=== PATIENT | male | born 1945 | race Caucasian/White ===

== ENCOUNTER 2021-01-29 00:10 | Emergency (ER) | payer OTHER, SELFPAY ==
--- NOTE | ~2021-01-29 | CT_ITS ---
EXAMINATION: CT brain wo con DATE: 01/29/2021 01:07 INDICATION: Headache. TECHNIQUE: Computed tomography (CT) of the head was performed without intravenous contrast. The mA wa s adjusted according to patient size. Iterative reconstruction technique was employed. The dose-lengt h product was 315.48 mGy-cm. COMPARISON: Head CT 11/19/2017 FINDINGS: There is a large area of chronic encephalomalacia involving the left temporal, frontal, and parietal lobes. There is no intracranial hemorrhage, acute infarction, or abnormal intracranial mass lesion. There is ex vacuo dilatation of temporal horn of left lateral ventricle. The paranasal sinus es are clear. The orbits are normal. The mastoid air cells are normal. There are changes of left-side d craniotomy. IMPRESSION: 1. Chronic encephalomalacia involving the left temporal, frontal, and parietal lobes. Reviewed, dictated and finalized at location A. 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
[2021-01-29 00:13] VITALS: BP 158/104; PULSE 87; RESP 18; TEMP 36.3; O2SAT 100
--- NOTE | 2021-01-29 00:39 | ED.HA ---
HPI - Headache General Chief Complaint: Headache Stated Complaint: Headache Time Seen by Provider: 01/29/21 00:20 Source: RN notes reviewed History of Present Illness HPI Narrative: Patient presents to emergency department from home for headache. Patient states headache is been going off and on for the past 10 days. The pain is located over the left frontal scalp and is in the region where the patient had 2 previous brain tumors removed back in the early 90s.. Patient's states she did give him 1 Aleve this evening. Patient has any fevers or chills vision changes numbness or tingling in extremities nausea vomiting or any other symptoms Related Data Home Medications Medication Instructions Recorded Confirmed alendronate 70 mg tablet 70 mg PO WEEKLY 11/03/19 12/29/20 alprazolam 0.25 mg tablet 0.25 mg PO TID PRN 11/03/19 12/29/20 escitalopram oxalate 5 mg tablet 5 mg PO DAILY 11/03/19 12/29/20 Allergies Allergy/AdvReac Type Severity Reaction Status Date / Time No Known Drug Allergies Allergy Unknown Unknown Verified 06/29/20 12:38 Review of Systems Review of Systems: Narrative: Gen.: Denies fevers or chills Eyes: Denies eye pain or visual change ENT: Denies congestion Respiratory: Denies shortness of breath or cough CV: Denies chest pain GI: Denies abdominal pain nausea, emesis or diarrhea Musculoskeletal: Denies back pain or muscle pain Neuro: See HPI Skin: Denies rash Except as documented, all other systems reviewed and negative PMFSH Past Medical History Medical History Controlled diabetes mellitus type II without complication Surgical History Surgical History (Updated 12/29/20 @ 13:29 by Kelly Hamilton CMA) H/O heart artery stent Family History Family History Mother Patient's mother is in good health Sibling Patient's sister is in good health Patient's brother is in good health Other Family history of arthritis Family history of malignant neoplasm of brain Family history of pancreatic cancer Malignant neoplasm of prostate Social History Social History Smoking status: Never smoker Alcohol intake: never Exam Narrative: Exam Narrative: APPEARANCE: No acute distress, nontoxic, resting in bed EYES: EOMI, PERRL HEENT: Normocephalic, atraumatic, OMM Neck: Supple, with range of motion no pain, no managements RESPIRATORY: No respiratory distress Clear to auscultation bilaterally with no rhonchi wheezing or rales. CARDIOVASCULAR: Regular rate and rhythm without murmurs rubs or gallops. ABDOMINAL: Soft, nontender, nondistended, no rebound or guarding MUSCULOSKELETAl: Moves all extremities. No clubbing, cyanosis or edema. NEURO: Awake and alertx 3. Following commands, speech normal, no focal deficits SKIN:: Warm, dry. No rashes lesions or abrasions PSYCHIATRIC: Normal affect/mood, Course Course Emergency Course: Otherwise the patient's been at his baseline mentally Patient's states headache is resolved at this time Discussed with patient results of workup and diagnosis. Discussed need for follow-up with primary care, proper use of medication, and reasons to return to the emergency department. Patient understands and agrees to current treatment plan Vital Signs Vital signs: Vital Signs Temperature 97.3 F L 01/29/21 00:13 Pulse Rate 87 01/29/21 00:13 Respiratory Rate 18 01/29/21 00:13 Blood Pressure 158/104 H 01/29/21 00:13 Pulse Oximetry 100 01/29/21 00:13 Temperature 97.3 F L 01/29/21 00:13 Pulse Rate 87 01/29/21 00:13 Respiratory Rate 18 01/29/21 00:13 Blood Pressure 158/104 H 01/29/21 00:13 Pulse Oximetry 100 01/29/21 00:13 MDM - Headache MDM Narrative Medical decision making narrative: Patient's headache was not sudden or maximal in onset. There are no focal deficits on exam
[2021-01-29] MEDS: SODIUM CHLORIDE 0.9% IV 1,000 ML 999 ML IV CONT (01:17)
[2021-01-29 03:57] VITALS: BP 198/75; PULSE 79; RESP 16; O2SAT 100
== END 2021-01-29 03:59 | disposition home or self-care (01) ==
PROVIDERS: Emergency Provider Emergency Medicine; PCP Internal Medicine
DX: R51.9 Headache, unspecified (principal); E11.9 Type 2 diabetes mellitus without complications; Z95.5 Presence of coronary angioplasty implant and graft
CPT/HCPCS: 70450; 96365; 96366; 99284; J0131; J7030

== ENCOUNTER 2021-02-12 15:18 | Outpatient (CLI) | payer OTHER, MEDICARE, SELFPAY | END 2021-02-12 15:19 | disposition home or self-care (01) | LOC: ANHCOVIDVC 15:18 | PROVIDERS: PCP Internal Medicine | DX: Z23 Encounter for immunization (principal) | CPT/HCPCS: 0001A; 91300 ==

== ENCOUNTER 2021-02-23 00:26 | Emergency (ER) | payer OTHER, SELFPAY ==
--- NOTE | ~2021-02-23 | XR_ITS ---
XR chest 2V DATE: 02/23/2021 01:38 INDICATION: Fall. TECHNIQUE: AP and lateral views COMPARISON: 11/27/2017 portable AP chest FINDINGS: Cardiomegaly. No hilar or mediastinal enlargement. No pulmonary infiltrate or consolidation, pleural effusion, pulmonary vascular congestion or pneumoth orax is evident. Diffuse osteopenia. IMPRESSION: Cardiomegaly No active pulmonary disease Reviewed, dictated and finalized at location A.
--- NOTE | ~2021-02-23 | CT_ITS ---
EXAMINATION: CT brain wo con DATE: 02/23/2021 01:22 INDICATION: Fall. TECHNIQUE: Computed tomography (CT) of the head was performed without intravenous contrast. The mA wa s adjusted according to patient size. Iterative reconstruction technique was employed. Exam dose: 68 1.00 mGy-cm total exam DLP. COMPARISON: 01/29/2021 CT brain FINDINGS: Chronic encephalomalacia of the left temporal, frontal and parietal lobes in the left middl e cerebral artery territory consistent with old infarct. There is central and cortical cerebral and cerebellar atrophy. No intracranial mass lesion or hemorrhage or recent cerebrovascular accident. No midline shift or mas s effect effect. No subdural or epidural hematoma. Status post left craniotomy with bone flap secured by plates and screws . No skull fracture is evident. The mastoid air cells and included paranasal sinuses are normally dev eloped and aerated. IMPRESSION: No acute intracranial finding, skull fracture or other significant change since 01/29/2021 Reviewed, dictated and finalized at Location A. Reviewed, dictated and finalized at location A.
--- NOTE | ~2021-02-23 | XR_ITS ---
XR foot RT min 3V DATE: 02/23/2021 01:38 INDICATION: Fall. Medial and heel pain. TECHNIQUE: 4 views COMPARISON: 04/24/2018 right foot FINDINGS: There is very prominent diffuse osteopenia. There is evidence of a fracture at the neck of the fifth metatarsal bone since 04/24/2018, apparently acute. No other recent fracture or any dislocation is evident. Probable old cortical avulsion fracture of th e anterior process of the talus. Minimal plantar calcaneal enthesopathy. IMPRESSION: Fifth metatarsal neck fracture Very prominent diffuse osteopenia Reviewed, dictated and finalized at location A.
[2021-02-23 00:27] VITALS: BP 150/59; PULSE 88; RESP 18; TEMP 36.5; O2SAT 98
--- NOTE | 2021-02-23 00:51 | ECG_ITS ---
Measurements Intervals [place] Rate: 83 P: 58 ID: [id number] QRS: -14 QRSD: 145 T: 102 QT: 379 QTc: 446 Interpretive Statements SINUS RHYTHM LEFT BUNDLE BRANCH BLOCK BASELINE ARTIFACT- I, II, AVR, AVL, AVF, V1 ABNORMAL ECG Electronically Signed On 02-23-2021 6:40:31 CDT by Jl Dillon D.O.
--- NOTE | 2021-02-23 00:53 | ED.GENADULT ---
HPI - General Adult General Chief complaint: Extremity Injury, Lower <Castro Rangel DO - Last Filed: 02/23/21 01:18> Stated complaint: r foot pain <Castro Rangel DO - Last Filed: 02/23/21 01:18> Time Seen by Provider: 02/23/21 00:38 <Castro Rangel DO - Last Filed: 02/23/21 01:18> Source: patient, RN notes reviewed and old records reviewed <Castro Rangel DO - Last Filed: 02/23/21 01:18> History of Present Illness HPI narrative: 75-year-old male presents to emergency department via EMS for a fall and right foot pain. Patient is a poor historian, A+O x2. Patient reports right foot pain after a fall he had at home in the bathroom this morning. Patient states he had no symptoms prior to falling. Patient states he uses a walker at home. No chest pain or shortness of breath at this time. No abdominal pain. No nausea or vomiting. <Castro Rangel DO - Last Filed: 02/23/21 01:18> Related Data Home medications: Home Medications Medication Instructions Recorded Confirmed aspirin 81 mg tablet,delayed 81 mg PO DAILY 02/07/21 release cholecalciferol (vitamin D3) 50 50 mcg PO DAILY 02/07/21 mcg (2,000 unit) capsule wheat dextrin 5 gram/7.4 gram oral See Rx Instructions PO DAILY g 02/07/21 powder <Castro Rangel DO - Last Filed: 02/23/21 01:18> Allergies/adverse reactions: Allergies Allergy/AdvReac Type Severity Reaction Status Date / Time No Known Drug Allergies Allergy Unknown Unknown Verified 02/23/21 00:34 <Castro Rangel DO - Last Filed: 02/23/21 01:18> Review of Systems Review of Systems: Narrative: CONSTITUTIONAL: Denies fever, chills, or sweats. Fall EYES: Denies visual changes, redness, or discharge. ENT: Denies rhinorrhea, congestion, sore throat, or otalgia. CARDIOVASCULAR: Denies chest pain, palpitations, or edema. RESPIRATORY: Denies cough or dyspnea. GASTROINTESTINAL: Denies abdominal pain, nausea, vomiting, or diarrhea. GENITOURINARY: Denies dysuria or hematuria. SKIN: Denies rash or itching. MUSCULOSKELETAL: Right foot pain NEUROLOGIC: Denies headache, numbness, dizziness, or weakness. PSYCHIATRIC: Denies anxiety or depression. <Castro Rangel DO - Last Filed: 02/23/21 01:18> All systems reviewed & are unremarkable except as noted in HPI and below (ROS) <Castro Rangel DO - Last Filed: 02/23/21 01:18> PMFSH Past Medical History Medical History: Medical History Anemia of chronic disease Anxiety Ataxia, post-stroke Controlled diabetes mellitus type II without complication Coronary artery disease involving [place] coronary artery of [place] heart Diabetic polyneuropathy associated with type 2 diabetes mellitus History of prostate cancer History of stroke Hx of brain cancer Mixed hyperlipidemia Oropharyngeal dysphagia PAD (peripheral artery disease) Right hemiparesis Seizure disorder Vitamin D deficiency <Castro Rangel DO - Last Filed: 02/23/21 01:18> Surgical History Surgical History: Surgical History H/O heart artery stent <Castro Rangel DO - Last Filed: 02/23/21 01:18> Family History Family History: Family History Mother Patient's mother is in good health Sibling Patient's sister is in good health Patient's brother is in good health Other Family history of arthritis Family history of malignant neoplasm of brain Family history of pancreatic cancer Malignant neoplasm of prostate <Castro Rangel DO - Last Filed: 02/23/21 01:18> Social History Social History: Social History Smoking status: Never smoker Alcohol intake: never <Castro Rangel DO - Last Filed: 02/23/21 01:18> Exam Narrative: Exam Narrative: GENERAL: Well-appearing, well-nourishe
[2021-02-23 01:22] LABS: Basophils Percent Auto 0.2 % (0.2-1.2); Eosinophils Percent Auto 0.1 % (0-4.4); Hematocrit 41.2 % (42.0-52.0); Immature Granulocyte Absolute 0.04 K/mm3 (0.00-0.031); Immature Granulocyte Percent A 0.3 % (0-0.5); Lymphocytes Absolute Auto 1.64 K/mm3 (0.9-3.2); Lymphocytes Percent Auto 14.1 % (18.3-44.2); Mean Corpuscular HGB Conc 31.6 g/dl (32-36); Mean Corpuscular Hemoglobin 31.3 pg (26-34); Mean Corpuscular Volume 99.3 fl (80-100); Mean Platelet Volume 9.6 fl (7.4-10.4); Monocytes Absolute Auto 0.8 K/mm3 (0.1-0.6); Monocytes Percent Auto 6.7 % (2.6-8.5); Neutrophils Absolute Auto 9.1 K/mm3 (1.3-6.7); Neutrophils Percent Auto 78.6 % (45.5-73.1); Platelet Count Result 319 k/mm3 (150-375); Red Blood Count 4.15 M/mm3 (4.6-6.20); Red Cell Distribution Width 13.3 % (11.5-14.5); White Blood Count 11.6 K/mm3 (4.5-10.0)
[2021-02-23 01:34] LABS: Acetaminophen < 10 ug/mL (10-30); Alanine Aminotransferase 27 U/L (4-50); Alkaline Phosphatase 162 U/L (38-126); Anion Gap 4 mmol/L (8-16); Aspartate Amino Transferase 32 U/L (17-59); Bilirubin,Total 0.4 mg/dL (0.2-1.3); Blood Urea Nitrogen 27 mg/dL (9-20); Calcium 8.8 mg/dL (8.4-10.2); Carbon Dioxide 37 mmol/L (22-30); Chloride 97 mmol/L (98-107); Estimated CRCL calculation 39 ml/min; Estimated Glomerular Filt Rate 45; Glucose 140 mg/dL (75-110); Magnesium 1.8 mg/dL (1.6-2.3); Potassium 4.4 mmol/L (3.4-5.0); Salicylate < 1.0 mg/dL (2-20); Sodium 138 mmol/L (137-145)
[2021-02-23 01:45] LABS: NT Pro B Type Natriuretic Pept 143 PG/ML (5-100); Troponin I < 0.012 ng/mL (0.000-0.034)
[2021-02-23 01:56] LABS: Add Urine Microscopic? YES; Appearance Urine Cloudy (Clear); Bacteria Urine Trace /hpf; Bilirubin Urine Negative (Negative); Blood Urine Negative (Negative); Color Urine Yellow (Yellow); Glucose Urine UA Negative (Negative); Ketones Urine Negative (Negative); Leukocyte Esterase Ur 2+ LEU/UL (Negative); Mucus Urine Rare /lpf; Nitrate Urine Negative (Negative); Protein Urine Negative (Negative); RBC Urine 0-2 /hpf (0-2); Specific Grav Ur 1.012 (1.001-1.035); Urobilinogen Urine Negative mg/dL (<2.0); WBC Urine 31-50 /hpf
[2021-02-23 02:25] VITALS: BP 158/61; PULSE 82; RESP 18; O2SAT 96
== END 2021-02-23 02:25 | disposition home or self-care (01) ==
PROVIDERS: Emergency Provider Emergency Medicine; PCP Internal Medicine
DX: S93.601A Unspecified sprain of right foot, initial encounter (principal); D63.8 Anemia in other chronic diseases classified elsewhere; I25.10 Atherosclerotic heart disease of native coronary artery without angina pectoris; E11.42 Type 2 diabetes mellitus with diabetic polyneuropathy; E78.2 Mixed hyperlipidemia; E11.51 Type 2 diabetes mellitus with diabetic peripheral angiopathy without gangrene; G40.909 Epilepsy, unspecified, not intractable, without status epilepticus; Z85.841 Personal history of malignant neoplasm of brain; Z86.73 Personal history of transient ischemic attack (TIA), and cerebral infarction without residual deficits; Z85.46 Personal history of malignant neoplasm of prostate; E55.9 Vitamin D deficiency, unspecified; Z95.5 Presence of coronary angioplasty implant and graft; R82.90 Unspecified abnormal findings in urine; Z79.82 Long term (current) use of aspirin; Z79.84 Long term (current) use of oral hypoglycemic drugs; W19.XXXA Unspecified fall, initial encounter
CPT/HCPCS: 36415; 70450; 71046; 73630; 80053; 80307; 81001; 83735; 83880; 84443; 84484; 85025; 87077; 87086; 87088; 87186; 93005; 99284

== ENCOUNTER 2021-03-02 04:20 | Emergency (ER) | payer OTHER, SELFPAY ==
--- NOTE | ~2021-03-02 | CT_ITS ---
EXAMINATION: CT brain wo con DATE: 03/02/2021 04:47 INDICATION: Syncope TECHNIQUE: Computed tomography (CT) of the head was performed without intravenous contrast. The dose- length product was 756.67 mGy-cm. Automated exposure control and iterative reconstruction technique w ere employed. COMPARISON: CT dated 03/02/2021 FINDINGS: No acute intracranial hemorrhage, infarction, mass or mass effect. Large chronic left MCA d istribution infarction with encephalomalacia. There is intracranial atherosclerosis. There is a left parietal craniotomy defect. No ventriculomegaly or midline shift. Paranasal sinuses and mastoids are unremarkable. IMPRESSION: 1. No acute intracranial abnormality. 2: Chronic left MCA distribution infarction with encephalomalacia. Reviewed, dictated and finalized at location B.
--- NOTE | 2021-03-02 04:23 | PC.NURSE ---
EDMD present at bedside. Pt presents to ED with syncopal episode that onset at approx 0400 while using restroom. Pt states he is unsure if he was straining at at time of onset. Pt denies hitting head, falling, all pain and discomfort, nvd, fever and chills. Vitals are stable and pt denies use of home O2. O2 100% on room air. Pt alert and oriented x3.
[2021-03-02 04:26] VITALS: BP 137/61; PULSE 71; RESP 20; TEMP 36.6; O2SAT 98
--- NOTE | 2021-03-02 04:27 | ECG_ITS ---
Measurements Intervals [place] Rate: 75 P: 65 [place]: 175 QRS: 72 QRSD: 106 T: 32 QT: 365 QTc: 408 Interpretive Statements SINUS RHYTHM INCOMPLETE LEFT BUNDLE BRANCH BLOCK BORDERLINE ST-T WAVE ABNORMALITY- INF/LAT LEADS BASELINE ARTIFACT- I, II, III, AVR, AVL, AVF, V5-V6 ABNORMAL ECG Electronically Signed On 03-02-2021 7:12:19 CDT by Jl Dillon D.O.
--- NOTE | 2021-03-02 04:27 | ED.SYNCOPE ---
HPI - Syncope General Chief Complaint: Syncope <Leroy Wynne MD - Last Filed: 03/08/21 13:20> Stated Complaint: syncopal with bm <Leroy Wynne MD - Last Filed: 03/08/21 13:20> History of Present Illness HPI narrative: Syncopal episode while on the toilet tonight. He denies any prodrome. He was still on the toilet semi-conscious when EMS arrived. He quickly became lucid once they moved him. On chart review it appears that he had a UTI when he was seen here 6 days ago that has been confirmed by culture and does not seem to have been treated. <Leroy Wynne MD - Last Filed: 03/08/21 13:20> Related Data Home Medications: Home Medications Medication Instructions Recorded Confirmed aspirin 81 mg tablet,delayed 81 mg PO DAILY 02/07/21 release cholecalciferol (vitamin D3) 50 50 mcg PO DAILY 02/07/21 mcg (2,000 unit) capsule wheat dextrin 5 gram/7.4 gram oral See Rx Instructions PO DAILY g 02/07/21 powder <Leroy Wynne MD - Last Filed: 03/08/21 13:20> Allergies/Adverse Reactions: Allergies Allergy/AdvReac Type Severity Reaction Status Date / Time No Known Drug Allergies Allergy Unknown Unknown Verified 02/23/21 00:34 <Leroy Wynne MD - Last Filed: 03/08/21 13:20> Review of Systems Review of Systems: All systems reviewed & are unremarkable except as noted in HPI and below <Leroy Wynne MD - Last Filed: 03/08/21 13:20> Constitutional: Constitutional: Denies chills and Denies fever(s) <Leroy Wynne MD - Last Filed: 03/08/21 13:20> ENT: Reports system reviewed and no additional complaints, except as documented <Leroy Wynne MD - Last Filed: 03/08/21 13:20> Cardiovascular: Cardiovascular: Denies chest pain <Leroy Wynne MD - Last Filed: 03/08/21 13:20> Respiratory: Respiratory: Denies dyspnea <Leroy Wynne MD - Last Filed: 03/08/21 13:20> Gastrointestinal: Gastrointestinal: Denies diarrhea, Denies nausea and Denies vomiting <Leroy Wynne MD - Last Filed: 03/08/21 13:20> Genitourinary: Genitourinary: Reports urinary frequency <Leroy Wynne MD - Last Filed: 03/08/21 13:20> Neurologic: Denies confusion and Reports syncope <Leroy Wynne MD - Last Filed: 03/08/21 13:20> [facility] Past Medical History Medical History: Medical History Anemia of chronic disease Anxiety Ataxia, post-stroke Controlled diabetes mellitus type II without complication Coronary artery disease involving [place] coronary artery of [place] heart Diabetic polyneuropathy associated with type 2 diabetes mellitus History of prostate cancer History of stroke Hx of brain cancer Mixed hyperlipidemia Oropharyngeal dysphagia PAD (peripheral artery disease) Right hemiparesis Seizure disorder Vitamin D deficiency <eLroy Wynne MD - Last Filed: 03/08/21 13:20> Surgical History Surgical History: Surgical History H/O heart artery stent <Leroy Wynne MD - Last Filed: 03/08/21 13:20> Family History Family History: Family History Mother Patient's mother is in good health Sibling Patient's sister is in good health Patient's brother is in good health Other Family history of arthritis Family history of malignant neoplasm of brain Family history of pancreatic cancer Malignant neoplasm of prostate <Leroy Wynne MD - Last Filed: 03/08/21 13:20> Social History Social History: Social History Smoking status: Never smoker Alcohol intake: never <Leroy Wynne MD - Last Filed: 03/08/21 13:20> Exam Const: General: no acute distress, alert and ill appearing chronically <Leroy Wynne MD - Last Filed: 03/08/21 13:20> Orientation/con
--- NOTE | 2021-03-02 04:29 | PC.NURSE ---
Pt denies lightheadedness and dizziness but complains of a headache. Headache pain rated 6/10 at this time.
[2021-03-02] MEDS: SODIUM CHLORIDE 0.9% IV 1,000 ML 999 ML IV CONT (04:35)
--- NOTE | 2021-03-02 04:37 | PC.NURSE ---
Pt to CT via cart.
--- NOTE | 2021-03-02 04:47 | PC.NURSE ---
Pt returned from CT. Now back in room resting on cart in its lowest position with call button and personal items within reach. Advised to press call button for assistance.
[2021-03-02 05:29] LABS: Basophils Percent Auto 0.3 % (0.2-1.2); Eosinophils Absolute Auto 0.1 K/mm3 (0-0.3); Eosinophils Percent Auto 0.5 % (0-4.4); Hemoglobin 12.6 g/dL (14.0-18.0); Immature Granulocyte Absolute 0.02 K/mm3 (0.00-0.031); Immature Granulocyte Percent A 0.2 % (0-0.5); Lymphocytes Absolute Auto 2.18 K/mm3 (0.9-3.2); Lymphocytes Percent Auto 22.9 % (18.3-44.2); Mean Corpuscular HGB Conc 31.5 g/dl (32-36); Mean Corpuscular Hemoglobin 31.4 pg (26-34); Mean Corpuscular Volume 99.8 fl (80-100); Mean Platelet Volume 9.8 fl (7.4-10.4); Monocytes Absolute Auto 0.9 K/mm3 (0.1-0.6); Monocytes Percent Auto 9.2 % (2.6-8.5); Neutrophils Absolute Auto 6.4 K/mm3 (1.3-6.7); Neutrophils Percent Auto 66.9 % (45.5-73.1); Platelet Count Result 335 k/mm3 (150-375); Red Blood Count 4.01 M/mm3 (4.6-6.20); Red Cell Distribution Width 13.1 % (11.5-14.5); White Blood Count 9.5 K/mm3 (4.5-10.0)
[2021-03-02 05:40] LABS: Prothrombin Time 13.9 Seconds (11.1-14.7)
[2021-03-02 05:41] LABS: Partial Thromboplastin Time 25.3 SECONDS (22.3-36.8)
[2021-03-02 05:43] LABS: Add Urine Microscopic? YES; Appearance Urine Cloudy (Clear); Bacteria Urine 1+ /hpf; Bilirubin Urine Negative (Negative); Blood Urine Negative (Negative); Color Urine Yellow (Yellow); Glucose Urine UA 1+ mg/dL (Negative); Ketones Urine Negative (Negative); Leukocyte Esterase Ur 2+ LEU/UL (Negative); Mucus Urine Rare /lpf; Nitrate Urine Negative (Negative); Protein Urine 1+ mg/dL (Negative); Specific Grav Ur 1.016 (1.001-1.035); Squamous Epithelial Cell Urine Rare /hpf (Few); Urobilinogen Urine Negative mg/dL (<2.0); WBC Clumps Urine Present /HPF; WBC Urine 31-50 /hpf
[2021-03-02 05:49] LABS: Alanine Aminotransferase 27 U/L (4-50); Albumin Level 4.3 g/dL (3.5-5.1); Alkaline Phosphatase 137 U/L (38-126); Anion Gap 6 mmol/L (8-16); Aspartate Amino Transferase 29 U/L (17-59); Bilirubin,Total 0.2 mg/dL (0.2-1.3); Blood Urea Nitrogen 26 mg/dL (9-20); Carbon Dioxide 36 mmol/L (22-30); Chloride 98 mmol/L (98-107); Estimated Glomerular Filt Rate 54; Glucose 207 mg/dL (75-110); Potassium 4.2 mmol/L (3.4-5.0); Sodium 140 mmol/L (137-145)
[2021-03-02 05:56] VITALS: BP 166/54; PULSE 83; RESP 18; O2SAT 100
--- NOTE | 2021-03-02 05:56 | PC.NURSE ---
presented to ED and confirms narrative provided by EMS. Pt remains alert and oriented to baseline. Vitals are stable and pt in no obvious distress.
--- NOTE | 2021-03-02 05:58 | PC.NURSE ---
adds that pt has been complaining of lower abdominal pain for the past couple of weeks . States pt is normally able to urinate on his own. Also confirms that pt does not use home O2.
--- NOTE | 2021-03-02 06:15 | PC.NURSE ---
Pt requests to speak with EDMD. EDMD notified and presented to bedside. All questions and concerns addressed. and pt advised to press call button for assistance.
--- NOTE | 2021-03-02 06:28 | PC.NURSE ---
Pt states that he feels better but he feels weak. Pt remains alert and oriented to baseline. Call button and personal items within reach. Pt and aware of the need to press call button for assistance.
--- NOTE | 2021-03-02 06:52 | PC.NURSE ---
Pt ambulated in room to determine his ability to manipulate environment and light headedness. Pt did fair and denies lightheadedness and dizziness; states he feels weak. present at bedside. Vitals remain stable.
[2021-03-02 06:58] VITALS: PULSE 83; RESP 18; TEMP 36.7; O2SAT 100
--- NOTE | 2021-03-02 07:03 | PC.NURSE ---
Pt complaining of being hungry and states pt becomes weak when he is hungry. EDMD states to feed pt and then reassess weakness afterwards.
--- NOTE | 2021-03-02 07:05 | PC.NURSE ---
Pt endorsed to oncoming nurse, who states she will order pt a breakfast tray. Pt and aware.
[2021-03-02 08:15] VITALS: BP 167/60; PULSE 86; RESP 22; O2SAT 99
--- NOTE | 2021-03-02 09:11 | PC.NURSE ---
Per Dr. Linda get pt up to walk. Pt used walker and was able to walk to end of bed. Pt states it is harder because he uses a walker with wheels. Pt was able to get back in bed with little assistance. Informed Dr. Linda of this.
== END 2021-03-02 09:20 | disposition home or self-care (01) ==
PROVIDERS: Emergency Provider Emergency Medicine; PCP Internal Medicine
DX: N39.0 Urinary tract infection, site not specified (principal); I69.393 Ataxia following cerebral infarction; I25.10 Atherosclerotic heart disease of native coronary artery without angina pectoris; Z85.46 Personal history of malignant neoplasm of prostate; Z85.841 Personal history of malignant neoplasm of brain; E78.2 Mixed hyperlipidemia; E11.51 Type 2 diabetes mellitus with diabetic peripheral angiopathy without gangrene; E55.9 Vitamin D deficiency, unspecified; Z95.5 Presence of coronary angioplasty implant and graft; G40.909 Epilepsy, unspecified, not intractable, without status epilepticus; Z79.82 Long term (current) use of aspirin; Z79.84 Long term (current) use of oral hypoglycemic drugs; I44.7 Left bundle-branch block, unspecified; R94.31 Abnormal electrocardiogram [ECG] [EKG]
CPT/HCPCS: 36415; 70450; 80053; 81001; 85025; 85610; 85730; 87077; 87086; 87088; 87186; 93005; 96361; 96365; 99284; J0696; J7030

== ENCOUNTER 2021-03-05 15:21 | Outpatient (CLI) | payer OTHER, MEDICARE, SELFPAY | END 2021-03-05 15:22 | disposition home or self-care (01) | LOC: ANHCOVIDVC 15:21 | PROVIDERS: PCP Internal Medicine | DX: Z23 Encounter for immunization (principal) | CPT/HCPCS: 0002A; 91300 ==

== ENCOUNTER 2021-09-11 22:46 | Inpatient (IN) | payer OTHER, SELFPAY ==
--- NOTE | ~2021-09-11 | US_ITS ---
US venous doppler UE DATE: 09/13/2021 11:45 INDICATION: Deep venous thrombosis TECHNIQUE: Real-time and color flow imaging and Doppler analysis COMPARISON: None FINDINGS: The internal jugular, subclavian, axillary, brachial, basilic, cephalic, radial and ulnar v eins are patent bilaterally. There is no evidence of intraluminal thrombus or occlusion. IMPRESSION: No evidence of deep venous thrombosis of the upper extremities Reviewed, dictated and finalized at Location A. Reviewed, dictated and finalized at location B.
--- NOTE | ~2021-09-11 | US_ITS ---
US venous doppler [facility] DATE: 09/13/2021 11:44 INDICATION: Deep venous thrombosis TECHNIQUE: Real-time and color flow imaging and Doppler analysis of the veins of the lower extremitie s COMPARISON: None FINDINGS: There is spontaneous and phasic flow and normal augmentation and color flow signal and norm al compression of the deep veins of both lower extremities. The greater saphenous veins are patent. IMPRESSION: No evidence of deep venous thrombosis of the lower extremities Reviewed, dictated and finalized at Location A. Reviewed, dictated and finalized at location B.
--- NOTE | ~2021-09-11 | CT_ITS ---
EXAMINATION: CT brain wo con EXAM DATE: 09/12/2021 01:08 INDICATION: Right-sided weakness. Brain, prostate cancer. TECHNIQUE: Spiral CT of the head was performed without contrast. Axial, coronal and sagittal images were reviewed. The dose-length product (DLP) for this examination was 529.67 mGy-cm. The exposure w as tailored according to patient size, and iterative reconstruction (ASIR) was used as additional dos e reduction technique. Comparison is made to prior examination from 03/02/2021. FINDINGS: There is no acute intraparenchymal hemorrhage. No evidence of intraparenchymal brain mass lesion. No evidence of acute infarction. Please note that initial head CT has limited sensitivity f or small or acute infarctions. There is large old left middle cerebral artery distribution region of encephalomalacia. There is overlying craniotomy, correlate with prior history. There is mild to mod erate periventricular and subcortical hypodensity, nonspecific but probably related to small vessel i schemic disease. There is moderate to severe prominence of the sulci and ventricles related to cere bral atrophy. There is intracranial carotid arteriosclerosis. There are no extra-axial collections . There is no mass effect or midline shift. The orbits are unremarkable. Soft tissue is unremarkab le. The visualized sinuses and mastoid air cells are well aerated. IMPRESSION: 1. No acute intracranial findings. 2. Chronic age related findings. 3. Old left MCA distribution infarction. Reviewed, dictated and finalized at location A.
--- NOTE | ~2021-09-11 | XR_ITS ---
XR chest 1V portable 09/15/2021 05:44 Indication: CHF. Dyspnea. Procedure: AP portable chest Comparison: Comparison to multiple prior studies sequentially, with oldest reviewed study dated 10/31. Findings: Cardiomegaly. There is mild interstitial edema. No significant effusion or pneumothorax. No acute osseous abnormality. Impression: 1: Cardiomegaly with mild interstitial edema. Reviewed, dictated and finalized at location A. Impression: 1: Cardiomegaly with mild interstitial edema.
--- NOTE | ~2021-09-11 | NM_ITS ---
EXAMINATION: NM pulmonary perfusion EXAM DATE: 09/13/2021 11:40 INDICATION: Cough. TECHNIQUE: A perfusion lung scan was performed. The patient was injected with 5 mCi technetium 99m M AA and imaged. Modified PIOPED 2 criteria used for interpretation of perfusion without ventilation st udy (recent chest x-ray instead for comparison). Correlation is made to chest x-ray from yesterday. FINDINGS: Mildly heterogeneous perfusion without segmental defect. There are scattered vague lung opa cities on the chest x-ray, probably acute edema or pneumonia. No segmental mismatch. Low probability pulmonary embolism. IMPRESSION: Low probability pulmonary embolism. Reviewed, dictated and finalized at location A.
--- NOTE | ~2021-09-11 | XR_ITS ---
EXAMINATION: XR chest 1V EXAM DATE: 09/12/2021 01:11 INDICATION: cough, HX OF HTN, HX OF Diabetes, Poor Historian. TECHNIQUE: Portable AP frontal chest x-ray was obtained. Comparison is made to prior examination from 02/23/2021. FINDINGS: There is cardiomegaly and pulmonary vascular congestion. Diffuse indistinct reticulation mo st consistent with pulmonary edema. Please clinically correlate for possible CHF exacerbation. Pneumo jesica not excludable. There is bilateral hilar prominence probably dilated pulmonary arteries, pulmonary arterial hypertens ion. No pneumothorax or sizable pleural effusion. Patient has diffuse idiopathic skeletal hyperostosi s (DISH). IMPRESSION: 1. Findings consistent with CHF exacerbation. 2. Pneumonia not excludable. Reviewed, dictated and finalized at location A.
[2021-09-11 22:46] VITALS: BP 123/64; PULSE 92; RESP 13; TEMP 37; O2SAT 98
--- NOTE | 2021-09-11 23:20 | ECG_ITS ---
Measurements Intervals [place] Rate: 91 P: 73 AR: 178 QRS: -20 QRSD: 154 T: 89 QT: 367 QTc: 452 Interpretive Statements SINUS RHYTHM LEFT BUNDLE BRANCH BLOCK BASELINE ARTIFACT- I, II, III, AVR, AVL, AVF, V3-V6 ABNORMAL ECG Electronically Signed On 09-12-2021 7:07:36 CDT by Jl Dillon D.O.
[2021-09-11 23:40] LABS: Basophils Percent Auto 0.2 % (0.2-1.2); Eosinophils Percent Auto 0.4 % (0-4.4); Hematocrit 40.6 % (42.0-52.0); Hemoglobin 12.7 g/dL (14.0-18.0); Immature Granulocyte Absolute 0.02 K/mm3 (0.00-0.031); Immature Granulocyte Percent A 0.2 % (0-0.5); Lymphocytes Absolute Auto 1.76 K/mm3 (0.9-3.2); Lymphocytes Percent Auto 17.8 % (18.3-44.2); Mean Corpuscular HGB Conc 31.3 g/dl (32-36); Mean Corpuscular Volume 105.5 fl (80-100); Mean Platelet Volume 10.3 fl (7.4-10.4); Monocytes Absolute Auto 0.7 K/mm3 (0.1-0.6); Monocytes Percent Auto 7.3 % (2.6-8.5); Neutrophils Absolute Auto 7.3 K/mm3 (1.3-6.7); Neutrophils Percent Auto 74.1 % (45.5-73.1); Platelet Count Result 322 k/mm3 (150-375); Red Blood Count 3.85 M/mm3 (4.6-6.20); Red Cell Distribution Width 14.6 % (11.5-14.5); White Blood Count 9.9 K/mm3 (4.5-10.0)
[2021-09-11 23:47] LABS: Alanine Aminotransferase 29 U/L (4-50); Albumin Level 4.3 g/dL (3.5-5.1); Alkaline Phosphatase 155 U/L (38-126); Aspartate Amino Transferase 35 U/L (17-59); Bilirubin,Total 0.4 mg/dL (0.2-1.3); Blood Urea Nitrogen 47 mg/dL (9-20); Carbon Dioxide > 40 mmol/L (22-30); Chloride 98 mmol/L (98-107); Estimated CRCL calculation 31 ml/min; Estimated Glomerular Filt Rate 37; Glucose 122 mg/dL (65-110); Potassium 5.1 mmol/L (3.4-5.0); Sodium 144 mmol/L (137-145)
[2021-09-12] VITALS (14 sets, daily range): BP systolic 97–170; BP diastolic 54–73; PULSE 68–88; RESP 18–26; TEMP 36.3–37; O2SAT 95–100
--- NOTE | 2021-09-12 | ECHO_ITS ---
Patient Info Name: Angelo Bartholomew Age: 76 years : 1945 Gender: Male Ht: 69 in Wt: 187 lbs BSA: 2.05 m2 HR: 89 bpm BP: 134 / 72 mmHg Heart Rhythm: Sinus Rhythm Exam Date: 09/12/2021 8:06 AM Exam Location: [facility] Patient Status: Outpatient Admit Date: 09/12/2021 Staff Ordering Physician: Deepti Brown MD [employer] Technician: Kar Valdivia RDCS, RT Attending Provider: Mindi Holland PA-C Referring Physician: Kevin ESTRADA; Exam Type: CA echo doppler color flow Study Info Indications I50.9 - Heart failure, unspecified Complete two-dimensional, color flow and Doppler transthoracic echocardiogram is performed. Summary 1. Complete two-dimensional, color flow and Doppler transthoracic echocardiogram is performed. 2. Technically difficult study with limited views. Regional wall motion assessment limited due to poor endomyocardial border definition in several views. 3. Left ventricular systolic function is normal, estimated at 60-65%. 4. There is mild to moderately increased left ventricular wall thickness. 5. The left ventricular diastolic function is grade I diastolic dysfunction. 6. There is mild to moderate tricuspid valve regurgitation. 7. Severe pulmonary hypertension, estimated pulmonary arterial systolic pressure is 86 mmHg. 8. Dilated inferior vena cava with no collapse upon inspiration consistent with significantly elevated right atrial pressure, 15 mmHg. Left Ventricle Left ventricular chamber dimension is normal. Left ventricular systolic function is normal, estimated at 60-65%. There is mild to moderately increased left ventricular wall thickness. Left ventricular septal wall motion is abnormal with septal motion related to bundle branch block. The left ventricular diastolic function is grade I diastolic dysfunction. Technically difficult study with limited views. Regional wall motion assessment limited due to poor endomyocardial border definition in several views. Right Ventricle Right ventricular chamber dimension is normal. Right ventricular systolic function is normal. Left Atria Left atrial chamber dimension is mildly enlarged. Right Atria Right atrial chamber dimension is mildly enlarged. Aortic Valve The aortic valve is trileaflet. There is mild aortic valve sclerosis. There is no aortic valve stenosis. There is no aortic valve regurgitation. Pulmonic Valve The pulmonic valve is not well visualized. There is trace pulmonic regurgitation. Mitral Valve The mitral valve has normal leaflets. There is trace mitral valve regurgitation. The mitral valve annulus is mildly calcified. Tricuspid Valve The tricuspid valve leaflets are normal. There is mild to moderate tricuspid valve regurgitation. Severe pulmonary hypertension, estimated pulmonary arterial systolic pressure is 86 mmHg. Pericardium/Pleural The pericardium appears normal. There is small pericardial effusion. Inferior Vena Cava Dilated inferior vena cava with no collapse upon inspiration consistent with significantly elevated right atrial pressure, 15 mmHg. Aorta The aortic root size at the sinus of Valsalva is normal. Left Ventricular Outflow Tract Name Value Normal LVOT 2D LVOT Diameter
[2021-09-12 02:02] LABS: Add Urine Microscopic? YES; Appearance Urine Clear (Clear); Bacteria Urine Trace /hpf; Bilirubin Urine Negative (Negative); Blood Urine 1+ (Negative); Color Urine Yellow (Yellow); Glucose Urine UA Negative (Negative); Ketones Urine Negative (Negative); Leukocyte Esterase Ur Negative LEU/UL (Negative); Mucus Urine Rare /lpf; Nitrate Urine Negative (Negative); Protein Urine Negative (Negative); Specific Grav Ur 1.017 (1.001-1.035); Urobilinogen Urine Negative mg/dL (<2.0); WBC Urine 0-3 /hpf
[2021-09-12 02:13] LABS: NT Pro B Type Natriuretic Pept 3350 pg/mL (5-100); Troponin I 0.036 ng/mL (0.000-0.034)
--- NOTE | 2021-09-12 02:15 | PC.NURSE ---
Per EDP took pt off of O2 to see how he does. pt dropped to 85%. placed pt back on 3L of oxygen and pt back up to 97%.
[2021-09-12 02:18] LABS: Troponin I 0.029 ng/mL (0.000-0.034)
--- NOTE | 2021-09-12 02:42 | ED.GENADULT ---
HPI - General Adult General Chief complaint: Weakness Stated complaint: RT SIDE WEAKNESS - FAST 0 Time Seen by Provider: 09/12/21 00:25 History of Present Illness HPI narrative: Patient 76-year-old gentleman who presents the emergency department with chief complaint of right-sided weakness and hypoxia. Per the patient's family patient's been a bit weaker over the last couple of days but noticed at around 11:00 today when they reevaluated him that he was weaker on the right side the patient has history of stroke with prior weakness on the right side with a stick it is worse than normal when EMS was called they found the patient to be hypoxic with a room air saturation in the 80s patient is not normally on home oxygen. The patient currently has no complaints but is not able to provide much history at this time. Related Data Home Medications Medication Instructions Recorded Confirmed aspirin 81 mg tablet,delayed 81 mg PO DAILY 02/07/21 07/13/21 release cholecalciferol (vitamin D3) 50 50 mcg PO DAILY 02/07/21 07/13/21 mcg (2,000 unit) capsule wheat dextrin 5 gram/7.4 gram oral See Rx Instructions PO DAILY g 02/07/21 powder Allergies Allergy/AdvReac Type Severity Reaction Status Date / Time No Known Drug Allergies Allergy Unknown Unknown Verified 09/11/21 23:01 Review of Systems Review of Systems: A 10 system review of systems was completed on the patient and is negative except for what is stated in the HPI. Nursing and ancillary documentation was reviewed. FORMERLY [facility] Past Medical History Medical History Anemia of chronic disease Anxiety Ataxia, post-stroke Controlled diabetes mellitus type II without complication Coronary artery disease involving [place] coronary artery of [place] heart Diabetic polyneuropathy associated with type 2 diabetes mellitus History of prostate cancer History of stroke Hx of brain cancer Mixed hyperlipidemia Oropharyngeal dysphagia PAD (peripheral artery disease) Right hemiparesis Seizure disorder Vitamin D deficiency Surgical History Surgical History H/O heart artery stent Family History Family History Mother Patient's mother is in good health Sibling Patient's sister is in good health Patient's brother is in good health Other Family history of arthritis Family history of malignant neoplasm of brain Family history of pancreatic cancer Malignant neoplasm of prostate Social History Social History Second hand tobacco smoke exposure: No Alcohol intake: never Exam Narrative: GENERAL: Well-appearing, well-nourished, and in no acute distress. HEAD: Normocephalic, atraumatic. EYES: PERRLA and EOMI. ENT: Nares clear, no rhinorrhea or epistaxis. Mucous membranes moist. NECK: Supple. CHEST: Clear to auscultation. No respiratory distress. HEART: Regular rate and rhythm. No murmur heard. Normal peripheral pulses. ABDOMEN: Soft, nontender, nondistended, normal active bowel sounds. EXTREMITIES: Normal range of motion. No edema. SKIN: Warm, dry, no rash. NEURO: Right-sided facial droop and right upper extremity and right lower extremity weakness. Alert and oriented x3. PSYCH: Normal mood and affect. Course Vital Signs Vital signs: Vital Signs Temperature 37.0 C 09/11/21 22:46 Pulse Rate 92 09/11/21 22:46 Respiratory Rate 13 09/11/21 22:46 Blood Pressure 123/64 09/11/21 22:46 Pulse Oximetry 98 09/11/21 22:46 Temperature 37.0 C 09/11/21 22:46 Pulse Rate 87 09/12/21 01:19 Respiratory Rate 26 H 09/12/21 01:19 Blood Pressure 144/73 H 09/12/21 01:19 Pulse Oximetry 98 09/12/21 01:19 Medical Decision Making Vital Signs Vital Signs: Vital Signs Temperature 37.0 C 09/11/21 22:46 P
[2021-09-12] MEDS: ASPIRIN 81 MG CHEWABLE TABLET 324 MG PO (02:50)
[2021-09-12] MEDS: FUROSEMIDE INJ 40 MG/4 ML VIAL IV PUSH ×3 (02:50→20:40)
--- NOTE | 2021-09-12 03:10 | ECG_ITS ---
Measurements Intervals [place] Rate: 83 P: 72 TN: 180 QRS: -22 QRSD: 162 T: 129 QT: 396 QTc: 467 Interpretive Statements SINUS RHYTHM LEFT BUNDLE BRANCH BLOCK BASELINE ARTIFACT- I, II, III, AVR, AVF, V2-V6 ABNORMAL ECG Electronically Signed On 09-13-2021 13:43:07 CDT by Jl Dillon D.O.
--- NOTE | 2021-09-12 03:21 | PM.IMHP ---
H&P: HPI History of Present Illness Date/Time: 09/12/21 03:21 Chief Complaint: WEAKNESS Narrative: This is a 76-year-old male with past medical history significant for brain cancer status post resection with craniectomy, right-sided weakness, type 2 diabetes mellitus, seizure disorder, dyslipidemia, benign prostatic hyperplasia, anemia of chronic disease, diabetic polyneuropathy, coronary artery disease. Patient was brought to the emergency room after his have noted is the patient being more sleepy than usual and weak also notice that his right upper extremity is weaker than usual did not notice any cough ,shortness of breath ,fever, chills or rigors or nausea or vomiting ,has had decreased appetite as he has has been sleeping most of the day for the last day or so most of the history has been obtained from who is at bedside in the emergency room patient is obtunded. Preliminary workup was significant for elevated brain natriuretic peptide, elevated type 1 troponin, creatinine of 1.8 BUN of 47. Review of Systems Review of Systems: ROS unobtainable: Yes unobtainable due to mental status PMFSH Past Medical History Medical History (Updated 09/12/21 @ 04:02 by Deepti Brown MD) Anemia of chronic disease Anxiety Ataxia, post-stroke Controlled diabetes mellitus type II without complication Coronary artery disease involving [place] coronary artery of [place] heart Diabetic polyneuropathy associated with type 2 diabetes mellitus History of prostate cancer History of stroke Hx of brain cancer Mixed hyperlipidemia Oropharyngeal dysphagia PAD (peripheral artery disease) Right hemiparesis Seizure disorder Vitamin D deficiency Surgical History Surgical History H/O heart artery stent Family History Family History Mother Patient's mother is in good health Sibling Patient's sister is in good health Patient's brother is in good health Other Family history of arthritis Family history of malignant neoplasm of brain Family history of pancreatic cancer Malignant neoplasm of prostate Social History Social History Second hand tobacco smoke exposure: No Alcohol intake: never Meds Home Medications and Allergies Home Medications Medication Instructions Recorded Confirmed Type aspirin 81 mg tablet,delayed 81 mg PO DAILY 02/07/21 07/13/21 History release cholecalciferol (vitamin D3) 50 50 mcg PO DAILY 02/07/21 07/13/21 History mcg (2,000 unit) capsule wheat dextrin 5 gram/7.4 gram oral See Rx Instructions PO DAILY g 02/07/21 History powder furosemide 20 mg tablet See Rx Instructions .ROUTE 04/26/21 07/13/21 Rx .COMPLEX #90 tablet pantoprazole 40 mg tablet,delayed 40 mg PO QAM #90 tablet 05/04/21 07/13/21 Rx release atorvastatin 10 mg tablet See Rx Instructions .ROUTE 05/21/21 07/13/21 Rx .COMPLEX #90 tablet tamsulosin 0.4 mg capsule See Rx Instructions .ROUTE 07/02/21 Rx .COMPLEX #90 cap lisinopril 20 mg tablet See Rx Instructions .ROUTE 07/13/21 07/13/21 Rx .COMPLEX #90 tablet metformin 500 mg tablet See Rx Instructions .ROUTE 07/13/21 07/13/21 Rx .COMPLEX #90 tablet carbamazepine 200 mg tablet See Rx Instructions .ROUTE 08/07/21 Rx .COMPLEX #150 tablet Allergies Allergy/AdvReac Type Severity Reaction Status Date / Time No Known Drug Allergies Allergy Unknown Unknown Verified 09/11/21 23:01 Vital Signs Vital Signs - 24 hr 09/11/21 22:46 09/12/21 01:19 Temperature 98.6 F Pulse Rate 92 87 Respiratory Rate 13 26 H Blood Pressure 123/64 144/73 H Pulse Oximetry 98 98 Exam Narrative: Laying in dwain Const: General: comfortable, no acute distress, well developed, ill appearing chronically and patient obtunded Nutritional Appearance: average body habitus Orientatio
--- NOTE | 2021-09-12 06:41 | PC.NURSE ---
This patient, Angelo Bartholomew, was admitted to 3 Medical Room 349-01. Patient/family oriented to hospital policies and general routines including ID bracelet, bed and alarms, visiting hours, pain management, procedures, bathroom and other care routines, personal items, smoking policy, room service/diet, and visiting hours. Information on how to activate the Rapid Response Team has been discussed. Patient/Family are encouraged to report perceived risks to care and to ask questions if they do not understand what they are told or what they should do. MRI screening completed. Pt had emesis and Dr. Brown called and Zofran orders received.
[2021-09-12 09:19] LABS: Alveolar/Arterial O2 Gradient 45.3 mmHg; Base Excess ABG 10.7 mEq/l (+/-2.0); Carboxyhemoglobin 0.4 % THb (0-2.0); Fractional Inspired Oxygen 32 %; Methemoglobin ABG 0.3 %THb (0-1.5); Oxygen Content ABG 17.2 %vol (16.0-22.0); Oxygen Saturation ABG 93.2 % (95.0-100.0); Oxyhemoglobin 92.9 % THb (90.0-100.0); PO2 ABG 78.4 mmHg (80.0-100.0); PO2 FiO2 Ratio Arterial Blood 2.45 %; Reduced Hemoglobin 6.4 %THb (0-5.0); Total Hemoglobin 13.1 g/dL (12.0-18.0)
[2021-09-12 09:21] LABS: Device NASAL CANNULA; Modified Allen's Test Pass; PCO2 ABG 89.3 mmHg (35.0-45.0); Site Drawn LEFT RADIAL
[2021-09-12 09:55] LABS: Basophils Percent Auto 0.2 % (0.2-1.2); Eosinophils Percent Auto 0.2 % (0-4.4); Hemoglobin 13.3 g/dL (14.0-18.0); Immature Granulocyte Absolute 0.06 K/mm3 (0.00-0.031); Immature Granulocyte Percent A 0.6 % (0-0.5); Lymphocytes Absolute Auto 1.31 K/mm3 (0.9-3.2); Lymphocytes Percent Auto 12.7 % (18.3-44.2); Mean Corpuscular HGB Conc 31.7 g/dl (32-36); Mean Corpuscular Hemoglobin 33.7 pg (26-34); Mean Corpuscular Volume 106.3 fl (80-100); Mean Platelet Volume 10.4 fl (7.4-10.4); Monocytes Absolute Auto 0.5 K/mm3 (0.1-0.6); Monocytes Percent Auto 5.2 % (2.6-8.5); Neutrophils Absolute Auto 8.3 K/mm3 (1.3-6.7); Neutrophils Percent Auto 81.1 % (45.5-73.1); Platelet Count Result 289 k/mm3 (150-375); Red Blood Count 3.95 M/mm3 (4.6-6.20); Red Cell Distribution Width 14.3 % (11.5-14.5); White Blood Count 10.3 K/mm3 (4.5-10.0)
--- NOTE | 2021-09-12 10:28 | PM.IMPN ---
Progress Note: A&P Assessment and Plan (1) Acute respiratory failure with hypercapnia: Code(s): J96.02 - Acute respiratory failure with hypercapnia Status: Acute Assessment and Plan: Due to his lethargy a ABG was performed which shows an elevated CO2 and a low pH consistent with respiratory acidosis that is partially compensated but not fully. -Will initiate BiPAP and recheck ABG in 1 hour -etiology unclear at this time-could be due to CHF, pneumonia, PE, over-sedation, stroke. Patient's family has not noticed any coughing or sputum production. He has not been febrile and white blood cell count was normal on admission. No antibiotics at this time -will check Tegretol level, obtain lactic acid, BMP, brain MRI, echo, and CT of the chest (with contrast if creatinine allows) -respiratory on board, supervising physician notified. Move to IMU (2) Respiratory acidosis: Code(s): E87.2 - Acidosis Status: Acute Assessment and Plan: As above -continue BiPAP (3) Altered mental status: Code(s): R41.82 - Altered mental status, unspecified Status: Acute Assessment and Plan: As above -obtain MRI in the morning -CT of the head with no acute findings -right-sided weakness and garbled speech chronic according to family but he may be a little worse today (4) Acute congestive heart failure: Code(s): I50.9 - Heart failure, unspecified Status: Acute Assessment and Plan: BNP elevated which is new for him -check echo -continue IV diuresis -troponins negative x2. Will redraw -has a history of stent placement 2010 according to PCP notes -continue telemetry (5) Coronary artery disease involving [place] coronary artery of [place] heart: Code(s): I25.10 - Atherosclerotic heart disease of [place] coronary artery without angina pectoris Status: Acute Assessment and Plan: No chest pain -Left bundle branch block on EKG (appears chronic) -has a history of stent placement 2010 according to PCP notes -continue aspirin (6) TILA (acute kidney injury): Code(s): N17.9 - Acute kidney failure, unspecified Status: Acute Assessment and Plan: Slightly elevated yesterday -awaiting today's redraw -hold lisinopril and metformin (7) PAD (peripheral artery disease): Code(s): I73.9 - Peripheral vascular disease, unspecified Status: Acute Assessment and Plan: Continue aspirin (8) Seizure disorder: Code(s): G40.909 - Epilepsy, unspecified, not intractable, without status epilepticus Status: Acute Assessment and Plan: Continue carbamazepine and check levels (9) Oropharyngeal dysphagia: Code(s): R13.12 - Dysphagia, oropharyngeal phase Status: Acute Assessment and Plan: Reported history (10) Ataxia, post-stroke: Code(s): I69.393 - Ataxia following cerebral infarction Status: Acute Assessment and Plan: Reported history, likely due to brain cancer (11) Reflux esophagitis: Code(s): K21.0 - Gastro-esophageal reflux disease with esophagitis Status: Acute Assessment and Plan: Continue Protonix (12) Anemia of chronic disease: Code(s): D63.8 - Anemia in other chronic diseases classified elsewhere Status: Acute Assessment and Plan: Mild and stable -monitor (13) Controlled diabetes mellitus type II without complication: Qualifiers: Diabetes mellitus exterminator helper insulin use: without custodial use Qualified Code(s): E11.9 - Type 2 diabetes mellitus without complications Code(s): E11.9 - Type 2 diabetes mellitus without complications Status: Acute Assessment and Plan: Last glucose 122 -A1c 6.4 07/25/21 -hold metformin for now Time Spent With Patient Time with patient: 25 - 35 minutes Subjective Date/time seen: 09/12/21 10:28 Inter
[2021-09-12 11:11] LABS: Alanine Aminotransferase 26 U/L (4-50); Albumin Level 4.1 g/dL (3.5-5.1); Alkaline Phosphatase 142 U/L (38-126); Anion Gap 10 mmol/L (8-16); Aspartate Amino Transferase 29 U/L (17-59); Bilirubin,Total 0.4 mg/dL (0.2-1.3); Blood Urea Nitrogen 46 mg/dL (9-20); CRP 4.8 mg/dL (<1.0); Calcium 8.8 mg/dL (8.4-10.2); Carbon Dioxide 36 mmol/L (22-30); Chloride 99 mmol/L (98-107); Estimated CRCL calculation 34 ml/min; Estimated Glomerular Filt Rate 42; Glucose 139 mg/dL (65-110); Potassium 5.4 mmol/L (3.4-5.0); Sodium 145 mmol/L (137-145)
[2021-09-12 11:23] LABS: Troponin I 0.024 ng/mL (0.000-0.034)
--- NOTE | 2021-09-12 11:26 | PC.NURSE ---
This patient, Angelo Bartholomew, was transferred to [IMU 200 ] on 09/12/21 at 1127. Personal belongings sent with patient. Report given to [SARINA ]. Appropriate documentation sent with patient.
--- NOTE | 2021-09-12 11:26 | PC.NURSE ---
This patient, Angelo Bartholomew, was received from [facility] on 09/12/21 at 1120. Report received from Ramya BRO. Patient/family oriented to unit policies and routines
[2021-09-12 11:49] LABS: Folic Acid > 20.0 ng/mL (2.76->20)
[2021-09-12 13:08] LABS: Alveolar/Arterial O2 Gradient 137.3 mmHg; Base Excess ABG 10.3 mEq/l (+/-2.0); Carboxyhemoglobin 0.3 % THb (0-2.0); Fractional Inspired Oxygen 50 %; HCO3 ABG 40.2 mEq/l (22.0-26.0); Methemoglobin ABG 0.3 %THb (0-1.5); Oxygen Content ABG 18.4 %vol (16.0-22.0); Oxygen Saturation ABG 97.9 % (95.0-100.0); Oxyhemoglobin 97.2 % THb (90.0-100.0); PO2 ABG 124.7 mmHg (80.0-100.0); PO2 FiO2 Ratio Arterial Blood 2.49 %; Reduced Hemoglobin 2.2 %THb (0-5.0); Total Hemoglobin 13.3 g/dL (12.0-18.0)
[2021-09-12 13:14] LABS: pH ABG 7.298 (7.350-7.450)
[2021-09-12 13:15] LABS: Device NON-INVASIVE VENT; Modified Allen's Test Pass; Site Drawn RIGHT RADIAL
[2021-09-12 13:16] LABS: Non-Invasive Expiratory Pressure 8 CMH2O; Non-Invasive Inspiratory Pressure 16 CMH2O; Non-Invasive Vent Rate 18 /MIN
[2021-09-12] MEDS: LIDOCAINE HCL 1% LOCAL INJ 2 ML AMPUL 5 ML INFILTRATE (14:30)
[2021-09-12 15:03] LABS: Potassium 4.8 mmol/L (3.4-5.0)
[2021-09-12 15:06] LABS: Lactic Acid Reflex 0.8 mmol/L (0.7-2.1)
[2021-09-12 16:29] LABS: Procalcitonin 0.1 ng/mL
[2021-09-12 17:11] LABS: Alveolar/Arterial O2 Gradient 72.8 mmHg; Fractional Inspired Oxygen 35 %; HCO3 ABG 40.3 mEq/l (22.0-26.0); Methemoglobin ABG 0.3 %THb (0-1.5); Oxygen Content ABG 18.2 %vol (16.0-22.0); Oxygen Saturation ABG 96.7 % (95.0-100.0); Oxyhemoglobin 96.2 % THb (90.0-100.0); PO2 ABG 94.2 mmHg (80.0-100.0); PO2 FiO2 Ratio Arterial Blood 2.69 %; Reduced Hemoglobin 3.5 %THb (0-5.0); Total Hemoglobin 13.4 g/dL (12.0-18.0); pH ABG 7.372 (7.350-7.450)
[2021-09-12 17:15] LABS: Site Drawn RIGHT RADIAL
[2021-09-12 17:16] LABS: Device BIPAP
[2021-09-12 17:17] LABS: Expiratory Pressure 8 cmH2O; Inspiratory Pressure 20 cmH2O
[2021-09-12 19:23] LABS: SARS-CoV-2 RNA PCR Negative
[2021-09-12] MEDS: SALINE LOCK FLUSH 10 ML IV PUSH (21:51)
[2021-09-12] MEDS: HEPARIN SODIUM 5,000 UNITS/ML VIAL 5000 UNITS SUB-Q (21:51)
[2021-09-13] VITALS (16 sets, daily range): BP systolic 115–146; BP diastolic 54–69; PULSE 67–81; RESP 18–24; TEMP 36.1–36.9; O2SAT 97–100
[2021-09-13 04:51] LABS: Basophils Percent Auto 0.4 % (0.2-1.2); Eosinophils Absolute Auto 0.1 K/mm3 (0-0.3); Eosinophils Percent Auto 0.8 % (0-4.4); Hematocrit 37.7 % (42.0-52.0); Hemoglobin 11.4 g/dL (14.0-18.0); Immature Granulocyte Absolute 0.04 K/mm3 (0.00-0.031); Immature Granulocyte Percent A 0.4 % (0-0.5); Lymphocytes Absolute Auto 2.37 K/mm3 (0.9-3.2); Lymphocytes Percent Auto 23.4 % (18.3-44.2); Mean Corpuscular HGB Conc 30.2 g/dl (32-36); Mean Corpuscular Hemoglobin 32.1 pg (26-34); Mean Corpuscular Volume 106.2 fl (80-100); Mean Platelet Volume 10.3 fl (7.4-10.4); Monocytes Absolute Auto 0.9 K/mm3 (0.1-0.6); Monocytes Percent Auto 8.7 % (2.6-8.5); Neutrophils Absolute Auto 6.7 K/mm3 (1.3-6.7); Neutrophils Percent Auto 66.3 % (45.5-73.1); Platelet Count Result 301 k/mm3 (150-375); Red Blood Count 3.55 M/mm3 (4.6-6.20); Red Cell Distribution Width 14.1 % (11.5-14.5); White Blood Count 10.1 K/mm3 (4.5-10.0)
[2021-09-13 05:08] LABS: Anion Gap 6 mmol/L (8-16); Blood Urea Nitrogen 51 mg/dL (9-20); Calcium 8.4 mg/dL (8.4-10.2); Carbon Dioxide 37 mmol/L (22-30); Chloride 101 mmol/L (98-107); Estimated CRCL calculation 37 ml/min; Estimated Glomerular Filt Rate 45; Glucose 80 mg/dL (65-110); Potassium 4.3 mmol/L (3.4-5.0); Sodium 144 mmol/L (137-145)
[2021-09-13] MEDS: HEPARIN SODIUM 5,000 UNITS/ML VIAL 5000 UNITS SUB-Q ×3 (05:49→21:08)
[2021-09-13] MEDS: SALINE LOCK FLUSH 10 ML IV PUSH ×3 (05:49→21:08)
--- NOTE | 2021-09-13 10:08 | PM.CNPUL ---
Assessment and Plan Assessment and plan (1) Respiratory failure with hypoxia and hypercapnia: Code(s): J96.91 - Respiratory failure, unspecified with hypoxia; J96.92 - Respiratory failure, unspecified with hypercapnia Status: Acute Assessment and Plan: Patient with acute on chronic respiratory failure with initial blood gas of 7./ on 3 L nasal cannula. Patient has prior serum bicarbonates dating back to 12/27/2020 of 33 or greater. Currently his bicarb on presentation was greater than 40. Patient is a never smoker not exposed to any secondhand smoking had a CT scan of the chest on 11/28/2017 with no evidence of bullous emphysematous changes. I have no PFTs. Patient does have severe pulmonary hypertension noted on his echocardiogram from 09/12/2021 when he was acutely ill with respiratory failure and fluid overload. He has normal RV size and function and a mildly enlarged right atrium. He does present with fluid overload and has grade 1 diastolic dysfunction with an LVEF of 60-65% with no aortic stenosis or regurgitation and trace mitral valve regurgitation. He had 1 troponin that was mildly elevated at 0.036. Patient should be aggressively diuresed and eventually have a repeat echocardiogram when he is clinically stable to reassess his pulmonary pressures. Etiology of his acute on chronic respiratory failure includes fluid overload and possible hypercarbic chronic hypercarbic respiratory failure from obesity hypoventilation syndrome, restrictive lung disease from his severe kyphosis and or sleep apnea (obstructive from his obesity or central apnea from his previous neurologic injuries). I will also rule out PE and I have ordered a D-dimer and lower extremity Dopplers. His creatinine is improved but still elevated at 1.5. Acute or chronic pulmonary embolism is low and I will wait for the above testing and hold off on systemic anticoagulation for now. He will ultimately need outpatient PFTs to assess for restrictive lung disease secondary to severe kyphosis and an in-lab polysomnogram to assess for obstructive or central sleep apnea. 09/13: patient is improved today and he is currently off his BiPAP after diuresis so I suspect fluid overload is a major component of his respiratory failure. He is a never smoker and there is no wheezing and no evidence of COPD or reactive airways disease so I do not feel the need for bronchodilators, steroids and there is no evidence of a pneumonia and I do not think he needs antibiotics at this time. At this time I will continue BiPAP at night and p.r.n. during the day for now. Discussed with Dr. Pierre. Will follow with you. History of Present Illness History of Present Illness Consult date: 09/13/21 Requesting physician: Mindi Holland PA-C Reason for consult: hypoxemia Chief complaint: CHF Exacerbation, Hypoxia, R Sided Weakness Narrative: 09/13/2021: This is a new Pulmonary consult for acute respiratory failure with hypoxemia and hypercarbia. 76-year-old man with a history of brain cancer, stroke with right-sided weakness, ataxia, dysphagia and seizures, prostate cancer, coronary artery disease who presented on 09/11 with weakness. Patient was found to be fluid overloaded with a BNP of 3350, a chest x-ray that showed congestion, troponins mildly elevated. patient had a white blood cell count of 9.9 and a procalcitonin level of 0.1. Patient found to have a blood gas of 7.28/89/78 on 3 L nasal cannula and was placed on BiPAP with a rate of 22, pressure is 20/8 and 35%. His blood gas 7.37/71/94. Patient was diuresed with IV Lasix and had an echocardiogram that showed a left ventricular ejection fraction of 60-65%, grade 1 diastolic dysfunction, [id number] tricuspid regurgitation with severe pulmonary hypertension at 86, normal right ventricular size and function, right atrium was mildly enlarged. 09/13 Today when I enter the room the patient was but wearing Bi
[2021-09-13] MEDS: FUROSEMIDE INJ 40 MG/4 ML VIAL IV PUSH ×2 (13:48→21:08)
[2021-09-13] MEDS: carBAMazepine 200 MG TABLET PO ×3 (13:49→21:08)
--- NOTE | 2021-09-13 14:21 | PM.IMPN ---
Progress Note: A&P Assessment and Plan (1) Acute respiratory failure with hypercapnia: Code(s): J96.02 - Acute respiratory failure with hypercapnia Status: Acute Assessment and Plan: Due to his lethargy a ABG was performed which showed an elevated CO2 and a low pH consistent with respiratory acidosis. He was started on BiPAP and moved to the IMU. His ABG improved to 7.37/71/94. He wore the BiPAP overnight and able to come off of it this morning. He was able to be weaned down on the O2. Etiology unclear but consider CHF, pneumonia, PE, over-sedation, DAVID. CT brain showing no acute process. Echo showing severe pulmonary HTN with EF 60% and Grade I diastolic dysfunction. Pulmonary perfusion was low probability. Procalcitonin normal but CRP 4.8. BNP was 3300 and CXR was consistent with CHF so CHF is the most likely etiology. Consider also central apnea. Continue BiPAP at night and with naps and as needed. (2) Respiratory acidosis: Code(s): E87.2 - Acidosis Status: Acute Assessment and Plan: As above (3) Altered mental status: Code(s): R41.82 - Altered mental status, unspecified Status: Acute Assessment and Plan: As above. Related to the respiratory failure. CT of the head with no acute findings. Right-sided weakness and garbled speech is chronic according to family. Better overall. PT/OT/ST to evaluate and treat (4) Acute congestive heart failure: Code(s): I50.9 - Heart failure, unspecified Status: Acute Assessment and Plan: BNP elevated to 3300. Echo showing severe pulmonary HTN and Grade I diastolic dysfunction with normal EF. CXR showing pulmonary edema. Continue IV diuresis. Troponin elevated to 0.036 but not felt to be clinically significant. Renal function better and toelrating the IV Lasix. Follow closely. (5) Coronary artery disease involving [place] coronary artery of [place] heart: Code(s): I25.10 - Atherosclerotic heart disease of [place] coronary artery without angina pectoris Status: Acute Assessment and Plan: Patient has a hx of CAD and has a history of stent placement 2010 according to PCP notes. EKG showing Left bundle branch block which appears to be chronic. No CP. Troponins essentially negative. Continue aspirin (6) TILA (acute kidney injury): Code(s): N17.9 - Acute kidney failure, unspecified Status: Acute Assessment and Plan: Kristinan has underlying CKD with baseline Cr 1.2-1.5 normally. Cr 1.8 on admisison but has improved to 1.5 with diuresis. Continue to hold lisinopril and metformin. Follow closely. (7) PAD (peripheral artery disease): Code(s): I73.9 - Peripheral vascular disease, unspecified Status: Acute Assessment and Plan: Stable. Continue aspirin. PT/OT (8) Seizure disorder: Code(s): G40.909 - Epilepsy, unspecified, not intractable, without status epilepticus Status: Acute Assessment and Plan: Stable. Carbamazepine level pending. Continue carbamazepine (9) Oropharyngeal dysphagia: Code(s): R13.12 - Dysphagia, oropharyngeal phase Status: Acute Assessment and Plan: Reported history of dysphagia. Will have ST evaluate but no overt signs/symptoms of dysphagia. (10) Ataxia, post-stroke: Code(s): I69.393 - Ataxia following cerebral infarction Status: Acute Assessment and Plan: Patient with history of right sided weakness likely due to brain cancer. Mention of CVA in the notes as well. Will continue with ASA. PT/OT (11) Controlled diabetes mellitus type II without complication: Qualifiers: Diabetes mellitus detention insulin use: without detention use Qualified Code(s): E11.9 - Type 2 diabetes mellitus without complications Code(s): E11.9 - Type 2 diabetes mellitus without complications Status: Acute Assessment and Plan: A1c 6.4 07/25/21. The patient
[2021-09-14] VITALS (9 sets, daily range): BP systolic 109–152; BP diastolic 58–85; PULSE 66–97; RESP 16–22; TEMP 35.8–37.2; O2SAT 96–99
[2021-09-14] MEDS: HEPARIN SODIUM 5,000 UNITS/ML VIAL 5000 UNITS SUB-Q ×3 (05:31→20:38)
[2021-09-14] MEDS: SALINE LOCK FLUSH 10 ML IV PUSH ×3 (05:31→20:38)
[2021-09-14 06:42] LABS: Basophils Percent Auto 0.4 % (0.2-1.2); Eosinophils Absolute Auto 0.1 K/mm3 (0-0.3); Eosinophils Percent Auto 0.7 % (0-4.4); Hematocrit 41.9 % (42.0-52.0); Hemoglobin 13.1 g/dL (14.0-18.0); Immature Granulocyte Absolute 0.03 K/mm3 (0.00-0.031); Immature Granulocyte Percent A 0.3 % (0-0.5); Lymphocytes Absolute Auto 2.34 K/mm3 (0.9-3.2); Lymphocytes Percent Auto 25.1 % (18.3-44.2); Mean Corpuscular HGB Conc 31.3 g/dl (32-36); Mean Corpuscular Hemoglobin 32.1 pg (26-34); Mean Corpuscular Volume 102.7 fl (80-100); Mean Platelet Volume 10.5 fl (7.4-10.4); Monocytes Absolute Auto 0.9 K/mm3 (0.1-0.6); Monocytes Percent Auto 9.4 % (2.6-8.5); Neutrophils Percent Auto 64.1 % (45.5-73.1); Platelet Count Result 341 k/mm3 (150-375); Red Blood Count 4.08 M/mm3 (4.6-6.20); White Blood Count 9.3 K/mm3 (4.5-10.0)
[2021-09-14 06:48] LABS: Alanine Aminotransferase 38 U/L (4-50); Albumin Level 3.9 g/dL (3.5-5.1); Alkaline Phosphatase 152 U/L (38-126); Aspartate Amino Transferase 42 U/L (17-59); Bilirubin,Total 0.5 mg/dL (0.2-1.3); Blood Urea Nitrogen 48 mg/dL (9-20); CRP 6.5 mg/dL (<1.0); Calcium 9.1 mg/dL (8.4-10.2); Carbon Dioxide > 40 mmol/L (22-30); Chloride 96 mmol/L (98-107); Estimated CRCL calculation 39 ml/min; Estimated Glomerular Filt Rate 49; Glucose 96 mg/dL (65-110); Magnesium 2.2 mg/dL (1.6-2.3); Phosphorus 4.2 mg/dL (2.5-4.5); Potassium 4.1 mmol/L (3.4-5.0); Sodium 144 mmol/L (137-145)
[2021-09-14] MEDS: PANTOPRAZOLE 40 MG TABLET PO (07:57)
[2021-09-14] MEDS: ASPIRIN 81 MG ENTERIC TABLET PO (07:57)
[2021-09-14] MEDS: carBAMazepine 200 MG TABLET 400 MG PO (07:57)
[2021-09-14] MEDS: TAMSULOSIN HCL 0.4 MG CAPSULE PO (07:57)
[2021-09-14] MEDS: FUROSEMIDE INJ 40 MG/4 ML VIAL IV PUSH (07:57)
--- NOTE | 2021-09-14 08:21 | PM.PNPUL ---
Progress Note: A&P Assessment and Plan (1) Respiratory failure with hypoxia and hypercapnia: Code(s): J96.91 - Respiratory failure, unspecified with hypoxia; J96.92 - Respiratory failure, unspecified with hypercapnia Status: Acute Assessment and Plan: Patient with acute on chronic respiratory failure with initial blood gas of 7./ on 3 L nasal cannula. Patient has prior serum bicarbonates dating back to 12/27/2020 of 33 or greater. Currently his bicarb on presentation was greater than 40. Patient is a never smoker not exposed to any secondhand smoking had a CT scan of the chest on 11/28/2017 with no evidence of bullous emphysematous changes. I have no PFTs. Patient does have severe pulmonary hypertension noted on his echocardiogram from 09/12/2021 when he was acutely ill with respiratory failure and fluid overload. He has normal RV size and function and a mildly enlarged right atrium. He does present with fluid overload and has grade 1 diastolic dysfunction with an LVEF of 60-65% with no aortic stenosis or regurgitation and trace mitral valve regurgitation. He had 1 troponin that was mildly elevated at 0.036. Patient should be aggressively diuresed and eventually have a repeat echocardiogram when he is clinically stable to reassess his pulmonary pressures. Etiology of his acute on chronic respiratory failure includes fluid overload and possible hypercarbic chronic hypercarbic respiratory failure from obesity hypoventilation syndrome, restrictive lung disease from his severe kyphosis and or sleep apnea (obstructive from his obesity or central apnea from his previous neurologic injuries). I will also rule out PE and I have ordered a D-dimer and lower extremity Dopplers. His creatinine is improved but still elevated at 1.5. Acute or chronic pulmonary embolism is low and I will wait for the above testing and hold off on systemic anticoagulation for now. He will ultimately need outpatient PFTs to assess for restrictive lung disease secondary to severe kyphosis and an in-lab polysomnogram to assess for obstructive or central sleep apnea. 09/13: patient is improved today and he is currently off his BiPAP after diuresis so I suspect fluid overload is a major component of his respiratory failure. He is a never smoker and there is no wheezing and no evidence of COPD or reactive airways disease so I do not feel the need for bronchodilators, steroids and there is no evidence of a pneumonia and I do not think he needs antibiotics at this time. At this time I will continue BiPAP at night and p.r.n. during the day for now. Perfusion scan low probability and negative upper and lower extremity dopplers making PE unlikely. 09/14 patient states that overall he is improved. He is approaching his baseline. He tells me again that at home he has no breathing related issues and no dyspnea on exertion. He did wear the hospital BiPAP last night but had to take it off at 4:00 a.m. because he could not sleep and it was painful for him. I attempted to apply the fullface mask and make multiple adjustments but he said that he just could not tolerate the mask and would not be able to sleep with the mask on at night. He said he would not be able to wear the mask at home. Currently his saturations are 97% on 2 L and I decreased him to 1 L NC. Although patient has chronic hypercarbic respiratory failure he will not be able to tolerate BiPAP and I will discontinue at this time. this issue can be readdressed as an outpatient as there are more mask options. I will check an ABG tomorrow now that he is clinically improved and will be off BiPAP for 24 hours. Wean oxygen as tolerated, I will perform overnight oximetry on room air tonight to determine if he qualifies for oxygen at night. Repeat CXR and BNP on 09/15, aggressive PT for mobilization and ambulation, diuresis as tolerated per hospitalist team, creatinine is 1.40
--- NOTE | 2021-09-14 10:47 | PM.IMPN ---
Progress Note: A&P Assessment and Plan (1) Acute respiratory failure with hypercapnia: Code(s): J96.02 - Acute respiratory failure with hypercapnia Status: Acute Assessment and Plan: Due to his lethargy, an ABG was performed which showed 7.28/89/78 on 3L consistent with respiratory acidosis. He was started on BiPAP and moved to the IMU. His ABG improved to 7.37/71/94. He wore the BiPAP overnight and able to come off of it yesterday morning. Etiology unclear but consider CHF, pneumonia, PE, over-sedation, DAVID (either central, obstructive or both). CT brain showing no acute process. Echo showing severe pulmonary HTN with EF 60% and Grade I diastolic dysfunction. Pulmonary perfusion was low probability. Procalcitonin normal but CRP 4.8. BNP was 3300 and CXR was consistent with CHF so CHF is the most likely etiology +/- DAVID(either central, obstructive or both). He has been weaned to using the BiPAP at night and with naps but now not wanting to wear the BiPAP because it does not fit. Will assess needs with overnight apnea link now since his condition is better and CHF resolving. Appreciate pulmonary input. Okay to move to medcial floor (2) Respiratory acidosis: Code(s): E87.2 - Acidosis Status: Acute Assessment and Plan: As above (3) Altered mental status: Code(s): R41.82 - Altered mental status, unspecified Status: Acute Assessment and Plan: As above. Related to the respiratory failure. CT of the head with no acute findings. Right-sided weakness and garbled speech is chronic according to family. Mental status much better overall. PT/OT/ST ordered. (4) Acute congestive heart failure: Code(s): I50.9 - Heart failure, unspecified Status: Acute Assessment and Plan: BNP elevated to 3300. Echo showing severe pulmonary HTN and Grade I diastolic dysfunction with normal EF. CXR showing pulmonary edema. Troponin elevated to 0.036 but not felt to be clinically significant. Started on Lasix IV. Renal function better and toelrating the IV Lasix. I/Os are inaccurate. Will check daily weights. Clinically however, he appears to be at dry weight so will change to oral Lasix. Follow closely. CHF teaching. (5) Coronary artery disease involving [place] coronary artery of [place] heart: Code(s): I25.10 - Atherosclerotic heart disease of [place] coronary artery without angina pectoris Status: Acute Assessment and Plan: Patient has a hx of CAD and has a history of stent placement 2010 according to PCP notes. EKG showing left bundle branch block which is chronic. No CP. Troponins essentially negative. Continue aspirin and resume statin therapy. . (6) Acute on chronic renal failure: Code(s): N17.9 - Acute kidney failure, unspecified; N18.9 - Chronic kidney disease, unspecified Status: Acute Assessment and Plan: Patient has underlying CKD with baseline Cr 1.2-1.5 normally. Cr 1.8 on admission but has improved to 1.4 with diuresis. Continue to hold metformin. Lisinopril remains on hold but BP higher now. Will resume lower dose Lisinopril. Follow closely. (7) PAD (peripheral artery disease): Code(s): I73.9 - Peripheral vascular disease, unspecified Status: Acute Assessment and Plan: Stable. Continue aspirin and resume Lipitor. Continue PT/OT. (8) Seizure disorder: Code(s): G40.909 - Epilepsy, unspecified, not intractable, without status epilepticus Status: Acute Assessment and Plan: Stable. Carbamazepine level pending. Continue carbamazepine (9) Oropharyngeal dysphagia: Code(s): R13.12 - Dysphagia, oropharyngeal phase Status: Acute Assessment and Plan: Reported history of dysphagia. No overt signs/symptoms of dysphagia. ST evaluation ordered. 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
[2021-09-14] MEDS: ATORVASTATIN 10 MG TABLET PO (11:46)
[2021-09-14] MEDS: lisinopriL 10 MG TABLET PO (11:46)
[2021-09-14] MEDS: carBAMazepine 200 MG TABLET PO ×3 (11:46→20:38)
[2021-09-15] VITALS (7 sets, daily range): BP systolic 107–144; BP diastolic 53–73; PULSE 68–76; RESP 16–22; TEMP 36.2–36.6; O2SAT 94–99
[2021-09-15 04:50] LABS: Carbamazepine Tegretol 3.3 mcg/mL (4.0-12.0)
[2021-09-15] MEDS: HEPARIN SODIUM 5,000 UNITS/ML VIAL 5000 UNITS SUB-Q ×3 (05:51→20:21)
[2021-09-15] MEDS: SALINE LOCK FLUSH 10 ML IV PUSH ×3 (05:52→20:21)
[2021-09-15 06:39] LABS: NT Pro B Type Natriuretic Pept 166 pg/mL (5-100)
[2021-09-15 06:47] LABS: Albumin Level 3.9 g/dL (3.5-5.1); Blood Urea Nitrogen 44 mg/dL (9-20); Calcium 8.9 mg/dL (8.4-10.2); Carbon Dioxide > 40 mmol/L (22-30); Chloride 94 mmol/L (98-107); Estimated CRCL calculation 39 ml/min; Estimated Glomerular Filt Rate 49; Glucose 100 mg/dL (65-110); Potassium 4.1 mmol/L (3.4-5.0); Sodium 142 mmol/L (137-145)
[2021-09-15] MEDS: carBAMazepine 200 MG TABLET 400 MG PO (09:23)
[2021-09-15] MEDS: FUROSEMIDE 40 MG TABLET PO (09:23)
[2021-09-15] MEDS: PANTOPRAZOLE 40 MG TABLET PO (09:23)
[2021-09-15] MEDS: lisinopriL 10 MG TABLET PO (09:23)
[2021-09-15] MEDS: ATORVASTATIN 10 MG TABLET PO (09:23)
[2021-09-15] MEDS: TAMSULOSIN HCL 0.4 MG CAPSULE PO (09:23)
[2021-09-15] MEDS: ASPIRIN 81 MG ENTERIC TABLET PO (09:23)
--- NOTE | 2021-09-15 09:53 | P.PNPL_ITS ---
Progress Note: A&P Assessment and Plan (1) Respiratory failure with hypoxia and hypercapnia: Code(s): J96.91 - Respiratory failure, unspecified with hypoxia; J96.92 - Respiratory failure, unspecified with hypercapnia Status: Acute Assessment and Plan: Patient with acute on chronic respiratory failure with initial blood gas of 7.//78 on 3 L nasal cannula. Patient has prior serum bicarbonates dating ba ck to 12/27/2020 of 33 or greater. Currently his bicarb on presentation was greater than 40. Patient is a never smoker not exposed to any secondhand smoking had a CT scan of the chest on 11/28/2017 with no evidence of bullous emphysematous changes. I have no PFTs. Patient does have severe pulmonary hypertension noted on his echocardiogram from 09/12/2021 when he was acutely ill with respiratory failure and fluid overload. He has normal RV size and function and a mildly enlarged right atrium. He does present with fluid overload and has grade 1 diastolic dysfunction with an LVEF of 60-65% with no aortic stenosis or regurgitation and trace mitral valve regurgitation. He had 1 troponin that was mildly elevated at 0.036. Patient should be aggressively diuresed and eventually have a repeat echocardiogram when he is clinically stable to reassess his pulmonary pressures. Etiology of his acute on chronic respiratory failure includes fluid overload and possible hypercarbic chronic hypercarbic respiratory failure from obesity hypoventilation syndrome, restrictive lung disease from his severe kyphosis and or sleep apnea (obstructive from his obesity or central apnea from his previous neurologic injuries). I will also rule out PE and I have ordered a D-dimer and lower extremity Dopplers. His creatinine is improved but still elevated at 1.5. Acute or chronic pulmonary embolism is low and I will wait for the above testing and hold off on systemic anticoagulation for now. He will ultimately need outpatient PFTs to assess for restrictive lung disease secondary to severe kyphosis and an in-lab polysomnogram to assess for obstructive or central sleep apnea. 09/13: patient is improved today and he is currently off his BiPAP after diuresis so I suspect fluid overload is a major component of his respiratory failure. He is a never smoker and there is no wheezing and no evidence of COPD or reactive airways disease so I do not feel the need for bronchodilators, s teroids and there is no evidence of a pneumonia and I do not think he needs antibiotics at this time. At this time I will continue BiPAP at night and p.r.n. during the day for now. Perfusion scan low probability and negative upper and lower extremity dopplers making PE unlikely. 09/14 patient states that overall he is improved. He is approaching his baseline. He tells me again that at home he has no breathing related issues and no dyspnea on exertion. He did wear the hospital BiPAP last night but had to take it off at 4:00 a.m. because he could not sleep and it was painful for him. I attempted to apply the fullface mask and make multiple adjustments but he said that he just could not tolerate the mask and would not be able to sleep with the mask on at night. He said he would not be able to wear the mask at home. Currently his saturations are 97% on 2 L and I decreased him to 1 L NC. Although patient has chronic hypercarbic respiratory failure he will not be able to tolerate BiPAP and I will discontinue at this time. this issue can be readdressed as an outpatient as there are more mask options. I will check an ABG tomorrow now that he is clinically improved and will be off BiPAP for 24 hours. Wean oxygen as tolerated, I will perform overnight oximetry on
[2021-09-15 10:20] LABS: Alveolar/Arterial O2 Gradient 24.4 mmHg; Base Excess ABG 11.8 mEq/l (+/-2.0); Fractional Inspired Oxygen 24 %; HCO3 ABG 38.7 mEq/l (22.0-26.0); Oxygen Content ABG 17.1 %vol (16.0-22.0); Oxygen Saturation ABG 94.8 % (95.0-100.0); Oxyhemoglobin 93.1 % THb (90.0-100.0); PO2 ABG 74.3 mmHg (80.0-100.0); pH ABG 7.421 (7.350-7.450)
[2021-09-15 10:21] LABS: Device NASAL CANNULA; Modified Allen's Test Pass; PCO2 ABG 60.9 mmHg (35.0-45.0); Site Drawn RIGHT BRACHIAL
[2021-09-15] MEDS: carBAMazepine 200 MG TABLET PO ×3 (13:03→20:21)
--- NOTE | 2021-09-15 16:52 | PM.IMPN ---
Progress Note: A&P Assessment and Plan (1) Acute respiratory failure with hypercapnia: Code(s): J96.02 - Acute respiratory failure with hypercapnia Status: Acute Assessment and Plan: Due to his lethargy, an ABG was performed which showed 7.28/89/78 on 3L consistent with respiratory acidosis. He was started on BiPAP and moved to the IMU. His ABG improved to 7.37/71/94. He wore the BiPAP overnight and able to come off of it yesterday morning. Etiology unclear but consider CHF, pneumonia, PE, over-sedation, DAVID (either central, obstructive or both). CT brain showing no acute process. Echo showing severe pulmonary HTN with EF 60% and Grade I diastolic dysfunction. Pulmonary perfusion was low probability. Procalcitonin normal but CRP 4.8. BNP was 3300 and CXR was consistent with CHF so CHF is the most likely etiology +/- DAVID(either central, obstructive or both). He has been weaned to using the BiPAP at night and with naps but now not wanting to wear the BiPAP because it does not fit. Will assess needs with overnight apnea link now since his condition is better and CHF resolving. Appreciate pulmonary input. Okay to move to medcial floor Discussed with Pulmonary planning to not order BiPAP due to lack of tolerance in spite of hypercarbia noted which is well compensated at this point Need oxygen and nighttime 1 L Home oxygen evaluation with rest and activity needs to be ordered at the time of discharge (2) Respiratory acidosis: Code(s): E87.2 - Acidosis Status: Acute Assessment and Plan: As above (3) Altered mental status: Code(s): R41.82 - Altered mental status, unspecified Status: Acute Assessment and Plan: As above. Related to the respiratory failure. CT of the head with no acute findings. Right-sided weakness and garbled speech is chronic according to family. Mental status much better overall. PT/OT/ST ordered. (4) Acute congestive heart failure: Code(s): I50.9 - Heart failure, unspecified Status: Acute Assessment and Plan: BNP elevated to 3300. Echo showing severe pulmonary HTN and Grade I diastolic dysfunction with normal EF. CXR showing pulmonary edema. Troponin elevated to 0.036 but not felt to be clinically significant. Started on Lasix IV. Renal function better and toelrating the IV Lasix. I/Os are inaccurate. Will check daily weights. Clinically however, he appears to be at dry weight so will change to oral Lasix. Follow closely. CHF teaching. (5) Coronary artery disease involving [place] coronary artery of [place] heart: Code(s): I25.10 - Atherosclerotic heart disease of [place] coronary artery without angina pectoris Status: Acute Assessment and Plan: Patient has a hx of CAD and has a history of stent placement 2010 according to PCP notes. EKG showing left bundle branch block which is chronic. No CP. Troponins essentially negative. Continue aspirin and resume statin therapy. . (6) Acute on chronic renal failure: Code(s): N17.9 - Acute kidney failure, unspecified; N18.9 - Chronic kidney disease, unspecified Status: Acute Assessment and Plan: Patient has underlying CKD with baseline Cr 1.2-1.5 normally. Cr 1.8 on admission but has improved to 1.4 with diuresis. Continue to hold metformin. Lisinopril remains on hold but BP higher now. Will resume lower dose Lisinopril. Follow closely. (7) PAD (peripheral artery disease): Code(s): I73.9 - Peripheral vascular disease, unspecified Status: Acute Assessment and Plan: Stable. Continue aspirin and resume Lipitor. Continue PT/OT. (8) Seizure disorder: Code(s): G40.909 - Epilepsy, unspecified, not intractable, without status epilepticus Status: Acute Assessment and Plan: Stable. Carbamazepine level pending. Continue carbamazepine (9) Oropharyngeal dysphagia: Code(s): R13.12 - Dysphagia, oropharyngeal phase St
[2021-09-16] VITALS (7 sets, daily range): BP systolic 114–147; BP diastolic 43–76; PULSE 73–78; RESP 12–20; TEMP 35.8–36.4; O2SAT 96–99
[2021-09-16] MEDS: HEPARIN SODIUM 5,000 UNITS/ML VIAL 5000 UNITS SUB-Q ×3 (06:07→21:22)
[2021-09-16] MEDS: SALINE LOCK FLUSH 10 ML IV PUSH ×3 (06:09→21:22)
[2021-09-16 06:24] LABS: Basophils Percent Auto 0.3 % (0.2-1.2); Eosinophils Absolute Auto 0.2 K/mm3 (0-0.3); Eosinophils Percent Auto 3.1 % (0-4.4); Hematocrit 39.8 % (42.0-52.0); Hemoglobin 12.5 g/dL (14.0-18.0); Immature Granulocyte Absolute 0.03 K/mm3 (0.00-0.031); Immature Granulocyte Percent A 0.4 % (0-0.5); Lymphocytes Absolute Auto 2.03 K/mm3 (0.9-3.2); Lymphocytes Percent Auto 30.2 % (18.3-44.2); Mean Corpuscular HGB Conc 31.4 g/dl (32-36); Mean Corpuscular Hemoglobin 32.2 pg (26-34); Mean Corpuscular Volume 102.6 fl (80-100); Mean Platelet Volume 10.5 fl (7.4-10.4); Monocytes Absolute Auto 0.7 K/mm3 (0.1-0.6); Monocytes Percent Auto 9.7 % (2.6-8.5); Neutrophils Absolute Auto 3.8 K/mm3 (1.3-6.7); Neutrophils Percent Auto 56.3 % (45.5-73.1); Platelet Count Result 261 k/mm3 (150-375); Red Blood Count 3.88 M/mm3 (4.6-6.20); Red Cell Distribution Width 13.6 % (11.5-14.5); White Blood Count 6.7 K/mm3 (4.5-10.0)
[2021-09-16 07:27] LABS: Blood Urea Nitrogen 36 mg/dL (9-20); Calcium 9.2 mg/dL (8.4-10.2); Carbon Dioxide > 40 mmol/L (22-30); Chloride 94 mmol/L (98-107); Estimated CRCL calculation 45 ml/min; Estimated Glomerular Filt Rate 59; Glucose 104 mg/dL (65-110); Potassium 4.1 mmol/L (3.4-5.0); Sodium 140 mmol/L (137-145)
--- NOTE | 2021-09-16 08:42 | PCSTNOTE ---
Repeat bedside swallow evaluation completed. Please see ST Inpatient Evaluation for details and recommendations.
[2021-09-16] MEDS: ASPIRIN 81 MG ENTERIC TABLET PO (08:43)
[2021-09-16] MEDS: TAMSULOSIN HCL 0.4 MG CAPSULE PO (08:43)
[2021-09-16] MEDS: lisinopriL 10 MG TABLET PO (08:43)
[2021-09-16] MEDS: ATORVASTATIN 10 MG TABLET PO (08:43)
[2021-09-16] MEDS: carBAMazepine 200 MG TABLET 400 MG PO (08:43)
[2021-09-16] MEDS: FUROSEMIDE 40 MG TABLET PO (08:43)
[2021-09-16] MEDS: PANTOPRAZOLE 40 MG TABLET PO (08:44)
--- NOTE | 2021-09-16 10:01 | PM.IMPN ---
Progress Note: A&P Assessment and Plan (1) Acute respiratory failure with hypercapnia: Code(s): J96.02 - Acute respiratory failure with hypercapnia Status: Acute Assessment and Plan: Due to his lethargy, an ABG was performed which showed 7.28/89/78 on 3L consistent with respiratory acidosis. He was started on BiPAP and moved to the IMU. His ABG improved to 7.37/71/94. He wore the BiPAP overnight and able to come off of it yesterday morning. Etiology unclear but consider CHF, pneumonia, PE, over-sedation, DAVID (either central, obstructive or both). CT brain showing no acute process. Echo showing severe pulmonary HTN with EF 60% and Grade I diastolic dysfunction. Pulmonary perfusion was low probability. Procalcitonin normal but CRP 4.8. BNP was 3300 and CXR was consistent with CHF so CHF is the most likely etiology +/- DAVID(either central, obstructive or both). He has been weaned to using the BiPAP at night and with naps but now not wanting to wear the BiPAP because it does not fit. Will assess needs with overnight apnea link now since his condition is better and CHF resolving. Appreciate pulmonary input. Okay to move to medcial floor Discussed with Pulmonary planning to not order BiPAP due to lack of tolerance in spite of hypercarbia noted which is well compensated at this point Need oxygen and nighttime 1 L Home oxygen evaluation with rest and activity needs to be ordered at the time of discharge. Will need to discuss with case management for his safe discharge plan (2) Respiratory acidosis: Code(s): E87.2 - Acidosis Status: Acute Assessment and Plan: As above (3) Altered mental status: Code(s): R41.82 - Altered mental status, unspecified Status: Acute Assessment and Plan: As above. Related to the respiratory failure. CT of the head with no acute findings. Right-sided weakness and garbled speech is chronic according to family. Mental status much better overall. PT/OT/ST ordered. (4) Acute congestive heart failure: Code(s): I50.9 - Heart failure, unspecified Status: Acute Assessment and Plan: BNP elevated to 3300. Echo showing severe pulmonary HTN and Grade I diastolic dysfunction with normal EF. CXR showing pulmonary edema. Troponin elevated to 0.036 but not felt to be clinically significant. Started on Lasix IV. Renal function better and toelrating the IV Lasix. I/Os are inaccurate. Will check daily weights. Clinically however, he appears to be at dry weight so will change to oral Lasix. Follow closely. CHF teaching. (5) Coronary artery disease involving [place] coronary artery of [place] heart: Code(s): I25.10 - Atherosclerotic heart disease of [place] coronary artery without angina pectoris Status: Acute Assessment and Plan: Patient has a hx of CAD and has a history of stent placement 2010 according to PCP notes. EKG showing left bundle branch block which is chronic. No CP. Troponins essentially negative. Continue aspirin and resume statin therapy. . (6) Acute on chronic renal failure: Code(s): N17.9 - Acute kidney failure, unspecified; N18.9 - Chronic kidney disease, unspecified Status: Acute Assessment and Plan: Patient has underlying CKD with baseline Cr 1.2-1.5 normally. Cr 1.8 on admission but has improved to 1.4 with diuresis. Continue to hold metformin. Lisinopril remains on hold but BP higher now. Will resume lower dose Lisinopril. Follow closely. (7) PAD (peripheral artery disease): Code(s): I73.9 - Peripheral vascular disease, unspecified Status: Acute Assessment and Plan: Stable. Continue aspirin and resume Lipitor. Continue PT/OT. (8) Seizure disorder: Code(s): G40.909 - Epilepsy, unspecified, not intractable, without status epilepticus Status: Acute Assessment and Plan: Stable. Carbamazepine level pending. Continue carbamazepine (9) Oropharyngeal dysphag
[2021-09-16] MEDS: carBAMazepine 200 MG TABLET PO ×3 (13:23→21:23)
[2021-09-17] VITALS (7 sets, daily range): BP systolic 126–128; BP diastolic 49–71; PULSE 71–75; RESP 12–20; TEMP 36.7–37.4; O2SAT 87–98
[2021-09-17] MEDS: SALINE LOCK FLUSH 10 ML IV PUSH ×2 (06:08→14:58)
[2021-09-17] MEDS: HEPARIN SODIUM 5,000 UNITS/ML VIAL 5000 UNITS SUB-Q ×2 (06:09→14:57)
[2021-09-17 08:05] LABS: Basophils Percent Auto 0.3 % (0.2-1.2); Eosinophils Absolute Auto 0.1 K/mm3 (0-0.3); Eosinophils Percent Auto 2.4 % (0-4.4); Hematocrit 38.1 % (42.0-52.0); Hemoglobin 12.1 g/dL (14.0-18.0); Immature Granulocyte Absolute 0.02 K/mm3 (0.00-0.031); Immature Granulocyte Percent A 0.3 % (0-0.5); Lymphocytes Absolute Auto 1.52 K/mm3 (0.9-3.2); Lymphocytes Percent Auto 25.6 % (18.3-44.2); Mean Corpuscular HGB Conc 31.8 g/dl (32-36); Mean Corpuscular Volume 103.8 fl (80-100); Mean Platelet Volume 10.1 fl (7.4-10.4); Monocytes Absolute Auto 0.6 K/mm3 (0.1-0.6); Monocytes Percent Auto 10.5 % (2.6-8.5); Neutrophils Absolute Auto 3.6 K/mm3 (1.3-6.7); Neutrophils Percent Auto 60.9 % (45.5-73.1); Platelet Count Result 265 k/mm3 (150-375); Red Blood Count 3.67 M/mm3 (4.6-6.20); Red Cell Distribution Width 13.4 % (11.5-14.5); White Blood Count 5.9 K/mm3 (4.5-10.0)
[2021-09-17 08:19] LABS: Alanine Aminotransferase 24 U/L (4-50); Albumin Level 3.6 g/dL (3.5-5.1); Alkaline Phosphatase 125 U/L (38-126); Aspartate Amino Transferase 28 U/L (17-59); Bilirubin,Total 0.4 mg/dL (0.2-1.3); Blood Urea Nitrogen 28 mg/dL (9-20); Calcium 8.9 mg/dL (8.4-10.2); Carbon Dioxide > 40 mmol/L (22-30); Chloride 97 mmol/L (98-107); Estimated CRCL calculation 49 ml/min; Estimated Glomerular Filt Rate > 60; Glucose 101 mg/dL (65-110); Potassium 4.1 mmol/L (3.4-5.0); Sodium 140 mmol/L (137-145)
[2021-09-17] MEDS: lisinopriL 10 MG TABLET PO (08:50)
[2021-09-17] MEDS: FUROSEMIDE 40 MG TABLET PO (08:50)
[2021-09-17] MEDS: TAMSULOSIN HCL 0.4 MG CAPSULE PO (08:50)
[2021-09-17] MEDS: PANTOPRAZOLE 40 MG TABLET PO (08:50)
[2021-09-17] MEDS: ASPIRIN 81 MG ENTERIC TABLET PO (08:50)
[2021-09-17] MEDS: ATORVASTATIN 10 MG TABLET PO (08:50)
[2021-09-17] MEDS: carBAMazepine 200 MG TABLET 400 MG PO (08:51)
--- NOTE | 2021-09-17 09:37 | HOMEO2EVAL ---
Evaluation was performed at [facility] Home Oxygen Evaluation RC: Home Oxygen (O2) Evaluation Start: 09/16/21 12:01 Freq: ONCE Status: Active Protocol: RPE Activity Type Activity Date Activity User E-Sign Co-Sign Detail Recorded Client Recorded Date Recorded By Document 09/17/21 09:25 KRM [email or web address] 09/17/21 09:36 KRM Document 09/17/21 09:26 KRM [email or web address] 09/17/21 09:36 KRM Document 09/17/21 09:30 KRM [email or web address] 09/17/21 09:36 KRM 09/17/21 09/17/21 09/17/21 09:25 09:26 09:30 Home O2 Evaluation Test Phase Resting Resting Exercise Oxygen Delivery Room Air Nasal Cannula Nasal Cannula Oxygen Flow Rate (L/min) 1 1 Pulse Oximetry (90-100 %) 87 L 93 92 Pulse Rate (60-100 beats/min) 74 71 75 Activity Tolerance Poor Home Oxygen Evaluation Comments Tried getting pt. out of bed for ambulation and pt. was unable to. Simulated some activity in bed and pt. Spo2 was 92% on 1lpm . Treatment Charges O2 Evaluation - Inpatient
--- NOTE | 2021-09-17 09:57 | PCRCNOTE ---
PT. REQUIRES 1LPM OXYGEN AT REST AND WITH ACTIVITY. PT. HAS [employer]. FAXED INFO TO [employer] [phone]. POSSIBLE D/C TODAY.
--- NOTE | 2021-09-17 11:33 | PM.DS ---
DS: Admitting Diagnosis Discharge Date 09/17/21 Admitting Diagnosis Right-sided weakness and hypoxia DS: Discharge Diagnosis Discharge Diagnosis (1) Acute respiratory failure with hypercapnia: Code(s): J96.02 - Acute respiratory failure with hypercapnia Status: Acute Assessment and Plan: Due to his lethargy, an ABG was performed which showed 7.28/89/78 on 3L consistent with respiratory acidosis. He was started on BiPAP and moved to the IMU. His ABG improved to 7.37/71/94. He wore the BiPAP overnight and able to come off of the next morning. CT brain showing no acute process. Echo showing severe pulmonary HTN with EF 60% and Grade I diastolic dysfunction. Pulmonary perfusion scan was low probability for PE. Procalcitonin normal but CRP 4.8. BNP was 3300 and CXR was consistent with CHF so CHF is the most likely etiology +/- DAVID(either central, obstructive or both). He was weaned to using the BiPAP at sleep but then became noncompliant witht he BiPAP. Overnight apnea link was normal on 1L. Pulmonary consulted and appreciate their input. (2) Respiratory acidosis: Code(s): E87.2 - Acidosis Status: Acute Assessment and Plan: As above (3) Pulmonary hypertension: Code(s): I27.20 - Pulmonary hypertension, unspecified Status: Acute Assessment and Plan: Echo showing severe pulmonary HTN. As above. Chronic VTE ruled out (4) Altered mental status: Code(s): R41.82 - Altered mental status, unspecified Status: Acute Assessment and Plan: As above. Related to the respiratory failure. CT of the head with no acute findings. Right-sided weakness and garbled speech is chronic according to family. Mental status changes related to respiratory failure and patient has returned to baseline. Resolved (5) Acute congestive heart failure: Code(s): I50.9 - Heart failure, unspecified Status: Acute Assessment and Plan: BNP elevated to 3300. Echo showing severe pulmonary HTN and Grade I diastolic dysfunction with normal EF. CXR showing pulmonary edema. Troponin elevated to 0.036 but not felt to be clinically significant. Started on Lasix IV. Clinically, he was at his dry weight so he was changed to oral Lasix and dose increased from home dose. (6) Coronary artery disease involving [place] coronary artery of [place] heart: Code(s): I25.10 - Atherosclerotic heart disease of [place] coronary artery without angina pectoris Status: Acute Assessment and Plan: Patient has a hx of CAD and has a history of stent placement 2010 according to PCP notes. EKG showing left bundle branch block which is chronic. No CP. Troponins essentially negative. We continued aspirin and statin therapy. (7) Acute on chronic renal failure: Code(s): N17.9 - Acute kidney failure, unspecified; N18.9 - Chronic kidney disease, unspecified Status: Acute Assessment and Plan: Patient has underlying CKD with baseline Cr 1.2-1.5 normally. Cr 1.8 on admission but has improved to 1.1 with diuresis. We resumed lower dose Lisinopril which he tolerated well (8) PAD (peripheral artery disease): Code(s): I73.9 - Peripheral vascular disease, unspecified Status: Acute Assessment and Plan: Stable. We continued aspirin and Lipitor. (9) Seizure disorder: Code(s): G40.909 - Epilepsy, unspecified, not intractable, without status epilepticus Status: Acute Assessment and Plan: Stable. Carbamazepine level 3.3. We continued carbamazepine (10) Oropharyngeal dysphagia: Code(s): R13.12 - Dysphagia, oropharyngeal phase Status: Acute Assessment and Plan: Reported history of dysphagia. No overt signs/symptoms of dysphagia. 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
[2021-09-17] MEDS: carBAMazepine 200 MG TABLET PO ×2 (13:00→18:58)
== END 2021-09-17 21:15 | disposition home health service (06) | DRG 291 ==
LOC: ANHED 09-12 00:25 → ANH3MED 09-12 04:05 → ANHIMU 09-12 11:25 → ANH3MED 09-16 21:41 → ANHIMU 09-19 14:54
PROVIDERS: Internal Medicine; Internal Medicine Pulmonary Disease; Physician Assistant; Admitting Provider Internal Medicine; Emergency Provider Emergency Medicine; PCP Internal Medicine; Visit Provider Internal Medicine
DX: I50.31 Acute diastolic (congestive) heart failure (principal); J96.01 Acute respiratory failure with hypoxia; J96.02 Acute respiratory failure with hypercapnia; E87.2 Acidosis; N17.9 Acute kidney failure, unspecified; I69.351 Hemiplegia and hemiparesis following cerebral infarction affecting right dominant side; Z20.822 Contact with and (suspected) exposure to COVID-19; E11.22 Type 2 diabetes mellitus with diabetic chronic kidney disease; N18.9 Chronic kidney disease, unspecified; I73.9 Peripheral vascular disease, unspecified; I27.20 Pulmonary hypertension, unspecified; I25.10 Atherosclerotic heart disease of native coronary artery without angina pectoris; G40.909 Epilepsy, unspecified, not intractable, without status epilepticus; R13.12 Dysphagia, oropharyngeal phase; E11.42 Type 2 diabetes mellitus with diabetic polyneuropathy; N40.0 Benign prostatic hyperplasia without lower urinary tract symptoms; D63.8 Anemia in other chronic diseases classified elsewhere; F41.9 Anxiety disorder, unspecified; E55.9 Vitamin D deficiency, unspecified; K21.00 Gastro-esophageal reflux disease with esophagitis, without bleeding; G47.33 Obstructive sleep apnea (adult) (pediatric); I69.320 Aphasia following cerebral infarction; I69.393 Ataxia following cerebral infarction; Z95.5 Presence of coronary angioplasty implant and graft; Z85.841 Personal history of malignant neoplasm of brain; Z85.46 Personal history of malignant neoplasm of prostate; Z79.82 Long term (current) use of aspirin
CPT/HCPCS: 36415; 36569; 36600; 70450; 71045; 78580; 80048; 80053; 80069; 80156; 81001; 82375; 82607; 82746; 82805; 83050; 83605; 83735; 83880; 84100; 84132; 84145; 84484; 85025; 86140; 92610; 93005; 93306; 93970; 94003; 94618; 94660; 94762; 96374; 96376; 97110; 97116; 97162; 97166; 97530; 97535; 99285; A9270; A9540; C1751; C9803; G0378; J1644; J1940; U0003; U0005

== ENCOUNTER 2021-09-20 06:35 | Emergency (ER) | payer OTHER, SELFPAY ==
[2021-09-20] VITALS (39 sets, daily range): BP systolic 132–168; BP diastolic 56–86; PULSE 72–162; RESP 0–28; TEMP 36.6; O2SAT 88–100
--- NOTE | ~2021-09-20 | CT_ITS ---
EXAMINATION: CT cervical spine wo con DATE: 09/20/2021 07:49 INDICATION: Neck injury. TECHNIQUE: Computed tomography (CT) of the cervical spine was performed without intravenous contrast. Automated exposure control and iterative reconstruction technique were employed. The dose-length pro duct was 371.57 mGy-cm. COMPARISON: CT cervical spine 08/10/2013 FINDINGS: There is mild scarring at the lung apices. There is mild kyphosis of cervical spine. There is mild chronic height loss of C7 vertebral body. There is mildly decreased disc height at C4-C5 and C5-C6. The following disc levels are specifically discussed: C2-C3: There is mild bilateral uncovertebral joint osteoarthritis. There is severe bilateral facet paul int osteoarthritis. There is mild bilateral neural foraminal stenosis. There is no central canal sten osis. C3-C4: There is mild bilateral uncovertebral joint osteoarthritis. There is severe right and mild lef t facet joint osteoarthritis. There is moderate right and mild left neural foraminal stenosis. There is no central canal stenosis. C4-C5: There is no uncovertebral joint osteoarthritis. There is severe bilateral facet joint osteoart hritis. There is mild left neural foraminal stenosis. There is no central canal stenosis. C5-C6: There is no uncovertebral joint osteoarthritis. There is mild bilateral facet joint osteoarthr itis. There is no neural foraminal stenosis. There is no central canal stenosis. C6-C7: There is no uncovertebral joint osteoarthritis. There is moderate right and severe left facet joint osteoarthritis. There is mild left neural foraminal stenosis. There is no central canal stenosi s. C7-T1: There is no uncovertebral joint osteoarthritis. There is mild right and moderate left facet paul int osteoarthritis. There is no neural foraminal stenosis. There is mild central canal stenosis. IMPRESSION: 1. No fracture. 2. Moderate cervical spondylosis. Reviewed, dictated and finalized at location A.
--- NOTE | ~2021-09-20 | CT_ITS ---
EXAMINATION: CT brain wo con DATE: 09/20/2021 07:49 INDICATION: Head injury. TECHNIQUE: Computed tomography (CT) of the head was performed without intravenous contrast. The mA wa s adjusted according to patient size. Iterative reconstruction technique was employed. The dose-lengt h product was 529.67 mGy-cm. COMPARISON: Head CT 09/12/2021 FINDINGS: Motion artifact is noted. There is chronic encephalomalacia in the left frontal, temporal, and parietal lobes and left insula in the expected distribution of left middle cerebral artery. There is no intracranial hemorrhage, acute infarction, or abnormal intracranial mass lesion. The ventricle s are normal in size. The paranasal sinuses are clear. The orbits are normal. The mastoid air cells a re normal. There are changes of left-sided craniotomy. IMPRESSION: 1. Chronic encephalomalacia in the expected distribution of left middle cerebral artery. Reviewed, dictated and finalized at location A. IMPRESSION: 1. Chronic encephalomalacia in the expected distribution of left middle cerebra l artery.
--- NOTE | ~2021-09-20 | XR_ITS ---
EXAMINATION: XR chest 2V DATE: 09/20/2021 07:56 INDICATION: Shortness of breath. Fall. TECHNIQUE: Frontal and lateral views of the chest were obtained. COMPARISON: Chest single view 09/15/2021, chest CT 11/28/2017 FINDINGS: There are small pleural effusions. There are airspace opacities in right lower lung zone an d left mid and lower lung zones. No pneumothorax. Cardiomegaly is noted. There is a prominent left pa racardial fat pad. IMPRESSION: 1. Small pleural effusions. 2. Airspace opacities in right lower lung zone and left mid and lower lung zones, consistent with ate lectasis versus pneumonia. 3. Cardiomegaly. Reviewed, dictated and finalized at location A. IMPRESSION: 1. Small pleural effusions. 2. Airspace opacities in right lower lung zone and left mid and lower lung zone s, consistent with atelectasis versus pneumonia. 3. Cardiomegaly.
--- NOTE | 2021-09-20 06:59 | ECG_ITS ---
Measurements Intervals [place] Rate: 73 P: 68 NE: 160 QRS: -17 QRSD: 150 T: 56 QT: 388 QTc: 430 Interpretive Statements SINUS RHYTHM LEFT BUNDLE BRANCH BLOCK BASELINE ARTIFACT- I, II, III, AVR, AVL, AVF, V1-V6 ABNORMAL ECG Electronically Signed On 09-20-2021 8:56:32 CDT by Jl Dillon D.O.
--- NOTE | 2021-09-20 07:19 | PC.NURSE ---
Pt is awake and alert, pt is oriented to person and place. Pt fell on his back and experiencing back pain, no acute distress at this time
--- NOTE | 2021-09-20 07:30 | PC.NURSE ---
doctor at bedside
[2021-09-20 08:12] LABS: Basophils Absolute Auto 0.1 K/mm3 (0.0-0.1); Basophils Percent Auto 0.6 % (0.2-1.2); Eosinophils Absolute Auto 0.1 K/mm3 (0-0.3); Eosinophils Percent Auto 1.7 % (0-4.4); Hematocrit 37.2 % (42.0-52.0); Hemoglobin 11.6 g/dL (14.0-18.0); Immature Granulocyte Absolute 0.02 K/mm3 (0.00-0.031); Immature Granulocyte Percent A 0.2 % (0-0.5); Lymphocytes Absolute Auto 2.36 K/mm3 (0.9-3.2); Lymphocytes Percent Auto 28.3 % (18.3-44.2); Mean Corpuscular HGB Conc 31.2 g/dl (32-36); Mean Corpuscular Hemoglobin 32.1 pg (26-34); Neutrophils Absolute Auto 4.8 K/mm3 (1.3-6.7); Neutrophils Percent Auto 57.2 % (45.5-73.1); Platelet Count Result 286 k/mm3 (150-375); Red Blood Count 3.61 M/mm3 (4.6-6.20); Red Cell Distribution Width 13.5 % (11.5-14.5); White Blood Count 8.3 K/mm3 (4.5-10.0)
[2021-09-20 08:21] LABS: Glucose Point of Care 84 mg/dl (65-105)
--- NOTE | 2021-09-20 08:21 | PC.NURSE ---
Spoke with , she states that patient was going to the restroom with her assistance but he loss balance and fell hard on the toilet, states that he did not hit the floor nor hit his head and that this happens often at home, informed we will keep her updated
[2021-09-20 08:25] LABS: Alanine Aminotransferase 28 U/L (4-50); Albumin Level 4.1 g/dL (3.5-5.1); Alkaline Phosphatase 125 U/L (38-126); Anion Gap 5 mmol/L (8-16); Aspartate Amino Transferase 38 U/L (17-59); Bilirubin,Total 0.6 mg/dL (0.2-1.3); Blood Urea Nitrogen 31 mg/dL (9-20); Calcium 9.1 mg/dL (8.4-10.2); Carbon Dioxide 39 mmol/L (22-30); Chloride 97 mmol/L (98-107); Estimated Glomerular Filt Rate 53; Glucose 97 mg/dL (65-110); Potassium 4.7 mmol/L (3.4-5.0); Sodium 141 mmol/L (137-145)
--- NOTE | 2021-09-20 08:25 | PC.NURSE ---
Bedside glucose 84
[2021-09-20 08:33] LABS: NT Pro B Type Natriuretic Pept 181 pg/mL (5-100); Troponin I < 0.012 ng/mL (0.000-0.034)
[2021-09-20 08:35] LABS: Alveolar/Arterial O2 Gradient 52.2 mmHg; Base Excess ABG 12.6 mEq/l (+/-2.0); Fractional Inspired Oxygen 24 %; HCO3 ABG 41.1 mEq/l (22.0-26.0); Oxygen Content ABG 8.8 %vol (16.0-22.0); Oxyhemoglobin 51.7 % THb (90.0-100.0); PO2 FiO2 Ratio Arterial Blood 1.23 %; Total Hemoglobin 12.1 g/dL (12.0-18.0); pH ABG 7.355 (7.350-7.450)
[2021-09-20 08:38] LABS: PCO2 ABG 75.2 mmHg (35.0-45.0)
[2021-09-20 08:39] LABS: Device NASAL CANNULA; Modified Allen's Test Pass; Oxygen Saturation ABG 50.1 % (95.0-100.0); PO2 ABG 29.4 mmHg (80.0-100.0); Site Drawn LEFT RADIAL
--- NOTE | 2021-09-20 08:54 | ED.FALL ---
HPI - Fall General Chief Complaint: Fall Stated Complaint: flank pain Time Seen by Provider: 09/20/21 07:16 Source: patient, family, RN notes reviewed and old records reviewed History of Present Illness HPI Narrative: Patient has history of expressive aphasia from prior CVA and is difficult time articulating his concerns. History and by multiple sources. reports patient had a fall. He was using the restroom slipped on the tile and sat down on the toilet. said he fell hard on the toilet and wanted to come to the ER for evaluation. EMS reported patient described right flank pain. At the time of my evaluation patient denied any pain. did not note any loss of consciousness or striking his head, has not noted any change in his baseline mental status. Patient was recently admitted and since discharge has been doing well he has follow-up appointment scheduled with primary care and pulmonary. Related Data Home Medications Medication Instructions Recorded Confirmed aspirin 81 mg tablet,delayed 81 mg PO DAILY 02/07/21 09/12/21 release cholecalciferol (vitamin D3) 50 50 mcg PO DAILY 02/07/21 09/12/21 mcg (2,000 unit) capsule wheat dextrin 5 gram/7.4 gram oral See Rx Instructions PO DAILY g 02/07/21 09/12/21 powder atorvastatin 10 mg PO DAILY 09/12/21 09/12/21 carbamazepine 200 mg PO QID 09/12/21 09/12/21 metformin 500 mg PO DAILY 09/12/21 09/12/21 tamsulosin 0.4 mg PO DAILY 09/12/21 09/12/21 acetaminophen 500 mg oral powder 500 mg PO Q4H PRN 09/18/21 packet Allergies Allergy/AdvReac Type Severity Reaction Status Date / Time No Known Drug Allergies Allergy Unknown Unknown Verified 09/20/21 06:57 Review of Systems Review of Systems: CONSTITUTIONAL: Denies fever, chills, or sweats. EYES: Denies visual changes, redness, or discharge. ENT: Denies rhinorrhea, congestion, sore throat, or otalgia. CARDIOVASCULAR: Denies chest pain, palpitations, or edema. RESPIRATORY: Denies cough or dyspnea. GASTROINTESTINAL: Denies abdominal pain, nausea, vomiting, or diarrhea. GENITOURINARY: Denies dysuria or hematuria. SKIN: Denies rash or itching. MUSCULOSKELETAL: Denies back pain, joint pain, or myalgia. NEUROLOGIC: Denies headache, numbness, dizziness, or weakness. PSYCHIATRIC: Denies anxiety or depression. All systems reviewed & are unremarkable except as noted in HPI and below PMFSH Past Medical History Medical History Anemia of chronic disease Anxiety Ataxia, post-stroke Controlled diabetes mellitus type II without complication Coronary artery disease involving [place] coronary artery of [place] heart History of prostate cancer History of stroke Hx of brain cancer Mixed hyperlipidemia Oropharyngeal dysphagia PAD (peripheral artery disease) Right hemiparesis Seizure disorder Vitamin D deficiency Surgical History Surgical History H/O heart artery stent Family History Family History Mother Patient's mother is in good health Sibling Patient's sister is in good health Patient's brother is in good health Other Family history of arthritis Family history of malignant neoplasm of brain Family history of pancreatic cancer Malignant neoplasm of prostate Social History Social History Smoking status: Never smoker Second hand tobacco smoke exposure: No Alcohol intake: never Substance use: never Spiritual care concerns: No Exam Narrative: GENERAL: Well-appearing, well-nourished, and in no acute distress. HEAD: Normocephalic, atraumatic. EYES: PERRLA and EOMI. ENT: Nares clear, no rhinorrhea or epistaxis. Mucous membranes moist. NECK: Supple. No masses. No JVD CHEST: Clear to auscultation. No respiratory distress. No wheezes rales or rhonchi HEART: Regular rate and
--- NOTE | 2021-09-20 09:53 | PC.NURSE ---
doctor spoke with patient updated that we are waiting for urine results, if urine is normal he can be discharged, this nurse spoke with and updated her ass well on plans for discharge if test come back normal.Urine sent to lab
[2021-09-20 10:03] LABS: Add Urine Microscopic? YES; Appearance Urine Clear (Clear); Bilirubin Urine Negative (Negative); Blood Urine 1+ (Negative); Color Urine Yellow (Yellow); Glucose Urine UA Negative (Negative); Ketones Urine Negative (Negative); Leukocyte Esterase Ur Negative LEU/UL (Negative); Mucus Urine Rare /lpf; Nitrate Urine Negative (Negative); Protein Urine Negative (Negative); Specific Grav Ur 1.018 (1.001-1.035); Squamous Epithelial Cell Urine Rare /hpf (Few); Urobilinogen Urine Negative mg/dL (<2.0); WBC Urine 0-3 /hpf
--- NOTE | 2021-09-20 11:08 | PC.NURSE ---
While attempting to get repeat trop, doctor stating to not draw it is not needed because first test was negative, doctor is attempting to see if patient feels comfortable with being discharged at this time
--- NOTE | 2021-09-20 12:09 | PC.NURSE ---
Pt used urinal x 2 output 200ml
--- NOTE | 2021-09-20 12:30 | PC.NURSE ---
and daughter has arrived to pickling grader pt
== END 2021-09-20 12:33 | disposition home or self-care (01) ==
PROVIDERS: Emergency Provider Emergency Medicine; PCP Internal Medicine
DX: R10.9 Unspecified abdominal pain (principal); D64.9 Anemia, unspecified; I69.993 Ataxia following unspecified cerebrovascular disease; I69.920 Aphasia following unspecified cerebrovascular disease; I25.10 Atherosclerotic heart disease of native coronary artery without angina pectoris; E78.2 Mixed hyperlipidemia; E11.51 Type 2 diabetes mellitus with diabetic peripheral angiopathy without gangrene; G40.909 Epilepsy, unspecified, not intractable, without status epilepticus; E55.9 Vitamin D deficiency, unspecified; Z85.841 Personal history of malignant neoplasm of brain; Z85.46 Personal history of malignant neoplasm of prostate; Z79.84 Long term (current) use of oral hypoglycemic drugs; Z79.82 Long term (current) use of aspirin; Z95.5 Presence of coronary angioplasty implant and graft; M47.812 Spondylosis without myelopathy or radiculopathy, cervical region; R91.8 Other nonspecific abnormal finding of lung field; I51.7 Cardiomegaly; W01.198A Fall on same level from slipping, tripping and stumbling with subsequent striking against other object, initial encounter; I44.7 Left bundle-branch block, unspecified
CPT/HCPCS: 36415; 36600; 70450; 71046; 72125; 80053; 81001; 82805; 82948; 83880; 84484; 85025; 93005; 99284

== ENCOUNTER 2021-10-22 11:51 | Inpatient (IN) | payer OTHER, SELFPAY ==
[2021-10-22] VITALS (19 sets, daily range): BP systolic 107–155; BP diastolic 56–74; PULSE 78–94; RESP 18–48; TEMP 36.2–36.9; O2SAT 97–100; BMI 26.1
--- NOTE | ~2021-10-22 | XR_ITS ---
EXAMINATION: XR chest 1V portable INDICATION: COVID 19 pneumonia TECHNIQUE: Portable AP chest at 0956 hours COMPARISON: 10/22/2021 FINDINGS: There are small pleural effusions with increase on the right. Cardiomegaly is noted. There are airspace opacities of the mid and lower lung zones with slight increase on the right. No pneumoth orax is identified. IMPRESSION: 1. Airspace opacities of the mid and lower lung zones with decrease on the right, consistent with ate lectasis versus pneumonia. 2. Small pleural effusions with increase on the right. 3. Cardiomegaly. Reviewed, dictated and finalized at location A. GER SOCIAL IMPRESSION: 1. Airspace opacities of the mid and lower lung zones with decrease on the righ t, consistent with atelectasis versus pneumonia. 2. Small pleural effusions with increase on the right. 3. Cardiomegaly.
--- NOTE | ~2021-10-22 | XR_ITS ---
EXAMINATION: XR chest 2V DATE: 10/22/2021 12:20 INDICATION: Shortness of breath. TECHNIQUE: Frontal and lateral views of the chest were obtained. COMPARISON: Chest 2 views 09/20/2021, chest CT 11/28/2017 FINDINGS: There are airspace opacities in the mid and lower lung zones with a basilar predominance. N o pneumothorax. There are small pleural effusions. Cardiomegaly is noted. IMPRESSION: 1. Small pleural effusions with interval worsening on the right. 2. Airspace opacities in the mid and lower lung zones with mild worsening on the right, consistent wi th atelectasis versus pneumonia. 3. Cardiomegaly. Reviewed, dictated and finalized at location B. D CARE DEVELOPMENT SPECIALIST IMPRESSION: 1. Small pleural effusions with interval worsening on the right. 2. Airspace opacities in the mid and lower lung zones with mild worsening on th e right, consistent with atelectasis versus pneumonia. 3. Cardiomegaly.
--- NOTE | 2021-10-22 11:58 | ECG_ITS ---
Measurements Intervals [place] Rate: 91 P: 59 [place]: 153 QRS: 7 QRSD: 140 T: 54 QT: 347 QTc: 428 Interpretive Statements SINUS RHYTHM LEFT BUNDLE BRANCH BLOCK ABNORMAL ECG Electronically Signed On 10-22-2021 12:45:33 [employer] by Jl Dillon D.O.
--- NOTE | 2021-10-22 12:07 | ED.SOB ---
HPI - SOB/Dyspnea General Chief Complaint: Shortness of Breath/Dyspnea Stated Complaint: sob, Time Seen by Provider: 10/22/21 11:57 Source: patient and EMS Mode of arrival: EMS Limitations: clinical condition History of Present Illness HPI Narrative: Patient is a 76-year-old male brought in by EMS after his home health nurse called due to oxygen saturation in the 80s. Patient has a history of pulmonary hypertension, respiratory acidosis and congestive heart failure. Patient according to EMS is on 1 L of O2 at home, was placed on 3 L, upon arrival to the emergency room oxygen saturation up to 99 to 100%. Patient is a very poor historian. Patient denies any chest pain, abdominal pain, nausea, vomiting, diaphoresis, fever or chills. Related Data Home Medications Medication Instructions Recorded Confirmed aspirin 81 mg tablet,delayed 81 mg PO DAILY 02/07/21 10/10/21 release cholecalciferol (vitamin D3) 50 50 mcg PO DAILY 02/07/21 10/10/21 mcg (2,000 unit) capsule wheat dextrin 5 gram/7.4 gram oral See Rx Instructions PO DAILY g 02/07/21 10/10/21 powder atorvastatin 10 mg PO DAILY 09/12/21 10/10/21 metformin 500 mg PO DAILY 09/12/21 10/10/21 tamsulosin 0.4 mg PO DAILY 09/12/21 10/10/21 acetaminophen 500 mg oral powder 500 mg PO Q4H PRN 09/18/21 10/10/21 packet Allergies Allergy/AdvReac Type Severity Reaction Status Date / Time No Known Drug Allergies Allergy Unknown Unknown Verified 10/22/21 12:55 Review of Systems Review of Systems: All systems reviewed & are unremarkable except as noted in HPI and below Constitutional: Constitutional: Denies body ache(s), Denies chills, Denies excessive sweating, Denies fatigue, Denies fever(s), Denies headache(s), Denies lethargy, Denies malaise, Denies weakness and Denies weight loss Eyes: Eyes: Denies blurry vision, Denies change in vision and Denies loss of vision ENT: Denies dizziness, Denies ear discharge, Denies headache(s), Denies lip swelling, Denies epistaxis, Denies nasal congestion, Denies neck pain, Denies throat swelling and Denies tongue swelling Cardiovascular: Cardiovascular: Denies chest pain, Denies chest pain at rest, Denies chest pain with activity, Denies diaphoresis, Denies rapid heart rate, Denies edema, Denies irregular heart rhythm, Denies lightheadedness and Denies palpitations Respiratory: Respiratory: Denies chest congestion, Denies cough and Denies hemoptysis Gastrointestinal: Gastrointestinal: Denies abdominal pain, Denies melena, Denies hematochezia, Denies diarrhea, Denies nausea, Denies vomiting and Denies hematemesis Musculoskeletal: Musculoskeletal: Denies abnormal gait, Denies deformity, Denies joint swelling, Denies limited range of motion, Denies neck pain and Denies numbness Neurologic: Denies Abnormal speech present, Denies confusion, Denies dizziness, Denies headache(s), Denies focal weakness, Denies loss of vision, Denies numbness, Denies Other visual disturbances, Denies Sensory deficit (Neuro) and Denies weakness Psychiatric: Psychiatric: Denies confusion, Denies depression, Denies auditory hallucinations, Denies homicidal ideation and Denies suicidal ideation Endocrine: Endocrine: Denies cold intolerance, Denies excessive sweating, Denies fatigue, Denies heat intolerance and Denies palpitations Hematologic/Lymphatic: Hematologic/Lymphatic: Denies easy bleeding and Denies easy bruising Allergic/Immunologic: Allergic/Immunologic: Denies lip swelling, Denies throat swelling and Denies tongue swelling PMFSH Past Medical History Medical History Anemia of chronic disease Anxiety Ataxia, post-stroke Controlled diabetes mellitus type II without complication Coronary artery disease involving [place] coronary artery of [place] heart History of prostate cancer History of stroke Hx of brain cancer Mixed hyperlipidemia Oropharyngeal dysphagia PAD (peripheral artery disease) Right hemiparesis
[2021-10-22] MEDS: ALBUTEROL SULFATE NEB 2.5 MG/0.5 ML INH 5 MG INHALATION (12:24)
[2021-10-22] MEDS: IPRATROPIUM BR 0.02% INH SOLN 0.5 MG/2.5 ML VIAL INHALATION ×2 (12:25→21:12)
[2021-10-22 12:31] LABS: Base Excess ABG 15.8 mEq/l (+/-2.0); Carboxyhemoglobin 0.7 % THb (0-2.0); Fractional Inspired Oxygen 32 %; HCO3 ABG 44.8 mEq/l (22.0-26.0); Methemoglobin ABG 0.2 %THb (0-1.5); Oxygen Content ABG 16.5 %vol (16.0-22.0); Oxygen Saturation ABG 98.5 % (95.0-100.0); Oxyhemoglobin 97.4 % THb (90.0-100.0); PO2 ABG 139.2 mmHg (80.0-100.0); PO2 FiO2 Ratio Arterial Blood 4.35 %; Reduced Hemoglobin 1.7 %THb (0-5.0); Total Hemoglobin 11.9 g/dL (12.0-18.0); pH ABG 7.355 (7.350-7.450)
[2021-10-22 12:35] LABS: Device NASAL CANNULA; Modified Allen's Test Pass; PCO2 ABG 82.1 mmHg (35.0-45.0); Site Drawn LEFT RADIAL
[2021-10-22 12:51] LABS: Basophils Percent Auto 0.5 % (0.2-1.2); Eosinophils Absolute Auto 0.1 K/mm3 (0-0.3); Eosinophils Percent Auto 0.9 % (0-4.4); Hematocrit 37.6 % (42.0-52.0); Hemoglobin 11.5 g/dL (14.0-18.0); Immature Granulocyte Absolute 0.05 K/mm3 (0.00-0.031); Immature Granulocyte Percent A 0.6 % (0-0.5); Lymphocytes Absolute Auto 1.13 K/mm3 (0.9-3.2); Lymphocytes Percent Auto 14.5 % (18.3-44.2); Mean Corpuscular HGB Conc 30.6 g/dl (32-36); Mean Corpuscular Hemoglobin 32.2 pg (26-34); Mean Corpuscular Volume 105.3 fl (80-100); Mean Platelet Volume 9.7 fl (7.4-10.4); Monocytes Absolute Auto 0.9 K/mm3 (0.1-0.6); Monocytes Percent Auto 10.9 % (2.6-8.5); Neutrophils Absolute Auto 5.7 K/mm3 (1.3-6.7); Neutrophils Percent Auto 72.6 % (45.5-73.1); Platelet Count Result 280 k/mm3 (150-375); Red Blood Count 3.57 M/mm3 (4.6-6.20); Red Cell Distribution Width 13.3 % (11.5-14.5); White Blood Count 7.8 K/mm3 (4.5-10.0)
[2021-10-22] MEDS: FUROSEMIDE INJ 40 MG/4 ML VIAL IV PUSH (12:54)
[2021-10-22 13:06] LABS: Alanine Aminotransferase 44 U/L (4-50); Albumin Level 3.9 g/dL (3.5-5.1); Alkaline Phosphatase 170 U/L (38-126); Aspartate Amino Transferase 50 U/L (17-59); Bilirubin,Total 0.4 mg/dL (0.2-1.3); Blood Urea Nitrogen 23 mg/dL (9-20); Calcium 9.1 mg/dL (8.4-10.2); Carbon Dioxide > 40 mmol/L (22-30); Chloride 90 mmol/L (98-107); Estimated CRCL calculation 56 ml/min; Estimated Glomerular Filt Rate > 60; Glucose 128 mg/dL (65-110); Potassium 4.5 mmol/L (3.4-5.0); Sodium 140 mmol/L (137-145)
[2021-10-22 13:17] LABS: NT Pro B Type Natriuretic Pept 229 pg/mL (5-100); Troponin I 0.012 ng/mL (0.000-0.034)
[2021-10-22 13:27] LABS: INR 1.1; Partial Thromboplastin Time 25.8 SECONDS (22.3-36.8); Prothrombin Time 13.8 Seconds (11.1-14.7)
--- NOTE | 2021-10-22 17:33 | PM.IMHP ---
H&P: HPI History of Present Illness Date/Time: 10/22/21 17:33 this is a 76-year-old male patient who has a past medical history of having brain surgery due to a brain tumor. The patient resides at home and has home health come to him. He resides with his . He typically wears oxygen at 2 L per nasal cannula. The patient was brought in via EMS from his house. The home health nurse call due to oxygen saturations being in the 80s. The patient is a very poor historian. He does have a history of having congestive heart failure. The patient's O2 saturation bumped up to 90-100% with 3 L today. Is a very poor historian. His H&H is stable 11.5 and 37.6. MCV of 105.3 this is his baseline. On his 1st set of ABGs pH normal at 7.355 CO2 82.1. PO2 139.2. Glucose 128. Chest x-ray read as small pleural effusions with interval worsening on the right. Airspace opacities in the mid and lower lung zones with mild worsening on the right consistent with atelectasis versus pneumonia. Cardiomegaly. The patient was placed on a BiPAP machine 11/05 with a rate of 5. The patient was given nebulizer treatments IV Lasix, azithromycin Rocephin. The patient is awake. However he has a very poor historian. The patient is being admitted to inpatient status on the date of service of 10/22/2021. Chief Complaint: sob Review of Systems Review of Systems: All systems reviewed & are unremarkable except as noted in HPI and below ROS unobtainable: Yes unobtainable due to mental status Constitutional: Constitutional: Reports as per HPI and Reports no additional constitutional complaints Eyes: Eyes: Reports as per HPI and Reports no additional eye complaints ENT: Reports system reviewed and no additional complaints, except as documented and Reports Normal hearing present Cardiovascular: Cardiovascular: Reports no additional cardiovascular complaints Respiratory: Respiratory: Reports no additional respiratory complaints and Reports no additional respiratory complaints Gastrointestinal: Gastrointestinal: Reports as per HPI and Reports no additional gastrointestinal complaints Musculoskeletal: Musculoskeletal: Reports no additional musculoskeletal complaints Integumentary/Breasts: Skin/Breast: Reports system reviewed and no additional complaints, except as docu and Reports as per HPI Neurologic: Reports system reviewed and no additional complaints, except as documented, Reports as per HPI and Reports Normal hearing present Psychiatric: Psychiatric: Reports no additional psychiatric complaints and Reports as per HPI Endocrine: Endocrine: Reports no additional endocrine complaints Hematologic/Lymphatic: Hematologic/Lymphatic: Reports no additional hematologic/lymphatic complaints Allergic/Immunologic: Allergic/Immunologic: Reports no additional allergic/immunologic complaints [facility] Past Medical History Medical History (Updated 10/22/21 @ 17:45 by Ele Wolf NP) TILA (acute kidney injury) Anemia of chronic disease Anxiety At high risk for injury related to fall Ataxia, post-stroke Controlled diabetes mellitus type II without complication Coronary artery disease involving [place] coronary artery of [place] heart Diabetes mellitus History of prostate cancer History of stroke Hospital discharge follow-up HTN, goal below 130/80 Hx of brain cancer Hyperlipidemia Mixed hyperlipidemia Oropharyngeal dysphagia PAD (peripheral artery disease) Right hemiparesis Seizure disorder Vitamin D deficiency Surgical History Surgical History (Updated 10/22/21 @ 17:46 by Ele Wolf NP) H/O brain surgery H/O heart artery stent Family History Family History Mother Patient's mother is in good health Sibling Patient's sister is in good health Patient's brother is in good health Other Family history of arthritis Family history of malignant neoplasm of brain Family history of pancreatic cancer Viviane
--- NOTE | 2021-10-22 17:57 | ADMGEN ---
This patient, Angelo Bartholomew, was admitted to IMU Room 207-01 at 1857 on 10/22/2021. Report received from Danna BRO. Patient/family oriented to hospital policies and general routines including ID bracelet, bed and alarms, visiting hours, pain management, procedures, bathroom and other care routines, personal items, smoking policy, room service/diet, and visiting hours. Information on how to activate the Rapid Response Team has been discussed. Patient/Family are encouraged to report perceived risks to care and to ask questions if they do not understand what they are told or what they should do.
[2021-10-22 20:29] LABS: Glucose Point of Care 75 mg/dl (65-105)
[2021-10-22] MEDS: ALBUTEROL SULFATE NEB 2.5 MG/0.5 ML INH INHALATION (21:12)
[2021-10-22 23:11] LABS: Glucose Point of Care 99 mg/dl (65-105)
[2021-10-22 23:35] LABS: Alveolar/Arterial O2 Gradient 51.2 mmHg; Base Excess ABG 16.6 mEq/l (+/-2.0); Fractional Inspired Oxygen 30 %; HCO3 ABG 43.6 mEq/l (22.0-26.0); Oxygen Saturation ABG 96.5 % (95.0-100.0); Oxyhemoglobin 95.9 % THb (90.0-100.0); PO2 ABG 85.9 mmHg (80.0-100.0); PO2 FiO2 Ratio Arterial Blood 2.86 %; Total Hemoglobin 11.8 g/dL (12.0-18.0); pH ABG 7.442 (7.350-7.450)
[2021-10-22] MEDS: FUROSEMIDE INJ 40 MG/4 ML VIAL 20 MG IV PUSH (23:35)
[2021-10-22] MEDS: methylPREDNISolone SOD SUCC 125 MG VIAL IV PUSH (23:35)
[2021-10-22 23:37] LABS: PCO2 ABG 65.4 mmHg (35.0-45.0)
[2021-10-22 23:38] LABS: Device NON-INVASIVE VENT; Modified Allen's Test Pass; Site Drawn LEFT RADIAL
[2021-10-22 23:39] LABS: Non-Invasive Expiratory Pressure 7 CMH2O; Non-Invasive Inspiratory Pressure 14 CMH2O; Non-Invasive Vent Rate 20 /MIN
[2021-10-23] VITALS (29 sets, daily range): BP systolic 122–136; BP diastolic 52–57; PULSE 72–89; RESP 18–50; TEMP 36.3–36.6; O2SAT 92–100
--- NOTE | 2021-10-23 | ECHO_ITS ---
Patient Info Name: Angelo Bartholomew Age: 76 years : 1945 Gender: Male Ht: 67 in Wt: 189 lbs BSA: 2.04 m2 HR: 80 bpm BP: 122 / 53 mmHg Heart Rhythm: Sinus Rhythm Technical Quality: Fair Exam Date: 10/23/2021 9:00 AM Exam Location: [facility] Pul[facility] Patient Status: Inpatient Admit Date: 10/22/2021 Staff Ordering Physician: Ele Wolf NP Canned Food Reconditioning Inspector: Ariane Garcia RDCS Attending Provider: Deepti Brown MD Referring Physician: Maryann DOWNEY; Exam Type: CA echo doppler color flow Study Info Indications - CHF Complete two-dimensional, color flow and Doppler transthoracic echocardiogram is performed. Summary 1. Complete two-dimensional, color flow and Doppler transthoracic echocardiogram is performed. 2. Technically difficult study with limited views. 3. Left ventricular chamber dimension is normal. 4. Left ventricular systolic function is normal, estimated at 65-70%. 5. There is mildly increased left ventricular wall thickness. 6. Left ventricular septal wall motion is abnormal with septal motion related to bundle branch block. 7. The left ventricular diastolic function is grade I diastolic dysfunction. 8. There is trace tricuspid valve regurgitation. 9. No pulmonary hypertension, estimated pulmonary arterial systolic pressure is 18 mmHg. Left Ventricle Left ventricular chamber dimension is normal. Left ventricular systolic function is normal, estimated at 65-70%. There is mildly increased left ventricular wall thickness. Left ventricular septal wall motion is abnormal with septal motion related to bundle branch block. The left ventricular diastolic function is grade I diastolic dysfunction. Technically difficult study with limited views. Right Ventricle Right ventricular chamber dimension is normal. Right ventricular systolic function is normal. Left Atria Left atrial chamber dimension is not well visualized. Right Atria Right atrial chamber dimension is not well visualized. Aortic Valve The aortic valve is not well visualized. There is no aortic valve stenosis. There is no aortic valve regurgitation. Pulmonic Valve The pulmonic valve is not well visualized. Mitral Valve The mitral valve has normal leaflets. There is trace mitral valve regurgitation. The mitral valve annulus is mildly calcified. Tricuspid Valve The tricuspid valve leaflets are not well visualized. There is trace tricuspid valve regurgitation. No pulmonary hypertension, estimated pulmonary arterial systolic pressure is 18 mmHg. Pericardium/Pleural The pericardium appears thickened pericardium. There is small pericardial effusion. Small amount of ascites noted. Inferior Vena Cava Normal inferior vena cava with >50% collapse upon inspiration consistent with normal right atrial pressure, 5 mmHg. Aorta The aortic root size at the sinus of Valsalva is normal. There is mild aortic atherosclerosis. Left Ventricular Outflow Tract Name Value Normal LVOT 2D LVOT Diameter 2.0 cm LVOT Doppler LVOT Peak Gradient 7 mmHg LVOT Mean Gradient 4
[2021-10-23] MEDS: IPRATROPIUM BR 0.02% INH SOLN 0.5 MG/2.5 ML VIAL INHALATION ×4 (02:50→21:00)
[2021-10-23] MEDS: ALBUTEROL SULFATE NEB 2.5 MG/0.5 ML INH INHALATION ×4 (02:50→21:00)
[2021-10-23 03:42] LABS: Glucose Point of Care 121 mg/dl (65-105)
[2021-10-23] MEDS: methylPREDNISolone SOD SUCC 125 MG VIAL 60 MG IV PUSH ×4 (05:13→23:58)
[2021-10-23 05:19] LABS: Basophils Percent Auto 0.3 % (0.2-1.2); Hematocrit 36.4 % (42.0-52.0); Hemoglobin 11.4 g/dL (14.0-18.0); Immature Granulocyte Absolute 0.03 K/mm3 (0.00-0.031); Immature Granulocyte Percent A 0.5 % (0-0.5); Lymphocytes Percent Auto 11.3 % (18.3-44.2); Mean Corpuscular HGB Conc 31.3 g/dl (32-36); Mean Corpuscular Hemoglobin 32.2 pg (26-34); Mean Corpuscular Volume 102.8 fl (80-100); Monocytes Absolute Auto 0.2 K/mm3 (0.1-0.6); Monocytes Percent Auto 3.9 % (2.6-8.5); Neutrophils Absolute Auto 5.2 K/mm3 (1.3-6.7); Platelet Count Result 274 k/mm3 (150-375); Red Blood Count 3.54 M/mm3 (4.6-6.20); Red Cell Distribution Width 13.2 % (11.5-14.5); White Blood Count 6.2 K/mm3 (4.5-10.0)
[2021-10-23 05:23] LABS: Alanine Aminotransferase 40 U/L (4-50); Albumin Level 3.8 g/dL (3.5-5.1); Alkaline Phosphatase 165 U/L (38-126); Aspartate Amino Transferase 41 U/L (17-59); Bilirubin,Total 0.4 mg/dL (0.2-1.3); Blood Urea Nitrogen 28 mg/dL (9-20); Calcium 9.1 mg/dL (8.4-10.2); Carbon Dioxide > 40 mmol/L (22-30); Chloride 88 mmol/L (98-107); Estimated CRCL calculation 42 ml/min; Estimated Glomerular Filt Rate 59; Glucose 144 mg/dL (65-110); Lactate Dehydrogenase 297 U/L (313-618); Potassium 4.5 mmol/L (3.4-5.0); Sodium 136 mmol/L (137-145)
[2021-10-23 05:24] LABS: Lactic Acid Reflex 1.1 mmol/L (0.7-2.1)
[2021-10-23 08:31] LABS: Glucose Point of Care 130 mg/dl (65-105)
--- NOTE | 2021-10-23 09:00 | PCSTNOTE ---
Bedside swallow evaluation attempted but pt on Bi-pap so unable to complete. Nsg indicated he is not likely to be off Bi-pap soon.
[2021-10-23] MEDS: FUROSEMIDE INJ 40 MG/4 ML VIAL 20 MG IV PUSH ×2 (09:21→17:46)
--- NOTE | 2021-10-23 11:51 | PCSTNOTE ---
Please refer to the Bedside Swallow Evaluation in the EMR. Please note, silent aspiration cannot be ruled out at bedside.
[2021-10-23 12:30] LABS: Glucose Point of Care 138 mg/dl (65-105)
[2021-10-23] MEDS: carBAMazepine 200 MG TABLET PO ×3 (12:52→21:07)
--- NOTE | 2021-10-23 14:31 | PM.IMPN ---
Progress Note: A&P Assessment and Plan (1) Acute respiratory failure with hypercapnia: Code(s): J96.02 - Acute respiratory failure with hypercapnia Status: Acute Assessment and Plan: Chronic oxygen requirement of 1L at home. CXR w/ right pneumonia and interval worsening of a small right pleural effusion. BNP midly elevated. Patient improved overnight down to 2L NC. Blood cultures pending. Continue oxygen as needed and treat pneumonia. -Continue ceftriaxone and azythromycin IV -Oxygen as needed (2) Congestive heart failure: Code(s): I50.9 - Heart failure, unspecified Status: Acute Assessment and Plan: Patient given furosemide with some improvement. BNP 229 mildly elevated. EF 65-70% HFpEF appears medically optomaized at this time with the hypercarbic hypoxemic respiratory failure likely due to the pneumonia. (3) Hyperlipidemia: Qualifiers: Hyperlipidemia type: unspecified Qualified Code(s): E78.5 - Hyperlipidemia, unspecified Code(s): E78.5 - Hyperlipidemia, unspecified Status: Chronic Assessment and Plan: On atorvastatin 10 mg po daily at home. Continue home medication. (4) Controlled diabetes mellitus type II without complication: Qualifiers: Diabetes mellitus miniature model maker insulin use: without miniature model maker use Qualified Code(s): E11.9 - Type 2 diabetes mellitus without complications Code(s): E11.9 - Type 2 diabetes mellitus without complications Status: Acute Assessment and Plan: Last hemoglobin a1c 5.8. Diet controlled. -Check blood glucose AC (5) HTN, goal below 130/80: Code(s): I10 - Essential (primary) hypertension Status: Chronic Assessment and Plan: On lisinopril at home. -continue lisinopril 10 mg po daily (6) CKD stage G3b/A1, GFR 30-44 and albumin creatinine ratio <30 mg/g: Code(s): N18.32 - Chronic kidney disease, stage 3b Status: Acute Additional Plan CKD stage III with baseline creatinine ~1.20. -Avoid nephrotoxic agents -Renally dose medications Subjective Date/time seen: Date of service 10/23/21 14:31 Patient says he is really unsure of how he feels. He is off bipap and on 2L NC. Patient denies any pain, fevers, chills. Spoke with patient's who says patient wears 1L NC at home continuous and will increase it to 2L when exercising. Review of Systems Respiratory: Respiratory: Reports cough and Reports dyspnea on exertion Exam Narrative: GENERAL: NAD, cooperative HEENT: Normocephalic, atraumatic, anicteric, nares clear, oropharynx moist and clear, poor dentition NECK: Supple CV: Normal S1, S2, RRR, No MRG RESP: Coarse breath sounds - tachypneic on 2L NC Abdomen: Soft, non-tender, non-distended, +BS EXTREMITIES: Warm and well perfused, no clubbing, cyanosis, or edema. SKIN: warm, dry and intact. NEURO:No new deficits - chronic ataxia Objective Data Vital Signs Vital Signs: Vital Signs - 24 hr 10/22/21 15:28 10/22/21 16:00 10/22/21 17:10 Temperature 98.4 F Pulse Rate 87 82 85 Respiratory Rate 34 H 24 H 38 H Blood Pressure 130/57 L 131/70 Pulse Oximetry 100 99 98 10/22/21 17:16 10/22/21 18:00 10/22/21 18:11 Temperature Pulse Rate 78 87 Respiratory Rate 20 33 H Blood Pressure 134/68 Pulse Oximetry 99 100 100 10/22/21 18:32 10/22/21 20:00 10/22/21 21:13 Temperature 97.4 F L 97.2 F L Pulse Rate 88 85 91 Respiratory Rate 40 H 34 H 48 H Blood Pressure 134/56 L 107/74 Pulse Oximetry 100 97 99 10/22/21 21:20 10/22/21 21:21 10/22/21 22:00 Temperature Pulse Rate 94 90 84 Respiratory Rate 47 H 37 H Blood Pressure Pulse Oximetry 98 10/22/21 22:48 10/22/21 23:49 10/23/21 00:00 Temperature 97.6 F Pulse Rate 86 84 89 Respiratory Rate 37 H 39 H Blood Pressure 118/66 Pulse Oximetry 97 97 97 10/23/21 02:00 10/23/21 02:50 10/23/21 02:57 Temperature Pulse Rate 80 78 80 Respiratory R
[2021-10-23 17:22] LABS: Glucose Point of Care 127 mg/dl (65-105)
[2021-10-23 20:07] LABS: Glucose Point of Care 173 mg/dl (65-105)
[2021-10-24] VITALS (22 sets, daily range): BP systolic 127–150; BP diastolic 50–61; PULSE 70–100; RESP 12–38; TEMP 36.6–36.8; O2SAT 91–97
[2021-10-24] MEDS: ALBUTEROL SULFATE NEB 2.5 MG/0.5 ML INH INHALATION ×4 (02:19→20:48)
[2021-10-24] MEDS: IPRATROPIUM BR 0.02% INH SOLN 0.5 MG/2.5 ML VIAL INHALATION ×4 (02:19→20:48)
[2021-10-24] MEDS: methylPREDNISolone SOD SUCC 125 MG VIAL 60 MG IV PUSH (06:37)
[2021-10-24 08:09] LABS: Glucose Point of Care 131 mg/dl (65-105)
--- NOTE | 2021-10-24 08:24 | PM.IMPN ---
Progress Note: A&P Assessment and Plan (1) COVID-19: Code(s): U07.1 - COVID-19 Status: Acute Assessment and Plan: Patient is currently being treated for pneumonia and was planned to be discharged to SNF when required rapid COVID 19 test became positive. Patient has lost bed at facility and must stay hospitalized in isolation at this time. We are repeating the COVID 19 rapid and ordering a COVID 19 PCR, so the patient will remain hospitalized for at least an additional 48 hours. If the tests are positive given the patient being high risk, will give treatment with remdesivir. -Repeat rapid COVID 19 -COVID 19 PCR -CRP, CK, LDH,CBC with diff for AM labs (2) Acute respiratory failure with hypercapnia: Code(s): J96.02 - Acute respiratory failure with hypercapnia Status: Acute Assessment and Plan: On presentation patient was as high as 4L NC prior to coming to the ED and on BIPAP. CXR with R. pneumonia. Azithromycin & ceftriaxone s/p 1 dose. BCX w/ no growth. Patient improved breathing now down to 1LNC. Started augmentin and azithromycin this morning. Will continue for a total of 5 days of treatment. Discontinued methylprednisolone. -Prednisone 40 mg po daily x 1/5 days -Augmentin 875 mg po BID 2/5 -Azithromycin 500 mg po daily day 2/3 (3) Acute exacerbation of CHF (congestive heart failure): Qualifiers: Heart failure type: diastolic Qualified Code(s): I50.33 - Acute on chronic diastolic (congestive) heart failure Code(s): I50.9 - Heart failure, unspecified Status: Acute Assessment and Plan: Increased oxygen requirement in ED with new diagnosis of pneumonia and mildly elevated BNP to 229. Some improvement of breathing with IV furosemide given in ED. Continued during admission with improvement of breathing during treatment. -Discontinue furosemide IV -Restart home dose of furosemide 20 mg po daily (4) CKD stage G3b/A1, GFR 30-44 and albumin creatinine ratio <30 mg/g: Code(s): N18.32 - Chronic kidney disease, stage 3b Status: Acute Assessment and Plan: Has been stable during this admission and is currently at baseline function. (5) Diabetes mellitus: Qualifiers: Diabetes mellitus type: type 2 Diabetes mellitus assisted insulin use: without assisted use Diabetes mellitus complication status: with neurologic complications Diabetes mellitus complication detail: with polyneuropathy Qualified Code(s): E11.42 - Type 2 diabetes mellitus with diabetic polyneuropathy Code(s): E11.9 - Type 2 diabetes mellitus without complications Status: Chronic Assessment and Plan: Last a1c was 5.8 and at home is diet controlled. Glucose elevated due to steroid use. (6) Hyperlipidemia: Qualifiers: Hyperlipidemia type: unspecified Qualified Code(s): E78.5 - Hyperlipidemia, unspecified Code(s): E78.5 - Hyperlipidemia, unspecified Status: Chronic Assessment and Plan: Continue home atorvastatin. (7) Seizure disorder: Code(s): G40.909 - Epilepsy, unspecified, not intractable, without status epilepticus Status: Acute Assessment and Plan: Continue home seizure medication. 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 (9) HTN, goal below 130/80: Code(s): I10 - Essential (primary) hypertension Status: Chronic Assessment and Plan: Takes lisinopril. Continue home lisinopril. Time Spent With Patient Time: I have spent over 35 minutes evaluating and coordinating care for this patient today. Time with patient: Greater than 35 minutes Subjective Date/time seen: Date of service 10/24/21 08:24 Patient reports productive cough and says his breathing is ok. Denies having any pain. Review of Systems Respirator
[2021-10-24 08:30] LABS: Hematocrit 32.5 % (42.0-52.0); Hemoglobin 10.6 g/dL (14.0-18.0); Immature Granulocyte Absolute 0.02 K/mm3 (0.00-0.031); Immature Granulocyte Percent A 0.2 % (0-0.5); Lymphocytes Absolute Auto 0.94 K/mm3 (0.9-3.2); Lymphocytes Percent Auto 11.6 % (18.3-44.2); Mean Corpuscular HGB Conc 32.6 g/dl (32-36); Mean Corpuscular Hemoglobin 31.7 pg (26-34); Mean Corpuscular Volume 97.3 fl (80-100); Mean Platelet Volume 9.7 fl (7.4-10.4); Monocytes Absolute Auto 0.5 K/mm3 (0.1-0.6); Monocytes Percent Auto 5.8 % (2.6-8.5); Neutrophils Absolute Auto 6.7 K/mm3 (1.3-6.7); Neutrophils Percent Auto 82.4 % (45.5-73.1); Platelet Count Result 278 k/mm3 (150-375); Red Blood Count 3.34 M/mm3 (4.6-6.20); White Blood Count 8.1 K/mm3 (4.5-10.0)
[2021-10-24 08:48] LABS: Blood Urea Nitrogen 39 mg/dL (9-20); Calcium 8.7 mg/dL (8.4-10.2); Carbon Dioxide > 40 mmol/L (22-30); Chloride 89 mmol/L (98-107); Estimated CRCL calculation 46 ml/min; Estimated Glomerular Filt Rate > 60; Glucose 149 mg/dL (65-110); Potassium 4.1 mmol/L (3.4-5.0); Sodium 138 mmol/L (137-145)
[2021-10-24] MEDS: AMOXICILLIN/CLAVULANATE K 875-125 MG TAB 1 TABLET PO ×2 (09:36→21:40)
[2021-10-24] MEDS: CHOLECALCIFEROL 1,000 UNITS TABLET 2000 UNITS PO (09:36)
[2021-10-24] MEDS: AZITHROMYCIN 250 MG TABLET 500 MG PO (09:36)
[2021-10-24] MEDS: carBAMazepine 200 MG TABLET 400 MG PO (09:37)
[2021-10-24] MEDS: lisinopriL 10 MG TABLET PO (09:37)
[2021-10-24] MEDS: PANTOPRAZOLE 40 MG TABLET PO (09:37)
[2021-10-24] MEDS: TAMSULOSIN HCL 0.4 MG CAPSULE PO (09:37)
[2021-10-24] MEDS: ASPIRIN 81 MG ENTERIC TABLET PO (09:37)
[2021-10-24] MEDS: ATORVASTATIN 10 MG TABLET PO (09:37)
[2021-10-24] MEDS: FUROSEMIDE INJ 40 MG/4 ML VIAL 20 MG IV PUSH (09:48)
[2021-10-24] MEDS: carBAMazepine 200 MG TABLET PO ×3 (12:56→21:41)
[2021-10-24 13:04] LABS: Glucose Point of Care 120 mg/dl (65-105)
--- NOTE | 2021-10-24 14:59 | PM.DS ---
DS: Admitting Diagnosis Discharge Date 10/24/2021 Admitting Diagnosis Acute on chronic respiratory failure DS: Discharge Diagnosis Discharge Diagnosis (1) Acute respiratory failure with hypercapnia: Code(s): J96.02 - Acute respiratory failure with hypercapnia Status: Acute Assessment and Plan: On presentation patient was as high as 4L NC prior to coming to the ED and on BIPAP. CXR with R. pneumonia. Azithromycin & ceftriaxone s/p 1 dose. BCX w/ no growth. Patient improved breathing now down to 1LNC. Started augmentin and azithromycin this morning. Will continue for a total of 5 days of treatment. Discontinued methylprednisolone. -Prednisone 40 mg po daily x 1/5 days -Augmentin 875 mg po BID 01/05 -Azithromycin 500 mg po daily day / (2) Acute exacerbation of CHF (congestive heart failure): Qualifiers: Heart failure type: diastolic Qualified Code(s): I50.33 - Acute on chronic diastolic (congestive) heart failure Code(s): I50.9 - Heart failure, unspecified Status: Acute Assessment and Plan: Increased oxygen requirement in ED with new diagnosis of pneumonia and mildly elevated BNP to 229. Some improvement of breathing with IV furosemide given in ED. Continued during admission with improvement of breathing during treatment. -Discontinue furosemide IV -Restart home dose of furosemide 20 mg po daily (3) CKD stage G3b/A1, GFR 30-44 and albumin creatinine ratio <30 mg/g: Code(s): N18.32 - Chronic kidney disease, stage 3b Status: Acute Assessment and Plan: Has been stable during this admission and is currently at baseline function. (4) Diabetes mellitus: Qualifiers: Diabetes mellitus complication detail: with polyneuropathy Diabetes mellitus complication status: with neurologic complications Diabetes mellitus residential insulin use: without residential use Diabetes mellitus type: type 2 Qualified Code(s): E11.42 - Type 2 diabetes mellitus with diabetic polyneuropathy Code(s): E11.9 - Type 2 diabetes mellitus without complications Status: Chronic Assessment and Plan: Last a1c was 5.8 and at home is diet controlled. Glucose elevated due to steroid use. Patient will need to follow up with PCP after discharge. (5) Hyperlipidemia: Qualifiers: Hyperlipidemia type: unspecified Qualified Code(s): E78.5 - Hyperlipidemia, unspecified Code(s): E78.5 - Hyperlipidemia, unspecified Status: Chronic Assessment and Plan: Continue home atorvastatin. (6) Seizure disorder: Code(s): G40.909 - Epilepsy, unspecified, not intractable, without status epilepticus Status: Acute Assessment and Plan: Continue home seizure medication. 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 (8) HTN, goal below 130/80: Code(s): I10 - Essential (primary) hypertension Status: Chronic Assessment and Plan: Takes lisinopril. Continue home lisinopril. DS: Summary Time Spent with Patient Time attestation: Total time spent providing and/or coordinating discharge services: 30 Exam Narrative: GENERAL: NAD, cooperative HEENT: Normocephalic, atraumatic, anicteric, nares clear, oropharynx moist and clear, poor dentition NECK: Supple CV: Normal S1, S2, RRR, No MRG RESP: CTAB Abdomen: Soft, non-tender, non-distended, +BS EXTREMITIES: Warm and well perfused, no clubbing, cyanosis, or edema. SKIN: warm, dry and intact. NEURO:No new deficits - chronic ataxia DS: Data Data Completed and Pending Labs on day of discharge: Labs from last 24 hours 10/24/21 10/24/21 10/24/21 13:01 08:18 08:18 WBC 8.1 RBC 3.34 L Hgb 10.6 L Hct 32.5 L MCV 97.3 D MCH 31.7 MCHC 32.6 RDW 13.0 Plt Count 278 MPV 9.7 Immature Gran
[2021-10-24 16:14] LABS: EDCOVIDSCREEN Positive (Negative)
[2021-10-24 17:48] LABS: EDCOVIDSCREEN Positive (Negative)
[2021-10-24] MEDS: FUROSEMIDE 40 MG TABLET PO (17:58)
[2021-10-24 18:06] LABS: Glucose Point of Care 53 mg/dl (65-105)
[2021-10-24 18:41] LABS: Glucose Point of Care 152 mg/dl (65-105)
[2021-10-24 20:18] LABS: Glucose Point of Care 157 mg/dl (65-105)
[2021-10-25] VITALS (15 sets, daily range): BP systolic 125–141; BP diastolic 53–67; PULSE 83–91; RESP 18–24; TEMP 36.3–36.6; O2SAT 91–95
[2021-10-25] MEDS: ALBUTEROL SULFATE NEB 2.5 MG/0.5 ML INH INHALATION ×4 (02:36→21:25)
[2021-10-25] MEDS: IPRATROPIUM BR 0.02% INH SOLN 0.5 MG/2.5 ML VIAL INHALATION ×4 (02:37→21:25)
--- NOTE | 2021-10-25 04:11 | ADMGEN ---
This patient, Angelo Bartholomew, was admitted to 3 [facility] Surg Room 316-01. Patient/family oriented to hospital policies and general routines including ID bracelet, bed and alarms, visiting hours, pain management, procedures, bathroom and other care routines, personal items, smoking policy, room service/diet, and visiting hours. Information on how to activate the Rapid Response Team has been discussed. Patient/Family are encouraged to report perceived risks to care and to ask questions if they do not understand what they are told or what they should do.
[2021-10-25 07:08] LABS: Basophils Percent Auto 0.1 % (0.2-1.2); Eosinophils Percent Auto 0.4 % (0-4.4); Hematocrit 33.5 % (42.0-52.0); Hemoglobin 10.8 g/dL (14.0-18.0); Immature Granulocyte Absolute 0.03 K/mm3 (0.00-0.031); Immature Granulocyte Percent A 0.4 % (0-0.5); Lymphocytes Absolute Auto 1.41 K/mm3 (0.9-3.2); Lymphocytes Percent Auto 19.4 % (18.3-44.2); Mean Corpuscular HGB Conc 32.2 g/dl (32-36); Mean Corpuscular Hemoglobin 31.8 pg (26-34); Mean Corpuscular Volume 98.5 fl (80-100); Mean Platelet Volume 9.9 fl (7.4-10.4); Monocytes Absolute Auto 0.7 K/mm3 (0.1-0.6); Monocytes Percent Auto 9.3 % (2.6-8.5); Neutrophils Absolute Auto 5.1 K/mm3 (1.3-6.7); Neutrophils Percent Auto 70.4 % (45.5-73.1); Platelet Count Result 311 k/mm3 (150-375); Red Cell Distribution Width 13.3 % (11.5-14.5); White Blood Count 7.3 K/mm3 (4.5-10.0)
[2021-10-25 07:44] LABS: Blood Urea Nitrogen 36 mg/dL (9-20); CRP 4.5 mg/dL (<1.0); Calcium 8.8 mg/dL (8.4-10.2); Carbon Dioxide > 40 mmol/L (22-30); Chloride 92 mmol/L (98-107); Creatine Kinase 35 U/L (55-170); Estimated CRCL calculation 42 ml/min; Estimated Glomerular Filt Rate 59; Glucose 133 mg/dL (65-110); Potassium 3.7 mmol/L (3.4-5.0); Sodium 140 mmol/L (137-145)
[2021-10-25 08:03] LABS: Glucose Point of Care 110 mg/dl (65-105)
[2021-10-25 08:09] LABS: Lactate Dehydrogenase 359 U/L (313-618)
[2021-10-25 08:18] LABS: Erythrocyte Sedimentation Rate 89 mm/hr (0-20)
[2021-10-25] MEDS: carBAMazepine 200 MG TABLET 400 MG PO (08:23)
[2021-10-25] MEDS: AZITHROMYCIN 250 MG TABLET 500 MG PO (08:23)
[2021-10-25] MEDS: AMOXICILLIN/CLAVULANATE K 875-125 MG TAB 1 TABLET PO ×2 (08:23→21:02)
[2021-10-25] MEDS: ATORVASTATIN 10 MG TABLET PO (08:24)
[2021-10-25] MEDS: TAMSULOSIN HCL 0.4 MG CAPSULE PO (08:24)
[2021-10-25] MEDS: PANTOPRAZOLE 40 MG TABLET PO (08:24)
[2021-10-25] MEDS: ASPIRIN 81 MG ENTERIC TABLET PO (08:24)
[2021-10-25] MEDS: CHOLECALCIFEROL 1,000 UNITS TABLET 2000 UNITS PO (08:24)
[2021-10-25] MEDS: lisinopriL 10 MG TABLET PO (08:24)
--- NOTE | 2021-10-25 11:17 | PM.IMPN ---
Progress Note: A&P Assessment and Plan (1) COVID-19: Code(s): U07.1 - COVID-19 Status: Acute Assessment and Plan: Patient is currently being treated for pneumonia and was planned to be discharged to SNF when required rapid COVID 19 test became positive. Patient has lost bed at facility and must stay hospitalized in isolation at this time. We are repeating the COVID 19 rapid and ordering a COVID 19 PCR, so the patient will remain hospitalized for at least an additional 48 hours. Given patient appears stable w/o increasing oxygen requirement, inflammatory markers are improved compared a month ago and positive COVID 19 test was incidental, will defer remdesivir for now. -COVID 19 PCR pending (2) Acute respiratory failure with hypercapnia: Code(s): J96.02 - Acute respiratory failure with hypercapnia Status: Acute Assessment and Plan: On presentation patient was as high as 4L NC prior to coming to the ED and on BIPAP. CXR with R. pneumonia. Azithromycin & ceftriaxone s/p 1 dose. BCX w/ no growth. Patient improved breathing at baseline oxygen requirement. -Prednisone 40 mg po daily x 2/5 days -Augmentin 875 mg po BID 02/02 -Azithromycin 500 mg po daily day 01/31 (3) Acute exacerbation of CHF (congestive heart failure): Qualifiers: Heart failure type: diastolic Qualified Code(s): I50.33 - Acute on chronic diastolic (congestive) heart failure Code(s): I50.9 - Heart failure, unspecified Status: Acute Assessment and Plan: Increased oxygen requirement in ED with new diagnosis of pneumonia and mildly elevated BNP to 229. Some improvement of breathing with IV furosemide given in ED. Continued during admission with improvement of breathing during treatment. -Continue furosemide 20 mg po daily (4) CKD stage G3b/A1, GFR 30-44 and albumin creatinine ratio <30 mg/g: Code(s): N18.32 - Chronic kidney disease, stage 3b Status: Acute Assessment and Plan: Has been stable during this admission and is currently at baseline function. (5) Diabetes mellitus: Qualifiers: Diabetes mellitus type: type 2 Diabetes mellitus director long term care insulin use: without director long term care use Diabetes mellitus complication status: with neurologic complications Diabetes mellitus complication detail: with polyneuropathy Qualified Code(s): E11.42 - Type 2 diabetes mellitus with diabetic polyneuropathy Code(s): E11.9 - Type 2 diabetes mellitus without complications Status: Chronic Assessment and Plan: Last a1c was 5.8 and at home is diet controlled. Glucose elevated due to steroid use. (6) Hyperlipidemia: Qualifiers: Hyperlipidemia type: unspecified Qualified Code(s): E78.5 - Hyperlipidemia, unspecified Code(s): E78.5 - Hyperlipidemia, unspecified Status: Chronic Assessment and Plan: Continue home atorvastatin. (7) Seizure disorder: Code(s): G40.909 - Epilepsy, unspecified, not intractable, without status epilepticus Status: Acute Assessment and Plan: Continue home seizure medication. 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 (9) HTN, goal below 130/80: Code(s): I10 - Essential (primary) hypertension Status: Chronic Assessment and Plan: Takes lisinopril. Continue home lisinopril. Additional Plan Transfer to SNF pending negative COVID 19 PCR. Subjective Date/time seen: Date of Service 10/25/21 11:17 Patient says he wants food. Patient denies having any pain or difficulty breathing. Review of Systems Constitutional: Constitutional: Denies fever(s), Denies malaise and Denies poor appetite Respiratory: Respiratory: Reports dyspnea Exam Narrative: GENERAL: NAD, cooperative HEENT: Normocephalic, atraumatic, anicteric, n
[2021-10-25 11:56] LABS: Glucose Point of Care 124 mg/dl (65-105)
[2021-10-25] MEDS: predniSONE 20 MG TABLET 40 MG PO (12:40)
[2021-10-25] MEDS: carBAMazepine 200 MG TABLET PO ×3 (12:40→21:02)
[2021-10-25 15:23] LABS: SARS-CoV-2 RNA PCR Positive
[2021-10-25 16:21] LABS: Glucose Point of Care 153 mg/dl (65-105)
[2021-10-25 21:26] LABS: Glucose Point of Care 114 mg/dl (65-105)
[2021-10-26] VITALS (11 sets, daily range): BP systolic 120–148; BP diastolic 58–80; PULSE 78–87; RESP 18–21; TEMP 36.1–36.8; O2SAT 91–97
[2021-10-26] MEDS: IPRATROPIUM BR 0.02% INH SOLN 0.5 MG/2.5 ML VIAL INHALATION (02:15)
[2021-10-26] MEDS: ALBUTEROL SULFATE NEB 2.5 MG/0.5 ML INH INHALATION (02:15)
[2021-10-26 08:03] LABS: Glucose Point of Care 93 mg/dl (65-105)
--- NOTE | 2021-10-26 08:17 | PM.IMPN ---
Progress Note: A&P Assessment and Plan (1) COVID-19: Code(s): U07.1 - COVID-19 Status: Acute Assessment and Plan: Patient is currenty being treated for pneumonia and was planned to be discharged to SNF when required rapid COVID 19 test became positive. Patient has lost bed at facility and must stay hospitalized in isolation at this time. We are repeating the COVID 19 rapid and ordering a COVID 19 PCR, so the patient will remain hospitalized for at least an additional 48 hours. COVID 19 positive. -Remdesivir & baricitinib #1 -Prednisone day / (2) Acute respiratory failure with hypercapnia: Code(s): J96.02 - Acute respiratory failure with hypercapnia Status: Acute Assessment and Plan: On presentation patient was as high as 4L NC prior to coming to the ED and on BIPAP. CXR with R. pneumonia. Azithromycin & ceftriaxone s/p 1 dose. BCX w/ no growth. Patient improved breathing at baseline oxygen requirement. -Prednisone 40 mg po daily x 2/5 days -Augmentin 875 mg po BID 02/02 -Azithromycin 500 mg po daily day 01/31 (3) Acute exacerbation of CHF (congestive heart failure): Qualifiers: Heart failure type: diastolic Qualified Code(s): I50.33 - Acute on chronic diastolic (congestive) heart failure Code(s): I50.9 - Heart failure, unspecified Status: Acute Assessment and Plan: Increased oxygen requirement in ED with new diagnosis of pneumonia and mildly elevated BNP to 229. Some improvement of breathing with IV furosemide given in ED. Continued during admission with improvement of breathing during treatment. -Continue furosemide 20 mg po daily (4) CKD stage G3b/A1, GFR 30-44 and albumin creatinine ratio <30 mg/g: Code(s): N18.32 - Chronic kidney disease, stage 3b Status: Acute Assessment and Plan: Has been stable during this admission and is currently at baseline function. (5) Diabetes mellitus: Qualifiers: Diabetes mellitus type: type 2 Diabetes mellitus termite renewal inspector insulin use: without usp use Diabetes mellitus complication status: with neurologic complications Diabetes mellitus complication detail: with polyneuropathy Qualified Code(s): E11.42 - Type 2 diabetes mellitus with diabetic polyneuropathy Code(s): E11.9 - Type 2 diabetes mellitus without complications Status: Chronic Assessment and Plan: Last a1c was 5.8 and at home is diet controlled. Glucose elevated due to steroid use. (6) Hyperlipidemia: Qualifiers: Hyperlipidemia type: unspecified Qualified Code(s): E78.5 - Hyperlipidemia, unspecified Code(s): E78.5 - Hyperlipidemia, unspecified Status: Chronic Assessment and Plan: Continue home atorvastatin. (7) Seizure disorder: Code(s): G40.909 - Epilepsy, unspecified, not intractable, without status epilepticus Status: Acute Assessment and Plan: Continue home seizure medication. 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 (9) HTN, goal below 130/80: Code(s): I10 - Essential (primary) hypertension Status: Chronic Assessment and Plan: Takes lisinopril. Continue home lisinopril. Subjective Date/time seen: Date of service 10/26/21 08:17 Pateint denies any pain. Review of Systems Musculoskeletal: Musculoskeletal: Reports myalgias Exam Narrative: GENERAL: NAD, cooperative HEENT: Normocephalic, atraumatic, anicteric, nares clear, oropharynx moist and clear, poor dentition NECK: Supple CV: Normal S1, S2, RRR, No MRG RESP: CTAB Abdomen: Soft, non-tender, non-distended, +BS EXTREMITIES: Warm and well perfused, no clubbing, cyanosis, or edema. SKIN: warm, dry and intact. NEURO:No new deficits - chronic ataxia Objective Data Vital Signs Vital Signs: Vital Signs -
[2021-10-26 08:35] LABS: Basophils Percent Auto 0.3 % (0.2-1.2); Eosinophils Percent Auto 0.4 % (0-4.4); Hematocrit 35.2 % (42.0-52.0); Immature Granulocyte Absolute 0.02 K/mm3 (0.00-0.031); Immature Granulocyte Percent A 0.3 % (0-0.5); Lymphocytes Absolute Auto 1.76 K/mm3 (0.9-3.2); Lymphocytes Percent Auto 25.8 % (18.3-44.2); Mean Corpuscular HGB Conc 31.3 g/dl (32-36); Mean Corpuscular Hemoglobin 32.1 pg (26-34); Mean Corpuscular Volume 102.6 fl (80-100); Mean Platelet Volume 9.6 fl (7.4-10.4); Monocytes Absolute Auto 0.7 K/mm3 (0.1-0.6); Monocytes Percent Auto 10.7 % (2.6-8.5); Neutrophils Absolute Auto 4.3 K/mm3 (1.3-6.7); Neutrophils Percent Auto 62.5 % (45.5-73.1); Platelet Count Result 274 k/mm3 (150-375); Red Blood Count 3.43 M/mm3 (4.6-6.20); Red Cell Distribution Width 13.5 % (11.5-14.5); White Blood Count 6.8 K/mm3 (4.5-10.0)
[2021-10-26 08:44] LABS: Alanine Aminotransferase 46 U/L (4-50); Estimated CRCL calculation 46 ml/min; Estimated Glomerular Filt Rate > 60; INR 1.1; Prothrombin Time 13.8 Seconds (11.1-14.7)
[2021-10-26 08:51] LABS: Aspartate Amino Transferase 46 U/L (17-59)
[2021-10-26] MEDS: ALBUTEROL SULFATE (*SP) INHALER 1 PUFF (08:57)
[2021-10-26] MEDS: REMDESIVIR 200 MG/NS 250 ML 200 MG/250 ML BAG 250 MG IVPB (10:41)
[2021-10-26] MEDS: carBAMazepine 200 MG TABLET 400 MG PO (10:47)
[2021-10-26] MEDS: TAMSULOSIN HCL 0.4 MG CAPSULE PO (10:47)
[2021-10-26] MEDS: CHOLECALCIFEROL 1,000 UNITS TABLET 2000 UNITS PO (10:47)
[2021-10-26] MEDS: AMOXICILLIN/CLAVULANATE K 875-125 MG TAB 1 TABLET PO ×2 (10:47→22:02)
[2021-10-26] MEDS: predniSONE 20 MG TABLET 40 MG PO (10:47)
[2021-10-26] MEDS: lisinopriL 10 MG TABLET PO (10:48)
[2021-10-26] MEDS: ATORVASTATIN 10 MG TABLET PO (10:48)
[2021-10-26] MEDS: FUROSEMIDE 40 MG TABLET PO (10:48)
[2021-10-26 11:50] LABS: Glucose Point of Care 121 mg/dl (65-105)
[2021-10-26] MEDS: BARICITINIB 2 MG TABLET 4 MG PO (13:37)
[2021-10-26] MEDS: carBAMazepine 200 MG TABLET PO ×3 (13:38→22:01)
[2021-10-26] MEDS: ALBUTEROL SULFATE (*SP) AEROSOL 1 PUFF 2 PUFF INHALATION ×2 (14:07→20:59)
[2021-10-26 16:27] LABS: Glucose Point of Care 143 mg/dl (65-105)
[2021-10-26] MEDS: PANTOPRAZOLE SODIUM IV 40 MG VIAL IV PUSH (18:21)
[2021-10-26] MEDS: ASPIRIN 81 MG CHEWABLE TABLET PO (18:21)
[2021-10-27] VITALS (9 sets, daily range): BP systolic 125–137; BP diastolic 60–76; PULSE 75–80; RESP 12–20; TEMP 36.5–36.9; O2SAT 91–99
[2021-10-27 01:05] LABS: Glucose Point of Care 73 mg/dl (65-105)
[2021-10-27] MEDS: ALBUTEROL SULFATE (*SP) AEROSOL 1 PUFF 2 PUFF INHALATION ×4 (03:11→20:40)
--- NOTE | 2021-10-27 07:31 | PM.IMPN ---
Progress Note: A&P Assessment and Plan (1) COVID-19: Code(s): U07.1 - COVID-19 Status: Acute Assessment and Plan: Patient is currenty being treated for pneumonia and was planned to be discharged to SNF when required rapid COVID 19 test became positive. Patient has lost bed at facility and must stay hospitalized in isolation at this time. We are repeating the COVID 19 rapid and ordering a COVID 19 PCR, so the patient will remain hospitalized for at least an additional 48 hours. COVID 19 positive. -Remdesivir & baricitinib #1 -Prednisone day 3/5 -Care coordination (2) Acute respiratory failure with hypercapnia: Code(s): J96.02 - Acute respiratory failure with hypercapnia Status: Acute Assessment and Plan: On presentation patient was as high as 4L NC prior to coming to the ED and on BIPAP. CXR with R. pneumonia. Azithromycin & ceftriaxone s/p 1 dose. BCX w/ no growth. Patient improved breathing now down to 1LNC. Started augmentin and azithromycin this morning. Will continue for a total of 5 days of treatment. Discontinued methylprednisolone. -Prednisone 40 mg po daily x 3/5 days -Augmentin 875 mg po BID 3/5 (3) Acute exacerbation of CHF (congestive heart failure): Qualifiers: Heart failure type: diastolic Qualified Code(s): I50.33 - Acute on chronic diastolic (congestive) heart failure Code(s): I50.9 - Heart failure, unspecified Status: Acute Assessment and Plan: Increased oxygen requirement in ED with new diagnosis of pneumonia and mildly elevated BNP to 229. Some improvement of breathing with IV furosemide given in ED. Continued during admission with improvement of breathing during treatment. -Discontinue furosemide IV -Restart home dose of furosemide 40 mg MWF (4) CKD stage G3b/A1, GFR 30-44 and albumin creatinine ratio <30 mg/g: Code(s): N18.32 - Chronic kidney disease, stage 3b Status: Acute Assessment and Plan: Has been stable during this admission and is currently at baseline function. (5) Diabetes mellitus: Qualifiers: Diabetes mellitus type: type 2 Diabetes mellitus meterman insulin use: without meterman use Diabetes mellitus complication status: with neurologic complications Diabetes mellitus complication detail: with polyneuropathy Qualified Code(s): E11.42 - Type 2 diabetes mellitus with diabetic polyneuropathy Code(s): E11.9 - Type 2 diabetes mellitus without complications Status: Chronic Assessment and Plan: Last a1c was 5.8 and at home is diet controlled. Improved. Patient will need to follow up with PCP after discharge. (6) Hyperlipidemia: Qualifiers: Hyperlipidemia type: unspecified Qualified Code(s): E78.5 - Hyperlipidemia, unspecified Code(s): E78.5 - Hyperlipidemia, unspecified Status: Chronic Assessment and Plan: Continue home atorvastatin. (7) Seizure disorder: Code(s): G40.909 - Epilepsy, unspecified, not intractable, without status epilepticus Status: Acute Assessment and Plan: Continue home seizure medication. 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 (9) HTN, goal below 130/80: Code(s): I10 - Essential (primary) hypertension Status: Chronic Assessment and Plan: Takes lisinopril. Continue home lisinopril. Additional Plan Transfer to SNF pending negative COVID 19 PCR. Subjective Date/time seen: Date of Service 10/27/21 07:31 Patient says his oatmeal is alright. Asks about the yogurt on his table. Says his breathing feels ok. Review of Systems Respiratory: Respiratory: Reports dyspnea and Reports dyspnea on exertion Exam Narrative: GENERAL: NAD, cooperative HEENT: Normocephalic, atraumatic, anicteric, nares clear, oropharynx mois
[2021-10-27 07:54] LABS: Alanine Aminotransferase 46 U/L (4-50); Aspartate Amino Transferase 47 U/L (17-59); Blood Urea Nitrogen 25 mg/dL (9-20); Calcium 8.8 mg/dL (8.4-10.2); Carbon Dioxide > 40 mmol/L (22-30); Chloride 92 mmol/L (98-107); Estimated CRCL calculation 46 ml/min; Estimated Glomerular Filt Rate > 60; Glucose 95 mg/dL (65-110); Potassium 4.6 mmol/L (3.4-5.0); Sodium 135 mmol/L (137-145)
[2021-10-27 08:02] LABS: Basophils Percent Auto 0.3 % (0.2-1.2); Eosinophils Absolute Auto 0.1 K/mm3 (0-0.3); Eosinophils Percent Auto 0.8 % (0-4.4); Hematocrit 35.6 % (42.0-52.0); Hemoglobin 11.2 g/dL (14.0-18.0); Immature Granulocyte Absolute 0.02 K/mm3 (0.00-0.031); Immature Granulocyte Percent A 0.3 % (0-0.5); Lymphocytes Absolute Auto 2.55 K/mm3 (0.9-3.2); Lymphocytes Percent Auto 38.9 % (18.3-44.2); Mean Corpuscular HGB Conc 31.5 g/dl (32-36); Mean Corpuscular Hemoglobin 31.4 pg (26-34); Mean Corpuscular Volume 99.7 fl (80-100); Monocytes Absolute Auto 0.6 K/mm3 (0.1-0.6); Monocytes Percent Auto 8.4 % (2.6-8.5); Neutrophils Absolute Auto 3.4 K/mm3 (1.3-6.7); Neutrophils Percent Auto 51.3 % (45.5-73.1); Platelet Count Result 320 k/mm3 (150-375); Red Blood Count 3.57 M/mm3 (4.6-6.20); Red Cell Distribution Width 13.1 % (11.5-14.5); White Blood Count 6.6 K/mm3 (4.5-10.0)
[2021-10-27 08:25] LABS: Glucose Point of Care 88 mg/dl (65-105)
[2021-10-27 08:44] LABS: INR 1.1; Prothrombin Time 14.4 Seconds (11.1-14.7)
[2021-10-27] MEDS: AMOXICILLIN/CLAVULANATE K 875-125 MG TAB 1 TABLET PO ×2 (09:35→22:01)
[2021-10-27] MEDS: CHOLECALCIFEROL 1,000 UNITS TABLET 2000 UNITS PO (09:35)
[2021-10-27] MEDS: lisinopriL 10 MG TABLET PO (09:36)
[2021-10-27] MEDS: BARICITINIB 2 MG TABLET 4 MG PO (09:36)
[2021-10-27] MEDS: TAMSULOSIN HCL 0.4 MG CAPSULE PO (09:36)
[2021-10-27] MEDS: ASPIRIN 81 MG CHEWABLE TABLET PO (09:36)
[2021-10-27] MEDS: ATORVASTATIN 10 MG TABLET PO (09:37)
[2021-10-27] MEDS: carBAMazepine 200 MG TABLET 400 MG PO (09:37)
[2021-10-27] MEDS: PANTOPRAZOLE SODIUM IV 40 MG VIAL IV PUSH (09:37)
[2021-10-27] MEDS: predniSONE 20 MG TABLET 40 MG PO (09:37)
[2021-10-27] MEDS: REMDESIVIR 100 MG/NS 250 ML 100 MG/250 ML BAG 250 MG IVPB (10:28)
[2021-10-27 11:47] LABS: Glucose Point of Care 149 mg/dl (65-105)
[2021-10-27] MEDS: carBAMazepine 200 MG TABLET PO ×3 (12:39→22:01)
[2021-10-27 16:59] LABS: Glucose Point of Care 197 mg/dl (65-105)
[2021-10-28] VITALS (7 sets, daily range): BP systolic 110–136; BP diastolic 52–70; PULSE 74–84; RESP 18–20; TEMP 36.2–38.1; O2SAT 91–98
--- NOTE | 2021-10-28 02:13 | PCRCNOTE ---
pt too tired to take MDI and refused
[2021-10-28 06:45] LABS: Basophils Percent Auto 0.1 % (0.2-1.2); Eosinophils Absolute Auto 0.1 K/mm3 (0-0.3); Eosinophils Percent Auto 0.7 % (0-4.4); Hemoglobin 11.3 g/dL (14.0-18.0); Immature Granulocyte Absolute 0.04 K/mm3 (0.00-0.031); Immature Granulocyte Percent A 0.6 % (0-0.5); Lymphocytes Percent Auto 36.2 % (18.3-44.2); Mean Corpuscular HGB Conc 31.4 g/dl (32-36); Mean Corpuscular Hemoglobin 32.2 pg (26-34); Mean Corpuscular Volume 102.6 fl (80-100); Mean Platelet Volume 9.9 fl (7.4-10.4); Monocytes Absolute Auto 0.6 K/mm3 (0.1-0.6); Monocytes Percent Auto 9.1 % (2.6-8.5); Neutrophils Absolute Auto 3.7 K/mm3 (1.3-6.7); Neutrophils Percent Auto 53.3 % (45.5-73.1); Platelet Count Result 323 k/mm3 (150-375); Red Blood Count 3.51 M/mm3 (4.6-6.20); Red Cell Distribution Width 13.2 % (11.5-14.5); White Blood Count 6.9 K/mm3 (4.5-10.0)
[2021-10-28 06:54] LABS: INR 1.2; Prothrombin Time 14.7 Seconds (11.1-14.7)
[2021-10-28 07:05] LABS: Alanine Aminotransferase 45 U/L (4-50); Aspartate Amino Transferase 52 U/L (17-59); Blood Urea Nitrogen 25 mg/dL (9-20); Carbon Dioxide > 40 mmol/L (22-30); Chloride 95 mmol/L (98-107); Estimated CRCL calculation 46 ml/min; Estimated Glomerular Filt Rate > 60; Glucose 101 mg/dL (65-110); Potassium 4.2 mmol/L (3.4-5.0); Sodium 139 mmol/L (137-145)
--- NOTE | 2021-10-28 07:17 | PM.IMPN ---
Progress Note: A&P Assessment and Plan (1) COVID-19: Code(s): U07.1 - COVID-19 Status: Acute Assessment and Plan: Patient is currenty being treated for pneumonia and was planned to be discharged to SNF when required rapid COVID 19 test became positive. Patient has lost bed at facility and must stay hospitalized in isolation at this time. We are repeating the COVID 19 rapid and ordering a COVID 19 PCR, so the patient will remain hospitalized for at least an additional 48 hours. COVID 19 positive. Patient appears to be back at his baseline. Due to the recent COVID 19 positive test will plan to give five days of remdesivir and baricitinb with the possibility of discharging to complete 14 day course of baricitinib if pharmacy can prescribe the medication. Will plan for discharge to facility after completion of five days of remdesivir. -Remdesivir & baricitinib #3/5 -Prednisone day 4/5 (2) Acute respiratory failure with hypercapnia: Code(s): J96.02 - Acute respiratory failure with hypercapnia Status: Acute Assessment and Plan: On presentation patient was as high as 4L NC prior to coming to the ED and on BIPAP. CXR with R. pneumonia. Azithromycin & ceftriaxone s/p 1 dose. BCX w/ no growth. Patient improved breathing now down to 1LNC. Started augmentin and azithromycin this morning. Will continue for a total of 5 days of treatment. Discontinued methylprednisolone. -Prednisone 40 mg po daily x 4/5 days -Augmentin 875 mg po BID 4/5 (3) Acute exacerbation of CHF (congestive heart failure): Qualifiers: Heart failure type: diastolic Qualified Code(s): I50.33 - Acute on chronic diastolic (congestive) heart failure Code(s): I50.9 - Heart failure, unspecified Status: Acute Assessment and Plan: Increased oxygen requirement in ED with new diagnosis of pneumonia and mildly elevated BNP to 229. Some improvement of breathing with IV furosemide given in ED. Continued during admission with improvement of breathing during treatment. -Discontinue furosemide IV -Restart home dose of furosemide 40 mg MWF (4) CKD stage G3b/A1, GFR 30-44 and albumin creatinine ratio <30 mg/g: Code(s): N18.32 - Chronic kidney disease, stage 3b Status: Acute Assessment and Plan: Has been stable during this admission and is currently at baseline function. (5) Diabetes mellitus: Qualifiers: Diabetes mellitus type: type 2 Diabetes mellitus long term care administrator insulin use: without alf use Diabetes mellitus complication status: with neurologic complications Diabetes mellitus complication detail: with polyneuropathy Qualified Code(s): E11.42 - Type 2 diabetes mellitus with diabetic polyneuropathy Code(s): E11.9 - Type 2 diabetes mellitus without complications Status: Chronic Assessment and Plan: Last a1c was 5.8 and at home is diet controlled. Improved. Patient will need to follow up with PCP after discharge. (6) Hyperlipidemia: Qualifiers: Hyperlipidemia type: unspecified Qualified Code(s): E78.5 - Hyperlipidemia, unspecified Code(s): E78.5 - Hyperlipidemia, unspecified Status: Chronic Assessment and Plan: Continue home atorvastatin. (7) Seizure disorder: Code(s): G40.909 - Epilepsy, unspecified, not intractable, without status epilepticus Status: Acute Assessment and Plan: Continue home seizure medication. 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 (9) HTN, goal below 130/80: Code(s): I10 - Essential (primary) hypertension Status: Chronic Assessment and Plan: Takes lisinopril. Continue home lisinopril. Subjective Date/time seen: Date of service 10/28/21 07:17 Patient says he feels ok. Patient is requesting I put milk
[2021-10-28] MEDS: ALBUTEROL SULFATE (*SP) AEROSOL 1 PUFF 2 PUFF INHALATION ×3 (08:42→20:40)
[2021-10-28 09:01] LABS: Glucose Point of Care 81 mg/dl (65-105)
[2021-10-28] MEDS: REMDESIVIR 100 MG/NS 250 ML 100 MG/250 ML BAG 250 MG IVPB (10:08)
[2021-10-28] MEDS: ACETAMINOPHEN 500 MG TABLET PO (10:08)
[2021-10-28] MEDS: BARICITINIB 2 MG TABLET 4 MG PO (10:09)
[2021-10-28] MEDS: carBAMazepine 200 MG TABLET 400 MG PO (10:09)
[2021-10-28] MEDS: predniSONE 20 MG TABLET 40 MG PO (10:10)
[2021-10-28] MEDS: AMOXICILLIN/CLAVULANATE K 875-125 MG TAB 1 TABLET PO ×2 (10:10→21:22)
[2021-10-28] MEDS: lisinopriL 10 MG TABLET PO (10:10)
[2021-10-28] MEDS: ASPIRIN 81 MG CHEWABLE TABLET PO (10:10)
[2021-10-28] MEDS: ATORVASTATIN 10 MG TABLET PO (10:10)
[2021-10-28] MEDS: CHOLECALCIFEROL 1,000 UNITS TABLET 2000 UNITS PO (10:10)
[2021-10-28] MEDS: TAMSULOSIN HCL 0.4 MG CAPSULE PO (10:10)
[2021-10-28] MEDS: PANTOPRAZOLE SODIUM IV 40 MG VIAL IV PUSH (10:12)
[2021-10-28 12:43] LABS: Glucose Point of Care 200 mg/dl (65-105)
[2021-10-28] MEDS: carBAMazepine 200 MG TABLET PO ×3 (13:15→21:22)
[2021-10-28 17:35] LABS: Glucose Point of Care 107 mg/dl (65-105)
[2021-10-28 22:18] LABS: Glucose Point of Care 136 mg/dl (65-105)
[2021-10-29] VITALS (9 sets, daily range): BP systolic 126–133; BP diastolic 58–71; PULSE 69–76; RESP 14–18; TEMP 35.9–37.2; O2SAT 93–99
[2021-10-29] MEDS: ALBUTEROL SULFATE (*SP) AEROSOL 1 PUFF 2 PUFF INHALATION ×4 (02:29→20:26)
[2021-10-29 08:04] LABS: Basophils Percent Auto 0.1 % (0.2-1.2); Eosinophils Percent Auto 0.5 % (0-4.4); Hematocrit 35.9 % (42.0-52.0); Hemoglobin 11.2 g/dL (14.0-18.0); Immature Granulocyte Absolute 0.02 K/mm3 (0.00-0.031); Immature Granulocyte Percent A 0.3 % (0-0.5); Lymphocytes Absolute Auto 2.74 K/mm3 (0.9-3.2); Lymphocytes Percent Auto 35.3 % (18.3-44.2); Mean Corpuscular HGB Conc 31.2 g/dl (32-36); Mean Corpuscular Hemoglobin 31.9 pg (26-34); Mean Corpuscular Volume 102.3 fl (80-100); Mean Platelet Volume 9.7 fl (7.4-10.4); Monocytes Absolute Auto 0.6 K/mm3 (0.1-0.6); Monocytes Percent Auto 7.6 % (2.6-8.5); Neutrophils Absolute Auto 4.4 K/mm3 (1.3-6.7); Neutrophils Percent Auto 56.2 % (45.5-73.1); Platelet Count Result 338 k/mm3 (150-375); Red Blood Count 3.51 M/mm3 (4.6-6.20); White Blood Count 7.8 K/mm3 (4.5-10.0)
[2021-10-29 08:16] LABS: Alanine Aminotransferase 53 U/L (4-50); Aspartate Amino Transferase 45 U/L (17-59); Estimated CRCL calculation 50 ml/min; Estimated Glomerular Filt Rate > 60
[2021-10-29 08:16] LABS: Glucose Point of Care 82 mg/dl (65-105)
[2021-10-29] MEDS: BARICITINIB 2 MG TABLET 4 MG PO (09:31)
[2021-10-29] MEDS: carBAMazepine 200 MG TABLET 400 MG PO (09:31)
[2021-10-29] MEDS: CHOLECALCIFEROL 1,000 UNITS TABLET 2000 UNITS PO (09:31)
[2021-10-29] MEDS: predniSONE 20 MG TABLET 40 MG PO (09:32)
[2021-10-29] MEDS: lisinopriL 10 MG TABLET PO (09:32)
[2021-10-29] MEDS: TAMSULOSIN HCL 0.4 MG CAPSULE PO (09:32)
[2021-10-29] MEDS: ATORVASTATIN 10 MG TABLET PO (09:32)
[2021-10-29] MEDS: AMOXICILLIN/CLAVULANATE K 875-125 MG TAB 1 TABLET PO ×2 (09:32→20:32)
[2021-10-29] MEDS: ASPIRIN 81 MG CHEWABLE TABLET PO (09:32)
[2021-10-29] MEDS: PANTOPRAZOLE SODIUM IV 40 MG VIAL IV PUSH (09:32)
[2021-10-29] MEDS: FUROSEMIDE 40 MG TABLET PO (09:32)
[2021-10-29] MEDS: ENOXAPARIN 40 MG/0.4 ML SYRINGE SUB-Q (09:34)
--- NOTE | 2021-10-29 09:46 | PCNWS ---
Weekly nutritional screen. Patient is tolerating current diet with adequate intake of 50-75% of all meals. No weight loss reported. BMI of 26.7. No nutritional needs at this time.
[2021-10-29 10:23] LABS: INR 1.3; Prothrombin Time 15.6 Seconds (11.1-14.7)
[2021-10-29 10:36] LABS: Blood Urea Nitrogen 22 mg/dL (9-20); Carbon Dioxide > 40 mmol/L (22-30); Chloride 96 mmol/L (98-107); Estimated CRCL calculation 46 ml/min; Estimated Glomerular Filt Rate > 60; Glucose 148 mg/dL (65-110); Potassium 4.1 mmol/L (3.4-5.0); Sodium 140 mmol/L (137-145)
[2021-10-29] MEDS: REMDESIVIR 100 MG/NS 250 ML 100 MG/250 ML BAG 250 MG IVPB (10:43)
[2021-10-29 12:34] LABS: Glucose Point of Care 113 mg/dl (65-105)
[2021-10-29] MEDS: carBAMazepine 200 MG TABLET PO ×3 (12:50→20:32)
--- NOTE | 2021-10-29 14:10 | PCNSR ---
On 10/29/21, the student, Maria Esther Araiza, provided care and completed [facility] documentation on this patient. I have reviewed the student's documentation and agree with the findings.
--- NOTE | 2021-10-29 15:06 | PM.IMPN ---
Progress Note: A&P Assessment and Plan (1) COVID-19: Code(s): U07.1 - COVID-19 Status: Acute Assessment and Plan: Patient is currenty being treated for pneumonia and was planned to be discharged to SNF when required rapid COVID 19 test became positive. Patient has lost bed at facility and must stay hospitalized in isolation at this time. We are repeating the COVID 19 rapid and ordering a COVID 19 PCR, so the patient will remain hospitalized for at least an additional 48 hours. COVID 19 positive. Patient appears to be back at his baseline. Due to the recent COVID 19 positive test will plan to give five days of remdesivir and baricitinb with the possibility of discharging to complete 14 day course of baricitinib if pharmacy can prescribe the medication. Will plan for discharge to facility after completion of five days of remdesivir. Consistent improvement now able to have time off oxygen. -Remdesivir & baricitinib #4/5 -Prednisone day 5/5 -Awaiting acceptance and insurance authorization to discharge to a facility that will accept COVID 19 positive patients (2) Acute respiratory failure with hypercapnia: Code(s): J96.02 - Acute respiratory failure with hypercapnia Status: Acute Assessment and Plan: On presentation patient was as high as 4L NC prior to coming to the ED and on BIPAP. CXR with R. pneumonia. Azithromycin & ceftriaxone s/p 1 dose. BCX w/ no growth. Patient improved breathing now down to 1LNC. Started augmentin and azithromycin this morning. Will continue for a total of 5 days of treatment. Discontinued methylprednisolone. -Prednisone 40 mg po daily x 5/5 days -Augmentin 875 mg po BID 5/ (3) Acute exacerbation of CHF (congestive heart failure): Qualifiers: Heart failure type: diastolic Qualified Code(s): I50.33 - Acute on chronic diastolic (congestive) heart failure Code(s): I50.9 - Heart failure, unspecified Status: Acute Assessment and Plan: Increased oxygen requirement in ED with new diagnosis of pneumonia and mildly elevated BNP to 229. Some improvement of breathing with IV furosemide given in ED. Continued during admission with improvement of breathing during treatment. -Discontinue furosemide IV -Restart home dose of furosemide 40 mg MWF (4) CKD stage G3b/A1, GFR 30-44 and albumin creatinine ratio <30 mg/g: Code(s): N18.32 - Chronic kidney disease, stage 3b Status: Acute Assessment and Plan: Has been stable during this admission and is currently at baseline function. (5) Diabetes mellitus: Qualifiers: Diabetes mellitus type: type 2 Diabetes mellitus intermodal customer service insulin use: without intermodal customer service use Diabetes mellitus complication status: with neurologic complications Diabetes mellitus complication detail: with polyneuropathy Qualified Code(s): E11.42 - Type 2 diabetes mellitus with diabetic polyneuropathy Code(s): E11.9 - Type 2 diabetes mellitus without complications Status: Chronic Assessment and Plan: Last a1c was 5.8 and at home is diet controlled. Improved. Patient will need to follow up with PCP after discharge. (6) Hyperlipidemia: Qualifiers: Hyperlipidemia type: unspecified Qualified Code(s): E78.5 - Hyperlipidemia, unspecified Code(s): E78.5 - Hyperlipidemia, unspecified Status: Chronic Assessment and Plan: Continue home atorvastatin. (7) Seizure disorder: Code(s): G40.909 - Epilepsy, unspecified, not intractable, without status epilepticus Status: Acute Assessment and Plan: Continue home seizure medication. 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 (9) HTN, goal below 130/80: Code(s): I10 - Essential (primary) hypertension Status: Chronic Assessment and P
[2021-10-29 17:16] LABS: Glucose Point of Care 39 mg/dl (65-105)
[2021-10-29 17:50] LABS: Glucose Point of Care 122 mg/dl (65-105)
[2021-10-30] VITALS (11 sets, daily range): BP systolic 81–134; BP diastolic 50–69; PULSE 64–76; RESP 18–22; TEMP 35.8–38.1; O2SAT 94–100
[2021-10-30] MEDS: ALBUTEROL SULFATE (*SP) AEROSOL 1 PUFF 2 PUFF INHALATION ×4 (01:46→20:05)
[2021-10-30 06:45] LABS: Glucose Point of Care 86 mg/dl (65-105)
[2021-10-30 07:22] LABS: Basophils Percent Auto 0.3 % (0.2-1.2); Eosinophils Percent Auto 0.3 % (0-4.4); Hematocrit 35.5 % (42.0-52.0); Hemoglobin 11.3 g/dL (14.0-18.0); Immature Granulocyte Absolute 0.04 K/mm3 (0.00-0.031); Immature Granulocyte Percent A 0.5 % (0-0.5); Lymphocytes Absolute Auto 2.82 K/mm3 (0.9-3.2); Lymphocytes Percent Auto 38.5 % (18.3-44.2); Mean Corpuscular HGB Conc 31.8 g/dl (32-36); Mean Corpuscular Hemoglobin 31.6 pg (26-34); Mean Corpuscular Volume 99.2 fl (80-100); Mean Platelet Volume 9.7 fl (7.4-10.4); Monocytes Absolute Auto 0.7 K/mm3 (0.1-0.6); Monocytes Percent Auto 8.9 % (2.6-8.5); Neutrophils Absolute Auto 3.8 K/mm3 (1.3-6.7); Neutrophils Percent Auto 51.5 % (45.5-73.1); Platelet Count Result 342 k/mm3 (150-375); Red Blood Count 3.58 M/mm3 (4.6-6.20); Red Cell Distribution Width 12.5 % (11.5-14.5); White Blood Count 7.3 K/mm3 (4.5-10.0)
[2021-10-30 07:26] LABS: Alanine Aminotransferase 42 U/L (4-50); Anion Gap 4 mmol/L (8-16); Aspartate Amino Transferase 38 U/L (17-59); Blood Urea Nitrogen 23 mg/dL (9-20); Calcium 8.6 mg/dL (8.4-10.2); Carbon Dioxide 36 mmol/L (22-30); Chloride 93 mmol/L (98-107); Estimated CRCL calculation 50 ml/min; Estimated Glomerular Filt Rate > 60; Glucose 94 mg/dL (65-110); Potassium 4.1 mmol/L (3.4-5.0); Sodium 133 mmol/L (137-145)
[2021-10-30 08:00] LABS: INR 1.2; Prothrombin Time 15.4 Seconds (11.1-14.7)
[2021-10-30] MEDS: BARICITINIB 2 MG TABLET 4 MG PO (08:48)
[2021-10-30] MEDS: ENOXAPARIN 40 MG/0.4 ML SYRINGE SUB-Q (08:48)
[2021-10-30] MEDS: carBAMazepine 200 MG TABLET 400 MG PO (08:48)
[2021-10-30] MEDS: CHOLECALCIFEROL 1,000 UNITS TABLET 2000 UNITS PO (08:49)
[2021-10-30] MEDS: PANTOPRAZOLE SODIUM IV 40 MG VIAL IV PUSH (08:49)
[2021-10-30] MEDS: ASPIRIN 81 MG CHEWABLE TABLET PO (08:49)
[2021-10-30] MEDS: AMOXICILLIN/CLAVULANATE K 875-125 MG TAB 1 TABLET PO ×2 (08:49→21:53)
[2021-10-30] MEDS: ATORVASTATIN 10 MG TABLET PO (08:49)
[2021-10-30] MEDS: lisinopriL 10 MG TABLET PO (08:49)
[2021-10-30] MEDS: TAMSULOSIN HCL 0.4 MG CAPSULE PO (08:49)
--- NOTE | 2021-10-30 10:16 | PM.IMPN ---
Progress Note: A&P Assessment and Plan (1) COVID-19: Code(s): U07.1 - COVID-19 Status: Acute Assessment and Plan: Patient is currenty being treated for pneumonia and was planned to be discharged to SNF when required rapid COVID 19 test became positive. Due to the recent COVID 19 positive test will plan to give five days of remdesivir and baricitinb with the possibility of discharging to complete 14 day course of baricitinib if pharmacy can prescribe the medication. Will pl Consistent improvement now able to have time off oxygen. -Remdesivir & baricitinib #5/5 -Prednisone day 04/04 -patient is still short of breath continue to monitor overnight -re-evaluate for discharge in the next 24-48 hours (2) Acute respiratory failure with hypercapnia: Code(s): J96.02 - Acute respiratory failure with hypercapnia Status: Acute Assessment and Plan: On presentation patient was as high as 4L NC prior to coming to the ED and on BIPAP. CXR with R. pneumonia. Azithromycin & ceftriaxone s/p 1 dose. BCX w/ no growth. Patient improved breathing now down to 1LNC. Discontinued methylprednisolone. -Prednisone 40 mg po daily x 5/5 days -Augmentin 875 mg po BID 04/04 (3) Acute exacerbation of CHF (congestive heart failure): Qualifiers: Heart failure type: diastolic Qualified Code(s): I50.33 - Acute on chronic diastolic (congestive) heart failure Code(s): I50.9 - Heart failure, unspecified Status: Acute Assessment and Plan: Increased oxygen requirement in ED with new diagnosis of pneumonia and mildly elevated BNP to 229. Some improvement of breathing with IV furosemide given in ED. Continued during admission with improvement of breathing during treatment. -Discontinue furosemide IV -continue home dose of furosemide 40 mg MWF (4) CKD stage G3b/A1, GFR 30-44 and albumin creatinine ratio <30 mg/g: Code(s): N18.32 - Chronic kidney disease, stage 3b Status: Acute Assessment and Plan: Has been stable during this admission and is currently at baseline function. (5) Diabetes mellitus: Qualifiers: Diabetes mellitus type: type 2 Diabetes mellitus retirement insulin use: without retirement use Diabetes mellitus complication status: with neurologic complications Diabetes mellitus complication detail: with polyneuropathy Qualified Code(s): E11.42 - Type 2 diabetes mellitus with diabetic polyneuropathy Code(s): E11.9 - Type 2 diabetes mellitus without complications Status: Chronic Assessment and Plan: Last a1c was 5.8 and at home is diet controlled. Improved. Patient will need to follow up with PCP after discharge. (6) Hyperlipidemia: Qualifiers: Hyperlipidemia type: unspecified Qualified Code(s): E78.5 - Hyperlipidemia, unspecified Code(s): E78.5 - Hyperlipidemia, unspecified Status: Chronic Assessment and Plan: Continue home atorvastatin. (7) Seizure disorder: Code(s): G40.909 - Epilepsy, unspecified, not intractable, without status epilepticus Status: Acute Assessment and Plan: Continue home seizure medication. 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 (9) HTN, goal below 130/80: Code(s): I10 - Essential (primary) hypertension Status: Chronic Assessment and Plan: Takes lisinopril. Continue home lisinopril. Subjective Date/time seen: 10/30/21 10:16 Interval history: Patient seen and examined Patient feels weak he still short of breath on oxygen Patient denies fever headache chest pain I am seeing the patient for COVID-19 pneumonia Exam Narrative: Alert Chest bilateral crackles Abdomen nontender nondistended CVS S1 + S2 Lower extremity edema Objective Data Vital Signs Vital Signs: Vital Signs
[2021-10-30 11:51] LABS: Glucose Point of Care 124 mg/dl (65-105)
[2021-10-30] MEDS: REMDESIVIR 100 MG/NS 250 ML 100 MG/250 ML BAG 250 MG IVPB (12:08)
[2021-10-30] MEDS: carBAMazepine 200 MG TABLET PO ×3 (12:09→21:53)
[2021-10-30] MEDS: ACETAMINOPHEN 500 MG TABLET PO (12:19)
[2021-10-30 16:47] LABS: Glucose Point of Care 61 mg/dl (65-105)
[2021-10-30 17:45] LABS: Glucose Point of Care 82 mg/dl (65-105)
[2021-10-31] VITALS: BP 127/59; PULSE 71; RESP 18; TEMP 36.3; O2SAT 100
[2021-10-31] MEDS: ALBUTEROL SULFATE (*SP) AEROSOL 1 PUFF 2 PUFF INHALATION ×2 (02:06→08:53)
[2021-10-31 04:00] VITALS: BP 114/52; PULSE 68; RESP 18; TEMP 36.1; O2SAT 99
[2021-10-31 05:00] LABS: Glucose Point of Care 73 mg/dl (65-105)
[2021-10-31 06:34] LABS: Basophils Percent Auto 0.3 % (0.2-1.2); Eosinophils Absolute Auto 0.1 K/mm3 (0-0.3); Eosinophils Percent Auto 0.8 % (0-4.4); Hematocrit 34.3 % (42.0-52.0); Hemoglobin 11.1 g/dL (14.0-18.0); Immature Granulocyte Absolute 0.03 K/mm3 (0.00-0.031); Immature Granulocyte Percent A 0.4 % (0-0.5); Lymphocytes Absolute Auto 2.46 K/mm3 (0.9-3.2); Lymphocytes Percent Auto 31.4 % (18.3-44.2); Mean Corpuscular HGB Conc 32.4 g/dl (32-36); Mean Corpuscular Hemoglobin 31.5 pg (26-34); Mean Corpuscular Volume 97.4 fl (80-100); Mean Platelet Volume 9.8 fl (7.4-10.4); Monocytes Absolute Auto 0.7 K/mm3 (0.1-0.6); Monocytes Percent Auto 9.3 % (2.6-8.5); Neutrophils Absolute Auto 4.5 K/mm3 (1.3-6.7); Neutrophils Percent Auto 57.8 % (45.5-73.1); Platelet Count Result 389 k/mm3 (150-375); Red Blood Count 3.52 M/mm3 (4.6-6.20); Red Cell Distribution Width 12.6 % (11.5-14.5); White Blood Count 7.8 K/mm3 (4.5-10.0)
[2021-10-31 06:40] LABS: Glucose Point of Care 91 mg/dl (65-105)
[2021-10-31 06:46] LABS: Aspartate Amino Transferase 43 U/L (17-59)
[2021-10-31 08:00] VITALS: BP 122/62; PULSE 64; RESP 16; TEMP 36.1; O2SAT 97; O2SAT 99
[2021-10-31 08:17] LABS: Glucose Point of Care 91 mg/dl (65-105)
[2021-10-31] MEDS: AMOXICILLIN/CLAVULANATE K 875-125 MG TAB 1 TABLET PO (08:23)
[2021-10-31] MEDS: carBAMazepine 200 MG TABLET 400 MG PO (08:23)
[2021-10-31] MEDS: ASPIRIN 81 MG CHEWABLE TABLET PO (08:23)
[2021-10-31] MEDS: ENOXAPARIN 40 MG/0.4 ML SYRINGE SUB-Q (08:24)
[2021-10-31] MEDS: FUROSEMIDE 40 MG TABLET PO (08:24)
[2021-10-31] MEDS: ATORVASTATIN 10 MG TABLET PO (08:24)
[2021-10-31] MEDS: CHOLECALCIFEROL 1,000 UNITS TABLET 2000 UNITS PO (08:24)
[2021-10-31] MEDS: lisinopriL 10 MG TABLET PO (08:24)
[2021-10-31] MEDS: TAMSULOSIN HCL 0.4 MG CAPSULE PO (08:24)
[2021-10-31] MEDS: BARICITINIB 2 MG TABLET 4 MG PO (08:24)
[2021-10-31] MEDS: PANTOPRAZOLE SODIUM IV 40 MG VIAL IV PUSH (08:24)
[2021-10-31 08:53] VITALS: O2SAT 94
[2021-10-31 09:06] LABS: Alanine Aminotransferase 38 U/L (4-50); Estimated CRCL calculation 56 ml/min; Estimated Glomerular Filt Rate > 60
--- NOTE | 2021-10-31 09:35 | PM.IMPN ---
Progress Note: A&P Assessment and Plan (1) COVID-19: Code(s): U07.1 - COVID-19 Status: Acute Assessment and Plan: Patient is currenty being treated for pneumonia and was planned to be discharged to SNF when required rapid COVID 19 test became positive. Due to the recent COVID 19 positive test will plan to give five days of remdesivir and baricitinb with the possibility of discharging to complete 14 day course of baricitinib if pharmacy can prescribe the medication. Will pl Consistent improvement now able to have time off oxygen. -Remdesivir & baricitinib #5/5 baricitinib #6/ -Prednisone day 5/5 - shortness of breath has improved - anticipate discharge in a.m. (2) Acute respiratory failure with hypercapnia: Code(s): J96.02 - Acute respiratory failure with hypercapnia Status: Acute Assessment and Plan: On presentation patient was as high as 4L NC prior to coming to the ED and on BIPAP. CXR with R. pneumonia. Azithromycin & ceftriaxone s/p 1 dose. BCX w/ no growth. Patient improved breathing now down to 1LNC. Discontinued methylprednisolone. -Prednisone 40 mg po daily x 5/5 days -Augmentin 875 mg po BID 5/ (3) Acute exacerbation of CHF (congestive heart failure): Qualifiers: Heart failure type: diastolic Qualified Code(s): I50.33 - Acute on chronic diastolic (congestive) heart failure Code(s): I50.9 - Heart failure, unspecified Status: Acute Assessment and Plan: Increased oxygen requirement in ED with new diagnosis of pneumonia and mildly elevated BNP to 229. Some improvement of breathing with IV furosemide given in ED. Continued during admission with improvement of breathing during treatment. -Discontinue furosemide IV -continue home dose of furosemide 40 mg MWF (4) CKD stage G3b/A1, GFR 30-44 and albumin creatinine ratio <30 mg/g: Code(s): N18.32 - Chronic kidney disease, stage 3b Status: Acute Assessment and Plan: Has been stable during this admission and is currently at baseline function. (5) Diabetes mellitus: Qualifiers: Diabetes mellitus type: type 2 Diabetes mellitus long term acute care registered nurse insulin use: without shelter use Diabetes mellitus complication status: with neurologic complications Diabetes mellitus complication detail: with polyneuropathy Qualified Code(s): E11.42 - Type 2 diabetes mellitus with diabetic polyneuropathy Code(s): E11.9 - Type 2 diabetes mellitus without complications Status: Chronic Assessment and Plan: Last a1c was 5.8 and at home is diet controlled. Improved. Patient will need to follow up with PCP after discharge. (6) Hyperlipidemia: Qualifiers: Hyperlipidemia type: unspecified Qualified Code(s): E78.5 - Hyperlipidemia, unspecified Code(s): E78.5 - Hyperlipidemia, unspecified Status: Chronic Assessment and Plan: Continue home atorvastatin. (7) Seizure disorder: Code(s): G40.909 - Epilepsy, unspecified, not intractable, without status epilepticus Status: Acute Assessment and Plan: Continue home seizure medication. 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 (9) HTN, goal below 130/80: Code(s): I10 - Essential (primary) hypertension Status: Chronic Assessment and Plan: Takes lisinopril. Continue home lisinopril. Subjective Date/time seen: 10/31/21 09:35 Interval history: Patient seen and examined Patient feels weak he still short of breath on oxygen but better than yesterday pending rehab anticipate discharge in the morning Patient denies fever headache chest pain I am seeing the patient for COVID-19 pneumonia Exam Narrative: Alert Chest bilateral crackles Abdomen nontender nondistended CVS S1 + S2 Lower extremity edema Obje
--- NOTE | 2021-10-31 11:26 | PM.DS ---
DS: Admitting Diagnosis Discharge Date 10/22/2021 Admitting Diagnosis shortness of breath DS: Discharge Diagnosis Discharge Diagnosis (1) COVID-19: Code(s): U07.1 - COVID-19 Status: Acute Assessment and Plan: Patient is currenty being treated for pneumonia and was planned to be discharged to SNF when required rapid COVID 19 test became positive. Due to the recent COVID 19 positive test -Remdesivir #5/5 baricitinib -Prednisone day 5/5 - shortness of breath has improved (2) Acute respiratory failure with hypercapnia: Code(s): J96.02 - Acute respiratory failure with hypercapnia Status: Acute Assessment and Plan: On presentation patient was as high as 4L NC prior to coming to the ED and on BIPAP. CXR with R. pneumonia. Azithromycin & ceftriaxone s/p 1 dose. BCX w/ no growth. Patient improved breathing Discontinued methylprednisolone. -Prednisone 40 mg po daily x 5/5 days -Augmentin 875 mg po BID (3) Acute exacerbation of CHF (congestive heart failure): Qualifiers: Heart failure type: diastolic Qualified Code(s): I50.33 - Acute on chronic diastolic (congestive) heart failure Code(s): I50.9 - Heart failure, unspecified Status: Acute Assessment and Plan: Increased oxygen requirement in ED with new diagnosis of pneumonia and mildly elevated BNP to 229. Some improvement of breathing with IV furosemide given in ED. Continued during admission with improvement of breathing during treatment. -Discontinue furosemide IV -continue home dose of furosemide (4) CKD stage G3b/A1, GFR 30-44 and albumin creatinine ratio <30 mg/g: Code(s): N18.32 - Chronic kidney disease, stage 3b Status: Acute Assessment and Plan: Has been stable during this admission and is currently at baseline function. monitor result pain (5) Diabetes mellitus: Qualifiers: Diabetes mellitus type: type 2 Diabetes mellitus inspector precision assembly insulin use: without residential use Diabetes mellitus complication status: with neurologic complications Diabetes mellitus complication detail: with polyneuropathy Qualified Code(s): E11.42 - Type 2 diabetes mellitus with diabetic polyneuropathy Code(s): E11.9 - Type 2 diabetes mellitus without complications Status: Chronic Assessment and Plan: Last a1c was 5.8 and at home is diet controlled. Improved. Patient will need to follow up with PCP after discharge monitor as outpatient. (6) Hyperlipidemia: Qualifiers: Hyperlipidemia type: unspecified Qualified Code(s): E78.5 - Hyperlipidemia, unspecified Code(s): E78.5 - Hyperlipidemia, unspecified Status: Chronic Assessment and Plan: Continue home atorvastatin. (7) Seizure disorder: Code(s): G40.909 - Epilepsy, unspecified, not intractable, without status epilepticus Status: Acute Assessment and Plan: Continue home seizure medication. 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 (9) HTN, goal below 130/80: Code(s): I10 - Essential (primary) hypertension Status: Chronic Assessment and Plan: Takes lisinopril. Continue home lisinopril. DS: Summary Hospital Course Hospital Course: patient presented to the hospital with shortness of breath was found to have pneumonia CHF exacerbation treated with IV antibiotics treated with oxygen and no blood or treatment also patient was found to have hypercapnic respiratory failure patient condition improved during hospitalization COVID-19 was tested for placement came back positive patient was treated with remdesivir and steroid his condition improved patient will be discharged on oxygen follow-up with PCP as outpatient follow-up CBC CMP in 1 week follow-up chest x-ray in 2 weeks continue shima
[2021-10-31 12:47] LABS: Glucose Point of Care 113 mg/dl (65-105)
[2021-10-31] MEDS: carBAMazepine 200 MG TABLET PO (12:59)
== END 2021-10-31 13:15 | DRG 177 ==
LOC: ANHED 13:54 → ANHIMU 10-23 09:06 → ANH3MEDSUR 10-25 18:41 → ANHIMU 11-01 11:56
PROVIDERS: Family Medicine; Nurse Practitioner; Admitting Provider Internal Medicine; Emergency Provider Emergency Medicine; PCP Internal Medicine; Visit Provider Internal Medicine
DX: U07.1 COVID-19 (principal); J12.82 Pneumonia due to coronavirus disease 2019; J96.01 Acute respiratory failure with hypoxia; J96.02 Acute respiratory failure with hypercapnia; I50.33 Acute on chronic diastolic (congestive) heart failure; I13.0 Hypertensive heart and chronic kidney disease with heart failure and stage 1 through stage 4 chronic kidney disease, or unspecified chronic kidney disease; E11.22 Type 2 diabetes mellitus with diabetic chronic kidney disease; N18.32 Chronic kidney disease, stage 3b; D63.8 Anemia in other chronic diseases classified elsewhere; G40.909 Epilepsy, unspecified, not intractable, without status epilepticus; E11.42 Type 2 diabetes mellitus with diabetic polyneuropathy; E55.9 Vitamin D deficiency, unspecified; F41.9 Anxiety disorder, unspecified; I69.393 Ataxia following cerebral infarction; Z85.841 Personal history of malignant neoplasm of brain; Z85.46 Personal history of malignant neoplasm of prostate; Z99.81 Dependence on supplemental oxygen; Z79.82 Long term (current) use of aspirin; Z95.5 Presence of coronary angioplasty implant and graft
CPT/HCPCS: 36415; 36600; 71045; 71046; 80048; 80053; 82375; 82550; 82565; 82805; 82948; 83050; 83605; 83615; 83735; 83880; 84443; 84450; 84460; 84484; 85025; 85610; 85652; 85730; 86140; 87040; 87426; 92610; 93005; 93306; 94002; 94003; 94640; 96365; 96375; 97110; 97162; 97167; 97530; 97535; 99291; A9270; C9113; C9803; J0456; J0696; J1650; J1940; J2930; J7512; U0003; U0005

== ENCOUNTER 2021-11-13 12:57 | Inpatient (IN) | payer OTHER, SELFPAY ==
[2021-11-13] VITALS (23 sets, daily range): BP systolic 101–143; BP diastolic 46–73; PULSE 63–79; RESP 14–28; TEMP 36.1–36.8; O2SAT 95–100
--- NOTE | ~2021-11-13 | CT_ITS ---
EXAMINATION: CTA chest PE protocol DATE: 11/14/2021 14:27 INDICATION: Abnormal chest radiograph. Altered mental status. TECHNIQUE: Computed tomography angiography (CTA) of the chest was performed with 100 mL Omnipaque-350 intravenous contrast timed to evaluate the pulmonary arteries. Coronal maximum intensity projection 3D-reconstructions were created by the technologist. Automated exposure control and iterative reconst ruction technique were employed. The dose-length product was 633.98 mGy-cm. COMPARISON: Chest single view 11/13/2021, chest CT 11/28/2017 FINDINGS: There is stable mild scarring in the upper lobes. There is a moderate-sized right pleural e ffusion. There is dependent passive atelectasis on the right. There is mild atelectasis in left lung. There is an embolus in anterobasal segment right lower lobe. The heart size is normal. No pericardia l effusion. There are changes of cholecystectomy. There are bridging endplate osteophytes at multiple levels in the spine, consistent with diffuse idiopathic skeletal hyperostosis (DISH). IMPRESSION: 1. Pulmonary embolus in anterobasal segment right lower lobe. 2. Moderate-sized right pleural effusion. Reviewed, dictated and finalized at location A. D SYSTEM OPERATOR
--- NOTE | ~2021-11-13 | US_ITS ---
EXAMINATION: US venous doppler UE DATE: 11/18/2021 15:41 INDICATION: Left upper extremity pain TECHNIQUE: Hopson scale images with and without compression and Doppler images of the left upper extrem ity veins were obtained. COMPARISON: None. FINDINGS: The left internal jugular vein, subclavian vein, axillary vein, brachial veins, basilic vein, cephali c vein, radial vein, and ulnar vein are patent. IMPRESSION: 1. Patent left upper extremity veins. No evidence of deep venous thrombosis. Reviewed, dictated and finalized at location A. HANDLER
--- NOTE | ~2021-11-13 | XR_ITS ---
EXAMINATION: XR wrist LT 2V DATE: 11/18/2021 11:01 INDICATION: Left wrist pain. TECHNIQUE: 2 views of left wrist were obtained. COMPARISON: None. FINDINGS: Bone alignment is normal. No fracture. There is diffuse osteopenia. Joint spaces are normal . IMPRESSION: 1. No fracture. Reviewed, dictated and finalized at location A. SUPPORT TECHNICIAN IMPRESSION: 1. No fracture.
--- NOTE | ~2021-11-13 | XR_ITS ---
EXAMINATION: XR chest 1V EXAM DATE: 11/13/2021 14:56 INDICATION: Transient alteration of awareness. TECHNIQUE: Portable AP frontal chest x-ray was obtained. Comparison is made to prior examination from 10/26/2021. FINDINGS: Cardiomegaly and hyperinflation. Small right pleural effusion with improvement in both pleu ral effusions compared to prior study and in the adjacent atelectasis. No focal airspace disease or p neumothorax. IMPRESSION: Cardiomegaly, hyperinflation, small right effusion. Reviewed, dictated and finalized at location B. UCT PLANNER
--- NOTE | ~2021-11-13 | CT_ITS ---
EXAMINATION: CT brain wo con DATE: 11/13/2021 14:53 INDICATION: Unresponsive. Altered mental status. TECHNIQUE: Computed tomography (CT) of the head was performed without intravenous contrast. The mA wa s adjusted according to patient size. Iterative reconstruction technique was employed. The dose-lengt h product was 354.92 mGy-cm. COMPARISON: Head CT 09/20/2021 FINDINGS: There is chronic encephalomalacia involving the left frontal, temporal, and parietal lobes, left insula, and left basal ganglia in the expected distribution of left middle cerebral artery. The re is no intracranial hemorrhage, acute infarction, or abnormal intracranial mass lesion. There is mi ld ex vacuo dilatation of left lateral ventricle. There are changes of left-sided craniotomy. The par anasal sinuses are clear. The mastoid air cells are normal. The orbits are normal. IMPRESSION: 1. Chronic encephalomalacia in the expected distribution of left middle cerebral artery. Reviewed, dictated and finalized at location A. ENT APPOINTMENT COORDINATOR IMPRESSION: 1. Chronic encephalomalacia in the expected distribution of left middle cerebra l artery.
--- NOTE | 2021-11-13 13:22 | ECG_ITS ---
Measurements Intervals [place] Rate: 73 P: 75 WY: 164 QRS: -12 QRSD: 158 T: 60 QT: 409 QTc: 454 Interpretive Statements SINUS RHYTHM LEFT BUNDLE BRANCH BLOCK BASELINE ARTIFACT- I, II, III, AVR, AVL, AVF, V2-V6 ABNORMAL ECG Electronically Signed On 11-13-2021 13:36:34 RESPIRATORY THERAPIST ASSISTANT by Jl Dillon D.O.
--- NOTE | 2021-11-13 13:38 | PC.NURSE ---
Patient had catheter in place prior to arrival to ED. Unknown start date.
--- NOTE | 2021-11-13 14:41 | PC.NURSE ---
Patient to radiology.
--- NOTE | 2021-11-13 15:12 | ED.GENADULT ---
HPI - General Adult General Chief complaint: Altered Mental Status Stated complaint: confused Time Seen by Provider: 11/13/21 14:24 Source: patient, family and RN notes reviewed History of Present Illness HPI narrative: Patient is 76 y/o male brought in by EMS for altered mental status. states that she was sitting there with him at his facility today. When staff asked him if he wanted a lemonade, he did not answer. He appeared slumped over, but did not fall out of his chair. Staff at the facility thought he did not have a pulse and lower him to the floor. He then vomited and woke up. He was unresponsive for several minutes. He has no recollection of what happened. Related Data Home Medications Medication Instructions Recorded Confirmed acetaminophen 500 mg PO Q4-5H PRN 11/13/21 11/13/21 albuterol sulfate 2 puff INHALATION Q6-8H 11/13/21 11/13/21 aspirin [Adult Aspirin] 81 mg PO DAILY 11/13/21 11/13/21 atorvastatin 10 mg PO DAILY 11/13/21 11/13/21 carbamazepine 200 mg PO TID 11/13/21 11/13/21 cholecalciferol (vitamin D3) 500 mcg PO DAILY 11/13/21 11/14/21 furosemide 20 mg PO QID 11/13/21 11/14/21 lisinopril 10 mg PO DAILY 11/13/21 11/14/21 nystatin [Nyamyc] 100,000 unit TOPICAL TID 11/13/21 11/14/21 pantoprazole 40 mg PO DAILY 11/13/21 11/14/21 tamsulosin 0.4 mg PO DAILY 11/13/21 11/14/21 wheat dextrin [Benefiber Healthy 5 g PO DAILY 11/13/21 11/14/21 Shape] Allergies Allergy/AdvReac Type Severity Reaction Status Date / Time No Known Drug Allergies Allergy Unknown Unknown Verified 10/22/21 12:55 Review of Systems Review of Systems: All systems reviewed & are unremarkable except as noted in HPI and below ROS unobtainable: Yes unobtainable due to mental status PMFSH Past Medical History Medical History Anemia of chronic disease Anxiety Ataxia, post-stroke Benign prostatic hyperplasia Brain cancer Status post tumor resection and chemoradiation. Cerebrovascular accident Chronic respiratory failure Patient was to be using a BiPAP at nighttime however he states the mask does not fit well. Congestive heart failure Coronary artery disease involving cahto coronary artery of cahto heart Deep venous thrombosis Diabetes mellitus Hyperlipidemia Hypertension Mixed hyperlipidemia Oropharyngeal dysphagia Peripheral arterial disease Prostate cancer Right hemiparesis Seizure disorder Vitamin D deficiency Surgical History Surgical History History of cholecystectomy History of craniotomy With resection of brain tumor. History of heart artery stent Family History Family History Mother Patient's mother is in good health Sibling Patient's sister is in good health Patient's brother is in good health Other Family history of arthritis Family history of malignant neoplasm of brain Family history of pancreatic cancer Malignant neoplasm of prostate Social History Social History Social History: The patient lives with his in [place] but is currently undergoing rehab at [place]. He is on disability. Lifelong nonsmoker. No alcohol or illicit substance use. His Elke Bartholomew is his surrogate decision maker. Code status: Full code. Smoking status: Never smoker Alcohol intake: never Substance use: never Spiritual care concerns: No Exam Const: General: no acute distress and well developed Orientation/consciousness: oriented to person, oriented to place and confusion HENMT: Head: normocephalic Ears: external ears normal General nose exam: Normal external nose present Eyes: General: appearance normal, both eyes and all related structures Conjunctivae: conjunctivae normal Neck: Neck: normal visual inspection and full ROM Chest: Chest palpation & inspection: normal inspection of t
--- NOTE | 2021-11-13 15:18 | PC.NURSE ---
Blood drawn with ultrasound guidance.
[2021-11-13 15:22] LABS: Basophils Percent Auto 0.2 % (0.2-1.2); Eosinophils Percent Auto 0.1 % (0-4.4); Hematocrit 35.7 % (42.0-52.0); Hemoglobin 11.3 g/dL (14.0-18.0); Immature Granulocyte Absolute 0.06 K/mm3 (0.00-0.031); Immature Granulocyte Percent A 0.5 % (0-0.5); Lymphocytes Absolute Auto 0.91 K/mm3 (0.9-3.2); Lymphocytes Percent Auto 7.9 % (18.3-44.2); Mean Corpuscular HGB Conc 31.7 g/dl (32-36); Mean Corpuscular Hemoglobin 32.1 pg (26-34); Mean Corpuscular Volume 101.4 fl (80-100); Mean Platelet Volume 9.7 fl (7.4-10.4); Monocytes Absolute Auto 0.6 K/mm3 (0.1-0.6); Neutrophils Percent Auto 86.3 % (45.5-73.1); Platelet Count Result 238 k/mm3 (150-375); Red Blood Count 3.52 M/mm3 (4.6-6.20); Red Cell Distribution Width 12.2 % (11.5-14.5); White Blood Count 11.6 K/mm3 (4.5-10.0)
[2021-11-13 15:28] LABS: Add Urine Microscopic? YES; Appearance Urine Clear (Clear); Bilirubin Urine Negative (Negative); Blood Urine Negative (Negative); Color Urine Yellow (Yellow); Glucose Urine UA Negative (Negative); Ketones Urine Negative (Negative); Leukocyte Esterase Ur Negative LEU/UL (Negative); Mucus Urine Rare /lpf; Nitrate Urine Negative (Negative); Protein Urine Negative (Negative); RBC Urine 0-2 /hpf (0-2); Specific Grav Ur 1.014 (1.001-1.035)
[2021-11-13 15:33] LABS: INR 1.2; Partial Thromboplastin Time 24.5 SECONDS (22.3-36.8); Prothrombin Time 14.9 Seconds (11.1-14.7)
--- NOTE | 2021-11-13 16:24 | PC.NURSE ---
Lab called for repeat blood draw.
--- NOTE | 2021-11-13 17:37 | PC.NURSE ---
Repeat labs drawn with ultrasound guidance.
--- NOTE | 2021-11-13 17:45 | PM.IMHP ---
H&P: HPI History of Present Illness Date/Time: 11/13/21 17:45 Chief Complaint: Unresponsive episode. Narrative: This is a 76-year-old male with multiple medical problems including history of coronary artery disease, diabetes, chronic kidney disease, hypertension, hyperlipidemia, peripheral vascular disease, brain cancer, seizure, and several other comorbidities who presented to the emergency department earlier today via EMS from [facility] where he is doing rehab for evaluation after an unresponsive episode. He is not the greatest historian and as such some of the following is obtained via a review of his electronic medical records as well as discussions with his , with the patient's permission. He is known to the hospitalist from an admission in which he was treated for acute respiratory failure and COVID-19. He was discharged to [facility] for rehab where he reportedly has been participating in therapy. This morning his came to visit and noted that he was asleep when she came in but when she tried to wake him up sometime thereafter he would not arouse and he seemed to slump forward in his chair. Staff lowered him to the floor as they did not feel a strong pulse and thought they were going to have to start CPR however he open his eyes at that time and seem to come to. At the time my evaluation he tells me he just does not feel well however he cannot give me any specific details. His thought process seem slow and it takes him quite a while to answer, and tells me this is unusual for him. On EMS arrival his glucose was around 150 and his blood pressure was in the 120s. Brain CT showed no acute finding and aside from a mild elevation in his white blood cell count and potassium, his labs are really unremarkable. There was no mention of seizure activity. He has chronic right-sided weakness which is unchanged. He denies fever, chills, and sweats. He also denies cold and flu symptoms though has occasional rhinorrhea. He denies chest pain, pleuritic pain, palpitations, orthopnea, PND, and lower extremity edema. No nausea, vomiting, diarrhea, or dysuria. No vertigo, auditory, or visual changes. Review of Systems Review of Systems: Twelve systems were reviewed and are negative except for as per HPI. [facility] Past Medical History Medical History (Updated 11/13/21 @ 22:47 by Aundrea G. Gerling, PA-C) Anemia of chronic disease Anxiety Ataxia, post-stroke Benign prostatic hyperplasia Brain cancer Status post tumor resection and chemoradiation. Cerebrovascular accident Chronic respiratory failure Patient was to be using a BiPAP at nighttime however he states the mask does not fit well. Congestive heart failure Coronary artery disease involving [place] coronary artery of [place] heart Deep venous thrombosis Diabetes mellitus Hyperlipidemia Hypertension Mixed hyperlipidemia Oropharyngeal dysphagia Peripheral arterial disease Prostate cancer Right hemiparesis Seizure disorder Vitamin D deficiency Surgical History Surgical History (Updated 11/13/21 @ 22:40 by Aundrea Cormier PA-C) History of cholecystectomy History of craniotomy With resection of brain tumor. History of heart artery stent Family History Family History Mother Patient's mother is in good health Sibling Patient's sister is in good health Patient's brother is in good health Other Family history of arthritis Family history of malignant neoplasm of brain Family history of pancreatic cancer Malignant neoplasm of prostate Social History Social History Social History: The patient lives with his in [place] but is currently undergoing rehab at [facility]. He is on disability. Lifelong nonsmoker. No alcohol or illicit substance use. His Elke Bartholomew is his surrogate decision maker. Code status: Full code. Meds Home
--- NOTE | 2021-11-13 21:03 | PC.NURSE ---
Updated [place] via phone.
[2021-11-13 21:18] LABS: Alanine Aminotransferase 19 U/L (4-50); Albumin Level 3.1 g/dL (3.5-5.1); Alkaline Phosphatase 139 U/L (38-126); Anion Gap 6 mmol/L (8-16); Aspartate Amino Transferase 25 U/L (17-59); Bilirubin,Total 0.4 mg/dL (0.2-1.3); Blood Urea Nitrogen 15 mg/dL (9-20); Calcium 8.6 mg/dL (8.4-10.2); Carbon Dioxide 39 mmol/L (22-30); Chloride 91 mmol/L (98-107); Estimated Glomerular Filt Rate > 60; Glucose 119 mg/dL (65-110); Potassium 5.1 mmol/L (3.4-5.0); Sodium 136 mmol/L (137-145)
--- NOTE | 2021-11-13 22:56 | ADMGEN ---
This patient, Angelo Bartholomew, was admitted to Medical Room 250-01. Patient/family oriented to hospital policies and general routines including ID bracelet, bed and alarms, visiting hours, pain management, procedures, bathroom and other care routines, personal items, smoking policy, room service/diet, and visiting hours. Information on how to activate the Rapid Response Team has been discussed. Patient/Family are encouraged to report perceived risks to care and to ask questions if they do not understand what they are told or what they should do.
[2021-11-13 23:55] LABS: Blood Urea Nitrogen 14 mg/dL (9-20); Calcium 8.8 mg/dL (8.4-10.2); Carbon Dioxide > 40 mmol/L (22-30); Chloride 89 mmol/L (98-107); Estimated Glomerular Filt Rate > 60; Glucose 96 mg/dL (65-110); Magnesium 2.1 mg/dL (1.6-2.3); Potassium 5.1 mmol/L (3.4-5.0); Sodium 131 mmol/L (137-145)
[2021-11-13 23:56] LABS: pH ABG 7.405 (7.350-7.450)
[2021-11-13 23:58] LABS: Base Excess ABG 12.7 mEq/l (+/-2.0); HCO3 ABG 39.8 mEq/l (22.0-26.0); Oxygen Saturation ABG 98.8 % (95.0-100.0); PO2 ABG 148.6 mmHg (80.0-100.0)
[2021-11-13 23:59] LABS: Carboxyhemoglobin 0.3 % THb (0-2.0); Device NASAL CANNULA; Fractional Inspired Oxygen 28 %; Methemoglobin ABG 0.3 %THb (0-1.5); Modified Allen's Test Pass; Oxyhemoglobin 97.7 % THb (90.0-100.0); PO2 FiO2 Ratio Arterial Blood 5.31 %; Reduced Hemoglobin 1.7 %THb (0-5.0); Site Drawn RIGHT RADIAL; Total Hemoglobin 11.5 g/dL (12.0-18.0)
[2021-11-14] VITALS (9 sets, daily range): BP systolic 122–147; BP diastolic 58–67; PULSE 67–80; RESP 17–32; TEMP 36–36.6; O2SAT 96–100
[2021-11-14] LABS: Oxygen Content ABG 16.1 %vol (16.0-22.0)
[2021-11-14] MEDS: SODIUM CHLORIDE 0.9% IV 1,000 ML 100 ML IV CONT (00:39)
--- NOTE | 2021-11-14 04:05 | PCRCNOTE ---
MDI unverified by pharmacist, unable to give at scheduled time
[2021-11-14 06:42] LABS: Glucose Point of Care 84 mg/dl (65-105)
[2021-11-14 06:48] LABS: Hematocrit 33.7 % (42.0-52.0); Hemoglobin 10.5 g/dL (14.0-18.0); Mean Corpuscular HGB Conc 31.2 g/dl (32-36); Mean Corpuscular Hemoglobin 31.2 pg (26-34); Mean Platelet Volume 10.3 fl (7.4-10.4); Platelet Count Result 227 k/mm3 (150-375); Red Blood Count 3.37 M/mm3 (4.6-6.20); Red Cell Distribution Width 11.9 % (11.5-14.5); White Blood Count 6.4 K/mm3 (4.5-10.0)
[2021-11-14 07:08] LABS: Alanine Aminotransferase 19 U/L (4-50); Albumin Level 3.4 g/dL (3.5-5.1); Alkaline Phosphatase 133 U/L (38-126); Aspartate Amino Transferase 28 U/L (17-59); Bilirubin,Total 0.4 mg/dL (0.2-1.3); Blood Urea Nitrogen 13 mg/dL (9-20); Calcium 8.6 mg/dL (8.4-10.2); Carbon Dioxide > 40 mmol/L (22-30); Chloride 91 mmol/L (98-107); Estimated Glomerular Filt Rate > 60; Glucose 89 mg/dL (65-110); Magnesium 2.1 mg/dL (1.6-2.3); Potassium 4.5 mmol/L (3.4-5.0); Sodium 132 mmol/L (137-145)
[2021-11-14 08:06] LABS: Glucose Point of Care 76 mg/dl (65-105)
[2021-11-14] MEDS: ASPIRIN 81 MG CHEWABLE TABLET PO (08:47)
[2021-11-14] MEDS: carBAMazepine 200 MG TABLET PO ×3 (08:47→23:45)
[2021-11-14] MEDS: ATORVASTATIN 10 MG TABLET PO (08:47)
[2021-11-14] MEDS: ACETAMINOPHEN 500 MG TABLET PO (09:23)
--- NOTE | 2021-11-14 09:51 | PM.IMPN ---
Progress Note: A&P Assessment and Plan (1) Unresponsive episode: Code(s): R41.89 - Other symptoms and signs involving cognitive functions and awareness Status: Acute Assessment and Plan: There was no mention of seizure-like activity ordered EEG and Neurology consult. He will be monitor on telemetry to rule out cardiac dysrhythmia. Reviewed ABG given history of chronic respiratory failure showed chronic CO2 retention. Neurologic checks have been ordered q.4 hours. Fall precaution seizure precaution (2) History of seizure: Code(s): Z87.898 - Personal history of other specified conditions Status: Acute Assessment and Plan: Continue carbamazepine EEG pending pending Neurology valve (3) Chronic respiratory failure: Code(s): J96.10 - Chronic respiratory failure, unspecified whether with hypoxia or hypercapnia Status: Acute Assessment and Plan: Currently 100% on room air. Repeats sleep study as out patient. (4) Hypertension: Code(s): I10 - Essential (primary) hypertension Status: Acute Assessment and Plan: Blood pressures were reviewed and they are stable. Continue antihypertensives and monitor daily. (5) Congestive heart failure: Code(s): I50.9 - Heart failure, unspecified Status: Acute Assessment and Plan: Most likely Diastolic congestive heart failure noted on recent echocardiogram. He appears clinically compensated. Avoid over-hydration. (6) Diabetes mellitus: Qualifiers: Diabetes mellitus type: type 2 Diabetes mellitus intermediate school teacher insulin use: without intermediate school teacher use Diabetes mellitus complication status: with neurologic complications Diabetes mellitus complication detail: with polyneuropathy Qualified Code(s): E11.42 - Type 2 diabetes mellitus with diabetic polyneuropathy Code(s): E11.9 - Type 2 diabetes mellitus without complications Status: Chronic Assessment and Plan: Recent hemoglobin A1c was 6.4%. Continue to monitor patient currently is not on insulin sliding scale his diabetes is managed by diet and exercise. (7) Anemia of chronic disease: Code(s): D63.8 - Anemia in other chronic diseases classified elsewhere Status: Acute Assessment and Plan: Hemoglobin and hematocrit are stable on review of previous labs. Subjective Date/time seen: 11/14/21 09:51 Interval history: Patient seen and examined Patient presented to the hospital with episode of confusion and decreased responsiveness patient has history of probable seizure neurology was consulted CT scan of the head is negative mental status has significantly improved Patient has sleep apnea ABG showed chronic CO2 retention pH is within normal limits Patient denies fever headache chest pain shortness of breath I am seeing the patient for altered mental status Exam Narrative: Alert Chest no wheeze crackles Abdomen nontender nondistended CVS S1 + S2 Neurology nonfocal Lower extremity negative edema Objective Data Vital Signs Vital Signs: Vital Signs - 24 hr 11/13/21 13:07 11/13/21 13:09 11/13/21 13:10 Temperature Pulse Rate 76 76 71 Respiratory Rate 21 H 21 H 24 H Blood Pressure 128/53 L 128/53 L Pulse Oximetry 100 100 100 11/13/21 13:15 11/13/21 13:16 11/13/21 13:17 Temperature 97.6 F Pulse Rate 76 76 Respiratory Rate 23 H 28 H Blood Pressure 119/46 L Pulse Oximetry 100 100 11/13/21 13:30 11/13/21 13:49 11/13/21 14:00 Temperature Pulse Rate 72 71 73 Respiratory Rate 14 15 16 Blood Pressure Pulse Oximetry 100 100 100 11/13/21 14:01 11/13/21 14:19 11/13/21 16:04 Temperature Pulse Rate 70 79 74 Respiratory Rate 15 24 H 16 Blood Pressure 110/52 L Pulse Oximetry 100 100 11/13/21 16:17 11/13/21 16:39 11/13/21 18:32 Temperature 98.3 F Pulse Rate 67 75 66 Respiratory Rate 15 18 23 H Blood Pressure 107/55 L 101/53 L Pulse Oximetry 100 99
[2021-11-14 10:43] LABS: D Dimer 0.68 ug/mL (<0.48)
[2021-11-14 11:42] LABS: Glucose Point of Care 97 mg/dl (65-105)
--- NOTE | 2021-11-14 12:31 | WPDNEURCNPN ---
Assessment and Plan Additional Plan 1. Status post craniotomy with chronic encephalomalacia in the distribution of left middle cerebral artery resulting in dysphasia 2. Focal seizure with secondary generalization patient is already on carbamazepine and has been followed in our office on a regular basis 3. Diabetes mellitus 4. Congestive heart failure 5. Anemia of chronic disease plan is to obtain the EEG carbamazepine level and further adjustment according Consult date: 11/14/21 HPI: Angelo Bartholomew is a 76 year old male admitted to the hospital for the complaints of unresponsive episode in addition to the ongoing history of multiple medical problems that is 1. Coronary artery disease 2. Diabetes mellitus 3. Chronic renal disease 4. Hypertension 5. Hyperlipidemia 6. Peripheral vascular disease 7. History of brain cancer 8. History of seizures patient brought to the emergency room via EMS from [facility] where he was involved in the rehab patient has been recently treated for acute respiratory failure and COVID-19 and was discharged to [facility] for rehab 5 came to the rehab to visit him he would not arouse and seemed to slump forward in his chair his staff managed to lower him to the floor as they did not feel strong pulse and were going to have to start a CPR however he opened his eyes and seems to come to he was not feeling well by the time he was evaluated by the hospitalist with slow hot thought process and slow in answering the questions initially was noted to have blood sugar of 150 and blood pressure [address] scan of the head was negative for the bleed he was noted to have mild leukocytosis and potassium up patient has chronic right-sided weakness was unchanged Review of Systems Review of Systems: All systems reviewed & are unremarkable except as noted in HPI and below PMFSH Past Medical History Medical History Anemia of chronic disease Anxiety Ataxia, post-stroke Benign prostatic hyperplasia Brain cancer Status post tumor resection and chemoradiation. Cerebrovascular accident Chronic respiratory failure Patient was to be using a BiPAP at nighttime however he states the mask does not fit well. Congestive heart failure Coronary artery disease involving [place] coronary artery of [place] heart Deep venous thrombosis Diabetes mellitus Hyperlipidemia Hypertension Mixed hyperlipidemia Oropharyngeal dysphagia Peripheral arterial disease Prostate cancer Right hemiparesis Seizure disorder Vitamin D deficiency Surgical History Surgical History History of cholecystectomy History of craniotomy With resection of brain tumor. History of heart artery stent Family History Family History Mother Patient's mother is in good health Sibling Patient's sister is in good health Patient's brother is in good health Other Family history of arthritis Family history of malignant neoplasm of brain Family history of pancreatic cancer Malignant neoplasm of prostate Social History Social History Social History: The patient lives with his in [place] but is currently undergoing rehab at [facility]. He is on disability. Lifelong nonsmoker. No alcohol or illicit substance use. His Elke Bartholomew is his surrogate decision maker. Code status: Full code. Smoking status: Never smoker Alcohol intake: never Substance use: never Spiritual care concerns: No Meds Home Medications and Allergies Home Medications Medication Instructions Recorded Confirmed Type acetaminophen 500 mg PO Q4-5H PRN 11/13/21 11/13/21 History albuterol sulfate 2 puff INHALATION Q6-8H 11/13/21 11/13/21 History aspirin [Adult Aspirin] 81 mg PO DAILY 11/13/21 11/13/21 History atorvastatin 10 mg PO DAILY 11/13/21 11/13/21 Histor
[2021-11-14] MEDS: ALBUTEROL SULFATE (*SP) AEROSOL 1 PUFF 2 PUFF INHALATION ×2 (15:20→21:42)
--- NOTE | 2021-11-14 15:21 | PHAR ---
CLARIFIED HEPARIN BOLUS WITH DR. SARGENT - HE WANTED THE 18 UNIT/KG/HR RATE AND 80 UNIT/KG BOLUS
[2021-11-14] MEDS: HEPARIN SODIUM 5,000 UNITS/ML VIAL 6000 UNITS IV PUSH (16:25)
[2021-11-14] MEDS: HEPARIN SOD/D5W 100 UNITS/ML 25,000 UNITS/250 ML BAG 14 UNITS IV CONT (16:25)
[2021-11-14 17:11] LABS: Glucose Point of Care 64 mg/dl (65-105)
[2021-11-14 17:11] LABS: Glucose Point of Care 75 mg/dl (65-105)
[2021-11-14 17:12] LABS: Basophils Percent Auto 0.4 % (0.2-1.2); Eosinophils Absolute Auto 0.1 K/mm3 (0-0.3); Eosinophils Percent Auto 0.9 % (0-4.4); Hemoglobin 10.5 g/dL (14.0-18.0); Immature Granulocyte Absolute 0.03 K/mm3 (0.00-0.031); Immature Granulocyte Percent A 0.4 % (0-0.5); Lymphocytes Absolute Auto 2.09 K/mm3 (0.9-3.2); Lymphocytes Percent Auto 30.9 % (18.3-44.2); Mean Corpuscular HGB Conc 31.8 g/dl (32-36); Mean Corpuscular Hemoglobin 31.9 pg (26-34); Mean Corpuscular Volume 100.3 fl (80-100); Mean Platelet Volume 10.2 fl (7.4-10.4); Monocytes Absolute Auto 0.6 K/mm3 (0.1-0.6); Monocytes Percent Auto 9.5 % (2.6-8.5); Neutrophils Absolute Auto 3.9 K/mm3 (1.3-6.7); Neutrophils Percent Auto 57.9 % (45.5-73.1); Platelet Count Result 248 k/mm3 (150-375); Red Blood Count 3.29 M/mm3 (4.6-6.20); Red Cell Distribution Width 12.1 % (11.5-14.5); White Blood Count 6.8 K/mm3 (4.5-10.0)
[2021-11-14 17:18] LABS: INR 1.2; Partial Thromboplastin Time 30.6 SECONDS (22.3-36.8); Prothrombin Time 15.2 Seconds (11.1-14.7)
[2021-11-14 21:55] LABS: Glucose Point of Care 77 mg/dl (65-105)
[2021-11-14 23:26] LABS: Partial Thromboplastin Time 185.4 SECONDS (22.3-36.8)
[2021-11-15] VITALS (10 sets, daily range): BP systolic 107–120; BP diastolic 48–85; PULSE 63–94; RESP 16–18; TEMP 36.6–36.7; O2SAT 98–100
[2021-11-15] MEDS: ALBUTEROL SULFATE (*SP) AEROSOL 1 PUFF 2 PUFF INHALATION ×3 (02:11→13:54)
[2021-11-15 05:59] LABS: Basophils Percent Auto 0.4 % (0.2-1.2); Eosinophils Absolute Auto 0.1 K/mm3 (0-0.3); Eosinophils Percent Auto 1.4 % (0-4.4); Hematocrit 32.2 % (42.0-52.0); Hemoglobin 10.3 g/dL (14.0-18.0); Immature Granulocyte Absolute 0.03 K/mm3 (0.00-0.031); Immature Granulocyte Percent A 0.4 % (0-0.5); Lymphocytes Absolute Auto 2.22 K/mm3 (0.9-3.2); Lymphocytes Percent Auto 31.3 % (18.3-44.2); Mean Corpuscular Hemoglobin 32.1 pg (26-34); Mean Corpuscular Volume 100.3 fl (80-100); Mean Platelet Volume 9.6 fl (7.4-10.4); Monocytes Absolute Auto 0.8 K/mm3 (0.1-0.6); Monocytes Percent Auto 11.6 % (2.6-8.5); Neutrophils Absolute Auto 3.9 K/mm3 (1.3-6.7); Neutrophils Percent Auto 54.9 % (45.5-73.1); Platelet Count Result 222 k/mm3 (150-375); Red Blood Count 3.21 M/mm3 (4.6-6.20); Red Cell Distribution Width 12.1 % (11.5-14.5); White Blood Count 7.1 K/mm3 (4.5-10.0)
[2021-11-15 06:11] LABS: Partial Thromboplastin Time 88.6 SECONDS (22.3-36.8)
[2021-11-15 06:13] LABS: Alanine Aminotransferase 20 U/L (4-50); Albumin Level 3.4 g/dL (3.5-5.1); Alkaline Phosphatase 132 U/L (38-126); Anion Gap -1 mmol/L (8-16); Aspartate Amino Transferase 28 U/L (17-59); Bilirubin,Total 0.3 mg/dL (0.2-1.3); Blood Urea Nitrogen 9 mg/dL (9-20); Calcium 8.5 mg/dL (8.4-10.2); Carbon Dioxide 38 mmol/L (22-30); Chloride 95 mmol/L (98-107); Estimated Glomerular Filt Rate > 60; Glucose 119 mg/dL (65-110); Potassium 4.1 mmol/L (3.4-5.0); Sodium 132 mmol/L (137-145)
[2021-11-15] MEDS: ASPIRIN 81 MG CHEWABLE TABLET PO (07:52)
[2021-11-15] MEDS: ATORVASTATIN 10 MG TABLET PO (07:52)
[2021-11-15] MEDS: carBAMazepine 200 MG TABLET PO ×3 (07:52→16:59)
--- NOTE | 2021-11-15 10:57 | PM.IMPN ---
Progress Note: A&P Assessment and Plan (1) Unresponsive episode: Code(s): R41.89 - Other symptoms and signs involving cognitive functions and awareness Status: Acute Assessment and Plan: Pt admitted- EEG and Neurology consult Neurologic checks Fall precaution Seizure precaution (2) History of seizure: Code(s): Z87.898 - Personal history of other specified conditions Status: Acute Assessment and Plan: Continue carbamazepine EEG pending (3) Chronic respiratory failure: Code(s): J96.10 - Chronic respiratory failure, unspecified whether with hypoxia or hypercapnia Status: Acute Assessment and Plan: Currently 100% on room air. Repeats sleep study as out patient. (4) Hypertension: Code(s): I10 - Essential (primary) hypertension Status: Acute Assessment and Plan: Blood pressures were reviewed and they are stable. Continue antihypertensives and monitor daily. (5) Congestive heart failure: Code(s): I50.9 - Heart failure, unspecified Status: Acute Assessment and Plan: Most likely Diastolic congestive heart failure noted on recent echocardiogram. He appears clinically compensated. Avoid over-hydration. (6) Diabetes mellitus: Qualifiers: Diabetes mellitus type: type 2 Diabetes mellitus detention insulin use: without manager intermediate use Diabetes mellitus complication status: with neurologic complications Diabetes mellitus complication detail: with polyneuropathy Qualified Code(s): E11.42 - Type 2 diabetes mellitus with diabetic polyneuropathy Code(s): E11.9 - Type 2 diabetes mellitus without complications Status: Chronic Assessment and Plan: Recent hemoglobin A1c was 6.4%. Continue to monitor patient currently is not on insulin sliding scale his diabetes is managed by diet and exercise. (7) Anemia of chronic disease: Code(s): D63.8 - Anemia in other chronic diseases classified elsewhere Status: Acute Assessment and Plan: Hemoglobin and hematocrit are stable on review of previous labs. Subjective Date/time seen: 11/15/21 10:57 Interval history: 76-year-old male with multiple medical problems including history of coronary artery disease, diabetes, chronic kidney disease, hypertension, hyperlipidemia, peripheral vascular disease, brain cancer, seizure, and several other comorbidities who presented to the emergency department earlier today via EMS from [place] where he is doing rehab for evaluation after an unresponsive episode. Patient presented to the hospital with episode of confusion and decreased responsiveness patient has history of probable seizure neurology was consulted CT scan of the head is negative mental status has significantly improved, neurology note reads Status post craniotomy with chronic encephalomalacia in the distribution of left middle cerebral artery resulting in dysphasia 2. Focal seizure with secondary generalization patient is already on carbamazepine. No specific complaints, continue to monitor patient. Review of Systems Review of Systems: All systems reviewed & are unremarkable except as noted in HPI and below Exam Narrative: Alert Chest clear lungs Abdomen nontender nondistended CVS S1 + S2 Neurology nonfocal Lower extremity negative edema Objective Data Vital Signs Vital Signs: Vital Signs - 24 hr 11/14/21 12:00 11/14/21 14:37 11/14/21 16:00 Temperature 36.2 C L Pulse Rate 69 80 70 Respiratory Rate 32 H Blood Pressure 138/58 L Pulse Oximetry 96 11/14/21 20:00 11/14/21 20:03 11/15/21 00:00 Temperature 36.6 C Pulse Rate 72 70 65 Respiratory Rate 18 Blood Pressure 147/63 H Pulse Oximetry 100 11/15/21 02:53 11/15/21 04:00 11/15/21 07:52 Temperature 36.6 C Pulse Rate 72 71 Respiratory Rate 17 Blood Pressure 110/85 Pulse Oximetry 100 98 11/15/21 08:00 Temperature Pul
--- NOTE | 2021-11-15 11:06 | WPDNEUROLOGY ---
Neurology EEG Report General Information Date of Study: 11/15/21 TEST eeg DIAGNOSIS Seizures CONDITION OF RECORDING drowsy and sleep EEG NUMBER [id number] CLINICAL HISTORY patient was unable to give any specific history but does have a history of craniotomy over the left side of his head EEG DESCRIPTION background rhythm consists of medium to high voltage 5 to 7 hertz per 2nd theta activity. Bilateral symmetrical sleep activity seen during sleep. Lower voltages seen on the left side is 1 to 2 hertz per 2nd delta activity admixed with bihemispheric 2 to 3 hertz per 2nd delta activity. Hyperventilation not done. Photic stimulation not done. Non paroxysmal. Focal. Lateralizing. IMPRESSION Abnormal record due to the presence of bihemispheric theta and delta activity with left hemispheric dominance but without evidence of any paroxysmal discharge at this particular time. Clinical correlation recommended there is no evidence of any seizure at this particular time
[2021-11-15 12:47] LABS: Partial Thromboplastin Time 91.7 SECONDS (22.3-36.8)
[2021-11-15] MEDS: HEPARIN SOD/D5W 100 UNITS/ML 25,000 UNITS/250 ML BAG 12 UNITS IV CONT (14:40)
--- NOTE | 2021-11-15 23:38 | PCRCNOTE ---
Window of time for administration has passed. See next scheduled administration.
[2021-11-16] VITALS (11 sets, daily range): BP systolic 108–135; BP diastolic 47–71; PULSE 63–81; RESP 16–20; TEMP 36.3–36.7; O2SAT 95–100
[2021-11-16] MEDS: ALBUTEROL SULFATE (*SP) AEROSOL 1 PUFF 2 PUFF INHALATION ×3 (03:11→19:36)
[2021-11-16 05:22] LABS: Basophils Percent Auto 0.6 % (0.2-1.2); Eosinophils Absolute Auto 0.1 K/mm3 (0-0.3); Eosinophils Percent Auto 1.9 % (0-4.4); Hematocrit 29.3 % (42.0-52.0); Hemoglobin 9.5 g/dL (14.0-18.0); Immature Granulocyte Absolute 0.02 K/mm3 (0.00-0.031); Immature Granulocyte Percent A 0.3 % (0-0.5); Lymphocytes Absolute Auto 2.49 K/mm3 (0.9-3.2); Lymphocytes Percent Auto 34.4 % (18.3-44.2); Mean Corpuscular HGB Conc 32.4 g/dl (32-36); Mean Corpuscular Hemoglobin 32.1 pg (26-34); Mean Platelet Volume 9.8 fl (7.4-10.4); Monocytes Absolute Auto 0.8 K/mm3 (0.1-0.6); Monocytes Percent Auto 11.6 % (2.6-8.5); Neutrophils Absolute Auto 3.7 K/mm3 (1.3-6.7); Neutrophils Percent Auto 51.2 % (45.5-73.1); Platelet Count Result 234 k/mm3 (150-375); Red Blood Count 2.96 M/mm3 (4.6-6.20); Red Cell Distribution Width 12.2 % (11.5-14.5); White Blood Count 7.2 K/mm3 (4.5-10.0)
[2021-11-16 05:37] LABS: Partial Thromboplastin Time 102.1 SECONDS (22.3-36.8)
[2021-11-16 05:39] LABS: Alanine Aminotransferase 17 U/L (4-50); Albumin Level 3.1 g/dL (3.5-5.1); Alkaline Phosphatase 133 U/L (38-126); Anion Gap 3 mmol/L (8-16); Aspartate Amino Transferase 25 U/L (17-59); Bilirubin,Total 0.3 mg/dL (0.2-1.3); Blood Urea Nitrogen 9 mg/dL (9-20); Calcium 8.2 mg/dL (8.4-10.2); Carbon Dioxide 37 mmol/L (22-30); Chloride 91 mmol/L (98-107); Estimated Glomerular Filt Rate > 60; Glucose 110 mg/dL (65-110); Potassium 4.1 mmol/L (3.4-5.0); Sodium 131 mmol/L (137-145)
[2021-11-16] MEDS: carBAMazepine 200 MG TABLET PO ×3 (08:31→16:53)
[2021-11-16] MEDS: ATORVASTATIN 10 MG TABLET PO (08:31)
[2021-11-16] MEDS: ASPIRIN 81 MG CHEWABLE TABLET PO (08:31)
[2021-11-16] MEDS: HEPARIN SOD/D5W 100 UNITS/ML 25,000 UNITS/250 ML BAG 12 UNITS IV CONT (12:13)
--- NOTE | 2021-11-16 12:18 | PM.IMPN ---
Progress Note: A&P Assessment and Plan (1) Unresponsive episode: Code(s): R41.89 - Other symptoms and signs involving cognitive functions and awareness Status: Acute Assessment and Plan: Pt admitted- EEG and Neurology consult Neurologic checks Fall precaution Seizure precaution (2) History of seizure: Code(s): Z87.898 - Personal history of other specified conditions Status: Acute Assessment and Plan: Continue carbamazepine EEG reviwed (3) Chronic respiratory failure: Code(s): J96.10 - Chronic respiratory failure, unspecified whether with hypoxia or hypercapnia Status: Resolved Assessment and Plan: Secondary to DAVID leonardley not needing any oxygen presently. Repeats sleep study as out patient. (4) Hypertension: Code(s): I10 - Essential (primary) hypertension Status: Acute Assessment and Plan: Bp is 108/47, Continue antihypertensives and monitor daily. (5) Congestive heart failure: Code(s): I50.9 - Heart failure, unspecified Status: Chronic Assessment and Plan: Most likely Diastolic congestive heart failure noted on recent echocardiogram. Pt is euvolemic today. (6) Diabetes mellitus: Qualifiers: Diabetes mellitus type: type 2 Diabetes mellitus retirement insulin use: without retirement use Diabetes mellitus complication status: with neurologic complications Diabetes mellitus complication detail: with polyneuropathy Qualified Code(s): E11.42 - Type 2 diabetes mellitus with diabetic polyneuropathy Code(s): E11.9 - Type 2 diabetes mellitus without complications Status: Chronic Assessment and Plan: Recent hemoglobin A1c was 6.4%. Continue to monitor patient currently is not on insulin sliding scale his diabetes is managed by diet and exercise. (7) Anemia of chronic disease: Code(s): D63.8 - Anemia in other chronic diseases classified elsewhere Status: Acute Assessment and Plan: Hemoglobin and hematocrit are stable on review of previous labs. Subjective Date/time seen: 11/16/21 12:18 Interval history: 76-year-old male with multiple medical problems including history of coronary artery disease, diabetes, chronic kidney disease, hypertension, hyperlipidemia, peripheral vascular disease, brain cancer, seizure, and several other comorbidities who presented to the emergency department earlier today via EMS from [place] where he is doing rehab for evaluation after an unresponsive episode. Patient presented to the hospital with episode of confusion and decreased responsiveness probable had a seizure neurology was consulted CT scan of the head is negative. 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 No specific complaints, pt looks tired today, poor historian Review of Systems Review of Systems: All systems reviewed & are unremarkable except as noted in HPI and below Exam Narrative: Alert, talkative but tired appearing, chronically ill appearing Chest clear lungs Abdomen nontender nondistended CVS S1 + S2 Neurology nonfocal Lower extremity negative edema Objective Data Vital Signs Vital Signs: Vital Signs - 24 hr 11/15/21 15:05 11/15/21 16:00 11/15/21 20:00 Temperature 36.7 C Pulse Rate 74 64 65 Respiratory Rate 18 Blood Pressure 120/58 L Pulse Oximetry 100 100 11/15/21 22:00 11/16/21 00:00 11/16/21 04:00 Temperature 36.6 C Pulse Rate 63 63 64 Respiratory Rate 16 Blood Pressure 107/48 L Pulse Oximetry 100 11/16/21 05:21 11/16/21 08:30 Temperature 36.3 C L Pulse Rate 66 78 Respiratory Rate 16 Blood Pressure 108/47 L Pulse Oximetry 100 Intake/Output Intake/Output: Intake & Output 11/13/21 11/14/21 11/15/21
[2021-11-17] VITALS (14 sets, daily range): BP systolic 106–121; BP diastolic 47–53; PULSE 57–72; RESP 17–18; TEMP 36.3–37; O2SAT 95–100
[2021-11-17 05:40] LABS: Basophils Percent Auto 0.4 % (0.2-1.2); Eosinophils Absolute Auto 0.1 K/mm3 (0-0.3); Eosinophils Percent Auto 2.1 % (0-4.4); Hematocrit 29.1 % (42.0-52.0); Hemoglobin 9.2 g/dL (14.0-18.0); Immature Granulocyte Absolute 0.03 K/mm3 (0.00-0.031); Immature Granulocyte Percent A 0.4 % (0-0.5); Lymphocytes Absolute Auto 2.32 K/mm3 (0.9-3.2); Lymphocytes Percent Auto 34.5 % (18.3-44.2); Mean Corpuscular HGB Conc 31.6 g/dl (32-36); Mean Corpuscular Hemoglobin 31.8 pg (26-34); Mean Corpuscular Volume 100.7 fl (80-100); Mean Platelet Volume 9.7 fl (7.4-10.4); Monocytes Absolute Auto 0.8 K/mm3 (0.1-0.6); Monocytes Percent Auto 11.7 % (2.6-8.5); Neutrophils Absolute Auto 3.4 K/mm3 (1.3-6.7); Neutrophils Percent Auto 50.9 % (45.5-73.1); Platelet Count Result 232 k/mm3 (150-375); Red Blood Count 2.89 M/mm3 (4.6-6.20); Red Cell Distribution Width 12.1 % (11.5-14.5); White Blood Count 6.7 K/mm3 (4.5-10.0)
[2021-11-17 05:51] LABS: Alanine Aminotransferase 17 U/L (4-50); Alkaline Phosphatase 126 U/L (38-126); Anion Gap 4 mmol/L (8-16); Aspartate Amino Transferase 27 U/L (17-59); Bilirubin,Total 0.3 mg/dL (0.2-1.3); Blood Urea Nitrogen 8 mg/dL (9-20); Calcium 8.4 mg/dL (8.4-10.2); Carbon Dioxide 38 mmol/L (22-30); Chloride 94 mmol/L (98-107); Estimated Glomerular Filt Rate > 60; Glucose 100 mg/dL (65-110); Potassium 4.1 mmol/L (3.4-5.0); Sodium 136 mmol/L (137-145)
[2021-11-17 05:52] LABS: Partial Thromboplastin Time 110.3 SECONDS (22.3-36.8)
[2021-11-17] MEDS: ALBUTEROL SULFATE (*SP) AEROSOL 1 PUFF 2 PUFF INHALATION ×2 (08:39→20:31)
[2021-11-17] MEDS: ASPIRIN 81 MG CHEWABLE TABLET PO (09:47)
[2021-11-17] MEDS: carBAMazepine 200 MG TABLET PO ×3 (09:47→16:59)
[2021-11-17] MEDS: ATORVASTATIN 10 MG TABLET PO (09:47)
[2021-11-17] MEDS: HEPARIN SOD/D5W 100 UNITS/ML 25,000 UNITS/250 ML BAG 10 UNITS IV CONT (09:47)
[2021-11-17 12:22] LABS: Partial Thromboplastin Time 71.1 SECONDS (22.3-36.8)
--- NOTE | 2021-11-17 12:25 | PM.IMPN ---
Progress Note: A&P Assessment and Plan (1) Pulmonary embolism: Code(s): I26.99 - Other pulmonary embolism without acute cor pulmonale Status: Acute Assessment and Plan: -D dimer elevated -CTA w/ acute PE -pt started on heparin drip -will transition to oral anticoagulation soon (2) Unresponsive episode: Code(s): R41.89 - Other symptoms and signs involving cognitive functions and awareness Status: Acute Assessment and Plan: -Pt admitted- EEG and Neurology consult Neurologic checks -Fall precaution -Seizure precaution (3) History of seizure: Code(s): Z87.898 - Personal history of other specified conditions Status: Acute Assessment and Plan: -Continue carbamazepine -EEG reviewed -Carbamazepine level pending (4) Chronic respiratory failure: Code(s): J96.10 - Chronic respiratory failure, unspecified whether with hypoxia or hypercapnia Status: Resolved Assessment and Plan: -likely secondary to DAVID -not requirng oxygen presently. -Repeats sleep study as out patient. (5) Hypertension: Code(s): I10 - Essential (primary) hypertension Status: Acute Assessment and Plan: Bp is 106/53, Continue antihypertensives and monitor daily. (6) Congestive heart failure: Code(s): I50.9 - Heart failure, unspecified Status: Chronic Assessment and Plan: Most likely Diastolic congestive heart failure noted on recent echocardiogram. Pt is euvolemic today. (7) Diabetes mellitus: Qualifiers: Diabetes mellitus type: type 2 Diabetes mellitus continuous churn buttermaker insulin use: without continuous churn buttermaker use Diabetes mellitus complication status: with neurologic complications Diabetes mellitus complication detail: with polyneuropathy Qualified Code(s): E11.42 - Type 2 diabetes mellitus with diabetic polyneuropathy Code(s): E11.9 - Type 2 diabetes mellitus without complications Status: Chronic Assessment and Plan: -Recent hemoglobin A1c was 6.4%. -Continue to monitor patient currently is not on insulin sliding scale his diabetes is managed by diet and exercise. (8) Anemia of chronic disease: Code(s): D63.8 - Anemia in other chronic diseases classified elsewhere Status: Acute Assessment and Plan: Hemoglobin and hematocrit are stable on review of previous labs. Subjective Date/time seen: 11/17/21 12:25 Interval history: 76-year-old male with multiple medical problems including history of coronary artery disease, diabetes, chronic kidney disease, hypertension, hyperlipidemia, peripheral vascular disease, brain cancer, seizure, and several other comorbidities who presented to the emergency department earlier today via EMS from [place] where he is doing rehab for evaluation after an unresponsive episode. Patient presented to the hospital with episode of confusion and decreased responsiveness probable had a seizure neurology was consulted CT scan of the head is negative. 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 No specific complaints, pt looks tired today, A/Ox3 but poor historian Exam Narrative: Alert, talkative but tired appearing, chronically ill appearing Chest clear lungs Abdomen nontender nondistended CVS S1 + S2 Neurology nonfocal Lower extremity negative edema Objective Data Vital Signs Vital Signs: Vital Signs - 24 hr 11/16/21 14:13 11/16/21 14:57 11/16/21 16:00 Temperature 97.7 F Pulse Rate 70 70 66 Respiratory Rate 20 Blood Pressure 135/71 Pulse Oximetry 95 100 11/16/21 20:00 11/16/21 21:05 11/16/21 22:00 Temperature 98.1 F Pulse Rate 68 66 Respiratory Rate 16 Blood Pressure 125/53 L Pulse Oximetry 1
[2021-11-17 20:08] LABS: Partial Thromboplastin Time 29.6 SECONDS (22.3-36.8)
[2021-11-17] MEDS: HEPARIN SODIUM 5,000 UNITS/ML VIAL 6000 UNITS IV PUSH (20:50)
[2021-11-18] VITALS (12 sets, daily range): BP systolic 100–120; BP diastolic 45–56; PULSE 58–116; RESP 16–18; TEMP 36.4–36.6; O2SAT 95–100
[2021-11-18] MEDS: ALBUTEROL SULFATE (*SP) AEROSOL 1 PUFF 2 PUFF INHALATION ×2 (02:39→20:46)
[2021-11-18 03:45] LABS: Alanine Aminotransferase 18 U/L (4-50); Albumin Level 3.3 g/dL (3.5-5.1); Alkaline Phosphatase 125 U/L (38-126); Anion Gap 4 mmol/L (8-16); Aspartate Amino Transferase 28 U/L (17-59); Bilirubin,Total 0.5 mg/dL (0.2-1.3); Blood Urea Nitrogen 8 mg/dL (9-20); Calcium 8.5 mg/dL (8.4-10.2); Carbon Dioxide 32 mmol/L (22-30); Chloride 94 mmol/L (98-107); Estimated Glomerular Filt Rate > 60; Glucose 84 mg/dL (65-110); Potassium 4.2 mmol/L (3.4-5.0); Sodium 130 mmol/L (137-145)
[2021-11-18 04:02] LABS: INR 1.1; Prothrombin Time 14.3 Seconds (11.1-14.7)
[2021-11-18 04:04] LABS: Partial Thromboplastin Time 74.4 SECONDS (22.3-36.8)
[2021-11-18 04:14] LABS: Basophils Percent Auto 0.3 % (0.2-1.2); Eosinophils Absolute Auto 0.2 K/mm3 (0-0.3); Eosinophils Percent Auto 1.7 % (0-4.4); Hematocrit 30.3 % (42.0-52.0); Hemoglobin 9.6 g/dL (14.0-18.0); Immature Granulocyte Absolute 0.06 K/mm3 (0.00-0.031); Immature Granulocyte Percent A 0.7 % (0-0.5); Immature Platelet Fraction Pct 11.2 % (0.9-11.2); Lymphocytes Absolute Auto 3.09 K/mm3 (0.9-3.2); Lymphocytes Percent Auto 35.8 % (18.3-44.2); Mean Corpuscular HGB Conc 31.7 g/dl (32-36); Mean Corpuscular Hemoglobin 32.1 pg (26-34); Mean Corpuscular Volume 101.3 fl (80-100); Mean Platelet Volume 12.1 fl (7.4-10.4); Monocytes Absolute Auto 0.7 K/mm3 (0.1-0.6); Monocytes Percent Auto 7.8 % (2.6-8.5); Neutrophils Absolute Auto 4.6 K/mm3 (1.3-6.7); Neutrophils Percent Auto 53.7 % (45.5-73.1); Nucleated Red Blood Cells Perc 0.2 % (0.0-0.2); Platelet Count Result 182 k/mm3 (150-375); Red Blood Count 2.99 M/mm3 (4.6-6.20); Red Cell Distribution Width 12.1 % (11.5-14.5); White Blood Count 8.6 K/mm3 (4.5-10.0)
[2021-11-18] MEDS: ATORVASTATIN 10 MG TABLET PO (08:13)
[2021-11-18] MEDS: ASPIRIN 81 MG CHEWABLE TABLET PO (08:13)
[2021-11-18] MEDS: carBAMazepine 200 MG TABLET PO ×3 (08:14→17:31)
[2021-11-18 09:37] LABS: Partial Thromboplastin Time 123.7 SECONDS (22.3-36.8)
[2021-11-18] MEDS: HEPARIN SOD/D5W 100 UNITS/ML 25,000 UNITS/250 ML BAG 11 UNITS IV CONT (10:21)
--- NOTE | 2021-11-18 10:24 | PM.IMPN ---
Progress Note: A&P Assessment and Plan (1) Pulmonary embolism: Code(s): I26.99 - Other pulmonary embolism without acute cor pulmonale Status: Acute Assessment and Plan: -D dimer elevated -CTA w/ acute PE -pt started on heparin drip -will transition to oral anticoagulation soon -unfortunately, patient is on carbamazepine for seizures which has a strong interaction with both eliquis and xaralto (their activity is inhibited by 40-50% by carbamazepine). This leaves us with Lovenox or Coumadin as extermination supervisor options. plan to discuss case with neurology to see if there is an alternative to carbamazepine. If not, will possible discuss with patient and patient's pcp what the best option is moving forward. (2) Unresponsive episode: Code(s): R41.89 - Other symptoms and signs involving cognitive functions and awareness Status: Acute Assessment and Plan: -Pt admitted -EEG and Neurology consult -Neurologic checks -Fall precaution -Seizure precaution (3) History of seizure: Code(s): Z87.898 - Personal history of other specified conditions Status: Acute Assessment and Plan: -Continue carbamazepine -EEG reviewed -Carbamazepine level pending (4) Chronic respiratory failure: Code(s): J96.10 - Chronic respiratory failure, unspecified whether with hypoxia or hypercapnia Status: Resolved Assessment and Plan: -likely secondary to DAVID -not requiring oxygen presently. -Repeat sleep study as out patient. (5) Hypertension: Code(s): I10 - Essential (primary) hypertension Status: Acute Assessment and Plan: Bp is 119/56, Continue antihypertensives and monitor daily. (6) Congestive heart failure: Code(s): I50.9 - Heart failure, unspecified Status: Chronic Assessment and Plan: Most likely Diastolic congestive heart failure noted on recent echocardiogram. Pt is euvolemic today. (7) Diabetes mellitus: Qualifiers: Diabetes mellitus type: type 2 Diabetes mellitus mcfp insulin use: without extermination supervisor use Diabetes mellitus complication status: with neurologic complications Diabetes mellitus complication detail: with polyneuropathy Qualified Code(s): E11.42 - Type 2 diabetes mellitus with diabetic polyneuropathy Code(s): E11.9 - Type 2 diabetes mellitus without complications Status: Chronic Assessment and Plan: -Recent hemoglobin A1c was 6.4%. -Continue to monitor patient currently is not on insulin sliding scale his diabetes is managed by diet. (8) Anemia of chronic disease: Code(s): D63.8 - Anemia in other chronic diseases classified elsewhere Status: Acute Assessment and Plan: Hemoglobin and hematocrit are stable on review of previous labs. (9) Hand pain, left: Code(s): M79.642 - Pain in left hand Status: Acute Assessment and Plan: -where new IV was placed, does not appear infiltrated -XR and venous doppler Subjective Date/time seen: 11/18/21 10:24 Interval history: 76-year-old male with multiple medical problems including history of coronary artery disease, diabetes, chronic kidney disease, hypertension, hyperlipidemia, peripheral vascular disease, brain cancer, seizure, and several other comorbidities who presented to the emergency department earlier today via EMS from [place] where he is doing rehab for evaluation after an unresponsive episode. Patient presented to the hospital with episode of confusion and decreased responsiveness probable had a seizure neurology was consulted CT scan of the head is negative. 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 A/Ox3 but poor historian. Complains of red
[2021-11-18 15:09] LABS: Partial Thromboplastin Time 98.9 SECONDS (22.3-36.8)
--- NOTE | 2021-11-18 17:01 | PC.NURSE ---
patient having increased tachycardia and new bigeminy. Pauline MCCARTY notified. Ordered to get an EKG and to consult cardiology
--- NOTE | 2021-11-18 17:06 | ECG_ITS ---
Measurements Intervals [place] Rate: 65 P: 74 MO: 164 QRS: 17 QRSD: 140 T: 33 QT: 383 QTc: 399 Interpretive Statements SINUS RHYTHM LEFT BUNDLE BRANCH BLOCK BASELINE WANDER- I, II, III ABNORMAL ECG Electronically Signed On 11-18-2021 20:13:36 SHUTTLE CAR OPERATOR by Jl Dillon D.O.
[2021-11-18 22:08] LABS: Partial Thromboplastin Time 44.8 SECONDS (22.3-36.8)
[2021-11-18] MEDS: HEPARIN SODIUM 5,000 UNITS/ML VIAL 6000 UNITS IV PUSH (22:36)
[2021-11-19] VITALS (12 sets, daily range): BP systolic 105–135; BP diastolic 44–60; PULSE 61–81; RESP 14–16; TEMP 36.4–37.1; O2SAT 97–100
[2021-11-19 05:16] LABS: Basophils Percent Auto 0.4 % (0.2-1.2); Eosinophils Absolute Auto 0.2 K/mm3 (0-0.3); Eosinophils Percent Auto 2.5 % (0-4.4); Hematocrit 31.1 % (42.0-52.0); Hemoglobin 9.8 g/dL (14.0-18.0); Immature Granulocyte Absolute 0.03 K/mm3 (0.00-0.031); Immature Granulocyte Percent A 0.3 % (0-0.5); Lymphocytes Absolute Auto 2.52 K/mm3 (0.9-3.2); Lymphocytes Percent Auto 27.7 % (18.3-44.2); Mean Corpuscular HGB Conc 31.5 g/dl (32-36); Mean Corpuscular Volume 101.6 fl (80-100); Mean Platelet Volume 9.9 fl (7.4-10.4); Monocytes Percent Auto 11.4 % (2.6-8.5); Neutrophils Absolute Auto 5.3 K/mm3 (1.3-6.7); Neutrophils Percent Auto 57.7 % (45.5-73.1); Platelet Count Result 303 k/mm3 (150-375); Red Blood Count 3.06 M/mm3 (4.6-6.20); Red Cell Distribution Width 12.2 % (11.5-14.5); White Blood Count 9.1 K/mm3 (4.5-10.0)
[2021-11-19 05:37] LABS: Alanine Aminotransferase 22 U/L (4-50); Albumin Level 3.4 g/dL (3.5-5.1); Alkaline Phosphatase 115 U/L (38-126); Anion Gap 4 mmol/L (8-16); Aspartate Amino Transferase 40 U/L (17-59); Bilirubin,Total 0.7 mg/dL (0.2-1.3); Blood Urea Nitrogen 6 mg/dL (9-20); Calcium 8.5 mg/dL (8.4-10.2); Carbon Dioxide 32 mmol/L (22-30); Chloride 96 mmol/L (98-107); Estimated Glomerular Filt Rate > 60; Glucose 94 mg/dL (65-110); Potassium 4.8 mmol/L (3.4-5.0); Sodium 132 mmol/L (137-145)
[2021-11-19 05:59] LABS: Partial Thromboplastin Time > 200.0 SECONDS (22.3-36.8)
--- NOTE | 2021-11-19 06:25 | PCRCNOTE ---
Window of time for administration has passed. See next scheduled administration.
[2021-11-19 07:35] LABS: Carbamazepine Tegretol 4.8 mcg/mL (4.0-12.0)
[2021-11-19 07:35] LABS: Carbamazepine Tegretol 3.4 mcg/mL (4.0-12.0)
[2021-11-19] MEDS: HEPARIN SOD/D5W 100 UNITS/ML 25,000 UNITS/250 ML BAG 12 UNITS IV CONT (09:00)
[2021-11-19] MEDS: ATORVASTATIN 10 MG TABLET PO (09:03)
[2021-11-19] MEDS: carBAMazepine 200 MG TABLET PO (09:03)
[2021-11-19] MEDS: ASPIRIN 81 MG CHEWABLE TABLET PO (09:03)
[2021-11-19] MEDS: ALBUTEROL SULFATE (*SP) AEROSOL 1 PUFF 2 PUFF INHALATION ×3 (09:23→19:32)
--- NOTE | 2021-11-19 12:36 | PM.CNCAR ---
Assessment and Plan Additional Plan 76-year-old man with a history of coronary artery disease with percutaneous revascularization about 9 years ago. He has not had any significant cardiac problems that I am aware of and interval period of time. He does appear to have a chronic left bundle branch block with sinus rhythm. Recent echocardiography has demonstrated very good left ventricular systolic function and no significant valvulopathy. 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 He also carries the diagnosis of a seizure disorder at that time and I am not sure if he has had any seizure activity following his operation. I am asked to see him today because of arrhythmias noted on telemetry. The only rhythm I see on telemetry is sinus with left bundle branch block without any concerning ectopic activity at this time. For now I would not recommend any treatment for his rhythm specifically. We will follow his telemetry with you while he is in the hospital. Given his otherwise poor condition there may or may not be a significant benefit from reestablishing for regular follow-up in our office regarding his room remote history of coronary stenting Alexis Aguillon MD [facility] History of Present Illness History of Present Illness Consult date/time: 11/19/21 12:36 Reason For Visit: Altered Mental Status Narrative: This is a 76-year-old man I was asked to see today at the request of the hospitalist. The stated reason for the consultation is tachycardia and bigeminy. Patient is unknown to me prior to this encounter he is a poor historian regarding the details of his medical history some of which is probably to do with history of brain surgery and seizures in the past as well. According to the record he is a gentleman that has a history of coronary artery disease was previously followed in our office by Dr. Vo but failed follow-up about 8 years ago. He has a history of coronary disease presenting with acute coronary syndrome back in October of 2012. He was brought to the cardiac flue dust laborer at that time and was treated with stenting of his right coronary artery which was successful after which he did quite well. He was seen in the office for a short time after that but then for whatever reason. Coming back for follow-up. He was admitted with a seizure episode back in 2011. According to the records at that time he was found to have a brain mass and was transferred somewhere for neuro surgery and surgical excision of this mass. I do not have any records that specify exactly the pathological diagnosis. Some of the notes in the chart refer to history of brain cancer but there is no specific data a in this hospital record that I can find. In any event he has not really had any significant cardiac problems from what I can see in the chart or from what he tells me. He had an episode where he was brought to the hospital because of being found unresponsive at place of residence. according to the records he was found to be unresponsive and some was about to start CPR at which time he regained consciousness and became responsive. He is brought to the hospital for further evaluation. Since he has put in the hospital his telemetry shows sinus rhythm with left bundle branch block. I do not see any concerning tachy or Roni arrhythmias nor do I see any evidence of any concerning ectopic activity recorded on the chart or from speaking to the nurse that is caring for him at this time. He has had some follow-up echo cardiograms in more recent years which appeared to show consistently vigorous, somewhat hyperdynamic appearing left ventricular function. There are old EKGs in this chart that go back to at least January of this year that show the left bundle branch block to be a chronic finding. Review of Systems Review of Systems: ROS unobtainable: Yes unobtainable due to mental status PMFSH Past Medical History Medical History (Reviewed 11/14/21 @ 12:34 by Liliana
--- NOTE | 2021-11-19 13:47 | PM.IMPN ---
Progress Note: A&P Assessment and Plan (1) Pulmonary embolism: Code(s): I26.99 - Other pulmonary embolism without acute cor pulmonale Status: Acute Assessment and Plan: -D dimer elevated -CTA w/ acute PE -pt started on heparin drip -will transition to oral anticoagulation soon -unfortunately, patient is on carbamazepine for seizures which has a strong interaction with both eliquis and xaralto (their activity is inhibited by 40-50% by carbamazepine). This leaves us with Lovenox or Coumadin as rodent exterminator options if he continues to take the carbamazepine -Called patient's neurologist Dr. Cotton who states to switch him from Carbamazepine to Keppra 1000 BID. This was done today. Should be able to start Eliquis or Xaralto tomorrow. (2) Unresponsive episode: Code(s): R41.89 - Other symptoms and signs involving cognitive functions and awareness Status: Acute Assessment and Plan: -Pt admitted -EEG and Neurology consult -Neurologic checks -Fall precaution -Seizure precaution -likely related to seizure activity (3) History of seizure: Code(s): Z87.898 - Personal history of other specified conditions Status: Acute Assessment and Plan: -EEG reviewed -Carbamazepine level pending -switched carbamazepine to Keppra today (4) Chronic respiratory failure: Code(s): J96.10 - Chronic respiratory failure, unspecified whether with hypoxia or hypercapnia Status: Resolved Assessment and Plan: -likely secondary to DAVID -not requiring oxygen presently. -Repeat sleep study as out patient. (5) Hypertension: Code(s): I10 - Essential (primary) hypertension Status: Acute Assessment and Plan: Bp is 135/60, Continue antihypertensives and monitor daily. (6) Diabetes mellitus: Qualifiers: Diabetes mellitus complication detail: with polyneuropathy Diabetes mellitus complication status: with neurologic complications Diabetes mellitus assisted insulin use: without rodent exterminator use Diabetes mellitus type: type 2 Qualified Code(s): E11.42 - Type 2 diabetes mellitus with diabetic polyneuropathy Code(s): E11.9 - Type 2 diabetes mellitus without complications Status: Chronic Assessment and Plan: -Recent hemoglobin A1c was 6.4%. Pt is diet controlled. -blood sugar has been well controlled here, have not needed to initiate sliding scale -Continue to monitor (7) Anemia of chronic disease: Code(s): D63.8 - Anemia in other chronic diseases classified elsewhere Status: Acute Assessment and Plan: Hemoglobin and hematocrit are stable on review of previous labs. (8) Hand pain, left: Code(s): M79.642 - Pain in left hand Status: Acute Assessment and Plan: -where new IV was placed, does not appear infiltrated -XR and venous doppler both negative -resolved Subjective Date/time seen: 11/19/21 13:47 Interval history: 76-year-old male with multiple medical problems including history of coronary artery disease, diabetes, chronic kidney disease, hypertension, hyperlipidemia, peripheral vascular disease, brain cancer, seizure, and several other comorbidities who presented to the emergency department earlier today via EMS from [place] where he is doing rehab for evaluation after an unresponsive episode. Patient presented to the hospital with episode of confusion and decreased responsiveness probable had a seizure neurology was consulted CT scan of the head is negative. 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 A/Ox3 but poor historian. Speech clear but slow and somewhat fractured. He has no specific complaints. Denies chest pain or sob. Review of Syste
[2021-11-19 16:22] LABS: Partial Thromboplastin Time 82.1 SECONDS (22.3-36.8)
[2021-11-19] MEDS: levETIRAcetam 500 MG TABLET 1000 MG PO (20:13)
[2021-11-19 20:32] LABS: Partial Thromboplastin Time 72.7 SECONDS (22.3-36.8)
[2021-11-20] VITALS (9 sets, daily range): BP systolic 99–128; BP diastolic 48–64; PULSE 59–71; RESP 16–18; TEMP 36.1–36.8; O2SAT 93–100
[2021-11-20] MEDS: ALBUTEROL SULFATE (*SP) AEROSOL 1 PUFF 2 PUFF INHALATION ×3 (03:28→10:45)
[2021-11-20 05:21] LABS: Basophils Percent Auto 0.4 % (0.2-1.2); Eosinophils Absolute Auto 0.2 K/mm3 (0-0.3); Eosinophils Percent Auto 2.5 % (0-4.4); Hematocrit 29.4 % (42.0-52.0); Hemoglobin 9.2 g/dL (14.0-18.0); Immature Granulocyte Absolute 0.04 K/mm3 (0.00-0.031); Immature Granulocyte Percent A 0.6 % (0-0.5); Lymphocytes Absolute Auto 2.58 K/mm3 (0.9-3.2); Lymphocytes Percent Auto 35.7 % (18.3-44.2); Mean Corpuscular HGB Conc 31.3 g/dl (32-36); Mean Corpuscular Hemoglobin 31.8 pg (26-34); Mean Corpuscular Volume 101.7 fl (80-100); Mean Platelet Volume 9.9 fl (7.4-10.4); Monocytes Absolute Auto 0.9 K/mm3 (0.1-0.6); Monocytes Percent Auto 12.3 % (2.6-8.5); Neutrophils Absolute Auto 3.5 K/mm3 (1.3-6.7); Neutrophils Percent Auto 48.5 % (45.5-73.1); Platelet Count Result 283 k/mm3 (150-375); Red Blood Count 2.89 M/mm3 (4.6-6.20); Red Cell Distribution Width 12.3 % (11.5-14.5); White Blood Count 7.2 K/mm3 (4.5-10.0)
[2021-11-20 05:39] LABS: Anion Gap 3 mmol/L (8-16); Blood Urea Nitrogen 8 mg/dL (9-20); Calcium 8.2 mg/dL (8.4-10.2); Carbon Dioxide 35 mmol/L (22-30); Chloride 96 mmol/L (98-107); Estimated Glomerular Filt Rate > 60; Glucose 103 mg/dL (65-110); Sodium 134 mmol/L (137-145)
[2021-11-20] MEDS: HEPARIN SOD/D5W 100 UNITS/ML 25,000 UNITS/250 ML BAG 12 UNITS IV CONT (08:00)
[2021-11-20] MEDS: ATORVASTATIN 10 MG TABLET PO (08:07)
[2021-11-20] MEDS: levETIRAcetam 500 MG TABLET 1000 MG PO ×2 (08:07→20:33)
[2021-11-20] MEDS: ASPIRIN 81 MG CHEWABLE TABLET PO (08:08)
--- NOTE | 2021-11-20 09:53 | PM.IMPN ---
Progress Note: A&P Assessment and Plan (1) Pulmonary embolism: Code(s): I26.99 - Other pulmonary embolism without acute cor pulmonale Status: Acute Assessment and Plan: -D dimer elevated -CTA w/ acute PE -pt started on heparin drip. Will switch him to Eliquis blood thinner today since we have switched his seizure medication from carbamazepine to Keppra. - Continue monitoring overnight. We are resubmit being papers to have him return back to SNF facility. Could take 48 hours. (2) Unresponsive episode: Code(s): R41.89 - Other symptoms and signs involving cognitive functions and awareness Status: Acute Assessment and Plan: -Pt admitted -EEG Showed no acute seizure activity. -Neurology consult Who agreed with switching carbamazepine to Keppra. Will continue monitoring his mental status. -Neurologic checks -Fall precaution -Seizure precaution (3) History of seizure: Code(s): Z87.898 - Personal history of other specified conditions Status: Acute Assessment and Plan: -EEG reviewed And showed no acute seizure activity at that time -switched carbamazepine to Keppra 11/19/21 (4) Chronic respiratory failure: Code(s): J96.10 - Chronic respiratory failure, unspecified whether with hypoxia or hypercapnia Status: Resolved Assessment and Plan: -likely secondary to DAVID - currently on 2 L via nasal cannula 96%. Will wean as tolerated. -Repeat sleep study as out patient. (5) Hypertension: Code(s): I10 - Essential (primary) hypertension Status: Acute Assessment and Plan: Bp is 128/64, Continue antihypertensives and monitor daily. (6) Diabetes mellitus: Qualifiers: Diabetes mellitus complication detail: with polyneuropathy Diabetes mellitus complication status: with neurologic complications Diabetes mellitus longterm insulin use: without assistant terminal manager use Diabetes mellitus type: type 2 Qualified Code(s): E11.42 - Type 2 diabetes mellitus with diabetic polyneuropathy Code(s): E11.9 - Type 2 diabetes mellitus without complications Status: Chronic Assessment and Plan: -Recent hemoglobin A1c was 6.4%. Pt is diet controlled. -blood sugar has been well controlled here, have not needed to initiate sliding scale -Continue to monitor (7) Anemia of chronic disease: Code(s): D63.8 - Anemia in other chronic diseases classified elsewhere Status: Acute Assessment and Plan: Hemoglobin and hematocrit are stable on review of previous labs. (8) Hand pain, left: Code(s): M79.642 - Pain in left hand Status: Acute Assessment and Plan: -where new IV was placed, does not appear infiltrated -XR and venous doppler both negative -resolved Time Spent With Patient Time with patient: 25 - 35 minutes Subjective Date/time seen: 11/20/21 09:53 Interval history: 76-year-old male with multiple medical problems including history of coronary artery disease, diabetes, chronic kidney disease, hypertension, hyperlipidemia, peripheral vascular disease, brain cancer, seizure, and several other comorbidities who presented to the emergency department earlier today via EMS from [place] where he is doing rehab for evaluation after an unresponsive episode. Patient presented to the hospital with episode of confusion and decreased responsiveness probable had a seizure neurology was consulted CT scan of the head is negative. 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 Date of service 11/20/2021: patient reports some shortness of breath, but states he believes it is from his state patrol officer, leads and stickers at are weighing his chest down. Once I removed this from his ch
[2021-11-20] MEDS: APIXABAN 5 MG TABLET 10 MG PO ×2 (12:24→20:33)
--- NOTE | 2021-11-20 14:55 | PM.PNCARD ---
Progress Note: A&P Assessment and Plan (1) PVCs (premature ventricular contractions): Code(s): I49.3 - Ventricular premature depolarization Status: Acute Assessment and Plan: infrequent to rare PVCs, no ventricular tachycardia or tachycardia. No treatment needed. Okay for discharge (2) Pulmonary embolism: Code(s): I26.99 - Other pulmonary embolism without acute cor pulmonale Status: Acute Assessment and Plan: Acute Recurrent pulmonary embolus which may be the etiology of his episode of unresponsiveness. Weaned off oxygen. Now on Eliquis. History of remote DVT/ PE as well. (3) CAD (coronary artery disease): Code(s): I25.10 - Atherosclerotic heart disease of [place] coronary artery without angina pectoris Status: Acute Assessment and Plan: history of RCA stent in 2011. appears stable, no angina echo October 2021 showed EF 65-70% Continue aspirin, lisinopril and atorvastatin (4) LBBB (left bundle branch block): Code(s): I44.7 - Left bundle-branch block, unspecified Status: Acute Assessment and Plan: LBBB has been present for several months if not longer. Subjective Date/time seen: 11/20/21 14:55 Interval history: Follow-up for tachycardia, possible ventricular arrhythmias. Admitted with an episode of unresponsiveness. Remote CAD and RCA stent, 2011. Found to have acute pulmonary embolus this admission. History of brain malignancy and seizures. LIves at [facility]. Date of service 11/20/2021: OK. Denies SOB, CP. Patient being transitioned from heparin to Eliquis. Oxygen has been weaned off. Currently off telemetry but rhythm strips in the chart shows sinus rhythm with occasional APCs and infrequent /rare PVCs. Review of Systems Constitutional: Constitutional: Reports weakness Eyes: Eyes: Reports no additional eye complaints Cardiovascular: Cardiovascular: Denies chest pain and Denies leg edema Respiratory: Respiratory: Reports dyspnea Comments: Inconsistent answers to this; two no's and one yes. Gastrointestinal: Gastrointestinal: Denies abdominal pain Neurologic: Reports Abnormal speech present Comments: mental status changes presumably a result of brain tumor Psychiatric: Psychiatric: Reports behavioral changes Comments: as above Exam Const: General: comfortable Other: Mild tachypnea HENMT: General nose exam: no epistaxis Eyes: EOM: EOMs intact bilaterally Neck: Thyroid: thyroid normal Resp: Effort & Inspection: abnormal respiratory effort Auscultation: clear to auscultation bilaterally Other: Mild tachypnea Cardio: Rate: regular rate Rhythm: regular rhythm Heart sounds: no murmurs GI: Inspection: non-distended GI Palp: Yes Soft to palpation and No Tenderness to palpation present (GI) Skin: General skin exam: normal color Wounds: wounds noted Other: Areas of ecchymosis over arms Neuro: Cognition (Neuro): abnormal cognition Speech: No normal speech Other: Pt can only talk in up to 3 word sentences then seems to loose focus and trails off. Extrem: General: no edema and no pedal edema Psych: Mental Status: mental status grossly abnormal Affect: No normal affect Other: Cooperative and answers questions with one-word answers Objective Data Vital Signs Vital Signs: Vital Signs - 24 hr 11/19/21 16:19 11/19/21 19:32 11/19/21 20:00 Temperature Pulse Rate 65 61 Respiratory Rate 16 Blood Pressure Pulse Oximetry 98 100 11/19/21 22:00 11/20/21 00:00 11/20/21 04:00 Temperature 98.3 F Pulse Rate 64 59 L 62 Respiratory Rate 16 Blood Pressure 114/44 L Pulse Oximetry 100 11/20/21 04:48 11/20/21 06:00 11/20/21 08:00 Temperature 97.3 F L 97.4 F L Pulse Rate 64 65 71 Respiratory Rate 16 16 Blood Pressure 99/52 L 128/64 Pulse Oximetry 100 96
--- NOTE | 2021-11-21 00:13 | PCRCNOTE ---
20:00 inhaler not administered. RT not available during administration window.
[2021-11-21] MEDS: ALBUTEROL SULFATE (*SP) AEROSOL 1 PUFF 2 PUFF INHALATION ×3 (01:59→15:18)
[2021-11-21 02:01] VITALS: PULSE 67; O2SAT 91
[2021-11-21 03:20] VITALS: BP 118/48; PULSE 67; RESP 18; TEMP 36.5; O2SAT 96
[2021-11-21 05:44] LABS: Hemoglobin 9.3 g/dL (14.0-18.0); Mean Corpuscular HGB Conc 32.1 g/dl (32-36); Mean Corpuscular Hemoglobin 31.7 pg (26-34); Mean Platelet Volume 9.6 fl (7.4-10.4); Platelet Count Result 347 k/mm3 (150-375); Red Blood Count 2.93 M/mm3 (4.6-6.20); Red Cell Distribution Width 12.4 % (11.5-14.5); White Blood Count 7.7 K/mm3 (4.5-10.0)
[2021-11-21 05:47] LABS: Anion Gap 3 mmol/L (8-16); Blood Urea Nitrogen 11 mg/dL (9-20); Calcium 8.5 mg/dL (8.4-10.2); Carbon Dioxide 35 mmol/L (22-30); Chloride 98 mmol/L (98-107); Estimated Glomerular Filt Rate > 60; Glucose 94 mg/dL (65-110); Sodium 136 mmol/L (137-145)
[2021-11-21] MEDS: ASPIRIN 81 MG CHEWABLE TABLET PO (09:26)
[2021-11-21] MEDS: APIXABAN 5 MG TABLET 10 MG PO (09:26)
[2021-11-21] MEDS: ATORVASTATIN 10 MG TABLET PO (09:26)
[2021-11-21] MEDS: levETIRAcetam 500 MG TABLET 1000 MG PO (09:27)
--- NOTE | 2021-11-21 10:16 | PM.DS ---
DS: Admitting Diagnosis Discharge Date 11/21/21 Admitting Diagnosis Unresponsive episode DS: Discharge Diagnosis Discharge Diagnosis (1) Pulmonary embolism: Code(s): I26.99 - Other pulmonary embolism without acute cor pulmonale Status: Acute Assessment and Plan: This is a 76-year-old male with multiple medical problems including history of coronary artery disease, diabetes, chronic kidney disease, hypertension, hyperlipidemia, peripheral vascular disease, brain cancer, seizure, and several other comorbidities who presented to the emergency department via EMS from [place] where he is doing rehab for evaluation after an unresponsive episode. He was recently admitted and treated for COVID 19 and acute respiratory failure discharged 10/31/21. He had been participating in therapy and had an episode of unresponsiveness. On EMS arrival his glucose was around 150 and his blood pressure was in the 120s. Initial vitals to the ER showed blood pressure 128/53, heart rate 76 beats per minute, slight increased respiratory rate 21, afebrile, normal oxygenation on room air at 100%. Initial labs showed slight leukocytosis at 11,600, macrocytic anemia with a hemoglobin of 11, elevated neutrophils 86%. INR 1.2, PT 14.9, PTT 24.5. ABG showed normal pH 7.405, hypercapnia 65, pO2 148, HCO3 39.8 on 2L via NC. Slight hyper Lucrecia me of 5.1, creatinine 1.0, BUN 15. Urinalysis shows no signs of acute infection. CT head shows chronic encephalomalacia in the expected distribution of left middle cerebral artery. Chest x-ray showed cardiomegaly, hyperinflation, small right effusion. Patient was admitted to the hospital for his unresponsive episode and further workup and evaluation. CTA chest showed pulmonary embolus in the anterior basal segment of the right lower lobe. Moderate size pleural effusion. Venous Doppler showed no DVT. He was started on a heparin drip for his acute pulmonary embolism. Neurology evaluated the patient due to an unresponsive episode and ordered an EEG which showed abnormal record but no acute signs of seizure activity. The patient could not be started safely on Eliquis or Xarelto given interaction with his carbamazepine anti seizure medication. Patient was switched to Keppra 1000 mg q.[address] Cotton Neurology. 24 hours after switching medications he was discontinued on his heparin drip and started on Eliquis for the treatment of his pulmonary embolism. Otherwise the patient is feeling well at this time, stable oxygenation and labs are otherwise stable. He stable to be discharged back to the [facility] facility at this time. Return to ER warnings given. The patient understands and agrees the plan all questions answered. (2) Unresponsive episode: Code(s): R41.89 - Other symptoms and signs involving cognitive functions and awareness Status: Acute (3) History of seizure: Code(s): Z87.898 - Personal history of other specified conditions Status: Acute Assessment and Plan: -EEG reviewed And showed no acute seizure activity at that time -switched carbamazepine to Keppra 11/19/21 Follow-up with his neurologist after discharge (4) Chronic respiratory failure: Code(s): J96.10 - Chronic respiratory failure, unspecified whether with hypoxia or hypercapnia Status: Resolved Assessment and Plan: -likely secondary to DAVID and recent COVID illness - currently on 2 L via nasal cannula 96%. Will wean as tolerated. Follow-up PCP. 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
[2021-11-21 10:30] VITALS: O2SAT 97
[2021-11-21 10:46] LABS: EDCOVIDSCREEN Positive (Negative)
[2021-11-21 14:25] VITALS: BP 122/60; PULSE 85; RESP 20; TEMP 36.5; O2SAT 96
== END 2021-11-21 17:22 | DRG 884 ==
LOC: ANHED 14:24 → ANH3MEDSUR 19:47 → ANH2MED 21:42
PROVIDERS: Family Medicine; Internal Medicine; Physician Assistant; Admitting Provider Family Medicine; Emergency Provider Emergency Medicine; PCP Internal Medicine; Visit Provider Physician Assistant
DX: R41.89 Other symptoms and signs involving cognitive functions and awareness (principal); I26.99 Other pulmonary embolism without acute cor pulmonale; J96.10 Chronic respiratory failure, unspecified whether with hypoxia or hypercapnia; I13.0 Hypertensive heart and chronic kidney disease with heart failure and stage 1 through stage 4 chronic kidney disease, or unspecified chronic kidney disease; G40.209 Localization-related (focal) (partial) symptomatic epilepsy and epileptic syndromes with complex partial seizures, not intractable, without status epilepticus; Z20.822 Contact with and (suspected) exposure to COVID-19; Z79.82 Long term (current) use of aspirin; D63.8 Anemia in other chronic diseases classified elsewhere; F41.9 Anxiety disorder, unspecified; I69.393 Ataxia following cerebral infarction; I25.10 Atherosclerotic heart disease of native coronary artery without angina pectoris; N40.0 Benign prostatic hyperplasia without lower urinary tract symptoms; Z85.841 Personal history of malignant neoplasm of brain; Z92.21 Personal history of antineoplastic chemotherapy; Z92.3 Personal history of irradiation; Z86.718 Personal history of other venous thrombosis and embolism; I50.9 Heart failure, unspecified; E78.2 Mixed hyperlipidemia; R13.12 Dysphagia, oropharyngeal phase; E11.51 Type 2 diabetes mellitus with diabetic peripheral angiopathy without gangrene; Z85.46 Personal history of malignant neoplasm of prostate; E55.9 Vitamin D deficiency, unspecified; Z90.49 Acquired absence of other specified parts of digestive tract; E11.22 Type 2 diabetes mellitus with diabetic chronic kidney disease; N18.9 Chronic kidney disease, unspecified; E11.42 Type 2 diabetes mellitus with diabetic polyneuropathy; G47.33 Obstructive sleep apnea (adult) (pediatric); M79.642 Pain in left hand; G93.89 Other specified disorders of brain; I44.7 Left bundle-branch block, unspecified; Z95.5 Presence of coronary angioplasty implant and graft; I49.3 Ventricular premature depolarization
CPT/HCPCS: 36415; 36600; 70450; 71045; 71275; 73100; 80048; 80053; 80156; 81001; 82375; 82805; 82948; 83050; 83735; 84443; 85025; 85027; 85055; 85380; 85610; 85730; 87426; 93005; 93971; 94640; 95816; 96361; 96365; 96366; 97110; 97162; 97166; 97530; 97535; 99285; A9270; C9803; G0378; J1644; J7030; Q9967

== ENCOUNTER → 2021-12-22 00:14 | Outpatient (CLI) | payer OTHER, SELFPAY ==
[2021-12-22 20:23] LABS: SARS-CoV-2 RNA PCR Negative
[2021-12-23 23:27] LABS: Influenza A QL RT-PCR Negative (Negative); Influenza B QL RT-PCR Negative (Negative)
== END ==
PROVIDERS: PCP Internal Medicine; Visit Provider Internal Medicine
DX: R68.89 Other general symptoms and signs (principal); Z20.822 Contact with and (suspected) exposure to COVID-19
CPT/HCPCS: 87502; C9803; U0003; U0005

== ENCOUNTER 2022-01-11 09:36 | Outpatient (NON) | payer OTHER, SELFPAY ==
[2022-01-15 09:21] LABS: Levetiracetam Keppra 41.6 mcg/mL (12.0-46.0)
== END 2022-01-11 09:37 | disposition home or self-care (01) ==
PROVIDERS: PCP Internal Medicine; Visit Provider Internal Medicine
DX: J96.02 Acute respiratory failure with hypercapnia (principal); I26.99 Other pulmonary embolism without acute cor pulmonale; U07.1 COVID-19; J12.82 Pneumonia due to coronavirus disease 2019
CPT/HCPCS: 80177

== ENCOUNTER 2022-04-07 14:53 | Observation (INO) | payer OTHER, SELFPAY ==
[2022-04-07] VITALS (29 sets, daily range): BP systolic 113–154; BP diastolic 48–75; PULSE 65–110; RESP 16–44; TEMP 36.4–36.6; O2SAT 87–100; BMI 22.4
--- NOTE | ~2022-04-07 | US_ITS ---
EXAMINATION: US thoracentesis DATE: 04/08/2022 14:58 INDICATION: Right pleural effusion TECHNIQUE: The procedure and its risks and benefits were discussed with the patient. Potential risks discussed included bleeding, infection, and pneumothorax. The patient understood the risks and agreed to proceed. The skin was prepped and draped in sterile fashion. 1% lidocaine was used for local anes thesia. Under ultrasound guidance, a 5 Fr catheter with trochar was advanced into the right pleural e ffusion. Fluid was aspirated. The catheter was removed, and a dressing was applied. There were no imm ediate complications. FINDINGS: Ultrasound images demonstrate a moderate-sized right pleural effusion and the catheter within the flu id. IMPRESSION: 1. Successful ultrasound-guided thoracentesis yielding 900 mL of cloudy elana-colored fluid. Reviewed, dictated and finalized at location A. IMPRESSION: 1. Successful ultrasound-guided thoracentesis yielding 900 mL of cloudy elana- colored fluid.
--- NOTE | ~2022-04-07 | XR_ITS ---
EXAMINATION: XR chest 1V portable INDICATION: Pleural effusion, shortness of breath TECHNIQUE: Portable AP chest at 0528 hours COMPARISON: 04/09/2022 FINDINGS: There are small pleural effusions with interval improvement. Minimal bibasilar airspace opa cities are unchanged. There is no pneumothorax. The cardiomediastinal silhouette is stable. IMPRESSION: 1. Small pleural effusions with interval improvement. 2. Minimal bibasilar airspace opacities, consistent with atelectasis versus pneumonia. Reviewed, dictated and finalized at location A. IMPRESSION: 1. Small pleural effusions with interval improvement. 2. Minimal bibasilar airspace opacities, consistent with atelectasis versus pne umonia.
--- NOTE | ~2022-04-07 | US_ITS ---
US breast RT limited 04/08/2022 14:58 Indication: Possible right breast dermal lesion noted on recent CT examination. Procedure: High-resolution Limited ultrasound of the right breast in the upper outer quadrant Comparison: CT dated 04/07/2022 Findings: There is subcutaneous edema in the upper outer quadrant. No focal dermal lesions are identi fied. No discrete mass of the visualized aspects of the breast. Impression: 1: No evidence for discrete mass in the area of abnormality by CT examination. BI-RADS CATEGORY 2 - BENIGN FINDINGS Reviewed, dictated and finalized at location A. Impression: 1: No evidence for discrete mass in the area of abnormality by CT examination. BI-RADS CATEGORY 2 - BENIGN FINDINGS
--- NOTE | ~2022-04-07 | XR_ITS ---
EXAMINATION: XR chest 2V Exam Date/Time: 04/07/2022 15:37 CDT CLINICAL HISTORY: SOB Comparison: 11/13/21. RESULT: Lines, tubes, and devices: Cholecystectomy clips. Lungs and pleura: Minimal subsegmental bibasilar opacities greater on the right. Small right pleural effusion. Cardiomediastinal silhouette: Stable cardiomediastinal silhouette. Other: No acute osseous or upper abdominal finding. IMPRESSION: Small right pleural effusion. Bibasilar atelectasis. Reviewed, dictated and finalized at location K.
--- NOTE | ~2022-04-07 | XR_ITS ---
EXAMINATION: [id number] DATE: 04/08/2022 14:49 INDICATION: Right pleural effusion postthoracentesis TECHNIQUE: frontal view of the chest was obtained. COMPARISON: Chest radiograph head CT dated 04/07/[address] dated 11/14/2021 FINDINGS: Opacities at the bilateral lung bases consistent with very small bilateral pleural effusions and mild bibasilar atelectasis. There is diffuse increased lucency in the right hemithorax which may be relat ed to asymmetric atrophy of the right pectoralis musculature relative to the left as seen on prior CT . No pneumothorax. Cardiomediastinal silhouette is within normal limits for AP technique. IMPRESSION: 1. Very small bilateral pleural effusions with mild bibasilar atelectasis versus pneumonia. Reviewed, dictated and finalized at location A. IMPRESSION: 1. Very small bilateral pleural effusions with mild bibasilar atelectasis versu s pneumonia.
--- NOTE | ~2022-04-07 | CT_ITS ---
EXAMINATION: CT diagnostic chest wo con DATE: 04/07/2022 19:41 INDICATION: Shortness of breath. Right breast lump. History of CHF, brain and prostate cancer. TECHNIQUE: Computed tomography (CT) of the chest was performed without intravenous contrast. Automate d exposure control and iterative reconstruction technique were employed. The dose-length product was 494.29 mGy-cm. COMPARISON: 11/14/2021 FINDINGS: Thoracic aorta: Mild ectasia. Mild atherosclerotic calcification. Lung parenchyma and airways: Mild senescent change. Right basilar atelectasis. Thoracic inlet, axillae and chest wall: Thyroid mostly obscured by dental artifact. Normal lesion in the right upper outer quadrant of the right breast. Bilateral gynecomastia, greater on the right. Sub cutaneous fat heterogeneity in the right breast and upper lateral trunk. Mediastinum: Scattered subcentimeter lymph nodes. Heart and pericardium: No pericardial effusion. Mild cardiomegaly. Coronary artery calcifications: Moderate. Pleura: Trace left and moderate right pleural fluid collections. Upper abdomen: No significant finding. Bones: No acute osseous finding. IMPRESSION: Moderate right and trace left pleural effusions. Possible dermal lesion in the upper outer right cori st, correlate clinically. Asymmetric gynecomastia. Subcutaneous edema or inflammatory changes in the outer right breast and upper right trunk, correlate with signs of infection and consider referral for ultrasound/mammography as clinically indicated. Reviewed, dictated and finalized at location K. IMPRESSION: Moderate right and trace left pleural effusions. Possible dermal lesion in the upper outer right breast, correlate clinically. Asymmetric gynecomastia. Subcut aneous edema or inflammatory changes in the outer right breast and upper right trunk, correlate with signs of infection and consider referral for ultrasound/m ammography as clinically indicated.
--- NOTE | 2022-04-07 15:02 | ECG_ITS ---
Measurements Intervals [place] Rate: 88 P: 64 LA: 137 QRS: -17 QRSD: 138 T: 109 QT: 373 QTc: 451 Interpretive Statements SINUS RHYTHM ATRIAL PREMATURE COMPLEX LEFT BUNDLE BRANCH BLOCK ABNORMAL ECG Electronically Signed On 04-09-2022 9:48:49 CDT by Jl Dillon D.O.
[2022-04-07 15:35] LABS: Basophils Percent Auto 0.2 % (0.2-1.2); Eosinophils Absolute Auto 0.1 K/mm3 (0-0.3); Eosinophils Percent Auto 0.7 % (0-4.4); Hematocrit 38.9 % (42.0-52.0); Hemoglobin 11.7 g/dL (14.0-18.0); Immature Granulocyte Absolute 0.02 K/mm3 (0.00-0.031); Immature Granulocyte Percent A 0.2 % (0-0.5); Lymphocytes Absolute Auto 3.02 K/mm3 (0.9-3.2); Lymphocytes Percent Auto 35.5 % (18.3-44.2); Mean Corpuscular HGB Conc 30.1 g/dl (32-36); Mean Corpuscular Hemoglobin 30.7 pg (26-34); Mean Corpuscular Volume 102.1 fl (80-100); Mean Platelet Volume 10.1 fl (7.4-10.4); Monocytes Absolute Auto 0.7 K/mm3 (0.1-0.6); Neutrophils Absolute Auto 4.7 K/mm3 (1.3-6.7); Neutrophils Percent Auto 55.4 % (45.5-73.1); Platelet Count Result 247 k/mm3 (150-375); Red Blood Count 3.81 M/mm3 (4.6-6.20); White Blood Count 8.5 K/mm3 (4.5-10.0)
[2022-04-07 15:48] LABS: INR 1.5; Partial Thromboplastin Time 32.8 SECONDS (22.3-36.8); Prothrombin Time 17.1 Seconds (11.1-14.7)
[2022-04-07 15:52] LABS: Alanine Aminotransferase 20 U/L (6-50); Albumin Level 3.7 g/dL (3.5-5.1); Alkaline Phosphatase 129 U/L (38-126); Anion Gap 4 mmol/L (8-16); Aspartate Amino Transferase 29 U/L (17-59); Bilirubin,Total 0.6 mg/dL (0.2-1.3); Blood Urea Nitrogen 26 mg/dL (9-20); Calcium 8.7 mg/dL (8.4-10.2); Carbon Dioxide 38 mmol/L (22-30); Chloride 98 mmol/L (98-107); Estimated CRCL calculation 46 ml/min; Estimated Glomerular Filt Rate 59; Glucose 112 mg/dL (65-110); Potassium 3.9 mmol/L (3.4-5.0); Sodium 140 mmol/L (137-145)
--- NOTE | 2022-04-07 15:57 | ED.SOB ---
HPI - SOB/Dyspnea General Chief Complaint: Shortness of Breath/Dyspnea Stated Complaint: left breast lump Time Seen by Provider: 04/07/22 15:00 History of Present Illness HPI Narrative: Patient is a 76-year-old male who presents to the ER with reports of shortness of breath. Began today. Cannot describe aggravating or alleviating factors. reports she has had some cough and clears his throat. No fevers or chills or sweats. No lower extremity edema. No reports of orthopnea. Denies chest pain or chest pressure. He also noticed today that he has a lump/swelling of the lateral aspect of his right breast tissue. No discoloration or tenderness. Patient is on blood thinning medication due to history of pulmonary embolism. No missed doses. Related Data Home Medications Medication Instructions Recorded Confirmed Benefiber Healthy Shape 5 g PO DAILY 11/13/21 02/04/22 acetaminophen 500 mg PO Q4-5H PRN 11/13/21 02/04/22 albuterol sulfate 2 puff INHALATION Q6-8H 11/13/21 02/04/22 aspirin 81 mg PO DAILY 11/13/21 02/04/22 atorvastatin 10 mg PO DAILY 11/13/21 02/04/22 cholecalciferol (vitamin D3) 500 mcg PO DAILY 11/13/21 02/04/22 pantoprazole 40 mg PO DAILY 11/13/21 02/04/22 Allergies Allergy/AdvReac Type Severity Reaction Status Date / Time No Known Drug Allergies Allergy Unknown Unknown Verified 04/07/22 15:14 Review of Systems Review of Systems: All systems reviewed & are unremarkable except as noted in HPI and below Constitutional: Constitutional: Denies chills, Denies fever(s) and Denies weakness ENT: Denies nasal congestion and Denies sore throat Cardiovascular: Cardiovascular: Denies chest pain and Denies radiating jaw, neck or arm pain Respiratory: Respiratory: Reports cough, Reports dyspnea and Denies wheezing Gastrointestinal: Gastrointestinal: Denies nausea and Denies vomiting Integumentary/Breasts: Skin/Breast: Reports breast mass, Denies pruritus, Denies erythema and Denies rash PMFSH Past Medical History Medical History Anemia of chronic disease Anxiety Ataxia, post-stroke Benign prostatic hyperplasia Brain cancer Status post tumor resection and chemoradiation. Cerebrovascular accident Chronic respiratory failure Patient was to be using a BiPAP at nighttime however he states the mask does not fit well. Congestive heart failure Coronary artery disease involving jamul coronary artery of jamul heart Deep venous thrombosis Diabetes mellitus Hyperlipidemia Hypertension Mixed hyperlipidemia Oropharyngeal dysphagia Peripheral arterial disease Prostate cancer Right hemiparesis Seizure disorder Vitamin D deficiency Surgical History Surgical History History of cholecystectomy History of craniotomy With resection of brain tumor. History of heart artery stent Family History Family History Mother Patient's mother is in good health Sibling Patient's sister is in good health Patient's brother is in good health Other Family history of arthritis Family history of malignant neoplasm of brain Family history of pancreatic cancer Malignant neoplasm of prostate Social History Social History (Updated 02/04/22 @ 15:31 by Neha Torres MA) Social History: The patient lives with his in [place] but is currently undergoing rehab at [place]. He is on disability. Lifelong nonsmoker. No alcohol or illicit substance use. His Elke Bartholomew is his surrogate decision maker. Code status: Full code. Smoking status: Former smoker Alcohol intake: former Substance use: never Substance use type: does not use Spiritual care concerns: No Exam Narrative: GENERAL: Chronically ill-appearing, well-nourished, and in no acute distress. HEAD: Scar from previous brain surgery on the left, atraumatic. E
[2022-04-07 16:02] LABS: NT Pro B Type Natriuretic Pept 238 pg/mL (5-100); Troponin I < 0.012 ng/mL (0.000-0.034)
--- NOTE | 2022-04-07 17:31 | PC.NURSE ---
02 removed per erp.
--- NOTE | 2022-04-07 18:22 | PC.NURSE ---
Ambulated pt into hallway. SPO2 to 75% on room air with activity. Returned to bed and 02 applied at 4L NC.
[2022-04-07] MEDS: ALBUTEROL SULFATE NEB 2.5 MG/0.5 ML INH 5 MG INHALATION (18:29)
[2022-04-07] MEDS: IPRATROPIUM BR 0.02% INH SOLN 0.5 MG/2.5 ML VIAL INHALATION (18:30)
[2022-04-07 19:20] LABS: SARS-CoV-2 RNA PCR Negative
--- NOTE | 2022-04-07 19:26 | PC.NURSE ---
Assumed care of pt at this time. Pt alert and upright on stretcher per baseline. Pt and family at bedside, updated on POC.
--- NOTE | 2022-04-07 20:43 | PM.IMHP ---
H&P: HPI History of Present Illness Date/Time: Patient was placed observation status for expected length of stay less than 23 hours for management, will plan to re-evaluate tomorrow for improvement. 04/07/22 20:43 Chief Complaint: Shortness of breath Narrative: Mr. Bartholomew is a 68-year-old gentleman who presented to the emergency room accompanied by family with shortness of breath. Patient has a history of brain cancer and has had a portion of his brain removed and is unable to give any type of history. Per emergency room records patient's spouse stated that she noted the patient was short of breath today and he had had cough with clear sputum. Patient's spouse denied any fevers. Patient denied any chills. Patient denies any orthopnea or PND. Patient denies any chest discomfort. Upon evaluation in emergency room patient was noted to be hyper toxic room air with standing his saturations went down into the 70s. Patient underwent CT scan was noted to have a moderate right pleural effusion. Patient has a known history of pulmonary embolism, anemia of chronic disease, BPH, brain cancer status post tumor resection and chemo and radiation therapy, CVA, chronic kidney disease, coronary artery disease, diabetes mellitus, hypertension, and seizure disorder. Review of Systems Review of Systems: It is difficult to get a full review of systems from patient secondary to him being a poor historian and not being able to give full history. [facility] Past Medical History Medical History Anemia of chronic disease Anxiety Ataxia, post-stroke Benign prostatic hyperplasia Brain cancer Status post tumor resection and chemoradiation. Cerebrovascular accident Chronic respiratory failure Patient was to be using a BiPAP at nighttime however he states the mask does not fit well. Congestive heart failure Coronary artery disease involving pala coronary artery of pala heart Deep venous thrombosis Diabetes mellitus Hyperlipidemia Hypertension Mixed hyperlipidemia Oropharyngeal dysphagia Peripheral arterial disease Prostate cancer Right hemiparesis Seizure disorder Vitamin D deficiency Surgical History Surgical History History of cholecystectomy History of craniotomy With resection of brain tumor. History of heart artery stent Family History Family History Mother Patient's mother is in good health Sibling Patient's sister is in good health Patient's brother is in good health Other Family history of arthritis Family history of malignant neoplasm of brain Family history of pancreatic cancer Malignant neoplasm of prostate Social History Social History (Updated 02/04/22 @ 15:31 by Neha Torres MA) Social History: The patient lives with his in [place] but is currently undergoing rehab at [facility]. He is on disability. Lifelong nonsmoker. No alcohol or illicit substance use. His Elke Bartholomew is his surrogate decision maker. Code status: Full code. Smoking status: Former smoker Alcohol intake: former Substance use: never Substance use type: does not use Spiritual care concerns: No Meds Home Medications and Allergies Home Medications Medication Instructions Recorded Confirmed Type Benefiber Healthy Shape 5 g PO DAILY 11/13/21 02/04/22 History acetaminophen 500 mg PO Q4-5H PRN 11/13/21 02/04/22 History albuterol sulfate 2 puff INHALATION Q6-8H 11/13/21 02/04/22 History aspirin 81 mg PO DAILY 11/13/21 02/04/22 History atorvastatin 10 mg PO DAILY 11/13/21 02/04/22 History cholecalciferol (vitamin D3) 500 mcg PO DAILY 11/13/21 02/04/22 History pantoprazole 40 mg PO DAILY 11/13/21 02/04/22 History levetiracetam 500 mg tablet 1,000 mg PO DAILY 30 Days #180 12/27/21 02/04/22 Rx tablet furosemide 40 mg tablet 40 mg PO QAM #90
--- NOTE | 2022-04-07 22:17 | PCRCNOTE ---
20:00 nebulizer not administered - outside treatment window.
[2022-04-08] VITALS (14 sets, daily range): BP systolic 115–144; BP diastolic 59–64; PULSE 68–78; RESP 16–26; TEMP 36.7–37.5; O2SAT 94–99
[2022-04-08] MEDS: ALBUTEROL SULFATE NEB 2.5 MG/0.5 ML INH 5 MG INHALATION ×2 (01:34→19:58)
[2022-04-08] MEDS: IPRATROPIUM BR 0.02% INH SOLN 0.5 MG/2.5 ML VIAL INHALATION ×2 (01:34→19:59)
--- NOTE | 2022-04-08 03:53 | PCRCNOTE ---
Pt is apparently supposed to use a BiPAP at home but has not for an unknown period of time because it doesn't fit right. BiPAP has not been ordered for the patient here at this time.
[2022-04-08 07:17] LABS: Basophils Percent Auto 0.3 % (0.2-1.2); Eosinophils Absolute Auto 0.1 K/mm3 (0-0.3); Eosinophils Percent Auto 1.1 % (0-4.4); Hematocrit 33.1 % (42.0-52.0); Hemoglobin 10.5 g/dL (14.0-18.0); Immature Granulocyte Absolute 0.02 K/mm3 (0.00-0.031); Immature Granulocyte Percent A 0.3 % (0-0.5); Lymphocytes Absolute Auto 1.91 K/mm3 (0.9-3.2); Lymphocytes Percent Auto 29.4 % (18.3-44.2); Mean Corpuscular HGB Conc 31.7 g/dl (32-36); Mean Corpuscular Hemoglobin 31.9 pg (26-34); Mean Corpuscular Volume 100.6 fl (80-100); Monocytes Absolute Auto 0.7 K/mm3 (0.1-0.6); Monocytes Percent Auto 11.4 % (2.6-8.5); Neutrophils Absolute Auto 3.7 K/mm3 (1.3-6.7); Neutrophils Percent Auto 57.5 % (45.5-73.1); Platelet Count Result 218 k/mm3 (150-375); Red Blood Count 3.29 M/mm3 (4.6-6.20); Red Cell Distribution Width 14.8 % (11.5-14.5); White Blood Count 6.5 K/mm3 (4.5-10.0)
[2022-04-08 07:32] LABS: INR 1.4; Prothrombin Time 16.3 Seconds (11.1-14.7)
[2022-04-08 07:35] LABS: Blood Urea Nitrogen 19 mg/dL (9-20); Calcium 8.4 mg/dL (8.4-10.2); Carbon Dioxide > 40 mmol/L (22-30); Chloride 99 mmol/L (98-107); Estimated CRCL calculation 45 ml/min; Estimated Glomerular Filt Rate 59; Glucose 75 mg/dL (65-110); Magnesium 2.2 mg/dL (1.6-2.3); Potassium 3.9 mmol/L (3.4-5.0); Sodium 141 mmol/L (137-145)
[2022-04-08 09:29] LABS: Albumin Level 3.4 g/dL (3.5-5.1); Amylase 68 U/L (30-110); Bilirubin,Total 0.5 mg/dL (0.2-1.3); Cholesterol 88 mg/dL (0-200); Lactate Dehydrogenase 249 U/L (313-618); Triglycerides 36 mg/dL (<150)
[2022-04-08] MEDS: SODIUM CHLORIDE 0.9% IV 1,000 ML 125 ML IV CONT ×2 (09:46→18:39)
--- NOTE | 2022-04-08 12:00 | PM.IMPN ---
Progress Note: A&P Assessment and Plan (1) Hypoxia: Code(s): R09.02 - Hypoxemia Status: Acute Assessment and Plan: Currently on oxygen at 2L per nasal cannula Saturations reported to be 87 Moderate pleural effusion on CT scan. Thoracentesis ordered and currently pending No Pathology seems to have been collected Trend SPO2 Supplemental oxygen, titrate oxygen to maintain saturation >90% (2) Pleural effusion: Code(s): J90 - Pleural effusion, not elsewhere classified Status: Acute Assessment and Plan: Ct of the chest found Moderate right sided plural effusion Thoracentesis ordered Coags obtained Trend saturations (3) Pulmonary embolism: Qualifiers: Acute cor pulmonale presence: unspecified Chronicity: acute Pulmonary embolism type: unspecified Qualified Code(s): I26.99 - Other pulmonary embolism without acute cor pulmonale Code(s): I26.99 - Other pulmonary embolism without acute cor pulmonale Status: Acute Assessment and Plan: history of pulmonary embolism continue home apixaban Vital signs do not fully show signs of PE, HR 69, RR 24, no chest pain However looks to be hypoxic, probably related to pleural effusion (4) Hypertension: Qualifiers: Hypertension type: primary hypertension Qualified Code(s): I10 - Essential (primary) hypertension Code(s): I10 - Essential (primary) hypertension Status: Acute Assessment and Plan: Current BP is 115/60 No home anti-hypertensives Trend blood pressure Adjust therapy as indicated Time Spent With Patient Time with patient: Greater than 35 minutes Subjective Date/time seen: 04/08/22 1200 Interval history: 04/07/22 20:43 Chief Complaint: Shortness of breath Narrative: Mr. Bartholomew is a 68-year-old gentleman who presented to the emergency room accompanied by family with shortness of breath. Patient has a history of brain cancer and has had a portion of his brain removed and is unable to give any type of history. Per emergency room records patient's spouse stated that she noted the patient was short of breath today and he had had cough with clear sputum. Patient's spouse denied any fevers. Patient denied any chills. Patient denies any orthopnea or PND. Patient denies any chest discomfort. Upon evaluation in emergency room patient was noted to be hyper toxic room air with standing his saturations went down into the 70s. Patient underwent CT scan was noted to have a moderate right pleural effusion. Patient has a known history of pulmonary embolism, anemia of chronic disease, BPH, brain cancer status post tumor resection and chemo and radiation therapy, CVA, chronic kidney disease, coronary artery disease, diabetes mellitus, hypertension, and seizure disorder. 04/08/22 1200 Patient did have a whole lot to say today. Patient stated that he has just been very weak and tired. He does look very exhausted. He was able to tell me that is been a little short of breath lately. However he did deny chest pain and nausea vomiting. Patient was sent to into answering many questions so complete review of systems unable to be obtained however attempted. Review of Systems Review of Systems: All systems reviewed & are unremarkable except as noted in HPI and below ROS unobtainable: Yes unobtainable due to medical condition Exam Const: General: cooperative, no acute distress, well developed, alert, ill appearing and tired appearing Nutritional Appearance: well nourished Orientation/consciousness: oriented to person Limitations: altered mental status HENMT: Ears: hearing grossly normal bilaterally General nose exam: Normal external nose present Mouth: Yes Normal oral and palatal mucosa present, Yes lip normal and Yes tongue normal Teeth and gingiva: abnormal tooth and associated gingiva and poor dentition Eyes: General: appearance norm
[2022-04-08 15:06] LABS: pH Pleural Fluid 7.411 (7.210-7.500)
[2022-04-08 16:18] LABS: Appearance Pleural Fluid Hazy (Clear); Color Pleural Fluid Yellow (Colorless); Pleural fluid source Pleural fluid
[2022-04-08 16:19] LABS: Lymphocytes Pleural Fluid 92 %; Monocytes Pleural Fluid 3 %; Neutrophils Pleural Fluid 5 % (0-25)
--- NOTE | 2022-04-08 18:02 | PC.NURSE ---
Pt NPO and in US most of this shift. Does not know or have a list of home medications.
[2022-04-09] VITALS (13 sets, daily range): BP systolic 114–133; BP diastolic 42–79; PULSE 63–82; RESP 16–18; TEMP 37–37.3; O2SAT 92–99
[2022-04-09] MEDS: IPRATROPIUM BR 0.02% INH SOLN 0.5 MG/2.5 ML VIAL INHALATION ×4 (01:34→20:59)
[2022-04-09] MEDS: ALBUTEROL SULFATE NEB 2.5 MG/0.5 ML INH 5 MG INHALATION ×4 (01:34→20:58)
[2022-04-09] MEDS: SODIUM CHLORIDE 0.9% IV 1,000 ML 125 ML IV CONT (03:38)
[2022-04-09 06:31] LABS: Basophils Percent Auto 0.3 % (0.2-1.2); Eosinophils Absolute Auto 0.1 K/mm3 (0-0.3); Eosinophils Percent Auto 0.9 % (0-4.4); Hematocrit 34.6 % (42.0-52.0); Hemoglobin 10.5 g/dL (14.0-18.0); Immature Granulocyte Absolute 0.02 K/mm3 (0.00-0.031); Immature Granulocyte Percent A 0.3 % (0-0.5); Lymphocytes Percent Auto 29.6 % (18.3-44.2); Mean Corpuscular HGB Conc 30.3 g/dl (32-36); Mean Corpuscular Hemoglobin 31.2 pg (26-34); Mean Corpuscular Volume 102.7 fl (80-100); Mean Platelet Volume 10.2 fl (7.4-10.4); Monocytes Absolute Auto 0.7 K/mm3 (0.1-0.6); Monocytes Percent Auto 9.4 % (2.6-8.5); Neutrophils Absolute Auto 4.4 K/mm3 (1.3-6.7); Neutrophils Percent Auto 59.5 % (45.5-73.1); Platelet Count Result 216 k/mm3 (150-375); Red Blood Count 3.37 M/mm3 (4.6-6.20); Red Cell Distribution Width 14.6 % (11.5-14.5); White Blood Count 7.4 K/mm3 (4.5-10.0)
[2022-04-09 06:52] LABS: Alanine Aminotransferase 18 U/L (6-50); Albumin Level 3.2 g/dL (3.5-5.1); Alkaline Phosphatase 106 U/L (38-126); Anion Gap 3 mmol/L (8-16); Aspartate Amino Transferase 25 U/L (17-59); Bilirubin,Total 0.6 mg/dL (0.2-1.3); Blood Urea Nitrogen 18 mg/dL (9-20); Calcium 7.9 mg/dL (8.4-10.2); Carbon Dioxide 34 mmol/L (22-30); Chloride 105 mmol/L (98-107); Estimated CRCL calculation 49 ml/min; Estimated Glomerular Filt Rate > 60; Glucose 72 mg/dL (65-110); Magnesium 2.2 mg/dL (1.6-2.3); Sodium 142 mmol/L (137-145)
--- NOTE | 2022-04-09 10:30 | PM.IMPN ---
Progress Note: A&P Assessment and Plan (1) Hypoxia: Code(s): R09.02 - Hypoxemia Status: Acute Assessment and Plan: on room air Saturations reported to be 90-95 Moderate pleural effusion on CT scan. Thoracentesis pulled 900ml of hazy yellow fluid off Pathology pending Trend SPO2 (2) Pleural effusion: Code(s): J90 - Pleural effusion, not elsewhere classified Status: Acute Assessment and Plan: Ct of the chest found Moderate right sided plural effusion Thoracentesis 900ml off Coags obtained Trend saturations (3) Pulmonary embolism: Qualifiers: Pulmonary embolism type: unspecified Chronicity: acute Acute cor pulmonale presence: unspecified Qualified Code(s): I26.99 - Other pulmonary embolism without acute cor pulmonale Code(s): I26.99 - Other pulmonary embolism without acute cor pulmonale Status: Acute Assessment and Plan: history of pulmonary embolism continue home apixaban Vital signs do not fully show signs of PE, HR 69, RR 24, no chest pain However looks to be hypoxic, probably related to pleural effusion (4) Hypertension: Qualifiers: Hypertension type: primary hypertension Qualified Code(s): I10 - Essential (primary) hypertension Code(s): I10 - Essential (primary) hypertension Status: Acute Assessment and Plan: Current BP is 114/51 No home anti-hypertensives Trend blood pressure Adjust therapy as indicated (5) Seizure: Code(s): R56.9 - Unspecified convulsions Status: Acute Assessment and Plan: Continue home Keppra Seizure precautions Time Spent With Patient Time with patient: Greater than 35 minutes Subjective Date/time seen: 04/09/22 1030 Interval history: 04/07/22 20:43 Chief Complaint: Shortness of breath Narrative: Mr. Bartholomew is a 68-year-old gentleman who presented to the emergency room accompanied by family with shortness of breath. Patient has a history of brain cancer and has had a portion of his brain removed and is unable to give any type of history. Per emergency room records patient's spouse stated that she noted the patient was short of breath today and he had had cough with clear sputum. Patient's spouse denied any fevers. Patient denied any chills. Patient denies any orthopnea or PND. Patient denies any chest discomfort. Upon evaluation in emergency room patient was noted to be hyper toxic room air with standing his saturations went down into the 70s. Patient underwent CT scan was noted to have a moderate right pleural effusion. Patient has a known history of pulmonary embolism, anemia of chronic disease, BPH, brain cancer status post tumor resection and chemo and radiation therapy, CVA, chronic kidney disease, coronary artery disease, diabetes mellitus, hypertension, and seizure disorder. 04/08/22 1200 Patient did have a whole lot to say today. Patient stated that he has just been very weak and tired. He does look very exhausted. He was able to tell me that is been a little short of breath lately. However he did deny chest pain and nausea vomiting. Patient was sent to into answering many questions so complete review of systems unable to be obtained however attempted. 04/09/22 1030 Patient seems to be doing well. Patient is A&O x3. Was able to titrate the oxygen off patient was saturating at 93 94% patient has no complaints of chest pain, shortness of breath, nausea, vomiting, diarrhea, constipation, weakness or fatigue. Patient repeated that he would like to go home multiple times throughout my visit. Updated . All questions answered Review of Systems Review of Systems: All systems reviewed & are unremarkable except as noted in HPI and below Exam Const: General: cooperative, no acute distress, well developed, alert, ill appearing and tired appearing Nutritional Appearance: well nourished Or
[2022-04-09] MEDS: APIXABAN 5 MG TABLET PO ×2 (17:43→21:50)
[2022-04-09] MEDS: TAMSULOSIN HCL 0.4 MG CAPSULE PO (17:43)
[2022-04-09] MEDS: PANTOPRAZOLE 40 MG TABLET PO (17:44)
[2022-04-09] MEDS: ATORVASTATIN 10 MG TABLET PO (17:44)
[2022-04-09] MEDS: levETIRAcetam 500 MG TABLET 1000 MG PO (17:44)
[2022-04-09] MEDS: FUROSEMIDE 40 MG TABLET PO (17:44)
[2022-04-09] MEDS: ASPIRIN 81 MG ENTERIC TABLET PO (17:44)
[2022-04-09] MEDS: levETIRAcetam 500 MG TABLET PO (21:50)
[2022-04-10] MEDS: ALBUTEROL SULFATE NEB 2.5 MG/0.5 ML INH 5 MG INHALATION (03:10)
[2022-04-10 03:11] VITALS: PULSE 76; RESP 16
[2022-04-10] MEDS: IPRATROPIUM BR 0.02% INH SOLN 0.5 MG/2.5 ML VIAL INHALATION (03:11)
[2022-04-10 03:20] VITALS: PULSE 74; RESP 16
[2022-04-10 05:36] VITALS: BP 135/52; PULSE 77; RESP 18; TEMP 37.4; O2SAT 90
[2022-04-10 06:43] LABS: Basophils Percent Auto 0.4 % (0.2-1.2); Eosinophils Absolute Auto 0.1 K/mm3 (0-0.3); Eosinophils Percent Auto 1.2 % (0-4.4); Hematocrit 35.4 % (42.0-52.0); Immature Granulocyte Absolute 0.02 K/mm3 (0.00-0.031); Immature Granulocyte Percent A 0.3 % (0-0.5); Lymphocytes Absolute Auto 2.66 K/mm3 (0.9-3.2); Lymphocytes Percent Auto 34.6 % (18.3-44.2); Mean Corpuscular HGB Conc 31.1 g/dl (32-36); Mean Corpuscular Volume 102.9 fl (80-100); Mean Platelet Volume 10.1 fl (7.4-10.4); Monocytes Absolute Auto 0.7 K/mm3 (0.1-0.6); Monocytes Percent Auto 9.5 % (2.6-8.5); Neutrophils Absolute Auto 4.2 K/mm3 (1.3-6.7); Platelet Count Result 223 k/mm3 (150-375); Red Blood Count 3.44 M/mm3 (4.6-6.20); White Blood Count 7.7 K/mm3 (4.5-10.0)
[2022-04-10 06:48] LABS: Alanine Aminotransferase 18 U/L (6-50); Albumin Level 3.2 g/dL (3.5-5.1); Alkaline Phosphatase 107 U/L (38-126); Anion Gap 3 mmol/L (8-16); Aspartate Amino Transferase 26 U/L (17-59); Bilirubin,Total 0.9 mg/dL (0.2-1.3); Blood Urea Nitrogen 17 mg/dL (9-20); Calcium 8.2 mg/dL (8.4-10.2); Carbon Dioxide 37 mmol/L (22-30); Chloride 99 mmol/L (98-107); Estimated CRCL calculation 45 ml/min; Estimated Glomerular Filt Rate 59; Glucose 92 mg/dL (65-110); Potassium 3.7 mmol/L (3.4-5.0); Sodium 139 mmol/L (137-145)
[2022-04-10] MEDS: ASPIRIN 81 MG ENTERIC TABLET PO (09:46)
[2022-04-10] MEDS: TAMSULOSIN HCL 0.4 MG CAPSULE PO (09:46)
[2022-04-10] MEDS: ATORVASTATIN 10 MG TABLET PO (09:47)
[2022-04-10] MEDS: APIXABAN 5 MG TABLET PO ×2 (09:47→20:33)
[2022-04-10] MEDS: levETIRAcetam 500 MG TABLET 1000 MG PO (09:47)
[2022-04-10] MEDS: PANTOPRAZOLE 40 MG TABLET PO (09:47)
[2022-04-10] MEDS: FUROSEMIDE 40 MG TABLET PO (09:47)
--- NOTE | 2022-04-10 10:15 | PM.DS ---
DS: Admitting Diagnosis Discharge Date 04/10/22 1015 Admitting Diagnosis Pleural effusion, Hypoxia DS: Discharge Diagnosis Discharge Diagnosis (1) Hypoxia: Code(s): R09.02 - Hypoxemia Status: Acute Assessment and Plan: Seems to be resolved on room air Saturations reported to be 90-95 Moderate pleural effusion on CT scan. Thoracentesis pulled 900ml of hazy yellow fluid off Pathology appears to be chronic inflammation Trend SPO2 (2) Pleural effusion: Code(s): J90 - Pleural effusion, not elsewhere classified Status: Acute Assessment and Plan: Ct of the chest found Moderate right sided plural effusion Chest Xray Small pleural effusions with interval improvement. Minimal bibasilar airspace opacities, consistent with atelectasis versus pneumonia. Thoracentesis 900ml off Coags obtained Trend saturations pH normal, no indication of infection Micro does not show any infection Has had in the past Pathology reflects chronic inflammation (3) Pulmonary embolism: Qualifiers: Acute cor pulmonale presence: unspecified Chronicity: acute Pulmonary embolism type: unspecified Qualified Code(s): I26.99 - Other pulmonary embolism without acute cor pulmonale Code(s): I26.99 - Other pulmonary embolism without acute cor pulmonale Status: Acute Assessment and Plan: history of pulmonary embolism continue home apixaban Vital signs do not fully show signs of PE, HR 69, RR 24, no chest pain However looks to be hypoxic, probably related to pleural effusion (4) Hypertension: Qualifiers: Hypertension type: primary hypertension Qualified Code(s): I10 - Essential (primary) hypertension Code(s): I10 - Essential (primary) hypertension Status: Acute Assessment and Plan: Current BP is 135/52 No home anti-hypertensives Trend blood pressure Adjust therapy as indicated (5) Seizure: Code(s): R56.9 - Unspecified convulsions Status: Acute Assessment and Plan: Continue home Keppra Seizure precautions DS: Summary Hospital Course Hospital Course: Patient is 76-year-old male with a past medical history of anemia, brain cancer with previous craniotomy, seizures, DVT, PE, COVID-19 who presented to the ED with shortness of breath. Upon arrival patient was noted to be hypoxic and supplemental oxygen was placed. CT of the chest did not show PE however did show a moderate right-sided pleural effusion. Thoracentesis was ordered and performed and 900 mL of hazy fluid was removed. Pathology indicates more information that cancer or infection. Home medications have been performed. Patient has been weaned to room air. Patient denies any further complaints including chest pain, shortness of breath, nausea, vomiting, diarrhea, constipation, weakness or fatigue. Lab work and vital signs all indicates stable discharge. Patient will be discharged home. Status at Discharge Functional status at discharge: uses cane/walker Overall status at discharge: patient is progressing back to baseline Time Spent with Patient Time attestation: Total time spent providing and/or coordinating discharge services: 36 minutes Time spent: Greater than 30 minutes Specific discharge activities: Diagnostic testing, chart review, developing a treatment plan, education, care coordination documentation, physical exam, result review Exam Const: General: cooperative, no acute distress, well developed and alert Nutritional Appearance: well nourished Orientation/consciousness: oriented to person, oriented to place, oriented to time and patient oriented x3 Limitations: altered mental status HENMT: Head: normal to inspection Ears: hearing grossly normal bilaterally General nose exam: Normal external nose present Mouth: Yes Normal oral and palatal mucosa present, Yes lip normal and Yes tongue
--- NOTE | 2022-04-10 10:15 | P.DS_ITS ---
DS: Admitting Diagnosis Discharge Date 04/10/22 1015 Admitting Diagnosis Pleural effusion, Hypoxia DS: Discharge Diagnosis Discharge Diagnosis (1) Hypoxia: Code(s): R09.02 - Hypoxemia Status: Acute Assessment and Plan: * Seems to be resolved * on room air * Saturations reported to be 90-95 * Moderate pleural effusion on CT scan. * Thoracentesis pulled 900ml of hazy yellow fluid off * Pathology appears to be chronic inflammation * Trend SPO2 (2) Pleural effusion: Code(s): J90 - Pleural effusion, not elsewhere classified Status: Acute Assessment and Plan: * Ct of the chest found Moderate right sided plural effusion * Chest Xray Small pleural effusions with interval improvement. Minimal bibasilar airspace opacities, consistent with atelectasis versus pneumonia. * Thoracentesis 900ml off * Coags obtained * Trend saturations * pH normal, no indication of infection * Micro does not show any infection * Has had in the past * Pathology reflects chronic inflammation (3) Pulmonary embolism: Qualifiers: Acute cor pulmonale presence: unspecified Chronicity: acute Pulmonary embolism type: unspecified Qualified Code(s): I26.99 - Other pulmonary embolism without acute cor pulmonale Code(s): I26.99 - Other pulmonary embolism without acute cor pulmonale Status: Acute Assessment and Plan: * history of pulmonary embolism * continue home apixaban * Vital signs do not fully show signs of PE, HR 69, RR 24, no chest pain * However looks to be hypoxic, probably related to pleural effusion (4) Hypertension: Qualifiers: Hypertension type: primary hypertension Qualified Code(s): I10 - Essential (primary) hypertension Code(s): I10 - Essential (primary) hypertension Status: Acute Assessment and Plan: * Current BP is 135/52 * No home anti-hypertensives * Trend blood pressure * Adjust therapy as indicated (5) Seizure: Code(s): R56.9 - Unspecified convulsions Status: Acute Assessment and Plan: * Continue home Keppra * Seizure precautions DS: Summary Hospital Course Hospital Course: Patient is 76-year-old male with a past medical history of anemia, brain cancer with previous craniotomy, seizures, DVT, PE, COVID-19 who presented to the ED with shortness of breath. Upon arrival patient was noted to be hypoxic and supplemental oxygen was placed. CT of the chest did not show PE however did show a moderate right-sided pleural effusion. Thoracentesis was ordered and performed and 900 mL of hazy fluid was removed. Pathology indicates more information that cancer or infection. Home medications have been performed. Patient has been weaned to room air. Patient denies any further complaints including chest pain, shortness of breath, nausea, vomiting, diarrhea, constipation, weakness or fatigue. Lab work and vital signs all indicates stable discharge. Patient will be discharged home. Status at Discharge Functional status at discharge: uses cane/walker Overall status at discharge: patient is progressing back to baseline Time Spent with Patient Time attestation: Total time spent providing and/or coordinating discharge services: 36 minutes Time spent: Greater than 30 minutes Specific discharge activities: Diagnostic testing, chart review, developing a treatment plan, education, care coordination documentation, physical exam,
[2022-04-10 14:00] VITALS: BP 104/86; PULSE 100; RESP 20; TEMP 36.8; O2SAT 95
[2022-04-10] MEDS: levETIRAcetam 500 MG TABLET PO (20:33)
[2022-04-10 22:00] VITALS: BP 130/64; PULSE 67; RESP 16; TEMP 36.9; O2SAT 92
[2022-04-12 07:14] LABS: Glucose Pleural Fluid 103 mg/dL; LDH Pleural Fluid 187 U/L; Total Protein Pleural Fluid <3.0 g/dL
[2022-04-15 07:41] LABS: Albumin Pleural Fluid 1.1 g/dL; Amylase, Pleural Fluid 18 U/L
== END 2022-04-10 23:25 | disposition home health service (06) ==
LOC: ANHED 19:35 → ANH3MEDSUR 04-08 04:27
PROVIDERS: Nurse Practitioner Adult Health; Admitting Provider Hospitalist; Emergency Provider Emergency Medicine; PCP Internal Medicine; Visit Provider Nurse Practitioner
DX: J90 Pleural effusion, not elsewhere classified (principal); J96.11 Chronic respiratory failure with hypoxia; G40.909 Epilepsy, unspecified, not intractable, without status epilepticus; D63.8 Anemia in other chronic diseases classified elsewhere; I13.0 Hypertensive heart and chronic kidney disease with heart failure and stage 1 through stage 4 chronic kidney disease, or unspecified chronic kidney disease; N18.9 Chronic kidney disease, unspecified; I11.0 Hypertensive heart disease with heart failure; I50.9 Heart failure, unspecified; I69.393 Ataxia following cerebral infarction; I69.351 Hemiplegia and hemiparesis following cerebral infarction affecting right dominant side; I25.10 Atherosclerotic heart disease of native coronary artery without angina pectoris; E11.22 Type 2 diabetes mellitus with diabetic chronic kidney disease; E11.9 Type 2 diabetes mellitus without complications; E78.2 Mixed hyperlipidemia; E55.9 Vitamin D deficiency, unspecified; C61 Malignant neoplasm of prostate; R13.12 Dysphagia, oropharyngeal phase; N63.11 Unspecified lump in the right breast, upper outer quadrant; N40.0 Benign prostatic hyperplasia without lower urinary tract symptoms; F41.9 Anxiety disorder, unspecified; Z20.822 Contact with and (suspected) exposure to COVID-19; Z79.01 Long term (current) use of anticoagulants; Z86.711 Personal history of pulmonary embolism; Z85.841 Personal history of malignant neoplasm of brain; Z86.718 Personal history of other venous thrombosis and embolism; Z95.5 Presence of coronary angioplasty implant and graft
CPT/HCPCS: 32555; 36415; 71045; 71046; 71250; 76642; 80048; 80053; 82040; 82042; 82150; 82247; 82465; 82945; 83615; 83735; 83880; 83986; 84155; 84157; 84311; 84478; 84484; 85025; 85610; 85730; 87015; 87070; 87075; 87102; 87116; 87205; 87206; 88104; 88108; 88184; 88305; 89051; 93005; 94640; 96360; 96361; 97161; 97165; 97530; 99285; A9270; C9803; G0378; J7030; U0003; U0005

== ENCOUNTER 2022-04-21 11:44 | Outpatient (CLI) | payer OTHER, SELFPAY ==
--- NOTE | ~2022-04-21 | XR_ITS ---
EXAMINATION: XR chest 2V Exam Date/Time: 04/21/2022 12:03 CDT HISTORY: J90 - Pleural effusion, not elsewhere classified Comparison: Chest x-rays 04/10/2022 and 04/07/2022. RESULT: Lines, tubes, and devices: None. Lungs and pleura: Senescent changes. Small right pleural effusion. Cardiomediastinal silhouette: Stable cardiomediastinal silhouette. Other: No acute osseous or upper abdominal finding. IMPRESSION: Small right pleural effusion. Reviewed, dictated and finalized at location K.
== END 2022-04-21 11:45 | disposition home or self-care (01) ==
PROVIDERS: PCP Internal Medicine; Visit Provider Nurse Practitioner
DX: J90 Pleural effusion, not elsewhere classified (principal)
CPT/HCPCS: 71046

== ENCOUNTER 2022-04-30 11:25 | Outpatient (NON) | payer OTHER, SELFPAY ==
[2022-04-30 12:37] LABS: Vitamin D 25 Hydroxy 99.8 ng/mL
== END 2022-04-30 11:26 | disposition home or self-care (01) ==
LOC: HOME HLTH 11:30
PROVIDERS: PCP Internal Medicine; Visit Provider Internal Medicine
DX: E55.9 Vitamin D deficiency, unspecified (principal); J90 Pleural effusion, not elsewhere classified; I26.99 Other pulmonary embolism without acute cor pulmonale; I44.7 Left bundle-branch block, unspecified; I49.1 Atrial premature depolarization
CPT/HCPCS: 82306

== ENCOUNTER 2022-05-02 12:29 | Outpatient (CLI) | payer OTHER, SELFPAY ==
--- NOTE | ~2022-05-02 | US_ITS ---
US breast RT complete DATE: 05/02/2022 13:34 INDICATION: Right breast hypertrophy TECHNIQUE: Real-time imaging of the complete right breast COMPARISON: None FINDINGS: No suspicious mass or shadowing is detected. IMPRESSION: No significant abnormality of the right breast Reviewed, dictated and finalized at Location [facility]. Reviewed, dictated and finalized at location A.
== END 2022-05-02 12:30 | disposition home or self-care (01) ==
PROVIDERS: PCP Internal Medicine; Visit Provider Nurse Practitioner
DX: N62 Hypertrophy of breast (principal)
CPT/HCPCS: 76641

== ENCOUNTER 2022-05-02 14:02 | Outpatient (CLI) | payer OTHER, SELFPAY ==
--- NOTE | ~2022-05-02 | XR_ITS ---
XR chest 2V DATE: 05/02/2022 14:20 INDICATION: Increased shortness of breath TECHNIQUE: AP and lateral views COMPARISON: 04/21/2022 2 view chest FINDINGS: There is cardiomegaly. There is mild right pleural effusion and minimal infiltrate or atel ectasis at the right lung base. No hilar or mediastinal enlargement. Otherwise no pulmonary infiltrate or consolidation, pulmonary vascular congestion or pneumothorax. The chin obscures the lung apices. Diffuse osteopenia. Status post cholecystectomy. IMPRESSION: Minimal infiltrate or atelectasis at the right lung base and small right pleural effusion , stable since 04/21/2022 Reviewed, dictated and finalized at location A. IMPRESSION: Minimal infiltrate or atelectasis at the right lung base and small right pleural effusion, stable since 04/21/2022
== END 2022-05-02 14:03 | disposition home or self-care (01) ==
LOC: ANHIMG 14:06
PROVIDERS: PCP Internal Medicine; Visit Provider Internal Medicine
DX: R09.02 Hypoxemia (principal); J90 Pleural effusion, not elsewhere classified; Z90.49 Acquired absence of other specified parts of digestive tract
CPT/HCPCS: 71046; 76641

== ENCOUNTER 2022-05-23 09:14 | Outpatient (CLI) | payer OTHER, SELFPAY ==
--- NOTE | ~2022-05-23 | PE_ITS ---
EXAMINATION: PET skull to mid thigh DATE: 05/23/2022 11:15 INDICATION: Non-Hodgkin's lymphoma TECHNIQUE: Blood glucose level was 98 mg/dL. 9.987 mCi of 18-fluorodeoxyglucose (18-FDG) was administ ered i.v. Low dose computed tomography (CT) images were acquired from the base of the brain to the pr oximal thighs for attenuation correction and anatomic localization. Positron emission tomography (PET ) images were acquired in the same distribution beginning 76 minutes after injection. Images includin g fused PET/CT images were reconstructed in axial, coronal, and sagittal planes. Automated exposure c ontrol technique was employed. The dose-length product was 699.39mGy-cm. COMPARISON: CT abdomen and pelvis dated 10/31/2013 FINDINGS: Head/neck: There is symmetric increased activity in the oral cavity without CT correlate, likely physiologic. No pathologically enlarged cervical lymphadenopathy or suspicious foci of increased FDG uptake in the v isualized head or neck. Chest: Moderate posterior layering right pleural effusion with dependent compressive atelectasis in the righ t upper and lower lobes. No suspicious pulmonary nodules, pneumonia or left pleural effusion. Cardiom egaly. No pericardial effusion. Thoracic aorta is normal in caliber. No pathologically enlarged or FD G avid thoracic lymphadenopathy. Abdomen/pelvis/proximal thighs: Physiologic renal accumulation and excretion of FDG activity in the kidneys, bladder and along portio ns of ureters. Normal degree and heterogenous pattern of increased uptake throughout the liver withou t radiologic correlate or dominant FDG avid lesion. Cholecystectomy clips at the gallbladder fossa. T he pancreas, spleen and bilateral adrenal glands are normal. Mild to moderate uptake scattered throug hout the bowels without radiologic correlate, also likely physiologic. Infrarenal IVC filter. Mild pr ostatomegaly measuring 3.6 x 3.0 cm with moderately increased uptake with maximal SUV of 7.0. Symmetr ic moderate increased uptake at the testes without radiologic correlate which is likely physiologic. No other abnormal foci of increased FDG uptake or pathologically enlarged lymphadenopathy in the abdo men, pelvis or proximal thighs. Musculoskeletal: Mild synovial uptake about the bilateral glenohumeral joints as well as at the right sternoclavicular joint. No suspicious lytic, blastic or FDG avid bone lesions. There is asymmetric muscular atrophy o f the right shoulder girdle. IMPRESSION: 1. No evident pathologically enlarged or FDG avid lymphadenopathy. 2. Moderate-sized right pleural effusion with dependent compressive atelectasis in the right upper an d lower lobes. 3. Mild prostatomegaly with moderate diffuse uptake throughout the prostate which is nonspecific with differential including benign prostatic. The, prostatitis or prostate cancer normal. Consider correl ation with PSA level. Reviewed, dictated and finalized at location B. IMPRESSION: 1. No evident pathologically enlarged or FDG avid lymphadenopathy. 2. Moderate-sized right pleural effusion with dependent compressive atelectasis in the right upper and lower lobes. 3. Mild prostatomegaly with moderate diffuse uptake throughout the prostate whi ch is nonspecific with differential including benign prostatic. The, prostatiti s or prostate cancer normal. Consider correlation with PSA level.
[2022-05-23 12:28] LABS: Glucose Point of Care 98 mg/dl (65-105)
== END 2022-05-23 09:15 | disposition home or self-care (01) ==
PROVIDERS: PCP Internal Medicine; Visit Provider Internal Medicine Hematology & Oncology
DX: C61 Malignant neoplasm of prostate (principal); C85.90 Non-Hodgkin lymphoma, unspecified, unspecified site; J90 Pleural effusion, not elsewhere classified
CPT/HCPCS: 78815; A9552

== ENCOUNTER 2022-05-30 15:35 | Outpatient (CLI) | payer OTHER, SELFPAY ==
[2022-05-30 17:35] LABS: Prostate Specific Antigen 17.4 ng/mL (< OR = 4.0)
== END 2022-05-30 15:36 | disposition home or self-care (01) ==
LOC: ANHLAB 15:37
PROVIDERS: PCP Internal Medicine; Visit Provider Internal Medicine Hematology & Oncology
DX: C61 Malignant neoplasm of prostate (principal)
CPT/HCPCS: 36415; 84153

== ENCOUNTER 2022-06-04 15:11 | Inpatient (IN) | payer OTHER, SELFPAY ==
[2022-06-04] VITALS (34 sets, daily range): BP systolic 115–155; BP diastolic 44–89; PULSE 63–89; RESP 16–33; TEMP 36.7; O2SAT 92–100; BMI 23.6
--- NOTE | ~2022-06-04 | US_ITS ---
EXAMINATION: US thoracentesis DATE: 06/10/2022 15:40 INDICATION: pleural effusion TECHNIQUE: The procedure and its risks, benefits, and alternatives were discussed with the patient. P otential risks discussed included bleeding, infection, and pneumothorax. The patient understood the r isks and agreed to proceed. The skin was prepped and draped in sterile fashion. 1% lidocaine was used for local anesthesia. Under ultrasound guidance, a 5 Fr catheter with trochar was advanced into the right pleural effusion. Fluid was aspirated. The catheter was removed, and a dressing was applied. Th ere were no immediate complications. FINDINGS: Ultrasound images demonstrate a right pleural effusion and the catheter within the fluid. IMPRESSION: 1. Successful ultrasound-guided thoracentesis yielding 800 mL of cloudy, yellow fluid. Reviewed, dictated and finalized at location A. IMPRESSION: 1. Successful ultrasound-guided thoracentesis yielding 800 mL of cloudy, yello w fluid.
--- NOTE | ~2022-06-04 | XR_ITS ---
EXAMINATION: [id number] DATE: 06/10/2022 15:31 INDICATION: Right pleural effusion status post thoracentesis. TECHNIQUE: Frontal and lateral views of the chest were obtained. COMPARISON: Chest single view at 5:16 AM FINDINGS: There are airspace opacities at the lung bases. There is a small left pleural effusion. No pneumothorax. The heart size is normal. IMPRESSION: 1. Airspace opacities at the lung bases with improvement on the right, likely atelectasis. 2. Stable small left pleural effusion. Reviewed, dictated and finalized at location A. IMPRESSION: 1. Airspace opacities at the lung bases with improvement on the right, likely a telectasis. 2. Stable small left pleural effusion.
--- NOTE | ~2022-06-04 | CT_ITS ---
EXAMINATION: CT diagnostic chest w con DATE: 06/07/2022 17:22 INDICATION: Pleural effusion TECHNIQUE: Computed tomography (CT) of the chest was performed with 75 CC Omnipaque 300 intravenous c ontrast. Automated exposure control and iterative reconstruction technique were employed. Exam dose: 311.95 mGy-cm total exam DLP. COMPARISON: 06/04/2022 AP and lateral chest FINDINGS: Moderately large right pleural effusion with complete compressive atelectasis of the right lower lobe. There is mild dependent atelectasis of the remainder of the lung secondary to the promine nt right pleural effusion. No obstructing central endobronchial lesion is noted. Minimal left pleural effusion. There is minimal left lower lobe and lingular dependent atelectasis. Cardiomegaly. No pericardial effusion. No thoracic aortic aneurysm or dissection. No evidence of pulmonary embolism. No hilar or mediastinal mass lesion or lymphadenopathy. Included portions of the adrenal glands are unremarkable. No suspicious osteolytic or osteoblastic lesions are noted. IMPRESSION: Cardiomegaly, bilateral pleural effusions, larger on the right, minimal on the left. Fin dings suggest congestive heart failure There is right lung atelectasis and mild dependent atelectasis of the remainder of the right lung and dependent lingula and left lower lobe Reviewed, dictated and finalized at Location A. Reviewed, dictated and finalized at location A. IMPRESSION: Cardiomegaly, bilateral pleural effusions, larger on the right, mi nimal on the left. Findings suggest congestive heart failure There is right lung atelectasis and mild dependent atelectasis of the remainder of the right lung and dependent lingula and left lower lobe
--- NOTE | ~2022-06-04 | XR_ITS ---
EXAMINATION: XR chest 1V portable DATE: 06/10/2022 05:49 INDICATION: Pleural effusion. TECHNIQUE: A single frontal view of the chest was obtained. COMPARISON: Chest 2 views 06/04/2022, chest CT 06/07/2022 FINDINGS: There are moderate-sized right and small left pleural effusions. There are airspace opaciti es at the lung bases. No pneumothorax. The heart size is normal. IMPRESSION: 1. Moderate-sized right and small left pleural effusions, stable from 06/07/2022. 2. Airspace opacities at the lung bases, likely atelectasis. Reviewed, dictated and finalized at location A.
--- NOTE | ~2022-06-04 | XR_ITS ---
EXAMINATION: XR chest 2V DATE: 06/04/2022 15:42 INDICATION: Weakness TECHNIQUE: AP and lateral views of the chest are obtained. COMPARISON: 05/02/2022 FINDINGS: There are small pleural effusions. Airspace opacities are present in the lung bases. No pne umothorax is identified. The cardiomediastinal silhouette is normal. There is moderate thoracic spond ylosis. IMPRESSION: 1. Small pleural effusions. 2. Bibasilar airspace opacities, likely atelectasis. Reviewed, dictated and finalized at location A.
--- NOTE | 2022-06-04 15:19 | ECG_ITS ---
Measurements Intervals [place] Rate: 82 P: 55 WV: 143 QRS: -22 QRSD: 139 T: 65 QT: 366 QTc: 428 Interpretive Statements SINUS RHYTHM LEFT BUNDLE BRANCH BLOCK ABNORMAL ECG Electronically Signed On 06-04-2022 15:44:24 CDT by Jl Dillon D.O.
[2022-06-04 15:32] LABS: Basophils Percent Auto 0.2 % (0.2-1.2); Eosinophils Percent Auto 0.3 % (0-4.4); Hematocrit 37.3 % (42.0-52.0); Hemoglobin 11.3 g/dL (14.0-18.0); Immature Granulocyte Absolute 0.03 K/mm3 (0.00-0.031); Immature Granulocyte Percent A 0.3 % (0-0.5); Lymphocytes Percent Auto 21.3 % (18.3-44.2); Mean Corpuscular HGB Conc 30.3 g/dl (32-36); Mean Corpuscular Hemoglobin 32.1 pg (26-34); Mean Platelet Volume 9.9 fl (7.4-10.4); Monocytes Absolute Auto 0.7 K/mm3 (0.1-0.6); Neutrophils Percent Auto 70.9 % (45.5-73.1); Platelet Count Result 194 k/mm3 (150-375); Red Blood Count 3.52 M/mm3 (4.6-6.20); Red Cell Distribution Width 14.1 % (11.5-14.5); White Blood Count 9.9 K/mm3 (4.5-10.0)
[2022-06-04 15:41] LABS: INR 1.3; Prothrombin Time 15.9 Seconds (11.1-14.7)
[2022-06-04 15:42] LABS: Partial Thromboplastin Time 29.9 SECONDS (22.3-36.8)
[2022-06-04 15:44] LABS: Macrocytosis 1+ (NORMAL); Platelet Estimate Adequate (Adequate)
[2022-06-04 15:45] LABS: Alanine Aminotransferase 23 U/L (6-50); Albumin Level 3.8 g/dL (3.5-5.1); Alkaline Phosphatase 102 U/L (38-126); Aspartate Amino Transferase 30 U/L (17-59); Bilirubin,Total 0.3 mg/dL (0.2-1.3); Blood Urea Nitrogen 30 mg/dL (9-20); Calcium 8.4 mg/dL (8.4-10.2); Carbon Dioxide > 40 mmol/L (22-30); Chloride 90 mmol/L (98-107); Estimated Glomerular Filt Rate 53; Glucose 195 mg/dL (65-110); Sodium 139 mmol/L (137-145); Stomatocytes 1+ (NORMAL)
[2022-06-04 16:21] LABS: Appearance Urine Clear (Clear); Bilirubin Urine Negative (Negative); Blood Urine Trace-lysed (Negative); Color Urine Yellow (Yellow); Glucose Urine UA Negative (Negative); Ketones Urine Negative (Negative); Leukocyte Esterase Ur Negative LEU/UL (Negative); Nitrate Urine Negative (Negative); Protein Urine Negative (Negative); Urobilinogen Urine 0.2 mg/dL (<2.0); pH Urine 5.5 (5.0-9.0)
[2022-06-04 16:31] LABS: Bacteria Urine Trace /hpf; Mucus Urine Rare /lpf; RBC Urine 0-2 /hpf (0-2); Squamous Epithelial Cell Urine Rare /hpf (Few); WBC Urine 0-3 /hpf
[2022-06-04 16:33] LABS: Add Urine Microscopic? YES
[2022-06-04 16:54] LABS: Base Excess ABG 13.8 mEq/l (+/-2.0); Carboxyhemoglobin 0.4 % THb (0-2.0); Fractional Inspired Oxygen 28 %; HCO3 ABG 41.2 mEq/l (22.0-26.0); Methemoglobin ABG 0.2 %THb (0-1.5); Oxygen Content ABG 15.5 %vol (16.0-22.0); Oxygen Saturation ABG 98.9 % (95.0-100.0); Oxyhemoglobin 97.9 % THb (90.0-100.0); PO2 ABG 156.1 mmHg (80.0-100.0); PO2 FiO2 Ratio Arterial Blood 5.58 %; Reduced Hemoglobin 1.5 %THb (0-5.0); pH ABG 7.396 (7.350-7.450)
[2022-06-04 16:55] LABS: PCO2 ABG 68.6 mmHg (35.0-45.0)
[2022-06-04 16:56] LABS: Device NASAL CANNULA; Modified Allen's Test Pass; Site Drawn LEFT RADIAL
--- NOTE | 2022-06-04 17:46 | ED.WEAKNESS ---
HPI - Weakness General Chief complaint: Weakness Stated complaint: weakness Time Seen by Provider: 06/04/22 15:13 History of Present Illness HPI Narrative: Patient is 77-year-old male who presents ER with weakness and confusion. Sent in from home. Patient is alert and oriented x1 and baseline is x3. No complaints of pain. No history given of trauma or recent infection. Patient chronically O2 dependent. Related Data Home Medications Medication Instructions Recorded Confirmed albuterol sulfate 90 mcg/actuation 2 puff inhalation Q6-8H PRN 11/13/21 04/18/22 aerosol inhaler Shortness Of Breath aspirin 81 mg tablet 81 mg PO DAILY 11/13/21 04/18/22 wheat dextrin 5 gram/7.4 gram oral 5 g PO DAILY PRN Constipation 11/13/21 04/18/22 powder (Benefiber Healthy Shape) wheat dextrin 5 gram/7.4 gram oral g PO 04/15/22 04/18/22 powder (Benefiber Healthy Shape) Allergies Allergy/AdvReac Type Severity Reaction Status Date / Time No Known Drug Allergies Allergy Unknown Unknown Verified 04/18/22 14:08 Review of Systems Review of Systems: ROS unobtainable: Yes unobtainable due to mental status PMFSH Past Medical History Medical History Anemia of chronic disease Anxiety Ataxia, post-stroke Benign prostatic hyperplasia Brain cancer Status post tumor resection and chemoradiation. Breast enlargement Cerebrovascular accident Chronic respiratory failure Patient was to be using a BiPAP at nighttime however he states the mask does not fit well. Congestive heart failure Coronary artery disease involving [place] coronary artery of [place] heart Deep venous thrombosis Diabetes mellitus Hyperlipidemia Hypertension Mixed hyperlipidemia Oropharyngeal dysphagia Peripheral arterial disease Prostate cancer Right hemiparesis Seizure disorder Vitamin D deficiency Surgical History Surgical History History of cholecystectomy History of craniotomy With resection of brain tumor. History of heart artery stent Family History Family History Mother Patient's mother is in good health Sibling Patient's sister is in good health Patient's brother is in good health Other Family history of arthritis Family history of malignant neoplasm of brain Family history of pancreatic cancer Malignant neoplasm of prostate Social History Social History (Updated 06/04/22 @ 19:13 by Ele Wolf NP) Social History: The patient lives with his in [place]. He is on disability. Lifelong nonsmoker. No alcohol or illicit substance use. His Elke Bartholomew is his surrogate decision maker. Code status: Full code. Second hand tobacco smoke exposure: No Alcohol intake: never Substance use: never Substance use type: does not use Spiritual care concerns: No Exam Narrative: GENERAL: Chronically ill-appearing, well-nourished, and in no acute distress. HEAD: Normocephalic, atraumatic. EYES: PERRL and EOMI. ENT: Mucous membranes moist. CHEST: Clear to auscultation. No respiratory distress. HEART: Regular rate and rhythm. Normal peripheral pulses. ABDOMEN: Soft, nontender, nondistended. EXTREMITIES: Normal range of motion. No edema. SKIN: Warm, dry, no rash. NEURO: Alert and oriented x1. PSYCH: Normal mood and affect. Course Course Emergency Course: Admit for observation for hypercapnic respiratory failure. Patient placed on BiPAP 11/05. Vital Signs Vital signs: Vital Signs Temperature 98.1 F 06/04/22 15:11 Pulse Rate 89 06/04/22 15:11 Respiratory Rate 22 H 06/04/22 15:11 Pulse Oximetry 95 06/04/22 15:11 Oxygen Delivery Room Air 06/04/22 15:11 Temperature 98.1 F 06/04/22 15:11 Pulse Rate 79 06/04/22 21:08 Respiratory Rate 29 H 06/04/22 21:08 Blood Pressure 155/89 H 06/04/22 20:58 Pulse Oximetry 100 06/04/22 21:08
[2022-06-04 17:52] LABS: SARS-CoV-2 RNA PCR Negative
--- NOTE | 2022-06-04 18:24 | PM.IMHP ---
H&P: HPI History of Present Illness Date/Time: 06/04/22 18:24 Chief Complaint: sob and weakness Narrative: This is a 77-year-old male patient who came to the emergency room today with complaints of shortness of breath and weakness. The patient was placed on a BiPAP machine / with a PEEP of 18. Chest x-ray today shows small pleural effusions. Bibasilar airspace opacities likely atelectasis. H&H is 11.3 and 37.3 which is his baseline. Arterial blood gas today pH was normal CO2 was 68.6. This appears to be his baseline. The patient was given nebulizer treatments in the emergency room and placed on a BiPAP. (the patient was discharged from this hospital on 04/10/2022 where he had a CT scan and it showed moderate pleural effusion. Thoracentesis pulled 900 mL of hazy yellow fluid off. The patient was seen by oncologist and a PET scan was ordered. Please see oncology report and PET scan.) Review of Systems Review of Systems: All systems reviewed & are unremarkable except as noted in HPI and below Constitutional: Constitutional: Reports as per HPI and Reports no additional constitutional complaints Eyes: Eyes: Reports as per HPI and Reports no additional eye complaints ENT: Reports system reviewed and no additional complaints, except as documented and Reports Normal hearing present Cardiovascular: Cardiovascular: Reports no additional cardiovascular complaints Respiratory: Respiratory: Reports no additional respiratory complaints and Reports no additional respiratory complaints Gastrointestinal: Gastrointestinal: Reports as per HPI and Reports no additional gastrointestinal complaints Musculoskeletal: Musculoskeletal: Reports no additional musculoskeletal complaints Integumentary/Breasts: Skin/Breast: Reports system reviewed and no additional complaints, except as docu and Reports as per HPI Neurologic: Reports system reviewed and no additional complaints, except as documented, Reports as per HPI and Reports Normal hearing present Psychiatric: Psychiatric: Reports no additional psychiatric complaints and Reports as per HPI Endocrine: Endocrine: Reports no additional endocrine complaints Hematologic/Lymphatic: Hematologic/Lymphatic: Reports no additional hematologic/lymphatic complaints Allergic/Immunologic: Allergic/Immunologic: Reports no additional allergic/immunologic complaints [facility] Past Medical History Medical History Anemia of chronic disease Anxiety Ataxia, post-stroke Benign prostatic hyperplasia Brain cancer Status post tumor resection and chemoradiation. Breast enlargement Cerebrovascular accident Chronic respiratory failure Patient was to be using a BiPAP at nighttime however he states the mask does not fit well. Congestive heart failure Coronary artery disease involving [place] coronary artery of [place] heart Deep venous thrombosis Diabetes mellitus Hyperlipidemia Hypertension Mixed hyperlipidemia Oropharyngeal dysphagia Peripheral arterial disease Prostate cancer Right hemiparesis Seizure disorder Vitamin D deficiency Surgical History Surgical History History of cholecystectomy History of craniotomy With resection of brain tumor. History of heart artery stent Family History Family History Mother Patient's mother is in good health Sibling Patient's sister is in good health Patient's brother is in good health Other Family history of arthritis Family history of malignant neoplasm of brain Family history of pancreatic cancer Malignant neoplasm of prostate Social History Social History (Updated 06/04/22 @ 19:13 by Ele Wolf NP) Social History: The patient lives with his in [place]. He is on disability. Lifelong nonsmoker. No alcohol or illicit substance use. His Elke Bartholomew is his surroga
--- NOTE | 2022-06-04 19:18 | PC.NURSE ---
Assuming care of pt.
[2022-06-04] MEDS: ALBUTEROL SULFATE NEB 2.5 MG/3 ML INH 5 MG INHALATION (21:04)
[2022-06-04] MEDS: IPRATROPIUM BR 0.02% INH SOLN 0.5 MG/2.5 ML VIAL INHALATION (21:04)
[2022-06-04] MEDS: LORazepam INJ (*CRX) 2 MG/ML VIAL 0.5 MG IV PUSH (23:29)
--- NOTE | 2022-06-04 23:55 | ADMGEN ---
This patient, Angelo Bartholomew, was admitted to IMU Room 202-01 on 06/04/22 at 2310. Patient/family oriented to hospital policies and general routines including ID bracelet, bed and alarms, visiting hours, pain management, procedures, bathroom and other care routines, personal items, smoking policy, room service/diet, and visiting hours. Information on how to activate the Rapid Response Team has been discussed. Patient/Family are encouraged to report perceived risks to care and to ask questions if they do not understand what they are told or what they should do.
[2022-06-05] VITALS (28 sets, daily range): BP systolic 100–124; BP diastolic 46–64; PULSE 68–98; RESP 18–27; TEMP 36.5–37.4; O2SAT 94–100; BMI 23.6
[2022-06-05] MEDS: ALBUTEROL SULFATE NEB 2.5 MG/3 ML INH 5 MG INHALATION ×4 (02:32→20:00)
[2022-06-05] MEDS: IPRATROPIUM BR 0.02% INH SOLN 0.5 MG/2.5 ML VIAL INHALATION ×4 (02:32→20:00)
[2022-06-05 06:19] LABS: Basophils Percent Auto 0.2 % (0.2-1.2); Eosinophils Percent Auto 0.3 % (0-4.4); Hematocrit 35.1 % (42.0-52.0); Hemoglobin 10.9 g/dL (14.0-18.0); Immature Granulocyte Absolute 0.02 K/mm3 (0.00-0.031); Immature Granulocyte Percent A 0.2 % (0-0.5); Lymphocytes Absolute Auto 1.73 K/mm3 (0.9-3.2); Lymphocytes Percent Auto 18.1 % (18.3-44.2); Mean Corpuscular HGB Conc 31.1 g/dl (32-36); Mean Corpuscular Hemoglobin 31.8 pg (26-34); Mean Corpuscular Volume 102.3 fl (80-100); Mean Platelet Volume 10.5 fl (7.4-10.4); Monocytes Absolute Auto 0.8 K/mm3 (0.1-0.6); Monocytes Percent Auto 7.8 % (2.6-8.5); Neutrophils Percent Auto 73.4 % (45.5-73.1); Platelet Count Result 191 k/mm3 (150-375); Red Blood Count 3.43 M/mm3 (4.6-6.20); Red Cell Distribution Width 14.2 % (11.5-14.5); White Blood Count 9.6 K/mm3 (4.5-10.0)
[2022-06-05 06:56] LABS: Alanine Aminotransferase 21 U/L (6-50); Albumin Level 3.5 g/dL (3.5-5.1); Alkaline Phosphatase 92 U/L (38-126); Aspartate Amino Transferase 25 U/L (17-59); Bilirubin,Total 0.4 mg/dL (0.2-1.3); Blood Urea Nitrogen 26 mg/dL (9-20); Calcium 8.4 mg/dL (8.4-10.2); Carbon Dioxide > 40 mmol/L (22-30); Chloride 92 mmol/L (98-107); Estimated CRCL calculation 45 ml/min; Estimated Glomerular Filt Rate > 60; Glucose 109 mg/dL (65-110); Lactate Dehydrogenase 391 U/L (313-618); Sodium 142 mmol/L (137-145)
[2022-06-05 08:47] LABS: Glucose Point of Care 94 mg/dl (65-105)
[2022-06-05] MEDS: CHOLECALCIFEROL 1,000 UNITS TABLET 2000 UNITS PO (09:17)
[2022-06-05] MEDS: FUROSEMIDE 40 MG TABLET PO (09:17)
[2022-06-05] MEDS: levETIRAcetam 500 MG TABLET 1000 MG PO ×2 (09:17→22:06)
[2022-06-05] MEDS: PANTOPRAZOLE 40 MG TABLET PO (09:18)
[2022-06-05] MEDS: ASPIRIN 81 MG CHEWABLE TABLET PO (09:18)
[2022-06-05] MEDS: ATORVASTATIN 10 MG TABLET PO (09:18)
[2022-06-05] MEDS: TAMSULOSIN HCL 0.4 MG CAPSULE PO (09:18)
[2022-06-05] MEDS: APIXABAN 5 MG TABLET PO ×2 (09:18→22:06)
[2022-06-05 12:19] LABS: Glucose Point of Care 158 mg/dl (65-105)
[2022-06-05 16:53] LABS: Glucose Point of Care 111 mg/dl (65-105)
--- NOTE | 2022-06-05 17:42 | PM.IMPN ---
Progress Note: A&P Assessment and Plan (1) Acute respiratory failure with hypercapnia: Code(s): J96.02 - Acute respiratory failure with hypercapnia Status: Acute Assessment and Plan: The patient has a history of hypercapnia. It was noted in the past history that he uses a BiPAP at night. However the patient is on BiPAP tonight and he is requesting to take it off. The patient is answering in full sentences. He is becoming very agitated with the BiPAP. However his pH is normal. His chest x-ray shows small right pleural effusion. The patient has had a PET scan has seen Oncology please see the Oncology and the PET scan notes. 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 PET scan done on May 23 showed no enlarged lymphadenopathy and continued moderate-sized right-sided pleural effusion, there was mild prostatomegaly with diffuse uptake throughout the prostate that was nonspecific, PSA pending. He does have a history of prostate cancer in 2011 status post radiation therapy. 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 Patient does not appear to be on any medication for his blood sugars. (3) Anemia of chronic disease: Code(s): D63.8 - Anemia in other chronic diseases classified elsewhere Status: Acute Assessment and Plan: The patient is at his baseline. Continue to monitor. (4) Anxiety: Code(s): F41.9 - Anxiety disorder, unspecified Status: Acute Assessment and Plan: The patient has p.r.n. Ativan. (5) Seizure disorder: Code(s): G40.909 - Epilepsy, unspecified, not intractable, without status epilepticus Status: Acute Assessment and Plan: Continue with home medications. (6) Mixed hyperlipidemia: Code(s): E78.2 - Mixed hyperlipidemia Status: Acute Assessment and Plan: Continue with home medications. (7) Pulmonary embolism: Qualifiers: Pulmonary embolism type: unspecified Chronicity: acute Acute cor pulmonale presence: unspecified Qualified Code(s): I26.99 - Other pulmonary embolism without acute cor pulmonale Code(s): I26.99 - Other pulmonary embolism without acute cor pulmonale Status: Acute Assessment and Plan: Continue with anticoagulation (8) PVCs (premature ventricular contractions): Code(s): I49.3 - Ventricular premature depolarization Status: Acute Assessment and Plan: Only an occasional PVC was noted. (9) CAD (coronary artery disease): Code(s): I25.10 - Atherosclerotic heart disease of [place] coronary artery without angina pectoris Status: Acute Assessment and Plan: Continue with home medications. Subjective Date/time seen: 06/05/22 17:42 Interval history: Patient was very sleepy. He does wake up to answer questions and participate with exam. No overnight events noted. No chest pain or shortness of breath. No nausea, vomiting or diarrhea. No fevers or chills. Review of Systems Review of Systems: 12 point review of systems was assessed and was negative except as noted in the HPI Exam Narrative: General: Somnolent, easily arousable HEENT: Atraumatic, normocephalic, mucous membranes moist CV: Regular rate and rhythm, S1, S2 Lungs: Crackles throughout both lungs, good air entry Abdomen: Soft, nontender, nondistended Extremities: Normal to inspection Skin: No rashes noted, no lesions or wounds seen Psych: Euthymic, normal affect Objective Da
[2022-06-05 18:16] LABS: Alveolar/Arterial O2 Gradient 35.5 mmHg; Base Excess ABG 15.3 mEq/l (+/-2.0); Fractional Inspired Oxygen 21 %; HCO3 ABG 41.6 mEq/l (22.0-26.0); Oxygen Content ABG 13.3 %vol (16.0-22.0); PO2 FiO2 Ratio Arterial Blood 2.08 %; pH ABG 7.466 (7.350-7.450)
[2022-06-05 18:18] LABS: PO2 ABG 43.6 mmHg (80.0-100.0)
[2022-06-05 18:19] LABS: Device ROOM AIR; Modified Allen's Test Pass; Oxygen Saturation ABG 80.8 % (95.0-100.0); Oxyhemoglobin 79.2 % THb (90.0-100.0); Site Drawn RIGHT RADIAL
[2022-06-05 19:38] LABS: Glucose Point of Care 177 mg/dl (65-105)
[2022-06-05 21:51] LABS: Alveolar/Arterial O2 Gradient 93.1 mmHg; Fractional Inspired Oxygen 40 %; HCO3 ABG 47.6 mEq/l (22.0-26.0); Oxygen Content ABG 15.7 %vol (16.0-22.0); Oxyhemoglobin 96.6 % THb (90.0-100.0); PO2 ABG 109.8 mmHg (80.0-100.0); PO2 FiO2 Ratio Arterial Blood 2.75 %; Total Hemoglobin 11.4 g/dL (12.0-18.0); pH ABG 7.441 (7.350-7.450)
[2022-06-05 21:54] LABS: PCO2 ABG 71.6 mmHg (35.0-45.0)
[2022-06-05 21:55] LABS: Device NON-INVASIVE VENT; Modified Allen's Test Pass; Non-Invasive Expiratory Pressure 6 CMH2O; Non-Invasive Inspiratory Pressure 12 CMH2O; Non-Invasive Vent Rate 18 /MIN; Site Drawn RIGHT BRACHIAL
[2022-06-06] VITALS (26 sets, daily range): BP systolic 109–121; BP diastolic 45–60; PULSE 78–92; RESP 18–30; TEMP 36.4–36.8; O2SAT 95–100
[2022-06-06] MEDS: ALBUTEROL SULFATE NEB 2.5 MG/3 ML INH 5 MG INHALATION ×4 (01:46→19:49)
[2022-06-06] MEDS: IPRATROPIUM BR 0.02% INH SOLN 0.5 MG/2.5 ML VIAL INHALATION ×4 (01:46→19:49)
[2022-06-06 06:36] LABS: Alveolar/Arterial O2 Gradient 76.5 mmHg; Base Excess ABG 19.7 mEq/l (+/-2.0); Carboxyhemoglobin 0.3 % THb (0-2.0); Fractional Inspired Oxygen 40 %; HCO3 ABG 46.8 mEq/l (22.0-26.0); Methemoglobin ABG 0.6 %THb (0-1.5); Oxygen Content ABG 16.5 %vol (16.0-22.0); Oxygen Saturation ABG 98.7 % (95.0-100.0); PO2 ABG 132.1 mmHg (80.0-100.0); Reduced Hemoglobin 2.1 %THb (0-5.0); Total Hemoglobin 11.9 g/dL (12.0-18.0); pH ABG 7.465 (7.350-7.450)
[2022-06-06 06:41] LABS: Device NON-INVASIVE VENT; Modified Allen's Test Pass; PCO2 ABG 66.6 mmHg (35.0-45.0); Site Drawn RIGHT RADIAL
[2022-06-06 06:42] LABS: Non-Invasive Expiratory Pressure 6 CMH2O; Non-Invasive Inspiratory Pressure 12 CMH2O; Non-Invasive Vent Rate 18 /MIN
[2022-06-06 08:41] LABS: Glucose Point of Care 115 mg/dl (65-105)
[2022-06-06] MEDS: ASPIRIN 81 MG CHEWABLE TABLET PO (08:46)
[2022-06-06] MEDS: TAMSULOSIN HCL 0.4 MG CAPSULE PO (08:46)
[2022-06-06] MEDS: ATORVASTATIN 10 MG TABLET PO (08:47)
[2022-06-06] MEDS: APIXABAN 5 MG TABLET PO ×2 (08:47→20:25)
[2022-06-06] MEDS: PANTOPRAZOLE 40 MG TABLET PO (08:47)
[2022-06-06] MEDS: CHOLECALCIFEROL 1,000 UNITS TABLET 2000 UNITS PO (08:47)
[2022-06-06] MEDS: levETIRAcetam 500 MG TABLET 1000 MG PO ×2 (08:47→20:25)
[2022-06-06] MEDS: FUROSEMIDE 40 MG TABLET PO (08:47)
[2022-06-06 09:31] LABS: Basophils Percent Auto 0.2 % (0.2-1.2); Eosinophils Absolute Auto 0.1 K/mm3 (0-0.3); Eosinophils Percent Auto 1.4 % (0-4.4); Hematocrit 33.6 % (42.0-52.0); Hemoglobin 10.4 g/dL (14.0-18.0); Immature Granulocyte Absolute 0.05 K/mm3 (0.00-0.031); Immature Granulocyte Percent A 0.5 % (0-0.5); Lymphocytes Absolute Auto 2.07 K/mm3 (0.9-3.2); Lymphocytes Percent Auto 21.9 % (18.3-44.2); Mean Corpuscular Hemoglobin 32.4 pg (26-34); Mean Corpuscular Volume 104.7 fl (80-100); Mean Platelet Volume 10.2 fl (7.4-10.4); Monocytes Absolute Auto 0.9 K/mm3 (0.1-0.6); Monocytes Percent Auto 9.8 % (2.6-8.5); Neutrophils Absolute Auto 6.3 K/mm3 (1.3-6.7); Neutrophils Percent Auto 66.2 % (45.5-73.1); Platelet Count Result 185 k/mm3 (150-375); Red Blood Count 3.21 M/mm3 (4.6-6.20); Red Cell Distribution Width 14.7 % (11.5-14.5); White Blood Count 9.5 K/mm3 (4.5-10.0)
[2022-06-06 09:46] LABS: Alanine Aminotransferase 22 U/L (6-50); Albumin Level 3.6 g/dL (3.5-5.1); Alkaline Phosphatase 87 U/L (38-126); Aspartate Amino Transferase 22 U/L (17-59); Bilirubin,Total 0.6 mg/dL (0.2-1.3); Blood Urea Nitrogen 28 mg/dL (9-20); Calcium 8.5 mg/dL (8.4-10.2); Carbon Dioxide > 40 mmol/L (22-30); Chloride 95 mmol/L (98-107); Estimated CRCL calculation 39 ml/min; Estimated Glomerular Filt Rate 53; Glucose 108 mg/dL (65-110); Potassium 4.2 mmol/L (3.4-5.0); Sodium 143 mmol/L (137-145)
[2022-06-06 12:40] LABS: Glucose Point of Care 228 mg/dl (65-105)
[2022-06-06] MEDS: INSULIN ASPART (*BKC) 100 UNITS/ML SUB-Q (13:00)
--- NOTE | 2022-06-06 15:39 | PM.IMPN ---
Progress Note: A&P Assessment and Plan (1) Acute respiratory failure with hypercapnia: Code(s): J96.02 - Acute respiratory failure with hypercapnia Status: Acute Assessment and Plan: The patient has a history of hypercapnia. It was noted in the past history that he uses a BiPAP at night. However the patient is on BiPAP tonight and he is requesting to take it off. The patient is answering in full sentences. He is becoming very agitated with the BiPAP. However his pH is normal. His chest x-ray shows small right pleural effusion. The patient has had a PET scan has seen Oncology please see the Oncology and the PET scan notes. 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 PET scan done on May 23 showed no enlarged lymphadenopathy and continued moderate-sized right-sided pleural effusion, there was mild prostatomegaly with diffuse uptake throughout the prostate that was nonspecific, PSA pending. He does have a history of prostate cancer in 2011 status post radiation therapy. 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 Patient does not appear to be on any medication for his blood sugars. (3) Anemia of chronic disease: Code(s): D63.8 - Anemia in other chronic diseases classified elsewhere Status: Acute Assessment and Plan: The patient is at his baseline. Continue to monitor. (4) Anxiety: Code(s): F41.9 - Anxiety disorder, unspecified Status: Acute Assessment and Plan: The patient has p.r.n. Ativan. (5) Seizure disorder: Code(s): G40.909 - Epilepsy, unspecified, not intractable, without status epilepticus Status: Acute Assessment and Plan: Continue with home medications. (6) Mixed hyperlipidemia: Code(s): E78.2 - Mixed hyperlipidemia Status: Acute Assessment and Plan: Continue with home medications. (7) Pulmonary embolism: Qualifiers: Acute cor pulmonale presence: unspecified Chronicity: acute Pulmonary embolism type: unspecified Qualified Code(s): I26.99 - Other pulmonary embolism without acute cor pulmonale Code(s): I26.99 - Other pulmonary embolism without acute cor pulmonale Status: Acute Assessment and Plan: Continue with anticoagulation (8) PVCs (premature ventricular contractions): Code(s): I49.3 - Ventricular premature depolarization Status: Acute Assessment and Plan: Only an occasional PVC was noted. (9) CAD (coronary artery disease): Code(s): I25.10 - Atherosclerotic heart disease of [place] coronary artery without angina pectoris Status: Acute Assessment and Plan: Continue with home medications. Subjective Date/time seen: 06/06/22 15:39 Interval history: Patient remains somewhat somnolent. Easily arousable, no complaints. No overnight events noted. No chest pain or shortness of breath. No nausea, vomiting or diarrhea. No fevers or chills. Review of Systems Review of Systems: 12 point review of systems was assessed and was negative except as noted in the HPI Exam Narrative: General: Somnolent, easily arousable HEENT: Atraumatic, normocephalic, mucous membranes moist CV: Regular rate and rhythm, S1, S2 Lungs: Crackles throughout both lungs, good air entry Ab
[2022-06-06 16:42] LABS: Glucose Point of Care 120 mg/dl (65-105)
[2022-06-06 21:53] LABS: Glucose Point of Care 158 mg/dl (65-105)
[2022-06-07] VITALS (25 sets, daily range): BP systolic 105–125; BP diastolic 44–51; PULSE 75–89; RESP 18–40; TEMP 36.2–36.8; O2SAT 91–100
[2022-06-07] MEDS: IPRATROPIUM BR 0.02% INH SOLN 0.5 MG/2.5 ML VIAL INHALATION ×4 (01:30→20:47)
[2022-06-07] MEDS: ALBUTEROL SULFATE NEB 2.5 MG/3 ML INH 5 MG INHALATION ×4 (01:30→20:47)
[2022-06-07] MEDS: LORazepam INJ (*CRX) 2 MG/ML VIAL 0.5 MG IV PUSH (01:36)
[2022-06-07 05:00] LABS: Basophils Percent Auto 0.3 % (0.2-1.2); Eosinophils Absolute Auto 0.2 K/mm3 (0-0.3); Eosinophils Percent Auto 2.2 % (0-4.4); Hematocrit 31.8 % (42.0-52.0); Immature Granulocyte Absolute 0.03 K/mm3 (0.00-0.031); Immature Granulocyte Percent A 0.3 % (0-0.5); Lymphocytes Percent Auto 18.2 % (18.3-44.2); Mean Corpuscular HGB Conc 31.4 g/dl (32-36); Mean Corpuscular Hemoglobin 32.8 pg (26-34); Mean Corpuscular Volume 104.3 fl (80-100); Mean Platelet Volume 10.5 fl (7.4-10.4); Monocytes Percent Auto 10.8 % (2.6-8.5); Neutrophils Percent Auto 68.2 % (45.5-73.1); Platelet Count Result 194 k/mm3 (150-375); Red Blood Count 3.05 M/mm3 (4.6-6.20); Red Cell Distribution Width 14.5 % (11.5-14.5); White Blood Count 8.8 K/mm3 (4.5-10.0)
[2022-06-07 05:28] LABS: Alanine Aminotransferase 21 U/L (6-50); Albumin Level 3.4 g/dL (3.5-5.1); Alkaline Phosphatase 80 U/L (38-126); Aspartate Amino Transferase 24 U/L (17-59); Bilirubin,Total 0.5 mg/dL (0.2-1.3); Blood Urea Nitrogen 25 mg/dL (9-20); Calcium 8.5 mg/dL (8.4-10.2); Carbon Dioxide > 40 mmol/L (22-30); Chloride 94 mmol/L (98-107); Estimated CRCL calculation 42 ml/min; Estimated Glomerular Filt Rate 58; Glucose 111 mg/dL (65-110); Potassium 3.9 mmol/L (3.4-5.0); Sodium 140 mmol/L (137-145)
--- NOTE | 2022-06-07 08:10 | PM.IMPN ---
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 PET scan done on May 23 showed no enlarged lymphadenopathy and continued moderate-sized right-sided pleural effusion, there was mild prostatomegaly with diffuse uptake throughout the prostate that was nonspecific, PSA pending. He does have a history of prostate cancer in 2012 status post radiation therapy. PSA from May 30 was 17.4, concerning for recurrence of prostate cancer, prior PSAs not available for comparison 06/06: Repeat ABG improved although still showing consistent hypercapnia, suspect this is patient's baseline, will attempt to wean off BiPAP, appreciate pulmonology and oncology consultations 06/07: Pulmonology consult pending, suspect patient's respiratory status is secondary to underlying lung cancer as well as chronic hypercapnic failure, continue to attempt to wean BiPAP, chest x-ray on June 04 showed small pleural effusions with atelectasis, recheck chest x-ray pending today. No signs of infection contributing to patient's respiratory failure. Will attempt IV diuresis today and assess affect on respiratory status. Oncology ordered CT chest to evaluate for possible thoracentesis. 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 Patient does not appear to be on any medication for his blood sugars. 06/07: Blood sugars continue to be stable (3) Anemia of chronic disease: Code(s): D63.8 - Anemia in other chronic diseases classified elsewhere Status: Acute Assessment and Plan: The patient is at his baseline. Continue to monitor. (4) Anxiety: Code(s): F41.9 - Anxiety disorder, unspecified Status: Acute Assessment and Plan: The patient has p.r.n. Ativan. (5) Seizure disorder: Code(s): G40.909 - Epilepsy, unspecified, not intractable, without status epilepticus Status: Acute Assessment and Plan: Continue with home medications. (6) Mixed hyperlipidemia: Code(s): E78.2 - Mixed hyperlipidemia Status: Acute Assessment and Plan: Continue with home medications. (7) Pulmonary embolism: Qualifiers: Acute cor pulmonale presence: unspecified Chronicity: acute Pulmonary embolism type: unspecified Qualified Code(s): I26.99 - Other pulmonary embolism without acute cor pulmonale Code(s): I26.99 - Other pulmonary embolism without acute cor pulmonale Status: Acute Assessment and Plan: Continue with anticoagulation with Eliquis (8) PVCs (premature ventricular contractions): Code(s): I49.3 - Ventricular premature depolarization Status: Acute Assessment and Plan: Only an occasional PVC was noted. (9) CAD (coronary artery disease): Code(s): I25.10 - Atherosclerotic heart disease of [place] coronary artery without angina pectoris Status: Acute Assessment and Plan: Continue with home medications. (10) Diastolic heart failure: Code(s): I50.30 - Unspecified diastolic (congestive) heart failure Status: Acute Assessment and Plan: Echo from October 2021 showed grade 1 diastolic dysfunction, EF 65-70% ECG from June 04, 2022 showed left bundle-branch block, sinus rhythm otherwise Currently receiving Lasix 40 mg p.o. daily, will switch to IV diuresis and follow up chest x-ray
[2022-06-07 08:24] LABS: Glucose Point of Care 83 mg/dl (65-105)
[2022-06-07] MEDS: ATORVASTATIN 10 MG TABLET PO (08:39)
[2022-06-07] MEDS: CHOLECALCIFEROL 1,000 UNITS TABLET 2000 UNITS PO (08:39)
[2022-06-07] MEDS: PANTOPRAZOLE 40 MG TABLET PO (08:39)
[2022-06-07] MEDS: ASPIRIN 81 MG CHEWABLE TABLET PO (08:39)
[2022-06-07] MEDS: TAMSULOSIN HCL 0.4 MG CAPSULE PO (08:39)
[2022-06-07] MEDS: APIXABAN 5 MG TABLET PO (08:39)
[2022-06-07] MEDS: FUROSEMIDE 40 MG TABLET PO (08:39)
[2022-06-07] MEDS: levETIRAcetam 500 MG TABLET 1000 MG PO ×2 (08:39→20:56)
--- NOTE | 2022-06-07 12:20 | PCNFU ---
Nutrition Follow-Up Complete: Inadequate energy intake related to poor appetite as evidenced by MST score 2. Goal: Adequate intake of at least 50%. - Pt is not meeting goal, continue current goal. Pt current nutrition is Pureed heart healthy. Last recorded weight is 68.4 kg, down .1kg from initial visit on 06/05. Bowel Motility: +BM recorded on 06/07 Labs Reviewed: Hgb 10, Hct 31.8, Alb 3.4, GFR 58, BUN 25, Glu 111 Meds Noted: Eliquis, Lasix, Novolog, Zofran, Vitamin D Skin: WNL Additional Notes: Pt is eating 30% of his meals. Pt reports his UBW to be around 160lbs, and a wt loss of 10lbs within 6 months. Pt reports a good appetite but may benefit from assistance eating. Pt was instructed to try and eat at least half of his meals and drink his Ensure Compact supplements BID providing 220kcal, 9gm pro each. Agree with diet orders. Monitor intake, weight, and labs, and follow up in 5 days.
[2022-06-07 12:26] LABS: Glucose Point of Care 175 mg/dl (65-105)
--- NOTE | 2022-06-07 13:56 | PCNSR ---
On 06/07/22, the student, Urbano Pratt, provided care and completed [facility] documentation on this patient. I have reviewed the student's documentation and agree with the findings.
--- NOTE | 2022-06-07 16:32 | PDONCCN ---
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 Patient was seen in the office recently and plan was to repeat thoracentesis and cytology prior to starting treatment with Rituxan. He came into the hospital with worsening shortness of breath and generalized weakness. Patient is a poor historian. Chest x-ray showed small bilateral pleural effusion. Labs showed mild anemia with hemoglobin of 11.3. Patient is a poor historian. Review of Systems - Review of Systems All systems reviewed & are unremarkable except as noted in HPI and bel - Neurologic Reports system reviewed and no additional complaints, except as documented, Reports hearing normal [facility] Medical History: Medical History (Last Reviewed 06/04/22 @ 19:10 by Ele Wolf NP) Anemia of chronic disease Anxiety Ataxia, post-stroke Benign prostatic hyperplasia Brain cancer Status post tumor resection and chemoradiation. Breast enlargement Cerebrovascular accident Chronic respiratory failure Patient was to be using a BiPAP at nighttime however he states the mask does not fit well. Congestive heart failure Coronary artery disease involving [place] coronary artery of [place] heart Deep venous thrombosis Diabetes mellitus Hyperlipidemia Hypertension Mixed hyperlipidemia Oropharyngeal dysphagia Peripheral arterial disease Prostate cancer Right hemiparesis Seizure disorder Vitamin D deficiency Surgical History: Surgical History (Last Reviewed 06/04/22 @ 19:12 by Ele Wolf NP) History of cholecystectomy History of craniotomy With resection of brain tumor. History of heart artery stent Family History: Family History (Last Reviewed 06/04/22 @ 19:12 by Ele Wolf NP) Mother Patient's mother is in good health Sibling Patient's sister is in good health Patient's brother is in good health Other Family history of arthritis Family history of malignant neoplasm of brain Family history of pancreatic cancer Malignant neoplasm of prostate - Social History Social History: Social History (Last Updated 06/04/22 @ 19:13 by Ele Wolf NP) Alcohol Use: Alcohol intake: never Substance Use: Substance use: never Substance use type: does not use Others: Spiritual care concerns: No Smoking Status: Smoking status: Never smoker Second hand tobacco smoke exposure: No Meds Home Medications Medication Instructions Recorded Confirmed Type albuterol sulfate 90 mcg/actuation 2 puff inhalation Q6-8H PRN 11/13/21 06/04/22 History aerosol inhaler Shortness Of Breath aspirin 81 mg tablet 81 mg PO DAILY 11/13/21 06/04/22 History wheat dextrin 5 gram/7.4 gram oral 5 g PO DAILY PRN Constipation 11/13/21 06/04/22 History powder (Benefiber Healthy Shape) furosemide 40 mg tablet (Lasix) 40 mg PO QAM #90 tabs 01/01/22 06/04/22 Rx tamsulosin 0.4 mg capsule 0.4 mg PO DAILY #90 caps 03/25/22 06/04/22 Rx apixaban 5 mg tablet (Eliquis) 5 mg PO Q12HR #60 tabs 04/30/22 06/04/22 Rx cholecalciferol (vitamin D3) 50 50 mcg PO DAILY #30 tabs 04/30/22 06/04/22 Rx mcg (2,000 unit) tablet atorvastatin 10 mg tablet 10 mg PO DAILY #90 tabs 05/07/22 06/04/22 Rx pantoprazole 40 mg tablet,delayed 40 mg PO DAILY #90 tabs 05/07/22 06/04/22 Rx release levetiracetam 500 mg tablet 1,000 mg PO BID 30 days #30 tabs 05/26/22 06/04/22 Rx (Keppra) Allergies Allergy/AdvReac Type Severity Reaction Status Date / Time No Known Drug Allergies Allergy Unknown Unknown Verified 04/18/22 14:08 Results - Labs CBC & Chem 7: [id number]
--- NOTE | 2022-06-07 16:44 | PM.CNPUL ---
Assessment and Plan Assessment and plan (1) Respiratory failure with hypoxia and hypercapnia: Code(s): J96.91 - Respiratory failure, unspecified with hypoxia; J96.92 - Respiratory failure, unspecified with hypercapnia Status: Acute Assessment and Plan: This is acute on chronic hypercapnic hypoxemia respiratory failure, pCO2 is elevated. It is not clear what is the underlying cause. He does not have a history of tobacco use, ever. He does not have obesity hypoventilation, BMI is 23. He has lost weight over the last few years, however his BMI has generally been less than 30. He has kyphosis, and this may cause a restrictive limitation which could increase his CO2 retention. His chart has CHF listed, however cardiology notes do not list that as a problem. He does not appear decompensated at present. His last echo was Aug, normal EF 60-65%. His chart says that he has a BiPAP at home, buit I do not see any sleep studies, etc or orders. Will ask about this. I am not clear why he has this diagnosis, and there are no PFTs. Without obstruction, the albuterol and ipratropium are medications looking for a disease. It does not matter if he continues these, and if he gets some benefit, he can still have them. I would not wake him to give a treatment. ABG yesterday : pH 7.46 ; pCO2 66.6; pO2 132.1 ; HC03 46.8; saturation 97% on BiPAP / with 40%. This is a mixed acid-base gas with respiratory acidosis and metabolic alkalosis. He needs O2 to be weaned and acetazolamide. He will need a thoracentesis, see below. (2) Pleural effusion: Code(s): J90 - Pleural effusion, not elsewhere classified Status: Acute Assessment and Plan: He would benefit from a repeat thoracentesis for his recurrent malignant pleural effusion. He had a 900 ml thoracentesis on the right April 09 showing cells consistent with B cell lymphoma. Dr Villasenor wants a repeat tap, and he planned for the patient to have this as an outpatient. I stopped his apixaban for a thoracentesis which is a low risk procedure. Will order this through Interventional Radiology. This will be therapeutic, as he has at least a large volume which is contributing to his shortness of breath. I am not sure of the exact number of days this has to be held, so the procedure may be early next week. (3) Pulmonary hypertension: Code(s): I27.20 - Pulmonary hypertension, unspecified Status: Acute Assessment and Plan: He has severe pulmonary hypertension which is most likely secondary to hypoxemia and thromboembolic disease. His PA systolic pressure on echo Sep 12, 2021 was 86 mmHg, he has a history of remote DVT, PE in October which was small, has required O2 during 2020 or longer. He does not have a known autoimmune illness. I will order an TAMIKO cascade. This is not going to help acutely, however he needs it with his assortment of illness and anemia, DVT/PE, and pulmonary hypertension. Best approach for his P HTN is to optimize all his conditions contributing to it. History of Present Illness History of Present Illness Consult date: 06/07/22 Requesting physician: Brittany Doyle DO Reason for consult: pleural effusion (Right side) Chief complaint: hypercapnic respiratory failure Narrative: I spoke with his Elke Bartholomew on the phone for more history which is incorporated into this consultation. NEW: Angelo Bartholomew is a 77 year old man admitted with weakness and shortness of breath with a large recurrent malignant right pleural effusion. Pulmonary is consulted for his acute and chronic hypercapnic hypoxemic respiratory failure and pleural effusion. He was admitted June 04 with worsening shortness of breath and weakness. His said that he fell at home, his oxygen satura
[2022-06-07 17:17] LABS: Glucose Point of Care 136 mg/dl (65-105)
[2022-06-07] MEDS: FUROSEMIDE INJ 40 MG/4 ML VIAL IV PUSH (17:29)
[2022-06-07 20:07] LABS: Glucose Point of Care 207 mg/dl (65-105)
[2022-06-07] MEDS: acetaZOLAMIDE SODIUM FOR INJ 500 MG VIAL IV PUSH (20:57)
[2022-06-07] MEDS: WATER, STERILE FOR INJECTION 10 ML VIAL XX (20:57)
[2022-06-08] VITALS (22 sets, daily range): BP systolic 96–112; BP diastolic 41–58; PULSE 72–91; RESP 16–22; TEMP 36.4–36.8; O2SAT 96–100
[2022-06-08] MEDS: ALBUTEROL SULFATE NEB 2.5 MG/3 ML INH 5 MG INHALATION ×4 (02:44→20:01)
[2022-06-08] MEDS: IPRATROPIUM BR 0.02% INH SOLN 0.5 MG/2.5 ML VIAL INHALATION ×4 (02:45→20:01)
[2022-06-08 05:17] LABS: Basophils Percent Auto 0.3 % (0.2-1.2); Eosinophils Absolute Auto 0.2 K/mm3 (0-0.3); Eosinophils Percent Auto 2.7 % (0-4.4); Hematocrit 35.8 % (42.0-52.0); Hemoglobin 10.9 g/dL (14.0-18.0); Immature Granulocyte Absolute 0.03 K/mm3 (0.00-0.031); Immature Granulocyte Percent A 0.4 % (0-0.5); Lymphocytes Absolute Auto 1.71 K/mm3 (0.9-3.2); Lymphocytes Percent Auto 21.9 % (18.3-44.2); Mean Corpuscular HGB Conc 30.4 g/dl (32-36); Mean Corpuscular Hemoglobin 31.9 pg (26-34); Mean Corpuscular Volume 104.7 fl (80-100); Mean Platelet Volume 10.2 fl (7.4-10.4); Monocytes Absolute Auto 0.7 K/mm3 (0.1-0.6); Monocytes Percent Auto 9.4 % (2.6-8.5); Neutrophils Absolute Auto 5.1 K/mm3 (1.3-6.7); Neutrophils Percent Auto 65.3 % (45.5-73.1); Platelet Count Result 205 k/mm3 (150-375); Red Blood Count 3.42 M/mm3 (4.6-6.20); Red Cell Distribution Width 14.1 % (11.5-14.5); White Blood Count 7.8 K/mm3 (4.5-10.0)
[2022-06-08 05:35] LABS: Alanine Aminotransferase 29 U/L (6-50); Albumin Level 3.7 g/dL (3.5-5.1); Alkaline Phosphatase 89 U/L (38-126); Aspartate Amino Transferase 33 U/L (17-59); Bilirubin,Total 0.4 mg/dL (0.2-1.3); Blood Urea Nitrogen 23 mg/dL (9-20); Calcium 8.8 mg/dL (8.4-10.2); Carbon Dioxide > 40 mmol/L (22-30); Chloride 94 mmol/L (98-107); Estimated CRCL calculation 34 ml/min; Estimated Glomerular Filt Rate 45; Glucose 101 mg/dL (65-110); Potassium 4.2 mmol/L (3.4-5.0); Sodium 138 mmol/L (137-145)
[2022-06-08 08:23] LABS: Glucose Point of Care 89 mg/dl (65-105)
[2022-06-08] MEDS: ASPIRIN 81 MG CHEWABLE TABLET PO (08:28)
[2022-06-08] MEDS: levETIRAcetam 500 MG TABLET 1000 MG PO ×2 (08:28→21:16)
[2022-06-08] MEDS: CHOLECALCIFEROL 1,000 UNITS TABLET 2000 UNITS PO (08:28)
[2022-06-08] MEDS: ATORVASTATIN 10 MG TABLET PO (08:28)
[2022-06-08] MEDS: PANTOPRAZOLE 40 MG TABLET PO (08:28)
[2022-06-08] MEDS: FUROSEMIDE INJ 40 MG/4 ML VIAL IV PUSH ×2 (08:28→16:20)
[2022-06-08] MEDS: TAMSULOSIN HCL 0.4 MG CAPSULE PO (08:28)
--- NOTE | 2022-06-08 09:37 | PM.IMPN ---
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 PET scan done on May 23 showed no enlarged lymphadenopathy and continued moderate-sized right-sided pleural effusion, there was mild prostatomegaly with diffuse uptake throughout the prostate that was nonspecific, PSA pending. He does have a history of prostate cancer in 2012 status post radiation therapy. PSA from May 30 was 17.4, concerning for recurrence of prostate cancer, prior PSAs not available for comparison 06/06: Repeat ABG improved although still showing consistent hypercapnia, suspect this is patient's baseline, will attempt to wean off BiPAP, appreciate pulmonology and oncology consultations 06/07: Pulmonology consult pending, suspect patient's respiratory status is secondary to underlying lung cancer as well as chronic hypercapnic failure, continue to attempt to wean BiPAP, chest x-ray on June 04 showed small pleural effusions with atelectasis, recheck chest x-ray pending today. No signs of infection contributing to patient's respiratory failure. Will attempt IV diuresis today and assess affect on respiratory status. Oncology ordered CT chest to evaluate for possible thoracentesis. 06/08: Appreciate pulmonology consult, suspect patient has acute on chronic hypercapnic hypoxemic respiratory failure likely secondary to OHS compounded by DAVID, small component of diastolic heart failure--but appears euvolemic, kyphosis affects restriction which also will elevate hypercapnia. Pulmonology would like to do outpatient sleep study and PFTs. They recommended a thoracentesis which is ordered by Franca TIPTON being held. They also recommended weaning the oxygen and adding a 1 time dose of acetazolamide. Their note comments on pulmonary hypertension with a PA systolic pressure of 86 mmHg seen on an echo done in August of 2021. All that I can find is an echo done in October of 2021 showing no pulmonary hypertension with a PA systolic pressure of 18 mmHg. ABG ordered for today. Results pending. (2) Controlled diabetes mellitus type II without complication: Qualifiers: Diabetes mellitus mcc insulin use: without rn long term care use Qualified Code(s): E11.9 - Type 2 diabetes mellitus without complications Code(s): E11.9 - Type 2 diabetes mellitus without complications Status: Acute Assessment and Plan: Accu-Cheks AC and HS. Patient does not appear to be on any medication for his blood sugars. 06/07: Blood sugars continue to be stable (3) Anemia of chronic disease: Code(s): D63.8 - Anemia in other chronic diseases classified elsewhere Status: Acute Assessment and Plan: The patient is at his baseline. Continue to monitor. (4) Anxiety: Code(s): F41.9 - Anxiety disorder, unspecified Status: Acute Assessment and Plan: The patient has p.r.n. Ativan. (5) Seizure disorder: Code(s): G40.909 - Epilepsy, unspecified, not intractable, without status epilepticus Status: Acute Assessment and Plan: Continue with home medications. (6) Mixed hyperlipidemia: Code(s): E78.2 - Mixed hyperlipidemia Status: Acute Assessment and Plan: Continue with home medications. (7) Pulmonary embolism: Qualifiers: Acute cor pulmonale presence: unspecified Chronicity: acute Pulmonary embolism type: unspecified Qualified Code(s): I26.99 - Other pulmonary embolism without acute cor pulmonale Code(s): I26.99 - Other pulmonary embolism without acute cor pulmonale Status: Acute Assessment and Plan: Continue with anticoagulation with Eliquis
[2022-06-08 10:23] LABS: Alveolar/Arterial O2 Gradient 53.5 mmHg; Base Excess ABG 12.6 mEq/l (+/-2.0); Fractional Inspired Oxygen 28 %; HCO3 ABG 38.2 mEq/l (22.0-26.0); Oxygen Content ABG 16.1 %vol (16.0-22.0); Oxygen Saturation ABG 96.6 % (95.0-100.0); Oxyhemoglobin 94.8 % THb (90.0-100.0); PCO2 ABG 53.3 mmHg (35.0-45.0); PO2 ABG 83.2 mmHg (80.0-100.0); PO2 FiO2 Ratio Arterial Blood 2.97 %; pH ABG 7.473 (7.350-7.450)
[2022-06-08 10:24] LABS: Device NASAL CANNULA; Modified Allen's Test Pass; Site Drawn RIGHT RADIAL
[2022-06-08 12:52] LABS: Glucose Point of Care 125 mg/dl (65-105)
[2022-06-08] MEDS: SODIUM CHLORIDE 0.9% IV 1,000 ML 50 ML IV CONT (16:20)
[2022-06-08 16:57] LABS: Glucose Point of Care 155 mg/dl (65-105)
[2022-06-08 20:08] LABS: Glucose Point of Care 258 mg/dl (65-105)
[2022-06-09] VITALS (25 sets, daily range): BP systolic 96–108; BP diastolic 40–62; PULSE 76–120; RESP 16–24; TEMP 36.4–36.8; O2SAT 88–100
[2022-06-09] MEDS: ALBUTEROL SULFATE NEB 2.5 MG/3 ML INH 5 MG INHALATION ×4 (02:23→20:27)
[2022-06-09] MEDS: IPRATROPIUM BR 0.02% INH SOLN 0.5 MG/2.5 ML VIAL INHALATION ×4 (02:24→20:27)
[2022-06-09 05:12] LABS: Basophils Percent Auto 0.3 % (0.2-1.2); Eosinophils Absolute Auto 0.2 K/mm3 (0-0.3); Eosinophils Percent Auto 2.2 % (0-4.4); Hematocrit 34.6 % (42.0-52.0); Hemoglobin 10.6 g/dL (14.0-18.0); Immature Granulocyte Absolute 0.02 K/mm3 (0.00-0.031); Immature Granulocyte Percent A 0.3 % (0-0.5); Lymphocytes Absolute Auto 1.46 K/mm3 (0.9-3.2); Lymphocytes Percent Auto 21.6 % (18.3-44.2); Mean Corpuscular HGB Conc 30.6 g/dl (32-36); Mean Corpuscular Hemoglobin 32.2 pg (26-34); Mean Corpuscular Volume 105.2 fl (80-100); Mean Platelet Volume 10.5 fl (7.4-10.4); Monocytes Absolute Auto 0.6 K/mm3 (0.1-0.6); Monocytes Percent Auto 8.7 % (2.6-8.5); Neutrophils Absolute Auto 4.5 K/mm3 (1.3-6.7); Neutrophils Percent Auto 66.9 % (45.5-73.1); Platelet Count Result 217 k/mm3 (150-375); Red Blood Count 3.29 M/mm3 (4.6-6.20); Red Cell Distribution Width 14.1 % (11.5-14.5); White Blood Count 6.8 K/mm3 (4.5-10.0)
[2022-06-09 05:30] LABS: Alanine Aminotransferase 35 U/L (6-50); Albumin Level 3.6 g/dL (3.5-5.1); Alkaline Phosphatase 92 U/L (38-126); Aspartate Amino Transferase 33 U/L (17-59); Bilirubin,Total 0.3 mg/dL (0.2-1.3); Blood Urea Nitrogen 25 mg/dL (9-20); Calcium 8.5 mg/dL (8.4-10.2); Carbon Dioxide > 40 mmol/L (22-30); Chloride 96 mmol/L (98-107); Estimated CRCL calculation 32 ml/min; Estimated Glomerular Filt Rate 42; Glucose 126 mg/dL (65-110); Potassium 3.8 mmol/L (3.4-5.0); Sodium 140 mmol/L (137-145)
[2022-06-09] MEDS: CHOLECALCIFEROL 1,000 UNITS TABLET 2000 UNITS PO (08:30)
[2022-06-09] MEDS: PANTOPRAZOLE 40 MG TABLET PO (08:30)
[2022-06-09] MEDS: ATORVASTATIN 10 MG TABLET PO (08:30)
[2022-06-09] MEDS: levETIRAcetam 500 MG TABLET 1000 MG PO ×2 (08:30→20:59)
[2022-06-09] MEDS: TAMSULOSIN HCL 0.4 MG CAPSULE PO (08:30)
[2022-06-09] MEDS: FUROSEMIDE INJ 40 MG/4 ML VIAL IV PUSH ×2 (08:30→17:11)
[2022-06-09] MEDS: ASPIRIN 81 MG CHEWABLE TABLET PO (08:30)
[2022-06-09 08:48] LABS: Glucose Point of Care 99 mg/dl (65-105)
[2022-06-09 12:31] LABS: Glucose Point of Care 112 mg/dl (65-105)
--- NOTE | 2022-06-09 13:41 | PM.IMPN ---
Progress Note: A&P Assessment and Plan (1) Acute respiratory failure with hypercapnia: Code(s): J96.02 - Acute respiratory failure with hypercapnia Status: Acute Assessment and Plan: Appreciate pulmonology consult, suspect patient has acute on chronic hypercapnic hypoxemic respiratory failure likely secondary to OHS compounded by DAVID, small component of diastolic heart failure--but appears euvolemic, kyphosis affects restriction which also will elevate hypercapnia. Pulmonology would like to do outpatient sleep study and PFTs. They recommended a thoracentesis which is ordered by IR, Eliquis being held. continue to wean off oxygen. (2) Controlled diabetes mellitus type II without complication: Qualifiers: Diabetes mellitus buttermaker helper insulin use: without buttermaker helper use Qualified Code(s): E11.9 - Type 2 diabetes mellitus without complications Code(s): E11.9 - Type 2 diabetes mellitus without complications Status: Acute Assessment and Plan: Accu-Cheks AC and HS. Patient does not appear to be on any medication for his blood sugars. 06/07: Blood sugars continue to be stable (3) Anemia of chronic disease: Code(s): D63.8 - Anemia in other chronic diseases classified elsewhere Status: Acute Assessment and Plan: The patient is at his baseline. Continue to monitor. (4) Anxiety: Code(s): F41.9 - Anxiety disorder, unspecified Status: Acute Assessment and Plan: The patient has p.r.n. Ativan. (5) Seizure disorder: Code(s): G40.909 - Epilepsy, unspecified, not intractable, without status epilepticus Status: Acute Assessment and Plan: Continue with home medications. (6) Mixed hyperlipidemia: Code(s): E78.2 - Mixed hyperlipidemia Status: Acute Assessment and Plan: Continue with home medications. (7) Pulmonary embolism: Qualifiers: Acute cor pulmonale presence: unspecified Chronicity: acute Pulmonary embolism type: unspecified Qualified Code(s): I26.99 - Other pulmonary embolism without acute cor pulmonale Code(s): I26.99 - Other pulmonary embolism without acute cor pulmonale Status: Acute Assessment and Plan: Continue with anticoagulation with Eliquis After procedures performed. Eliquis on hold currently (8) PVCs (premature ventricular contractions): Code(s): I49.3 - Ventricular premature depolarization Status: Acute Assessment and Plan: Only an occasional PVC was noted. (9) CAD (coronary artery disease): Code(s): I25.10 - Atherosclerotic heart disease of [place] coronary artery without angina pectoris Status: Acute Assessment and Plan: Continue with home medications. (10) Diastolic heart failure: Code(s): I50.30 - Unspecified diastolic (congestive) heart failure Status: Acute Assessment and Plan: Echo from October 2021 showed grade 1 diastolic dysfunction, EF 65-70% ECG from June 04, 2022 showed left bundle-branch block, sinus rhythm otherwise Currently receiving Lasix 40 mg p.o. daily, will switch to IV diuresis and follow up chest x-ray from today to assess progression or resolution of pleural effusions previously noted on June 04. 06/08: Thoracentesis ordered, Eliquis being held, diuresis with Lasix 40 mg IV twice daily and pulmonology. CT chest done yesterday showed bilateral pleural effusions, right greater than left. Otherwise no other acute findings. Subjective Date/time seen: 06/09/22 13:41 Having ongoing shortness of breath. Denies chest pain Exam Narrative: General: Somnolent, easily arousable HEENT: Atraumatic, normocephalic, mucous membranes moist CV: Regular rate and rhythm, S1, S2 Lungs: Crackles throughout both lungs, diminished air entry Abdomen: Soft, nontender, nondistended Extremities: Normal to inspection Skin: No rashes noted, no lesions or wounds seen Psych: Euthymic, normal affect
[2022-06-09] MEDS: SODIUM CHLORIDE 0.9% IV 1,000 ML 50 ML IV CONT (17:10)
[2022-06-09 17:52] LABS: Glucose Point of Care 114 mg/dl (65-105)
[2022-06-09 20:02] LABS: Glucose Point of Care 215 mg/dl (65-105)
[2022-06-10] VITALS (24 sets, daily range): BP systolic 99–134; BP diastolic 40–64; PULSE 66–99; RESP 16–24; TEMP 36.3–36.8; O2SAT 91–99
[2022-06-10] MEDS: LORazepam INJ (*CRX) 2 MG/ML VIAL 0.5 MG IV PUSH (00:36)
[2022-06-10] MEDS: IPRATROPIUM BR 0.02% INH SOLN 0.5 MG/2.5 ML VIAL INHALATION ×4 (02:41→19:58)
[2022-06-10] MEDS: ALBUTEROL SULFATE NEB 2.5 MG/3 ML INH 5 MG INHALATION ×4 (02:42→19:58)
[2022-06-10 05:21] LABS: Basophils Percent Auto 0.3 % (0.2-1.2); Eosinophils Absolute Auto 0.1 K/mm3 (0-0.3); Eosinophils Percent Auto 1.4 % (0-4.4); Hematocrit 32.1 % (42.0-52.0); Hemoglobin 9.8 g/dL (14.0-18.0); Immature Granulocyte Absolute 0.02 K/mm3 (0.00-0.031); Immature Granulocyte Percent A 0.3 % (0-0.5); Lymphocytes Absolute Auto 1.38 K/mm3 (0.9-3.2); Lymphocytes Percent Auto 21.5 % (18.3-44.2); Mean Corpuscular HGB Conc 30.5 g/dl (32-36); Mean Corpuscular Hemoglobin 31.8 pg (26-34); Mean Corpuscular Volume 104.2 fl (80-100); Mean Platelet Volume 10.5 fl (7.4-10.4); Monocytes Absolute Auto 0.7 K/mm3 (0.1-0.6); Monocytes Percent Auto 10.1 % (2.6-8.5); Neutrophils Absolute Auto 4.3 K/mm3 (1.3-6.7); Neutrophils Percent Auto 66.4 % (45.5-73.1); Platelet Count Result 227 k/mm3 (150-375); Red Blood Count 3.08 M/mm3 (4.6-6.20); Red Cell Distribution Width 14.2 % (11.5-14.5); White Blood Count 6.4 K/mm3 (4.5-10.0)
[2022-06-10 05:35] LABS: Alanine Aminotransferase 31 U/L (6-50); Albumin Level 3.3 g/dL (3.5-5.1); Alkaline Phosphatase 83 U/L (38-126); Anion Gap 5 mmol/L (8-16); Aspartate Amino Transferase 30 U/L (17-59); Bilirubin,Total 0.3 mg/dL (0.2-1.3); Blood Urea Nitrogen 28 mg/dL (9-20); Calcium 8.4 mg/dL (8.4-10.2); Carbon Dioxide 39 mmol/L (22-30); Chloride 97 mmol/L (98-107); Estimated CRCL calculation 34 ml/min; Estimated Glomerular Filt Rate 45; Glucose 123 mg/dL (65-110); Potassium 3.7 mmol/L (3.4-5.0); Sodium 141 mmol/L (137-145)
[2022-06-10 07:56] LABS: Glucose Point of Care 93 mg/dl (65-105)
[2022-06-10] MEDS: ATORVASTATIN 10 MG TABLET PO (08:36)
[2022-06-10] MEDS: PANTOPRAZOLE 40 MG TABLET PO (08:36)
[2022-06-10] MEDS: levETIRAcetam 500 MG TABLET 1000 MG PO ×2 (08:36→20:13)
[2022-06-10] MEDS: FUROSEMIDE INJ 40 MG/4 ML VIAL IV PUSH ×2 (08:36→18:46)
[2022-06-10] MEDS: CHOLECALCIFEROL 1,000 UNITS TABLET 2000 UNITS PO (08:37)
[2022-06-10] MEDS: TAMSULOSIN HCL 0.4 MG CAPSULE PO (08:37)
[2022-06-10] MEDS: ASPIRIN 81 MG CHEWABLE TABLET PO (08:37)
[2022-06-10 10:19] LABS: Albumin Level 3.6 g/dL (3.5-5.1); Glucose 91 mg/dL (65-110); Lactate Dehydrogenase 372 U/L (313-618)
[2022-06-10] MEDS: SODIUM CHLORIDE 0.9% IV 1,000 ML 50 ML IV CONT (10:47)
[2022-06-10 11:54] LABS: Glucose Point of Care 85 mg/dl (65-105)
--- NOTE | 2022-06-10 12:10 | PM.IMPN ---
Progress Note: A&P Assessment and Plan (1) Acute respiratory failure with hypercapnia: Code(s): J96.02 - Acute respiratory failure with hypercapnia Status: Acute Assessment and Plan: Appreciate pulmonology consult, suspect patient has acute on chronic hypercapnic hypoxemic respiratory failure likely secondary to OHS compounded by DAVID, small component of diastolic heart failure--but appears euvolemic, kyphosis affects restriction which also will elevate hypercapnia. Pulmonology would like to do outpatient sleep study and PFTs. continue oxygen as needed. Thoracentesis for his bilateral pleural effusions right greater than left has been ordered. Await results. (2) Controlled diabetes mellitus type II without complication: Qualifiers: Diabetes mellitus shelter insulin use: without shelter use Qualified Code(s): E11.9 - Type 2 diabetes mellitus without complications Code(s): E11.9 - Type 2 diabetes mellitus without complications Status: Acute Assessment and Plan: Accu-Cheks AC and HS. Patient does not appear to be on any medication for his blood sugars. 06/07: Blood sugars continue to be stable (3) Anemia of chronic disease: Code(s): D63.8 - Anemia in other chronic diseases classified elsewhere Status: Acute Assessment and Plan: The patient is at his baseline. Continue to monitor. (4) Anxiety: Code(s): F41.9 - Anxiety disorder, unspecified Status: Acute Assessment and Plan: The patient has p.r.n. Ativan. (5) Seizure disorder: Code(s): G40.909 - Epilepsy, unspecified, not intractable, without status epilepticus Status: Acute Assessment and Plan: Continue with home medications. (6) Mixed hyperlipidemia: Code(s): E78.2 - Mixed hyperlipidemia Status: Acute Assessment and Plan: Continue with home medications. (7) Pulmonary embolism: Qualifiers: Pulmonary embolism type: unspecified Chronicity: acute Acute cor pulmonale presence: unspecified Qualified Code(s): I26.99 - Other pulmonary embolism without acute cor pulmonale Code(s): I26.99 - Other pulmonary embolism without acute cor pulmonale Status: Acute Assessment and Plan: Continue with anticoagulation with Eliquis After procedures performed. Eliquis on hold currently (8) PVCs (premature ventricular contractions): Code(s): I49.3 - Ventricular premature depolarization Status: Acute Assessment and Plan: Only an occasional PVC was noted. (9) CAD (coronary artery disease): Code(s): I25.10 - Atherosclerotic heart disease of [place] coronary artery without angina pectoris Status: Acute Assessment and Plan: Continue with home medications. (10) Diastolic heart failure: Code(s): I50.30 - Unspecified diastolic (congestive) heart failure Status: Acute Assessment and Plan: Appears compensated Subjective Date/time seen: 06/10/22 12:10 reports shortness of breath was improved Exam Narrative: General: Somnolent, easily arousable HEENT: Atraumatic, normocephalic, mucous membranes moist CV: Regular rate and rhythm, S1, S2 Lungs: Crackles throughout both lungs, diminished air entry Abdomen: Soft, nontender, nondistended Extremities: Normal to inspection Skin: No rashes noted, no lesions or wounds seen Psych: Euthymic, normal affect Const: General: cooperative, no acute distress, alert, awake, Physically active and anxious Nutritional Appearance: average body habitus and well nourished Orientation/consciousness: oriented to person and oriented to place Limitations: no limitations HENMT: Head: atraumatic and other (Multiple indentations on skull from previous surgery for brain cancer.) Ears: hearing grossly normal bilaterally and external ears normal General nose exam: Normal external nose present, Normal nares present and No nasal polyps present Eye
[2022-06-10 12:35] LABS: Glucose Point of Care 84 mg/dl (65-105)
--- NOTE | 2022-06-10 14:30 | PC.NURSE ---
Patient off floor to radiology for thoracentesis. All vitals stable upon transfer.
--- NOTE | 2022-06-10 16:00 | PC.NURSE ---
Patient returned to room from radiology at 1550. All vitals stable post-procedure.
--- NOTE | 2022-06-10 16:49 | PM.PNPUL ---
Progress Note: A&P Assessment and Plan (1) Respiratory failure with hypoxia and hypercapnia: Code(s): J96.91 - Respiratory failure, unspecified with hypoxia; J96.92 - Respiratory failure, unspecified with hypercapnia Status: Acute Assessment and Plan: This is acute on chronic hypercapnic hypoxemia respiratory failure, pCO2 is elevated. It is not clear what is the underlying cause. He does not have a history of tobacco use, ever. He does not have obesity hypoventilation, BMI is 23. He has lost weight over the last few years, however his BMI has generally been less than 30. He has kyphosis, and this may cause a restrictive limitation which could increase his CO2 retention. His chart has CHF listed, however cardiology notes do not list that as a problem. He does not appear decompensated at present. His last echo was Aug, normal EF 60-65%. His chart says that he has a BiPAP at home, buit I do not see any sleep studies, etc or orders. Will ask about this. I am not clear why he has this diagnosis, and there are no PFTs. Without obstruction, the albuterol and ipratropium may not be needed, and may not be helping. I would not wake him to give a treatment. ABG 06/06/2022 : pH 7.46 ; pCO2 66.6; pO2 132.1 ; HC03 46.8; saturation 97% on BiPAP / with 40%. This is a mixed acid-base gas with respiratory acidosis and metabolic alkalosis. He needs O2 to be weaned and acetazolamide. He will need a thoracentesis, see below. 06/10/2022- ABG improved, metabolic alkalosis with respiratory compensation. Improved with acetazolamide. (2) Pleural effusion: Code(s): J90 - Pleural effusion, not elsewhere classified Status: Acute Assessment and Plan: 06/07/2022 Would benefit from a repeat thoracentesis for his recurrent malignant pleural effusion. Had 900 ml thoracentesis Right side April 09 showing cells consistent with B cell lymphoma. 06/10/2022- had thoracentesis today, normal pH 7.49. (3) Pulmonary hypertension: Code(s): I27.20 - Pulmonary hypertension, unspecified Status: Acute Assessment and Plan: He has severe pulmonary hypertension which is most likely secondary to hypoxemia and thromboembolic disease. His PA systolic pressure on echo Sep 12, 2021 was 86 mmHg, he has a history of remote DVT, PE in October which was small, has required O2 during 2020 or longer. He does not have a known autoimmune illness. I will order an TAMIKO cascade. This is not going to help acutely, however he needs it with his assortment of illness and anemia, DVT/PE, and pulmonary hypertension. Best approach for his P HTN is to optimize all his conditions contributing to it. Subjective Date/time seen: 06/10/22 16:49 Interval history: hospital follow up : Angelo Bartholomew is a 77 year old man admitted with weakness and shortness of breath with a large recurrent malignant right pleural effusion.?I saw him June 07 for acute and chronic hypercapnic hypoxemic respiratory failure and pleural effusion. ? He was admitted June 04 with worsening shortness of breath and weakness.? His said that he fell at home, his oxygen saturation was in the mid 80s and he just was not able to stand up and walk around.? He came to the hospital had worsening hypercapnic respiratory failure.? Chest x-ray showed a recurrent large right pleural effusion.? He was on 3 L/min, saturation is 100% which is higher than desired with his chronic CO2 elevation; ABG 06/06/22 showed pH 7.46, pCO2 66.6, pO2 132.1, HCO3 46.8, saturation 97% on BiPAP 11/05 and 40%. ? He is on apixaban for pulmonary emboli and PE on CTA 11/14/2021. He has a history of DVT in the past and a Michelle filter placed years ago.? He has never smoked. He worked in a [employer], however his says that in childhood he
[2022-06-10 16:57] LABS: Glucose Point of Care 98 mg/dl (65-105)
[2022-06-10 20:03] LABS: Glucose Point of Care 164 mg/dl (65-105)
[2022-06-11] VITALS (20 sets, daily range): BP systolic 105–116; BP diastolic 47–67; PULSE 72–90; RESP 14–24; TEMP 35.7–36.4; O2SAT 92–100
[2022-06-11] MEDS: IPRATROPIUM BR 0.02% INH SOLN 0.5 MG/2.5 ML VIAL INHALATION ×3 (02:07→20:08)
[2022-06-11] MEDS: ALBUTEROL SULFATE NEB 2.5 MG/3 ML INH 5 MG INHALATION ×3 (02:07→20:08)
[2022-06-11 05:22] LABS: Basophils Percent Auto 0.3 % (0.2-1.2); Eosinophils Absolute Auto 0.1 K/mm3 (0-0.3); Eosinophils Percent Auto 1.6 % (0-4.4); Hematocrit 30.6 % (42.0-52.0); Hemoglobin 9.4 g/dL (14.0-18.0); Immature Granulocyte Absolute 0.02 K/mm3 (0.00-0.031); Immature Granulocyte Percent A 0.3 % (0-0.5); Lymphocytes Absolute Auto 1.63 K/mm3 (0.9-3.2); Mean Corpuscular HGB Conc 30.7 g/dl (32-36); Mean Corpuscular Hemoglobin 31.9 pg (26-34); Mean Corpuscular Volume 103.7 fl (80-100); Mean Platelet Volume 10.4 fl (7.4-10.4); Monocytes Absolute Auto 0.7 K/mm3 (0.1-0.6); Monocytes Percent Auto 10.3 % (2.6-8.5); Neutrophils Absolute Auto 4.6 K/mm3 (1.3-6.7); Neutrophils Percent Auto 64.5 % (45.5-73.1); Platelet Count Result 253 k/mm3 (150-375); Red Blood Count 2.95 M/mm3 (4.6-6.20); Red Cell Distribution Width 14.2 % (11.5-14.5); White Blood Count 7.1 K/mm3 (4.5-10.0)
[2022-06-11 05:43] LABS: Alanine Aminotransferase 30 U/L (6-50); Albumin Level 3.3 g/dL (3.5-5.1); Alkaline Phosphatase 86 U/L (38-126); Anion Gap 4 mmol/L (8-16); Aspartate Amino Transferase 30 U/L (17-59); Bilirubin,Total 0.5 mg/dL (0.2-1.3); Blood Urea Nitrogen 25 mg/dL (9-20); Calcium 8.2 mg/dL (8.4-10.2); Carbon Dioxide 37 mmol/L (22-30); Chloride 100 mmol/L (98-107); Estimated CRCL calculation 34 ml/min; Estimated Glomerular Filt Rate 45; Glucose 97 mg/dL (65-110); Potassium 3.7 mmol/L (3.4-5.0); Sodium 141 mmol/L (137-145)
[2022-06-11 07:26] LABS: Glucose Point of Care 71 mg/dl (65-105)
[2022-06-11] MEDS: ASPIRIN 81 MG CHEWABLE TABLET PO (10:40)
[2022-06-11] MEDS: CHOLECALCIFEROL 1,000 UNITS TABLET 2000 UNITS PO (10:40)
[2022-06-11] MEDS: FUROSEMIDE 40 MG TABLET PO ×2 (10:40→17:15)
[2022-06-11] MEDS: ATORVASTATIN 10 MG TABLET PO (10:40)
[2022-06-11] MEDS: levETIRAcetam 500 MG TABLET 1000 MG PO ×2 (10:40→21:10)
[2022-06-11] MEDS: PANTOPRAZOLE 40 MG TABLET PO (10:41)
[2022-06-11] MEDS: TAMSULOSIN HCL 0.4 MG CAPSULE PO (10:41)
--- NOTE | 2022-06-11 10:53 | PM.IMPN ---
Progress Note: A&P Assessment and Plan (1) Acute respiratory failure with hypercapnia: Code(s): J96.02 - Acute respiratory failure with hypercapnia Status: Acute Assessment and Plan: Appreciate pulmonology consult, suspect patient has acute on chronic hypercapnic hypoxemic respiratory failure likely secondary to OHS compounded by DAVID, small component of diastolic heart failure--but appears euvolemic, kyphosis affects restriction which also will elevate hypercapnia. Pulmonology would like to do outpatient sleep study and PFTs. continue oxygen as needed. Thoracentesis done yesterday. 800 mL fluid removed. Await results. (2) Controlled diabetes mellitus type II without complication: Qualifiers: Diabetes mellitus ocean transportation intermediary insulin use: without custodial use Qualified Code(s): E11.9 - Type 2 diabetes mellitus without complications Code(s): E11.9 - Type 2 diabetes mellitus without complications Status: Acute Assessment and Plan: Accu-Cheks AC and HS. Patient does not appear to be on any medication for his blood sugars. (3) Anemia of chronic disease: Code(s): D63.8 - Anemia in other chronic diseases classified elsewhere Status: Acute Assessment and Plan: The patient is at his baseline. Continue to monitor. (4) Anxiety: Code(s): F41.9 - Anxiety disorder, unspecified Status: Acute Assessment and Plan: The patient has p.r.n. Ativan. (5) Seizure disorder: Code(s): G40.909 - Epilepsy, unspecified, not intractable, without status epilepticus Status: Acute Assessment and Plan: Continue with home medications. (6) Mixed hyperlipidemia: Code(s): E78.2 - Mixed hyperlipidemia Status: Acute Assessment and Plan: Continue with home medications. (7) Pulmonary embolism: Qualifiers: Pulmonary embolism type: unspecified Chronicity: acute Acute cor pulmonale presence: unspecified Qualified Code(s): I26.99 - Other pulmonary embolism without acute cor pulmonale Code(s): I26.99 - Other pulmonary embolism without acute cor pulmonale Status: Acute Assessment and Plan: Resume anticoagulation with Eliquis (8) PVCs (premature ventricular contractions): Code(s): I49.3 - Ventricular premature depolarization Status: Acute Assessment and Plan: Only an occasional PVC was noted. (9) CAD (coronary artery disease): Code(s): I25.10 - Atherosclerotic heart disease of [place] coronary artery without angina pectoris Status: Acute Assessment and Plan: Continue with home medications. (10) Diastolic heart failure: Code(s): I50.30 - Unspecified diastolic (congestive) heart failure Status: Acute Assessment and Plan: Appears compensated Subjective Date/time seen: 06/11/22 10:53 Interval history: Patient denies any overnight issues. States his breathing is better Exam Narrative: General: Somnolent, easily arousable HEENT: Atraumatic, normocephalic, mucous membranes moist CV: Regular rate and rhythm, S1, S2 Lungs: Crackles throughout both lungs, diminished air entry Abdomen: Soft, nontender, nondistended Extremities: Normal to inspection Skin: No rashes noted, no lesions or wounds seen Psych: Euthymic, normal affect Objective Data Vital Signs Vital Signs: Vital Signs - 24 hr 06/10/22 12:00 06/10/22 12:00 06/10/22 13:20 Temperature Pulse Rate 85 99 66 Respiratory Rate 20 18 Blood Pressure Pulse Oximetry 94 Oxygen Delivery Room Air Oxygen Flow Rate Fraction of Inspired Oxygen 35 06/10/22 13:31 06/10/22 14:00 06/10/22 15:39 Temperature Pulse Rate 72 83 84 Respiratory Rate 18 18 Blood Pressure 134/60 Pulse Oximetry 95 Oxygen Delivery Oxygen Flow Rate Fraction of Inspired Oxygen 06/10/22 15:39 06/10/22 16:00 06/10/22 16:00 Temperature Pulse Rate 85 81 81 Respiratory
[2022-06-11 11:52] LABS: Glucose Point of Care 161 mg/dl (65-105)
[2022-06-11 16:10] LABS: Glucose Point of Care 105 mg/dl (65-105)
--- NOTE | 2022-06-11 17:48 | PC.NURSE ---
This patient, Angelo Bartholomew, was received from IMU on 06/11/22 at 1748. Patient/family oriented to unit policies and routines. Report received from ADALI Mathews.
[2022-06-11] MEDS: APIXABAN 5 MG TABLET PO (21:10)
[2022-06-11 21:29] LABS: Glucose Point of Care 130 mg/dl (65-105)
[2022-06-12] VITALS (15 sets, daily range): BP systolic 103–108; BP diastolic 45–54; PULSE 70–80; RESP 12–18; TEMP 36.6–36.8; O2SAT 94–100
[2022-06-12] MEDS: ALBUTEROL SULFATE NEB 2.5 MG/0.5 ML INH (02:07)
[2022-06-12] MEDS: IPRATROPIUM BR 0.02% INH SOLN 0.5 MG/2.5 ML VIAL INHALATION ×4 (02:08→21:56)
[2022-06-12] MEDS: ALBUTEROL SULFATE NEB 2.5 MG/3 ML INH 5 MG INHALATION ×4 (02:08→21:56)
[2022-06-12 05:44] LABS: Basophils Percent Auto 0.3 % (0.2-1.2); Eosinophils Absolute Auto 0.2 K/mm3 (0-0.3); Eosinophils Percent Auto 2.3 % (0-4.4); Hematocrit 31.7 % (42.0-52.0); Immature Granulocyte Absolute 0.02 K/mm3 (0.00-0.031); Immature Granulocyte Percent A 0.3 % (0-0.5); Lymphocytes Absolute Auto 1.65 K/mm3 (0.9-3.2); Lymphocytes Percent Auto 25.2 % (18.3-44.2); Mean Corpuscular HGB Conc 31.5 g/dl (32-36); Mean Corpuscular Hemoglobin 31.8 pg (26-34); Mean Platelet Volume 10.2 fl (7.4-10.4); Monocytes Absolute Auto 0.6 K/mm3 (0.1-0.6); Monocytes Percent Auto 9.8 % (2.6-8.5); Neutrophils Absolute Auto 4.1 K/mm3 (1.3-6.7); Neutrophils Percent Auto 62.1 % (45.5-73.1); Platelet Count Result 278 k/mm3 (150-375); Red Blood Count 3.14 M/mm3 (4.6-6.20); Red Cell Distribution Width 13.7 % (11.5-14.5); White Blood Count 6.5 K/mm3 (4.5-10.0)
[2022-06-12 06:00] LABS: Alanine Aminotransferase 28 U/L (6-50); Albumin Level 3.5 g/dL (3.5-5.1); Alkaline Phosphatase 98 U/L (38-126); Anion Gap -3 mmol/L (8-16); Aspartate Amino Transferase 28 U/L (17-59); Bilirubin,Total 0.4 mg/dL (0.2-1.3); Blood Urea Nitrogen 23 mg/dL (9-20); Calcium 8.3 mg/dL (8.4-10.2); Carbon Dioxide 39 mmol/L (22-30); Chloride 102 mmol/L (98-107); Estimated CRCL calculation 39 ml/min; Estimated Glomerular Filt Rate 53; Glucose 108 mg/dL (65-110); Potassium 3.6 mmol/L (3.4-5.0); Sodium 138 mmol/L (137-145)
[2022-06-12 07:56] LABS: Glucose Point of Care 85 mg/dl (65-105)
[2022-06-12] MEDS: PANTOPRAZOLE 40 MG TABLET PO (08:21)
[2022-06-12] MEDS: levETIRAcetam 500 MG TABLET 1000 MG PO ×2 (08:21→20:00)
[2022-06-12] MEDS: ATORVASTATIN 10 MG TABLET PO (08:22)
[2022-06-12] MEDS: APIXABAN 5 MG TABLET PO ×2 (08:22→20:00)
[2022-06-12] MEDS: ASPIRIN 81 MG CHEWABLE TABLET PO (08:22)
[2022-06-12] MEDS: FUROSEMIDE 40 MG TABLET PO ×2 (08:22→16:04)
[2022-06-12] MEDS: TAMSULOSIN HCL 0.4 MG CAPSULE PO (08:22)
[2022-06-12] MEDS: CHOLECALCIFEROL 1,000 UNITS TABLET 2000 UNITS PO (08:22)
--- NOTE | 2022-06-12 10:43 | PM.IMPN ---
Progress Note: A&P Assessment and Plan (1) Acute respiratory failure with hypercapnia: Code(s): J96.02 - Acute respiratory failure with hypercapnia Status: Acute Assessment and Plan: Appreciate pulmonology consult, suspect patient has acute on chronic hypercapnic hypoxemic respiratory failure likely secondary to OHS compounded by DAVID, small component of diastolic heart failure--but appears euvolemic, kyphosis affects restriction which also will elevate hypercapnia. Pulmonology would like to do outpatient sleep study and PFTs. continue oxygen as needed. Thoracentesis done yesterday. 800 mL fluid removed. Await results. Breathing much better. Will check an ABG and wean oxygen (2) Controlled diabetes mellitus type II without complication: Qualifiers: Diabetes mellitus penitentiary insulin use: without computer terminal operator use Qualified Code(s): E11.9 - Type 2 diabetes mellitus without complications Code(s): E11.9 - Type 2 diabetes mellitus without complications Status: Acute Assessment and Plan: Accu-Cheks AC and HS. Patient does not appear to be on any medication for his blood sugars. (3) Anemia of chronic disease: Code(s): D63.8 - Anemia in other chronic diseases classified elsewhere Status: Acute Assessment and Plan: The patient is at his baseline. Continue to monitor. (4) Anxiety: Code(s): F41.9 - Anxiety disorder, unspecified Status: Acute Assessment and Plan: The patient has p.r.n. Ativan. (5) Seizure disorder: Code(s): G40.909 - Epilepsy, unspecified, not intractable, without status epilepticus Status: Acute Assessment and Plan: Continue with home medications. (6) Mixed hyperlipidemia: Code(s): E78.2 - Mixed hyperlipidemia Status: Acute Assessment and Plan: Continue with home medications. (7) Pulmonary embolism: Qualifiers: Pulmonary embolism type: unspecified Chronicity: acute Acute cor pulmonale presence: unspecified Qualified Code(s): I26.99 - Other pulmonary embolism without acute cor pulmonale Code(s): I26.99 - Other pulmonary embolism without acute cor pulmonale Status: Acute Assessment and Plan: Resume anticoagulation with Eliquis (8) PVCs (premature ventricular contractions): Code(s): I49.3 - Ventricular premature depolarization Status: Acute Assessment and Plan: Only an occasional PVC was noted. (9) CAD (coronary artery disease): Code(s): I25.10 - Atherosclerotic heart disease of [place] coronary artery without angina pectoris Status: Acute Assessment and Plan: Continue with home medications. (10) Diastolic heart failure: Code(s): I50.30 - Unspecified diastolic (congestive) heart failure Status: Acute Assessment and Plan: Appears compensated Subjective Date/time seen: 06/12/22 10:43 Breathing better, appears more comfortable Exam Narrative: General: Somnolent, easily arousable HEENT: Atraumatic, normocephalic, mucous membranes moist CV: Regular rate and rhythm, S1, S2 Lungs: Crackles throughout both lungs, diminished air entry Abdomen: Soft, nontender, nondistended Extremities: Normal to inspection Skin: No rashes noted, no lesions or wounds seen Psych: Euthymic, normal affect Const: General: cooperative, no acute distress, alert, awake, Physically active and anxious Nutritional Appearance: average body habitus and well nourished Orientation/consciousness: oriented to person and oriented to place Limitations: no limitations HENMT: Head: atraumatic and other (Multiple indentations on skull from previous surgery for brain cancer.) Ears: hearing grossly normal bilaterally and external ears normal General nose exam: Normal external nose present, Normal nares present and No nasal polyps present Eyes: General: appearance normal, both eyes and all related structures Alignment and
[2022-06-12 11:10] LABS: Glucose Point of Care 83 mg/dl (65-105)
--- NOTE | 2022-06-12 11:33 | PCNFU ---
Nutrition Follow-Up Complete: Inadequate energy intake related to poor appetite as evidenced by MST score 2. Goal: Adequate intake of at least 50%. - Pt is exceeding goal and eating 60% of his meals. Pt current nutrition is Heart healthy pureed level 4. Last recorded weight is 68.7 kg, up .2kg from initial weight on 06/05. Bowel Motility: Last BM recorded on 06/08. Labs Reviewed: Hgb 10, Hct 31.7, GFR 53, BUN 23 Meds Noted: Eliquis, Lasix, Novolog, Zofran, Vitamin D Skin: WNL Additional Notes: Pt is eating much better and is exceeding his goal of 50% oral intake. Pt states his appetite has gotten better and that the food has been okay . Pt has not had a BM since 06/08 and I have consulted nursing about putting pt on a stool softener/laxative, pending doctors decision. Monitor intake, weight, and labs, and follow up in 5 days.
[2022-06-12 11:50] LABS: Alveolar/Arterial O2 Gradient 38.1 mmHg; Base Excess ABG 6.7 mEq/l (+/-2.0); Device NASAL CANNULA; Fractional Inspired Oxygen 24 %; HCO3 ABG 30.1 mEq/l (22.0-26.0); Modified Allen's Test Pass; Oxygen Content ABG 16.4 %vol (16.0-22.0); Oxygen Saturation ABG 97.4 % (95.0-100.0); Oxyhemoglobin 95.9 % THb (90.0-100.0); PCO2 ABG 38.4 mmHg (35.0-45.0); PO2 ABG 87.3 mmHg (80.0-100.0); PO2 FiO2 Ratio Arterial Blood 3.64 %; Site Drawn LEFT RADIAL; Total Hemoglobin 12.1 g/dL (12.0-18.0); pH ABG 7.512 (7.350-7.450)
--- NOTE | 2022-06-12 12:08 | PCNSR ---
On 06/12/22, the student, Urbano Pratt, provided care and completed [facility] documentation on this patient. I have reviewed the student's documentation and agree with the findings.
--- NOTE | 2022-06-12 15:24 | PM.PNPUL ---
Progress Note: A&P Assessment and Plan (1) Respiratory failure with hypoxia and hypercapnia: Code(s): J96.91 - Respiratory failure, unspecified with hypoxia; J96.92 - Respiratory failure, unspecified with hypercapnia Status: Acute Assessment and Plan: June 12, 2022; Hypercapnea has resolved. He had acute on chronic hypercapnic hypoxemia respiratory failure, pCO2 was elevated. It is not clear what is the underlying cause. ABG today pH 7.51, pCO2 38.4, pO2 87.3, HCO3 30.1 saturation 97.4% on 1 L/min. May have changes due to thoracentesis with less effusion. He still has a post hypercapnic metabolic alkalosis, will correct itself. He does not have a history of tobacco use, ever. He does not have obesity hypoventilation, BMI is 23. He has lost weight over the last few years, however his BMI has generally been less than 30. He has kyphosis, and this may cause a restrictive limitation which could increase his CO2 retention. His chart has CHF listed, however cardiology notes do not list that as a problem. He does not appear decompensated at present. His last echo was Aug, normal EF 60-65%. His chart says that he has a BiPAP at home, buit I do not see any sleep studies, etc or orders. Will ask about this. I am not clear why he has this diagnosis, and there are no PFTs. Without obstruction, the albuterol and ipratropium may not be needed, and may not be helping. I would not wake him to give a treatment. ABG 06/06/2022 : pH 7.46 ; pCO2 66.6; pO2 132.1 ; HC03 46.8; saturation 97% on BiPAP 11/05 with 40%. This is a mixed acid-base gas with respiratory acidosis and metabolic alkalosis. He needs O2 to be weaned and acetazolamide. He will need a thoracentesis, see below. 06/10/2022- ABG improved, metabolic alkalosis with respiratory compensation. Improved with acetazolamide. (2) Pleural effusion: Code(s): J90 - Pleural effusion, not elsewhere classified Status: Acute Assessment and Plan: 06/07/2022 Would benefit from a repeat thoracentesis for his recurrent malignant pleural effusion. Had 900 ml thoracentesis Right side April 09 showing cells consistent with B cell lymphoma. 06/10/2022- had thoracentesis today, normal pH 7.49. 800 ml removed Right side. 06/12/2022- still awaiting values on effusion, probably due to hus lymphoma (3) Pulmonary hypertension: Code(s): I27.20 - Pulmonary hypertension, unspecified Status: Acute Assessment and Plan: He has severe pulmonary hypertension which is most likely secondary to hypoxemia and thromboembolic disease. His PA systolic pressure on echo Sep 12, 2021 was 86 mmHg, he has a history of remote DVT, PE in October which was small, has required O2 during 2020 or longer. He does not have a known autoimmune illness. TAMIKO cascade sent on 06/08/22 is still pending. This is not going to help acutely, however he needs it with his assortment of illness and anemia, DVT/PE, and pulmonary hypertension. Best approach for his P HTN is to optimize all his conditions contributing to it. Subjective Date/time seen: 06/12/22 15:24 Interval history: Room 253 Hospital follow up?: Angelo Bartholomew is a 77 year old man admitted with weakness and shortness of breath with a large recurrent malignant right pleural effusion.?I saw him June 07 for acute and chronic hypercapnic hypoxemic respiratory failure and pleural effusion. ? He was admitted June 04 with worsening shortness of breath and weakness.? His said that he fell at home, his oxygen saturation was in the mid 80s and he just was not able to stand up and walk around.? He came to the hospital had worsening hypercapnic respiratory failure.? Chest x-ray showed a recurrent large right pleural effusion.? He was on 3 L/min, saturation is 100% whic
[2022-06-12] MEDS: SENNA/DOCUSATE SODIUM TABLET 1 TAB PO (16:04)
[2022-06-12 16:14] LABS: Glucose Point of Care 83 mg/dl (65-105)
[2022-06-12] MEDS: ACETAMINOPHEN 325 MG TABLET 650 MG PO (20:00)
[2022-06-12 21:23] LABS: Glucose Point of Care 166 mg/dl (65-105)
[2022-06-13] MEDS: IPRATROPIUM BR 0.02% INH SOLN 0.5 MG/2.5 ML VIAL INHALATION ×3 (03:16→14:02)
[2022-06-13] MEDS: ALBUTEROL SULFATE NEB 2.5 MG/3 ML INH 5 MG INHALATION ×3 (03:16→14:01)
[2022-06-13 03:17] VITALS: PULSE 65; RESP 18
[2022-06-13 03:35] VITALS: PULSE 67; RESP 18
[2022-06-13 06:44] LABS: Basophils Percent Auto 0.7 % (0.2-1.2); Eosinophils Absolute Auto 0.1 K/mm3 (0-0.3); Eosinophils Percent Auto 1.5 % (0-4.4); Hematocrit 33.2 % (42.0-52.0); Hemoglobin 10.5 g/dL (14.0-18.0); Immature Granulocyte Absolute 0.02 K/mm3 (0.00-0.031); Immature Granulocyte Percent A 0.3 % (0-0.5); Lymphocytes Absolute Auto 1.55 K/mm3 (0.9-3.2); Lymphocytes Percent Auto 26.1 % (18.3-44.2); Mean Corpuscular HGB Conc 31.6 g/dl (32-36); Mean Corpuscular Hemoglobin 32.1 pg (26-34); Mean Corpuscular Volume 101.5 fl (80-100); Mean Platelet Volume 10.3 fl (7.4-10.4); Monocytes Absolute Auto 0.7 K/mm3 (0.1-0.6); Monocytes Percent Auto 11.4 % (2.6-8.5); Neutrophils Absolute Auto 3.6 K/mm3 (1.3-6.7); Platelet Count Result 301 k/mm3 (150-375); Red Blood Count 3.27 M/mm3 (4.6-6.20); Red Cell Distribution Width 13.7 % (11.5-14.5)
[2022-06-13 07:00] LABS: Alanine Aminotransferase 24 U/L (6-50); Albumin Level 3.2 g/dL (3.5-5.1); Alkaline Phosphatase 81 U/L (38-126); Anion Gap 3 mmol/L (8-16); Aspartate Amino Transferase 28 U/L (17-59); Bilirubin,Total 0.6 mg/dL (0.2-1.3); Blood Urea Nitrogen 23 mg/dL (9-20); Carbon Dioxide 37 mmol/L (22-30); Chloride 98 mmol/L (98-107); Estimated CRCL calculation 39 ml/min; Estimated Glomerular Filt Rate 53; Glucose 110 mg/dL (65-110); Potassium 3.5 mmol/L (3.4-5.0); Sodium 138 mmol/L (137-145)
[2022-06-13 07:53] LABS: Glucose Point of Care 82 mg/dl (65-105)
[2022-06-13 08:35] VITALS: PULSE 76; RESP 18
[2022-06-13] MEDS: SENNA/DOCUSATE SODIUM TABLET 1 TAB PO (09:04)
[2022-06-13] MEDS: CHOLECALCIFEROL 1,000 UNITS TABLET 2000 UNITS PO (09:04)
[2022-06-13] MEDS: ATORVASTATIN 10 MG TABLET PO (09:04)
[2022-06-13] MEDS: TAMSULOSIN HCL 0.4 MG CAPSULE PO (09:04)
[2022-06-13] MEDS: ASPIRIN 81 MG CHEWABLE TABLET PO (09:04)
[2022-06-13] MEDS: APIXABAN 5 MG TABLET PO (09:04)
[2022-06-13] MEDS: FUROSEMIDE 40 MG TABLET PO (09:04)
[2022-06-13] MEDS: levETIRAcetam 500 MG TABLET 1000 MG PO (09:04)
[2022-06-13] MEDS: PANTOPRAZOLE 40 MG TABLET PO (09:04)
--- NOTE | 2022-06-13 10:52 | PM.DS ---
DS: Admitting Diagnosis Discharge Date June 13, 2022 Admitting Diagnosis Respiratory failure Hypercapnic Pleural effusion DS: Discharge Diagnosis Discharge Diagnosis (1) Acute respiratory failure with hypercapnia: Code(s): J96.02 - Acute respiratory failure with hypercapnia Status: Acute Assessment and Plan: Appreciate pulmonology consult, suspect patient has acute on chronic hypercapnic hypoxemic respiratory failure likely secondary to OHS compounded by DAVID, small component of diastolic heart failure--but appears euvolemic, kyphosis affects restriction which also will elevate hypercapnia. Pulmonology would like to do outpatient sleep study and PFTs. continue oxygen as needed. Thoracentesis done yesterday. 800 mL fluid removed. Await results. Breathing much better. will need to fu oncology. if effusions persists may ocnsider pleurodesis in the future. 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 Continue to monitor. (4) Anxiety: Code(s): F41.9 - Anxiety disorder, unspecified Status: Acute Assessment and Plan: Resume meds (5) Seizure disorder: Code(s): G40.909 - Epilepsy, unspecified, not intractable, without status epilepticus Status: Acute Assessment and Plan: Continue with home medications. (6) Mixed hyperlipidemia: Code(s): E78.2 - Mixed hyperlipidemia Status: Acute Assessment and Plan: Continue with home medications. (7) Pulmonary embolism: Qualifiers: Pulmonary embolism type: unspecified Chronicity: acute Acute cor pulmonale presence: unspecified Qualified Code(s): I26.99 - Other pulmonary embolism without acute cor pulmonale Code(s): I26.99 - Other pulmonary embolism without acute cor pulmonale Status: Acute Assessment and Plan: Resume anticoagulation with Eliquis (8) PVCs (premature ventricular contractions): Code(s): I49.3 - Ventricular premature depolarization Status: Acute Assessment and Plan: Only an occasional PVC was noted. (9) CAD (coronary artery disease): Code(s): I25.10 - Atherosclerotic heart disease of [place] coronary artery without angina pectoris Status: Acute Assessment and Plan: Continue with home medications. (10) Diastolic heart failure: Code(s): I50.30 - Unspecified diastolic (congestive) heart failure Status: Acute Assessment and Plan: Appears compensated DS: Summary Hospital Course Hospital Course: See discharge plan and diagnoses Time Spent with Patient Time attestation: Total time spent providing and/or coordinating discharge services: Exam Narrative: General: Somnolent, easily arousable HEENT: Atraumatic, normocephalic, mucous membranes moist CV: Regular rate and rhythm, S1, S2 Lungs: Crackles throughout both lungs, diminished air entry Abdomen: Soft, nontender, nondistended Extremities: Normal to inspection Skin: No rashes noted, no lesions or wounds seen Psych: Euthymic, normal affect DS: Data Data Completed and Pending Completed studies during hospitalization: Pending at discharge 06/10/22 08:47 Cytology [PTH] Routine Labs on day of discharge: Labs from last 24 hours 06/13/22 06/13/22 06/13/22 07:25 06:11 06:11 WBC 6.0 RBC 3.27 L Hgb 10.5 L Hct 33.2 L MCV 101.5 H MCH 32.1 MCHC 31.6 L RDW 13.7 Plt Count 301 MPV 10.3 Immature Gran
[2022-06-13] MEDS: polyethylene glycoL 3350 17 GM POWD.PACK PO (11:01)
[2022-06-13 12:00] LABS: Glucose Point of Care 114 mg/dl (65-105)
[2022-06-13 12:45] LABS: EDCOVIDSCREEN Positive (Negative)
[2022-06-13 13:38] LABS: SARS-CoV-2 RNA PCR Negative
[2022-06-13 14:02] VITALS: PULSE 76; RESP 20
[2022-06-13 14:07] VITALS: BP 110/71; PULSE 84; RESP 18; TEMP 36.7; O2SAT 100
[2022-06-13 14:12] VITALS: PULSE 72; RESP 20
[2022-06-13 18:45] LABS: Glucose Pleural Fluid 76 mg/dL; LDH Pleural Fluid 111 U/L
[2022-06-14 12:12] LABS: ANA Cascade Screen Negative (Negative)
[2022-06-14 21:17] LABS: Albumin Pleural Fluid 2.3 g/dL
== END 2022-06-13 16:13 | DRG 189 ==
LOC: ANHED 16:12 → ANHIMU 20:00 → ANH2MED 06-11 17:10
PROVIDERS: Chiropractor; Internal Medicine Critical Care Medicine; Nurse Practitioner; Student in an Organized Health Care Education/Training Program; Admitting Provider Internal Medicine; Emergency Provider Emergency Medicine; PCP Internal Medicine; Visit Provider Hospitalist
DX: J96.22 Acute and chronic respiratory failure with hypercapnia (principal); E87.4 Mixed disorder of acid-base balance; J91.0 Malignant pleural effusion; I13.0 Hypertensive heart and chronic kidney disease with heart failure and stage 1 through stage 4 chronic kidney disease, or unspecified chronic kidney disease; I50.32 Chronic diastolic (congestive) heart failure; I69.351 Hemiplegia and hemiparesis following cerebral infarction affecting right dominant side; C91.10 Chronic lymphocytic leukemia of B-cell type not having achieved remission; J96.21 Acute and chronic respiratory failure with hypoxia; I27.20 Pulmonary hypertension, unspecified; D63.1 Anemia in chronic kidney disease; E11.22 Type 2 diabetes mellitus with diabetic chronic kidney disease; E11.51 Type 2 diabetes mellitus with diabetic peripheral angiopathy without gangrene; E55.9 Vitamin D deficiency, unspecified; E78.2 Mixed hyperlipidemia; F41.9 Anxiety disorder, unspecified; G47.33 Obstructive sleep apnea (adult) (pediatric); G40.909 Epilepsy, unspecified, not intractable, without status epilepticus; G93.89 Other specified disorders of brain; I49.3 Ventricular premature depolarization; I25.10 Atherosclerotic heart disease of native coronary artery without angina pectoris; I69.391 Dysphagia following cerebral infarction; I69.393 Ataxia following cerebral infarction; I69.398 Other sequelae of cerebral infarction; N18.9 Chronic kidney disease, unspecified; M40.209 Unspecified kyphosis, site unspecified; N40.0 Benign prostatic hyperplasia without lower urinary tract symptoms; R13.10 Dysphagia, unspecified; T59 Toxic effect of other gases, fumes and vapors; Z20.822 Contact with and (suspected) exposure to COVID-19; Z86.711 Personal history of pulmonary embolism; Z86.718 Personal history of other venous thrombosis and embolism; Z99.81 Dependence on supplemental oxygen; Z95.828 Presence of other vascular implants and grafts; Z90.49 Acquired absence of other specified parts of digestive tract; Z85.841 Personal history of malignant neoplasm of brain; Z90.79 Acquired absence of other genital organ(s); Z85.46 Personal history of malignant neoplasm of prostate; Z86.16 Personal history of COVID-19; Z95.5 Presence of coronary angioplasty implant and graft; Z92.21 Personal history of antineoplastic chemotherapy; Z99.89 Dependence on other enabling machines and devices; Z91.19 Patient's noncompliance with other medical treatment and regimen; Z79.01 Long term (current) use of anticoagulants; Z79.82 Long term (current) use of aspirin; Z79.84 Long term (current) use of oral hypoglycemic drugs; Z79.4 Long term (current) use of insulin; Z68.24 Body mass index [BMI] 24.0-24.9, adult
CPT/HCPCS: 32555; 36415; 36600; 71045; 71046; 71260; 80053; 81001; 82040; 82042; 82375; 82805; 82945; 82947; 82948; 83050; 83615; 83986; 84155; 84157; 85025; 85610; 85730; 86038; 87015; 87070; 87075; 87102; 87116; 87205; 87206; 87426; 88108; 88184; 88305; 93005; 94002; 94003; 94640; 94660; 96374; 97110; 97161; 97165; 97530; 97535; 99285; A9270; C9803; G0378; J1120; J1815; J1940; J2060; J7030; Q9967; U0003; U0005

== ENCOUNTER 2022-07-18 15:45 | Outpatient (CLI) | payer OTHER, SELFPAY ==
--- NOTE | ~2022-07-18 | XR_ITS ---
XR chest 2V 07/18/2022 16:15 Indication: Respiratory failure Procedure: AP and lateral views of the chest Comparison: Comparison to multiple prior studies sequentially, with oldest reviewed study dated 04/21. Findings: Small right pleural effusion with underlying compressive atelectasis. Cardiomegaly. No foca l pneumonia, edema or pneumothorax. Small left pleural effusion. Impression: 1: Small bilateral pleural effusions, right greater than left. Reviewed, dictated and finalized at location B. Impression: 1: Small bilateral pleural effusions, right greater than left.
== END 2022-07-18 15:46 | disposition home or self-care (01) ==
LOC: ANHIMG 15:51
PROVIDERS: PCP Internal Medicine; Visit Provider Internal Medicine
DX: J96.92 Respiratory failure, unspecified with hypercapnia (principal); J90 Pleural effusion, not elsewhere classified
CPT/HCPCS: 71046

== ENCOUNTER 2022-07-26 09:33 | Outpatient (CLI) | payer OTHER, SELFPAY ==
[2022-07-30 08:20] LABS: Levetiracetam Keppra 45.3
== END 2022-07-26 09:34 | disposition home or self-care (01) ==
LOC: ANHLAB 09:35
PROVIDERS: PCP Internal Medicine; Visit Provider Internal Medicine
DX: Z51.81 Encounter for therapeutic drug level monitoring (principal); G40.909 Epilepsy, unspecified, not intractable, without status epilepticus
CPT/HCPCS: 36415; 80177

== ENCOUNTER 2022-07-31 09:31 | Inpatient (IN) | payer OTHER, SELFPAY ==
[2022-07-31] VITALS (19 sets, daily range): BP systolic 93–117; BP diastolic 45–61; PULSE 72–85; RESP 19–31; TEMP 36.6–36.8; O2SAT 84–100; BMI 23.1
--- NOTE | ~2022-07-31 | XR_ITS ---
EXAMINATION: XR chest 1V portable DATE: 08/02/2022 07:10 INDICATION: Pleural effusion. TECHNIQUE: A single frontal view of the chest was obtained. COMPARISON: Chest single view 07/31/2022, chest CT 06/07/2022 FINDINGS: There are moderate-sized right pleural effusion. There are airspace opacities in right mid and lower lung zones and left lower lung zone. No pneumothorax. The heart size is normal. IMPRESSION: 1. Stable moderate-sized right pleural effusion. 2. Airspace opacities in right mid and lower lung zones and left lower lung zone with worsening on th e right, consistent with atelectasis versus pneumonia. Reviewed, dictated and finalized at location A. IMPRESSION: 1. Stable moderate-sized right pleural effusion. 2. Airspace opacities in right mid and lower lung zones and left lower lung zon e with worsening on the right, consistent with atelectasis versus pneumonia.
--- NOTE | ~2022-07-31 | US_ITS ---
EXAMINATION: US thoracentesis DATE: 08/03/2022 10:26 INDICATION: Right pleural effusion TECHNIQUE: The procedure and its risks and benefits were discussed with the patient. Potential risks discussed included bleeding, infection, and pneumothorax. The patient understood the risks and agreed to proceed. The skin was prepped and draped in sterile fashion. 1% lidocaine was used for local anes thesia. Under ultrasound guidance, a 5 Fr catheter with trochar was advanced into the right pleural e ffusion. Fluid was aspirated. The catheter was removed, and a dressing was applied. There were no imm ediate complications. FINDINGS: Ultrasound images demonstrate a moderate sized right pleural effusion and the catheter within the flu id. IMPRESSION: 1. Successful ultrasound-guided thoracentesis yielding 800 mL of cloudy yellow fluid. Reviewed, dictated and finalized at location A.
--- NOTE | ~2022-07-31 | XR_ITS ---
EXAMINATION: XR chest 1V portable DATE: 08/04/2022 05:24 INDICATION: Pleural effusion. TECHNIQUE: A single frontal view of the chest was obtained. COMPARISON: Chest single view 08/03/2022, chest CT 06/07/2022 FINDINGS: There are small pleural effusions. There are airspace opacities at the lung bases. No pneum othorax. The heart size is normal. IMPRESSION: 1. Stable small pleural effusions. 2. Airspace opacities at the lung bases, consistent with atelectasis or less likely pneumonia. Reviewed, dictated and finalized at location A. IMPRESSION: 1. Stable small pleural effusions. 2. Airspace opacities at the lung bases, consistent with atelectasis or less li wendy pneumonia.
--- NOTE | ~2022-07-31 | XR_ITS ---
EXAMINATION: XR barium swallow modified DATE: 08/02/2022 12:14 INDICATION: Dysphagia. TECHNIQUE: The patient was given barium-containing material of multiple consistencies to swallow by t he speech pathologist while I performed fluoroscopy. Fluoroscopy exposure time was 0.3 minutes. The n umber of fluoroscopy images saved to the PACS was 2. Dose-area product was 0.275 Gy-cm^2. FINDINGS: There is reduced lingual movement, reduced laryngeal elevation, reduced laryngeal adduction, reduced tongue base retraction, and reduced pharyngeal squeeze. There was no laryngeal penetration or aspirat ion of 3 mL controlled boluses of thin and moderately thick liquid. IMPRESSION: 1. No laryngeal penetration or aspiration of small volumes of thin or moderately thick liquids. 2. Please refer to the speech therapy report for recommendations. Reviewed, dictated and finalized at location A. IMPRESSION: 1. No laryngeal penetration or aspiration of small volumes of thin or moderatel y thick liquids. 2. Please refer to the speech therapy report for recommendations.
--- NOTE | ~2022-07-31 | CT_ITS ---
EXAMINATION: CT brain wo con DATE: 07/31/2022 11:19 INDICATION: Confusion. TECHNIQUE: Computed tomography (CT) of the head was performed without intravenous contrast. The mA wa s adjusted according to patient size. Iterative reconstruction technique was employed. The dose-lengt h product was 756.67 mGy-cm. COMPARISON: Head CT 11/13/2021 FINDINGS: There is chronic encephalomalacia involving the left frontotemporal parietal region and lef t insula. There is no intracranial hemorrhage, acute infarction, or abnormal intracranial mass lesion . There is ex vacuo dilatation of left lateral ventricle. There is mild mucosal thickening in the par anasal sinuses. The orbits are normal. The mastoid air cells are normal. There are changes of left-si ded craniotomy. IMPRESSION: 1. Chronic encephalomalacia involving the left frontotemporal parietal region and left insula. Reviewed, dictated and finalized at location A. IMPRESSION: 1. Chronic encephalomalacia involving the left frontotemporal parietal region a nd left insula.
--- NOTE | ~2022-07-31 | XR_ITS ---
EXAMINATION: XR chest 1V portable Exam Date/Time: 07/31/2022 18:52 CDT HISTORY: dyspnea Comparison: 07/18/2022. RESULT: Lines, tubes, and devices: None. Lungs and pleura: Increased blunting of the right lateral costophrenic angle and increased right low er lung opacity. Streaky opacities in the left lung base likely representing atelectasis. Cardiomediastinal silhouette: Stable. Other: No acute osseous or upper abdominal finding. IMPRESSION: Increasing, now moderate right pleural effusion. Bibasilar atelectasis. Infection is not excluded. Reviewed, dictated and finalized at location K. IMPRESSION: Increasing, now moderate right pleural effusion. Bibasilar atelectasis. Infecti on is not excluded.
--- NOTE | ~2022-07-31 | XR_ITS ---
EXAMINATION: [id number] DATE: 08/03/2022 10:06 INDICATION: Status post right thoracentesis TECHNIQUE: frontal view of the chest was obtained. COMPARISON: Chest radiograph dated 08/02/2022 FINDINGS: Opacities at the bilateral lower lung zones with blunting at the costophrenic angles consistent with small bilateral pleural effusions and associated atelectasis versus less likely pneumonia. No pulmona ry edema or pneumothorax. Cardiomegaly. Cholecystectomy clips in right upper quadrant. IMPRESSION: 1. Small bilateral pleural effusions with bibasilar atelectasis versus less likely pneumonia. Reviewed, dictated and finalized at location A. IMPRESSION: 1. Small bilateral pleural effusions with bibasilar atelectasis versus less lik juliocesar pneumonia.
--- NOTE | 2022-07-31 09:36 | ECG_ITS ---
Measurements Intervals [place] Rate: 74 P: 33 TN: 148 QRS: 44 QRSD: 102 T: -7 QT: 335 QTc: 372 Interpretive Statements SINUS RHYTHM LOW QRS VOLTAGE IN EXTREMITY LEADS [QRS DEFLECTION < 0.5 mV IN LIMB LEADS] POOR R-WAVE PROGRESSION COMPARED TO ECG 06/04/2022 15:14:23 THE QRS DURATION IS SHORTER AND THE LEFT BUNDLE-BRANCH BLOCK PATTERN HAS RESOLVED Electronically Signed On 07-31-2022 19:57:52 CDT by Yudy Vo M.D.
[2022-07-31 09:55] LABS: Basophils Percent Auto 0.4 % (0.2-1.2); Eosinophils Percent Auto 0.4 % (0-4.4); Hematocrit 34.3 % (42.0-52.0); Hemoglobin 10.4 g/dL (14.0-18.0); Immature Granulocyte Absolute 0.02 K/mm3 (0.00-0.031); Immature Granulocyte Percent A 0.4 % (0-0.5); Lymphocytes Absolute Auto 0.81 K/mm3 (0.9-3.2); Lymphocytes Percent Auto 15.8 % (18.3-44.2); Mean Corpuscular HGB Conc 30.3 g/dl (32-36); Mean Corpuscular Hemoglobin 32.3 pg (26-34); Mean Corpuscular Volume 106.5 fl (80-100); Mean Platelet Volume 10.3 fl (7.4-10.4); Monocytes Absolute Auto 0.4 K/mm3 (0.1-0.6); Monocytes Percent Auto 7.8 % (2.6-8.5); Neutrophils Absolute Auto 3.9 K/mm3 (1.3-6.7); Neutrophils Percent Auto 75.2 % (45.5-73.1); Platelet Count Result 147 k/mm3 (150-375); Red Blood Count 3.22 M/mm3 (4.6-6.20); Red Cell Distribution Width 14.1 % (11.5-14.5); White Blood Count 5.1 K/mm3 (4.5-10.0)
--- NOTE | 2022-07-31 10:06 | ED.AMS ---
HPI - Altered Mental Status General Chief Complaint: Altered Mental Status Stated Complaint: weakness Time Seen by Provider: 07/31/22 10:06 Source: EMS Mode of arrival: EMS Limitations: clinical condition History of Present Illness HPI narrative: The patient is a 77-year-old male with a complex medical history including stage IV CLL, recurrent right malignant pleural effusion, type 2 diabetes, epilepsy, chronic respiratory failure on supplemental oxygen, diastolic heart failure, hypertension, hyperlipidemia, presenting to the emergency department for evaluation of weakness, altered mental status. Patient is usually alert and oriented to person, place, to time, lives at home with who helps to take care of him. Patient also has home health per chart review. Reportedly, patient has had increasing weakness, altered mentation over the past 24 hours thus called EMS this morning. Patient able to state his name for EMS, but at the time of my assessment, is quite somnolent but arousable, able to follow simple commands but unable to provide any other additional history. Does grimace with palpation of the right lower abdomen, but abdomen does not seem significantly distended. Other history cannot be obtained secondary to mentation. Chart reviewed with recent visit to hematology/oncology for results of malignant pleural effusion noted to be advanced stage IV CLL/SLL. Patient not a candidate for chemotherapy, currently on Rituxan therapy. Following with . Related Data Home Medications Medication Instructions Recorded Confirmed albuterol sulfate 90 mcg/actuation 2 puff inhalation Q6-8H PRN 11/13/21 07/31/22 aerosol inhaler Shortness Of Breath aspirin 81 mg tablet 81 mg PO DAILY 11/13/21 07/31/22 wheat dextrin 5 gram/7.4 gram oral 5 g PO DAILY PRN Constipation 11/13/21 07/31/22 powder (Benefiber Healthy Shape) levothyroxine 25 mcg tablet 12.5 mcg PO BID 07/31/22 07/31/22 Allergies Allergy/AdvReac Type Severity Reaction Status Date / Time No Known Drug Allergies Allergy Unknown Unknown Verified 07/16/22 10:12 Review of Systems Review of Systems: ROS unobtainable: Yes unobtainable due to mental status PMFSH Past Medical History Medical History Anemia of chronic disease Anxiety Ataxia, post-stroke Benign prostatic hyperplasia Brain cancer Status post tumor resection and chemoradiation. Breast enlargement Cerebrovascular accident Chronic respiratory failure Patient was to be using a BiPAP at nighttime however he states the mask does not fit well. Congestive heart failure Coronary artery disease involving [place] coronary artery of [place] heart Deep venous thrombosis Diabetes mellitus Hyperlipidemia Hypertension Mixed hyperlipidemia Oropharyngeal dysphagia Peripheral arterial disease Prostate cancer Right hemiparesis Seizure disorder Vitamin D deficiency Surgical History Surgical History History of cholecystectomy History of craniotomy With resection of brain tumor. History of heart artery stent Family History Family History Mother Patient's mother is in good health Sibling Patient's sister is in good health Patient's brother is in good health Other Family history of arthritis Family history of malignant neoplasm of brain Family history of pancreatic cancer Malignant neoplasm of prostate Social History Social History Social History: The patient lives with his in [place]. He is on disability. Lifelong nonsmoker. No alcohol or illicit substance use. His Elke Bartholomew is his surrogate decision maker. Code status: Full code. Smoking status: Never smoker Second hand tobacco smoke exposure: No Alcohol intake: never Substance use: never Substance use t
[2022-07-31 10:11] LABS: Alanine Aminotransferase 24 U/L (6-50); Albumin Level 3.6 g/dL (3.5-5.1); Alkaline Phosphatase 63 U/L (38-126); Aspartate Amino Transferase 49 U/L (17-59); Bilirubin,Total 0.9 mg/dL (0.2-1.3); Blood Urea Nitrogen 24 mg/dL (9-20); Calcium 8.3 mg/dL (8.4-10.2); Carbon Dioxide > 40 mmol/L (22-30); Chloride 94 mmol/L (98-107); Estimated CRCL calculation 47 ml/min; Estimated Glomerular Filt Rate > 60; Glucose 111 mg/dL (65-110); Potassium 4.7 mmol/L (3.4-5.0); Sodium 134 mmol/L (137-145)
[2022-07-31 10:13] LABS: INR 1.5; Prothrombin Time 17.3 Seconds (11.1-14.7)
[2022-07-31 10:14] LABS: Appearance Urine Clear (Clear); Bilirubin Urine Negative (Negative); Blood Urine Negative (Negative); Color Urine Yellow (Yellow); Glucose Urine UA Negative (Negative); Ketones Urine Negative (Negative); Leukocyte Esterase Ur Negative LEU/UL (Negative); Nitrate Urine Negative (Negative); Protein Urine 1+ mg/dL (Negative); Urobilinogen Urine 0.2 mg/dL (<2.0); pH Urine 5.5 (5.0-9.0)
[2022-07-31 10:19] LABS: Amorphous Sediment Urine Few; Bacteria Urine Trace /hpf; Mucus Urine Rare /lpf; RBC Urine 0-2 /hpf (0-2); WBC Urine 0-3 /hpf
[2022-07-31 10:26] LABS: SARS-CoV-2 RNA PCR Negative
[2022-07-31 10:30] LABS: Add Urine Microscopic? YES
[2022-07-31 11:22] LABS: Base Excess ABG 15.7 mEq/l (+/-2.0); Carboxyhemoglobin 0.3 % THb (0-2.0); Fractional Inspired Oxygen 28 %; HCO3 ABG 46.1 mEq/l (22.0-26.0); Methemoglobin ABG 0.3 %THb (0-1.5); Oxygen Saturation ABG 98.1 % (95.0-100.0); Oxyhemoglobin 97.3 % THb (90.0-100.0); PO2 ABG 133.4 mmHg (80.0-100.0); PO2 FiO2 Ratio Arterial Blood 4.76 %; Reduced Hemoglobin 2.1 %THb (0-5.0); Total Hemoglobin 10.8 g/dL (12.0-18.0)
[2022-07-31 11:24] LABS: PCO2 ABG 101.1 mmHg (35.0-45.0); pH ABG 7.277 (7.350-7.450)
[2022-07-31 11:25] LABS: Device NASAL CANNULA; Modified Allen's Test Pass; Site Drawn LEFT RADIAL
[2022-07-31 12:35] LABS: Alveolar/Arterial O2 Gradient 43.8 mmHg; Base Excess ABG 14.1 mEq/l (+/-2.0); Fractional Inspired Oxygen 25 %; HCO3 ABG 41.5 mEq/l (22.0-26.0); Methemoglobin ABG 0.1 %THb (0-1.5); Oxygen Content ABG 13.2 %vol (16.0-22.0); PO2 FiO2 Ratio Arterial Blood 2.08 %; Reduced Hemoglobin 12.9 %THb (0-5.0); Total Hemoglobin 10.8 g/dL (12.0-18.0); pH ABG 7.395 (7.350-7.450)
[2022-07-31 12:36] LABS: PCO2 ABG 69.4 mmHg (35.0-45.0)
[2022-07-31 12:37] LABS: Device BIPAP; Modified Allen's Test Pass; Oxygen Saturation ABG 85.1 % (95.0-100.0); Site Drawn LEFT RADIAL
[2022-07-31 12:38] LABS: Expiratory Pressure 5 cmH2O; Inspiratory Pressure 12 cmH2O
[2022-07-31 14:56] LABS: Troponin I < 0.012 ng/mL (0.000-0.034)
--- NOTE | 2022-07-31 15:00 | PM.IMHP ---
H&P: HPI History of Present Illness Date/Time: 07/31/22 15:00 Chief Complaint: Altered mental status. Narrative: This is a 77-year-old male with multiple medical problems including history of coronary artery disease, diabetes, chronic kidney disease, hypertension, hyperlipidemia, peripheral vascular disease, brain cancer, seizure, CLL, and several other comorbidities who presented to the emergency department via EMS from home for evaluation of altered mental status. He is currently on the BiPAP and is alert and attempts to communicate with gestures though it is difficult to obtain an accurate history as he cannot really speak well enough for me to understand him through the mask. As such a lot of the following history is obtained via a review of his electronic medical records as well as information obtained from his . The patient is known to the hospitalist service from an admission just last month for acute on chronic respiratory failure, and initially felt to be related to suspected sleep apnea in addition to perhaps restrictive lung disease from severe kyphosis. He was seen by Dr. Whittaker (pulmonology) during that stay and she initiated a workup for his pulmonary hypertension. Plans were for outpatient sleep study and pulmonary function tests though those have yet to be done. It is my understanding that he is now on oxygen a majority of the time. In any event, according to the he is typically alert and oriented at baseline however over the past 24 hours he has become increasingly altered and this morning he was somnolent but it is arousable. ABG done on arrival to the emergency department showed a pH of 7.277, pCO2 101.1, and a bicarb of 46.1. He was started on BiPAP with improvement. At the time my evaluation he is alert and does follow some commands. I am having difficulties understanding his answers with the BiPAP on. I was able to understand that he wants the mask off, however. He denies headache, fever, chills, chest pain, pleuritic pain, abdominal pain, nausea, and vomiting Review of Systems Review of Systems: Unable to be assessed accurately as he is having difficulties communicating while on BiPAP. See above. [facility] Past Medical History Medical History (Updated 07/31/22 @ 22:34 by Aundrea Cormier PA-C) Anemia of chronic disease Anxiety Ataxia, post-stroke Benign prostatic hyperplasia Brain cancer Status post tumor resection and chemoradiation. Cerebrovascular accident Chronic lymphocytic leukemia Chronic respiratory failure Patient was to be using a BiPAP at nighttime however he states the mask does not fit well. 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 History of heart artery stent Family History Family History Mother Patient's mother is in good health Sibling Patient's sister is in good health Patient's brother is in good health Other Family history of arthritis Family history of malignant neoplasm of brain Family history of pancreatic cancer Malignant neoplasm of prostate Social History Social History (Updated 07/31/22 @ 22:28 by Aundrea Cormier PA-C) Social History: The patient lives with his in [place]. He is on disability. Lifelong nonsmoker. No alcohol or illicit substance use. His Elke Bartholomew is his surrogate decision maker. Code status: Full code. Spiritual care concerns: No Meds Home Medications and Allergies Home Medicat
--- NOTE | 2022-07-31 15:44 | PC.NURSE ---
This patient, Angelo Bartholomew, was admitted to IMU Room 203-01. Patient/family oriented to hospital policies and general routines including ID bracelet, bed and alarms, visiting hours, pain management, procedures, bathroom and other care routines, personal items, smoking policy, room service/diet, and visiting hours. Information on how to activate the Rapid Response Team has been discussed. Patient/Family are encouraged to report perceived risks to care and to ask questions if they do not understand what they are told or what they should do.
--- NOTE | 2022-07-31 19:26 | PC.NURSE ---
Patient has not voided since arrival to floor at 1519. Bladder scan shows 279 ml urine noted in bladder.
--- NOTE | 2022-07-31 19:27 | PC.NURSE ---
Patient spouse advised patient is on mechanical soft diet with nectar thickened liquids at home.
[2022-07-31] MEDS: levETIRAcetam 500 MG TABLET 1000 MG PO (23:22)
[2022-07-31] MEDS: APIXABAN 5 MG TABLET PO (23:22)
[2022-08-01] VITALS (11 sets, daily range): BP systolic 102–123; BP diastolic 44–55; PULSE 61–78; RESP 16–24; TEMP 35.8–36.7; O2SAT 97–100; BMI 23.1
[2022-08-01 05:07] LABS: Basophils Percent Auto 0.5 % (0.2-1.2); Eosinophils Percent Auto 0.5 % (0-4.4); Hematocrit 31.2 % (42.0-52.0); Hemoglobin 9.4 g/dL (14.0-18.0); Immature Granulocyte Absolute 0.02 K/mm3 (0.00-0.031); Immature Granulocyte Percent A 0.5 % (0-0.5); Lymphocytes Absolute Auto 0.55 K/mm3 (0.9-3.2); Lymphocytes Percent Auto 13.4 % (18.3-44.2); Mean Corpuscular HGB Conc 30.1 g/dl (32-36); Mean Corpuscular Hemoglobin 31.9 pg (26-34); Mean Corpuscular Volume 105.8 fl (80-100); Mean Platelet Volume 10.5 fl (7.4-10.4); Monocytes Absolute Auto 0.3 K/mm3 (0.1-0.6); Monocytes Percent Auto 7.1 % (2.6-8.5); Neutrophils Absolute Auto 3.2 K/mm3 (1.3-6.7); Platelet Count Result 153 k/mm3 (150-375); Red Blood Count 2.95 M/mm3 (4.6-6.20); White Blood Count 4.1 K/mm3 (4.5-10.0)
[2022-08-01 05:30] LABS: Iron 37 ug/dL (49-181)
[2022-08-01 05:39] LABS: Alanine Aminotransferase 22 U/L (6-50); Albumin Level 2.8 g/dL (3.5-5.1); Alkaline Phosphatase 84 U/L (38-126); Aspartate Amino Transferase 29 U/L (17-59); Bilirubin,Total 0.4 mg/dL (0.2-1.3); Blood Urea Nitrogen 23 mg/dL (9-20); Calcium 8.3 mg/dL (8.4-10.2); Carbon Dioxide > 40 mmol/L (22-30); Chloride 92 mmol/L (98-107); Estimated CRCL calculation 47 ml/min; Estimated Glomerular Filt Rate > 60; Glucose 84 mg/dL (65-110); Magnesium 2.1 mg/dL (1.6-2.3); Percent Iron Saturation 13 % (20-50); Phosphorus 2.9 mg/dL (2.5-4.5); Potassium 3.8 mmol/L (3.4-5.0); Sodium 141 mmol/L (137-145)
[2022-08-01] MEDS: FUROSEMIDE INJ 40 MG/4 ML VIAL IV PUSH (09:01)
[2022-08-01] MEDS: ASPIRIN 81 MG ENTERIC TABLET PO (09:02)
[2022-08-01] MEDS: levETIRAcetam 500 MG TABLET 1000 MG PO ×2 (09:02→16:44)
[2022-08-01] MEDS: CHOLECALCIFEROL 1,000 UNITS TABLET 2000 UNITS PO (09:03)
[2022-08-01] MEDS: PANTOPRAZOLE 40 MG TABLET PO (09:03)
[2022-08-01] MEDS: ATORVASTATIN 10 MG TABLET PO (09:03)
[2022-08-01] MEDS: FUROSEMIDE 40 MG TABLET PO (09:04)
[2022-08-01] MEDS: TAMSULOSIN HCL 0.4 MG CAPSULE PO (09:04)
[2022-08-01] MEDS: APIXABAN 5 MG TABLET PO ×2 (09:13→20:27)
[2022-08-01 10:45] LABS: Base Excess ABG 14.6 mEq/l (+/-2.0); Fractional Inspired Oxygen 32 %; HCO3 ABG 42.5 mEq/l (22.0-26.0); Oxygen Content ABG 15.6 %vol (16.0-22.0); Oxygen Saturation ABG 95.4 % (95.0-100.0); Oxyhemoglobin 94.2 % THb (90.0-100.0); PO2 FiO2 Ratio Arterial Blood 2.53 %; Total Hemoglobin 11.7 g/dL (12.0-18.0)
--- NOTE | 2022-08-01 10:47 | PCSTNOTE ---
Bedside swallowing evaluation. Due to patient's complicated medical condition and documented past history of dysphagia, a modified barium swallow study is recommended to evaluate safety of swallowing and determine presence/absence of aspiration. NPO diet recommended at this time. Thank you for the referral of this patient. [ End ]
[2022-08-01 10:51] LABS: Device NASAL CANNULA; Modified Allen's Test Pass; PCO2 ABG 71.9 mmHg (35.0-45.0); Site Drawn LEFT RADIAL
--- NOTE | 2022-08-01 12:37 | PM.IMPN ---
Progress Note: A&P Assessment and Plan (1) Acute on chronic respiratory failure with hypoxia and hypercapnia: Code(s): J96.21 - Acute and chronic respiratory failure with hypoxia; J96.22 - Acute and chronic respiratory failure with hypercapnia Status: Acute Assessment and Plan: Patient presented today for evaluation of altered mental status over the past 24 hours. Found to have pretty significant hypercarbia with a pCO2 of 101.1. He was started on BiPAP with marked improvement in his repeat ABGs. At the time my evaluation he is eager to have the BiPAP removed and I am going to let him eat some dinner and see how he does. I would like him to wear the BiPAP when sleeping and at nighttime, however per nursing reports, patient has refused. Will have pulmonology evaluate the patient as well. (2) Recurrent right pleural effusion: Code(s): J90 - Pleural effusion, not elsewhere classified Status: Acute Assessment and Plan: He had a thoracentesis last month and he may very well need another. Will defer to pulmonology. (3) Chronic lymphocytic leukemia: Code(s): C91.10 - Chronic lymphocytic leukemia of B-cell type not having achieved remission Status: Acute Assessment and Plan: Reportedly at an advanced age; he is followed by Dr. Villasenor. (4) Seizure: Code(s): R56.9 - Unspecified convulsions Status: Acute Assessment and Plan: No mention of recent seizures. Continue levetiracetam. (5) Current use of group home anticoagulation: Code(s): Z79.01 - correction (current) use of anticoagulants Status: Acute Assessment and Plan: He is on apixaban (presumably for history of DVTs) and that will be resumed. (6) Congestive heart failure: Code(s): I50.9 - Heart failure, unspecified Status: Chronic Assessment and Plan: Monitor, does not appear to be in exacerbation Subjective Date/time seen: 08/01/22 12:37 Patient appears short of breath but does not have any specific complaints. He does have difficulty communicating. Does not appear to be in any distress. Exam Narrative: General: Chronically ill-appearing gentleman sitting up in bed on BiPAP. Weight: 69 kg. BMI: 23.1. HEENT: Defect from prior left craniotomy. PERRL, EOMI. Sclera anicteric. Oral exam not performed as he is on BiPAP. Neck: Supple. Exam is difficult due to patient positioning. No obvious lymphadenopathy or jugular venous distention. Respiratory: Kyphotic. Tolerating BiPAP and eager to have it removed. He appears in no respiratory distress. Lung sounds are diminished at the right base with dullness to percussion and faint crackles. Cardiovascular: Regular rate and rhythm with S1-S2. Gastrointestinal: Abdomen is soft and nontender with positive bowel sounds. Skin: Warm and dry. Generalized pallor. Some excoriations on the anterior blackburn. Extremities: No cyanosis, clubbing, or significant edema. Radial and pedal pulses intact. Neurological: Alert. Cranial nerves 2-12 are grossly intact. Speech difficult to understand through the BiPAP. Chronic right-sided weakness. Psychiatric: Pleasant and cooperative. Objective Data Vital Signs Vital Signs: Vital Signs - 24 hr 07/31/22 12:57 07/31/22 13:48 07/31/22 12:40 Temperature 98.0 F Pulse Rate 72 74 73 Respiratory Rate 20 21 H 20 Blood Pressure 113/51 L 112/52 L Pulse Oximetry 95 99 92 Oxygen Delivery BiPAP Oxygen Flow Rate Fraction of Inspired Oxygen 07/31/22 14:51 07/31/22 15:30 07/31/22 15:39 Temperature 97.8 F Pulse Rate 83 73 77 Respiratory Rate 21 H 26 H 31 H Blood Pressure 105/52 L 93/61 L Pulse Oximetry 99 92 100 Oxygen Delivery BiPAP Oxygen Flow Rate Fraction of Inspired Oxygen 07/31/22 18:17 07/31/22 16:00 07/31/22 18:00 Temperature Pulse Rate 73 74 Respiratory Rate 22 H Blood Pressure Pulse Oximetry 94 Oxygen Delivery BiPAP Oxygen Jimy
--- NOTE | 2022-08-01 14:58 | PM.CNPUL ---
Assessment and Plan Assessment and plan (1) Acute on chronic respiratory failure with hypoxia and hypercapnia: Code(s): J96.21 - Acute and chronic respiratory failure with hypoxia; J96.22 - Acute and chronic respiratory failure with hypercapnia Status: Acute Assessment and Plan: 77-year-old man with multiple medical problems presented with acute on chronic hypercapnic respiratory failure. Patient was also hospitalized in the recent past with similar hypercapnic respiratory failure. He has BiPAP machine at home but is unclear whether he has been using it. Etiology of his hypercapnic respiratory failure is not quite clear. There is no previous pulmonary function testing to assess for COPD or chronic restrictive disease. It is possible the patient's hypercapnic respiratory failure is multifactorial related to his previous stroke with right sided weakness, kyphosis, debilitated state with possible muscle weakness and also to chronic right pleural effusion. During last hospitalization, he had combined chronic respiratory acidosis and metabolic alkalosis. plan: will continue with current BiPAP setting at night and p.r.n. during the day. Will proceed with right therapeutic thoracentesis. Will repeat chest x-ray post thoracentesis to rule out possible pneumonia. Patient has no leukocytosis and what looks like infiltrate on the chest x-ray it could be associated atelectasis. (2) Recurrent right pleural effusion: Code(s): J90 - Pleural effusion, not elsewhere classified Status: Acute Assessment and Plan: patient was diagnosed with malignant effusion related to CLL. Was evaluated by Oncology and was not deemed fit to undergo chemotherapy. he is considered for Rituxan. if pleural effusion persists despite treatment with rituximab the patient might be a candidate for chronic indwelling pleural catheter. (3) Chronic lymphocytic leukemia: Code(s): C91.10 - Chronic lymphocytic leukemia of B-cell type not having achieved remission Status: Acute (4) Altered mental status: Code(s): R41.82 - Altered mental status, unspecified Status: Acute (5) CLL (chronic lymphocytic leukemia): Code(s): C91.10 - Chronic lymphocytic leukemia of B-cell type not having achieved remission Status: Acute (6) Diastolic heart failure: Code(s): I50.30 - Unspecified diastolic (congestive) heart failure Status: Acute (7) Seizure: Code(s): R56.9 - Unspecified convulsions Status: Acute (8) CAD (coronary artery disease): Code(s): I25.10 - Atherosclerotic heart disease of [place] coronary artery without angina pectoris Status: Acute History of Present Illness History of Present Illness Consult date: 08/01/22 Chief complaint: HYPERCAPTIC RESPIRATORY FAILURE,AMS Narrative: this 77-year-old man was brought into the hospital because of altered mental status changes. The patient has multiple medical problems including history of coronary artery disease, diabetes, chronic kidney disease hypertension hyperlipidemia peripheral vascular disease brain cancer status post surgery history of seizures, history of CLL, chronic right pleural effusion related to CLL. The patient also has history of chronic hypercapnic respiratory failure for which reportedly has been on BiPAP support at home. It is unclear whether the patient has been using the BiPAP at home. Etiology of his chronic hypercapnic respiratory failure is not entirely clear. Patient appears to be disoriented and he does not know what brought him into the hospital. 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 Patient was evaluated by Oncology services for malignant pleural effusion and has been treated with rituximab. Report
--- NOTE | 2022-08-01 15:52 | PC.NURSE ---
Received from [facility] / via bed.
--- NOTE | 2022-08-01 15:52 | PC.NURSE ---
This patient, Angelo Bartholomew, was transferred to [facility] on 08/01/22 at 1545. Personal belongings sent with patient. Report given to Faith BRO. Appropriate documentation sent with patient.
[2022-08-02 04:45] VITALS: BP 133/58; PULSE 71; RESP 16; TEMP 36.1; O2SAT 100
--- NOTE | 2022-08-02 05:29 | PC.NURSE ---
Pt has been resting over night. Pt used calls out to use the urinal. Pt does not use call button, pt just yells nurse to get the attention of the staff. Pt moans and says oh boy repeatedly. Pt can answer name and birthday and simple questions. Pt tolerates turning, but appears to be fearful of falling. Pt gets a little discouraged when he is not understood. Will continue to monitor pt.
[2022-08-02 05:38] LABS: Alveolar/Arterial O2 Gradient 13.9 mmHg; Base Excess ABG 14.6 mEq/l (+/-2.0); Fractional Inspired Oxygen 24 %; HCO3 ABG 41.9 mEq/l (22.0-26.0); Oxygen Content ABG 15.2 %vol (16.0-22.0); Oxygen Saturation ABG 95.2 % (95.0-100.0); Oxyhemoglobin 94.2 % THb (90.0-100.0); PO2 ABG 77.7 mmHg (80.0-100.0); PO2 FiO2 Ratio Arterial Blood 3.24 %; Total Hemoglobin 11.4 g/dL (12.0-18.0); pH ABG 7.415 (7.350-7.450)
[2022-08-02 05:40] LABS: Hematocrit 35.2 % (42.0-52.0); Hemoglobin 10.8 g/dL (14.0-18.0); Mean Corpuscular HGB Conc 30.7 g/dl (32-36); Mean Corpuscular Hemoglobin 31.7 pg (26-34); Mean Corpuscular Volume 103.2 fl (80-100); Mean Platelet Volume 10.3 fl (7.4-10.4); Platelet Count Result 175 k/mm3 (150-375); Red Blood Count 3.41 M/mm3 (4.6-6.20); Red Cell Distribution Width 13.5 % (11.5-14.5)
[2022-08-02 05:42] LABS: Device NASAL CANNULA; Modified Allen's Test Pass; PCO2 ABG 66.8 mmHg (35.0-45.0); Site Drawn LEFT RADIAL
[2022-08-02 05:52] LABS: Blood Urea Nitrogen 23 mg/dL (9-20); Calcium 8.1 mg/dL (8.4-10.2); Carbon Dioxide > 40 mmol/L (22-30); Chloride 91 mmol/L (98-107); Estimated CRCL calculation 49 ml/min; Estimated Glomerular Filt Rate > 60; Glucose 84 mg/dL (65-110); Potassium 3.6 mmol/L (3.4-5.0); Sodium 137 mmol/L (137-145)
[2022-08-02] MEDS: LEVOTHYROXINE SODIUM 12.5 MCG TABLET PO (06:10)
[2022-08-02 08:00] VITALS: PULSE 100; O2SAT 98; O2SAT 99
[2022-08-02] MEDS: FUROSEMIDE 40 MG TABLET PO (10:01)
[2022-08-02] MEDS: CHOLECALCIFEROL 1,000 UNITS TABLET 2000 UNITS PO (10:01)
[2022-08-02] MEDS: levETIRAcetam 500 MG TABLET 1000 MG PO ×2 (10:01→16:20)
[2022-08-02] MEDS: TAMSULOSIN HCL 0.4 MG CAPSULE PO (10:02)
[2022-08-02] MEDS: APIXABAN 5 MG TABLET PO (10:02)
[2022-08-02] MEDS: ATORVASTATIN 10 MG TABLET PO (10:02)
[2022-08-02] MEDS: ASPIRIN 81 MG ENTERIC TABLET PO (10:02)
[2022-08-02] MEDS: PANTOPRAZOLE 40 MG TABLET PO (10:02)
[2022-08-02 10:57] VITALS: PULSE 100; O2SAT 97
--- NOTE | 2022-08-02 11:28 | PM.IMPN ---
Progress Note: A&P Assessment and Plan (1) Acute on chronic respiratory failure with hypoxia and hypercapnia: Code(s): J96.21 - Acute and chronic respiratory failure with hypoxia; J96.22 - Acute and chronic respiratory failure with hypercapnia Status: Acute Assessment and Plan: Patient presented today for evaluation of altered mental status over the past 24 hours. Found to have pretty significant hypercarbia with a pCO2 of 101.1. He was started on BiPAP with marked improvement in his repeat ABGs. At the time my evaluation he is eager to have the BiPAP removed and I am going to let him eat some dinner and see how he does. I would like him to wear the BiPAP when sleeping and at nighttime, however per nursing reports, patient has refused. Will have pulmonology evaluate the patient as well. Will discuss with Dr. Villasenor. (2) Recurrent right pleural effusion: Code(s): J90 - Pleural effusion, not elsewhere classified Status: Acute Assessment and Plan: He had a thoracentesis last month and he may very well need another. Will defer to pulmonology. (3) Chronic lymphocytic leukemia: Code(s): C91.10 - Chronic lymphocytic leukemia of B-cell type not having achieved remission Status: Acute Assessment and Plan: Reportedly at an advanced age; he is followed by Dr. Villasenor. (4) Seizure: Code(s): R56.9 - Unspecified convulsions Status: Acute Assessment and Plan: No mention of recent seizures. Continue levetiracetam. 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 (6) Congestive heart failure: Code(s): I50.9 - Heart failure, unspecified Status: Chronic Assessment and Plan: Monitor, does not appear to be in exacerbation Subjective Date/time seen: 08/02/22 11:28 No new complaints. Patient is more alert today Exam Narrative: General: Chronically ill-appearing gentleman sitting up in bed on BiPAP. Weight: 69 kg. BMI: 23.1. HEENT: Defect from prior left craniotomy. PERRL, EOMI. Sclera anicteric. Oral exam not performed as he is on BiPAP. Neck: Supple. Exam is difficult due to patient positioning. No obvious lymphadenopathy or jugular venous distention. Respiratory: Kyphotic. Tolerating BiPAP and eager to have it removed. He appears in no respiratory distress. Lung sounds are diminished at the right base with dullness to percussion and faint crackles. Cardiovascular: Regular rate and rhythm with S1-S2. Gastrointestinal: Abdomen is soft and nontender with positive bowel sounds. Skin: Warm and dry. Generalized pallor. Some excoriations on the anterior blackburn. Extremities: No cyanosis, clubbing, or significant edema. Radial and pedal pulses intact. Neurological: Alert. Cranial nerves 2-12 are grossly intact. Speech difficult to understand through the BiPAP. Chronic right-sided weakness. Psychiatric: Pleasant and cooperative. Objective Data Vital Signs Vital Signs: Vital Signs - 24 hr 08/01/22 12:00 08/01/22 15:01 08/01/22 16:00 Temperature 97.9 F Pulse Rate 73 Respiratory Rate 20 20 Blood Pressure 103/46 L Pulse Oximetry 99 99 Oxygen Delivery Nasal Cannula Nasal Cannula Oxygen Flow Rate 2 2 08/01/22 18:20 08/01/22 20:42 08/01/22 20:32 Temperature 97.2 F L 96.5 F L Pulse Rate 74 72 Respiratory Rate 20 16 Blood Pressure 115/44 L 123/48 L Pulse Oximetry 100 99 98 Oxygen Delivery Nasal Cannula Oxygen Flow Rate 1.5 08/01/22 23:51 08/02/22 04:45 08/02/22 08:00 Temperature 97.7 F 96.9 F L Pulse Rate 73 71 100 Respiratory Rate 16 16 Blood Pressure 122/49 L 133/58 L Pulse Oximetry 99 100 99 Oxygen Delivery Oxygen Flow Rate 08/02/22 10:57 Temperature Pulse Rate 100 Respiratory Rate Blood Pres
--- NOTE | 2022-08-02 14:29 | PCSTNOTE ---
Patient tolerated 3 ml controlled bolus of thin and moderately thickened liquids presented by spoon with no aspiration or penetration. Due to patient's weak condition and difficulty with holding head up, no other consistencies were tested. Penetration/aspiration is possible with uncontrolled bolus of thick or thin liquids. Recommend nectar thickened liquids and level 5 diet (minced and moist). Supervision and assistance while eating/drinking. Controlled bolus size of approximately 3ml maximum. Upright position while eating/drinking. Multiple swallows. Thank you for the referral of this patient.
[2022-08-02 14:44] VITALS: BP 111/50; PULSE 68; RESP 20; TEMP 36.7; O2SAT 100
--- NOTE | 2022-08-02 15:42 | PM.PNPUL ---
Progress Note: A&P Assessment and Plan (1) Acute on chronic respiratory failure with hypoxia and hypercapnia: Code(s): J96.21 - Acute and chronic respiratory failure with hypoxia; J96.22 - Acute and chronic respiratory failure with hypercapnia Status: Acute Assessment and Plan: 77-year-old man with multiple medical problems presented with acute on chronic hypercapnic respiratory failure.? Patient was also hospitalized in the recent past with similar hypercapnic respiratory failure.? He has BiPAP machine at home but is unclear whether he has been using it.? Etiology of his hypercapnic respiratory failure is not quite clear.? There is no previous pulmonary function testing to assess for COPD or chronic restrictive disease.? It is possible the patient's hypercapnic respiratory failure is multifactorial related to previous stroke with right sided weakness, kyphosis, debilitated state with possible muscle weakness and also to chronic right pleural effusion.? During last hospitalization, he had combined chronic respiratory acidosis and metabolic alkalosis.? Plan: will continue with current BiPAP setting at night and p.r.n. during the day.? Will proceed with right? therapeutic thoracentesis. I would discontinue Eliquis and also recheck PT INR as on last testing he had prolonged PT. case was discussed with the patient's hospitalist. 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 Using BiPAP support at night. On supplemental oxygen during the day Review of Systems Review of Systems: Unable to be assessed accurately as he is having difficulties communicating. Exam Narrative: GENERAL APPEARANCE: Well developed, emaciated elderly man appears to be mild respiratory distress SKIN: Inspection of the skin reveals no rashes, ulcerations or petechiae. HEENT: Sclerae anicteric and conjunctivae pink and moist. Extraocular movements were intact and pupils were equal The oral mucosa, hard and soft palate, tongue and posterior pharynx were normal. NECK: Supple. There was no thyroid enlargement, and no tenderness, or masses were felt. CHEST: mild kyphosis LUNGS: Auscultation of the lungs revealed decreased breath sounds at right base posteriorly CARDIAC: There was a regular rate and rhythm without any murmurs ABDOMEN: Soft and nontender with normal bowel sounds. There was no organomegaly. LYMPH NODES: No lymphadenopathy was appreciated in the neck. EXTREMITIES: No cyanosis, clubbing or edema. NEUROLOGIC: patient appears to be disoriented to time. Right-sided weakness Objective Data Vital Signs Vital Signs: Vital Signs - 24 hr 08/01/22 16:00 08/01/22 18:20 08/01/22 20:42 Temperature 36.2 C L Pulse Rate 74 Respiratory Rate 20 20 Blood Pressure 115/44 L Pulse Oximetry 99 100 99 Oxygen Delivery Nasal Cannula Nasal Cannula Oxygen Flow Rate 2 1.5 08/01/22 20:32 08/01/22 23:51 08/02/22 04:45 Temperature 35.8 C L 36.5 C 36.1 C L Pulse Rate 72 73 71 Respiratory Rate 16 16 16 Blood Pressure 123/48 L 122/49 L 133/58 L Pulse Oximetry 98 99 100 Oxygen Delivery Oxygen Flow Rate 08/02/22 08:00 08/02/22 10:57 08/02/22 14:44 Temperature
[2022-08-02 20:00] VITALS: O2SAT 99
[2022-08-02 20:16] VITALS: BP 104/50; PULSE 74; RESP 12; TEMP 36.5; O2SAT 100
[2022-08-03 04:23] VITALS: BP 130/60; PULSE 77; RESP 16; TEMP 37; O2SAT 99
[2022-08-03 08:20] VITALS: BP 106/51; PULSE 76; RESP 22; TEMP 36.8; O2SAT 96
[2022-08-03 08:30] VITALS: PULSE 72; O2SAT 96
--- NOTE | 2022-08-03 09:26 | PC.NURSE ---
Patient left the floor for thoracentesis procedure.
[2022-08-03 10:20] VITALS: BP 108/53; PULSE 74; RESP 24; TEMP 36.2; O2SAT 100
[2022-08-03] MEDS: levETIRAcetam 500 MG TABLET 1000 MG PO ×2 (10:54→16:48)
[2022-08-03] MEDS: PANTOPRAZOLE 40 MG TABLET PO (10:55)
[2022-08-03] MEDS: ATORVASTATIN 10 MG TABLET PO (10:55)
[2022-08-03] MEDS: CHOLECALCIFEROL 1,000 UNITS TABLET 2000 UNITS PO (10:55)
[2022-08-03] MEDS: ASPIRIN 81 MG ENTERIC TABLET PO (10:55)
[2022-08-03] MEDS: FUROSEMIDE 40 MG TABLET PO (10:55)
[2022-08-03] MEDS: TAMSULOSIN HCL 0.4 MG CAPSULE PO (10:56)
--- NOTE | 2022-08-03 12:20 | PM.IMPN ---
Progress Note: A&P Assessment and Plan (1) Acute on chronic respiratory failure with hypoxia and hypercapnia: Code(s): J96.21 - Acute and chronic respiratory failure with hypoxia; J96.22 - Acute and chronic respiratory failure with hypercapnia Status: Acute Assessment and Plan: Multifactorial with kyphosis, pleural effusion, obstructive sleep apnea. BiPAP as needed. He is to continue this at home. (2) Recurrent right pleural effusion: Code(s): J90 - Pleural effusion, not elsewhere classified Status: Acute Assessment and Plan: Status post thoracentesis. 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 Exam Narrative: General: alert and oriented Psych: appropriate mood nad affect Eyes: PERRLA Neck: Trachea midline, no new lesions Skin: no changes Lungs: Diminished breath sounds bilaterally Cardiac: Normal S1,S2, no MGR ABD: soft, nd, nt, nbs Ext: no new lesions, no cce Vasc: Pulses intact Objective Data Vital Signs Vital Signs: Vital Signs - 24 hr 08/02/22 14:44 08/02/22 20:16 08/02/22 20:00 Temperature 98.1 F 97.7 F Pulse Rate 68 74 Respiratory Rate 20 12 Blood Pressure 111/50 L 104/50 L Pulse Oximetry 100 100 99 Oxygen Delivery Nasal Cannula Oxygen Flow Rate 2 Fraction of Inspired Oxygen 30 08/03/22 04:23 08/03/22 08:20 08/03/22 08:30 Temperature 98.6 F 98.2 F Pulse Rate 77 76 72 Respiratory Rate 16 22 H Blood Pressure 130/60 106/51 L Pulse Oximetry 99 96 96 Oxygen Delivery Nasal Cannula Oxygen Flow Rate 1 Fraction of Inspired Oxygen 08/03/22 10:20 Temperature 97.2 F L Pulse Rate 74 Respiratory Rate 24 H Blood Pressure 108/53 L Pulse Oximetry 100 Oxygen Delivery Oxygen Flow Rate Fraction of Inspired Oxygen Intake/Output Intake/Output: Intake & Output 07/31/22 08/01/22 08/02/22 08/03/22 23:59 23:59 23:59 23:59 Intake Total 50 570 500 Output Total 400 400 0 950 Balance -350 170 500 -950 Meds/Results Medications: Active Medications Generic Name Dose Route Start Last Admin Trade Name Haim PRN Reason Stop Dose Admin Albuterol 2 puff 07/31/22 22:41 Albuterol Sulfate (*Sp) Aerosol 1 Puff INHALATION Q6-8H PRN Shortness Of Breath Apixaban 5 mg 07/31/22 22:45 08/02/22 10:02 Apixaban 5 Mg Tablet PO 5 mg Q12HR CARLA Administration Aspirin 81 mg 08/01/22 09:00 08/03/22 10:55 Aspirin 81 Mg Enteric Tablet PO 81 mg QAM CARLA Administration Atorvastatin Calcium 10 mg 08/01/22 09:00 08/03/22 10:55 Atorvastatin 10 Mg Tablet PO 10 mg DAILY CARLA Administration Calcium Polycarbophil 1,250 mg 08/03/22 10:11 Calcium Polycarbophil 625 Mg Tablet PO DAILY PRN Constipation Furosemide 40 mg 08/01/22 09:00 08/03/22 10:55 Furosemide 40 Mg Tablet PO 40 mg QAM CARLA Administration Ceftriaxone Sodium/Dextrose 1 gm in 50 mls @ 100 mls/hr 07/31/22 22:40 08/02/22 20:32 Rocephin 1 Gm/D5w 50 Ml IVPB Infused DAILY@2100 CARLA Infusion Azithromycin 500 mg in 250 mls @ 250 mls/hr 07/31/22 22:40 08/02/22 20:41 Zithromax IVPB 250 mls/hr DAILY@2100 CARLA Administration Levetiracetam 1,000 mg 07/31/22 22:45 08/03/22 10:54 Levetiracetam 500 Mg Tablet PO 1,000 mg BID CARLA Administration Levothyroxine Sodium 12.5 mcg 08/01/22 06:30 08/03/22 05:31 Levothyroxine Sodium 12.5 Mcg Tablet PO Not Gi
--- NOTE | 2022-08-03 13:39 | PC.NURSE ---
Patient back in room @10:11, report received, floid taken out 850 ml. stable, vitals recorded as documented.
[2022-08-03 14:00] VITALS: BP 106/59; PULSE 73; RESP 20; TEMP 36.4; O2SAT 100
[2022-08-03 19:49] VITALS: BP 101/48; PULSE 69; RESP 17; TEMP 36.2; O2SAT 98
[2022-08-04 02:05] VITALS: PULSE 69; RESP 18; O2SAT 98
[2022-08-04 03:44] VITALS: BP 102/49; PULSE 70; RESP 17; TEMP 36.4; O2SAT 100
[2022-08-04] MEDS: LEVOTHYROXINE SODIUM 12.5 MCG TABLET PO (05:47)
[2022-08-04] MEDS: ATORVASTATIN 10 MG TABLET PO (07:59)
[2022-08-04] MEDS: PANTOPRAZOLE 40 MG TABLET PO (07:59)
[2022-08-04] MEDS: CHOLECALCIFEROL 1,000 UNITS TABLET 2000 UNITS PO (07:59)
[2022-08-04] MEDS: ASPIRIN 81 MG ENTERIC TABLET PO (08:00)
[2022-08-04] MEDS: levETIRAcetam 500 MG TABLET 1000 MG PO ×2 (08:00→16:03)
[2022-08-04] MEDS: APIXABAN 5 MG TABLET PO ×2 (08:00→20:03)
[2022-08-04] MEDS: TAMSULOSIN HCL 0.4 MG CAPSULE PO (08:00)
[2022-08-04] MEDS: FUROSEMIDE 40 MG TABLET PO (08:00)
[2022-08-04 08:06] VITALS: O2SAT 96
[2022-08-04 08:56] VITALS: O2SAT 96
--- NOTE | 2022-08-04 10:41 | PM.DS ---
DS: Admitting Diagnosis Discharge Date August 04, 2022 Admitting Diagnosis Pleural effusion, hypercarbic respiratory failure, medical noncompliance DS: Discharge Diagnosis Discharge Diagnosis (1) Acute on chronic respiratory failure with hypoxia and hypercapnia: Code(s): J96.21 - Acute and chronic respiratory failure with hypoxia; J96.22 - Acute and chronic respiratory failure with hypercapnia Status: Acute Assessment and Plan: Patient was admitted with hypercarbic respiratory failure. Multifactorial with kyphosis, pleural effusion, obstructive sleep apnea. BiPAP as needed. He is to continue this at home. Patient did also have pleural effusion had therapeutic thoracentesis. Repeat x-ray looked okay. I spoke with Dr. Villasenor his oncologist and he is hopeful that his current regimen will help with this if not he will consider pleural catheter. (2) Recurrent right pleural effusion: Code(s): J90 - Pleural effusion, not elsewhere classified Status: Acute Assessment and Plan: Status post thoracentesis. 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: Code(s): Z79.01 - ferry terminal agent (current) use of anticoagulants Status: Acute (6) Congestive heart failure: Code(s): I50.9 - Heart failure, unspecified Status: Chronic DS: Summary Hospital Course Hospital Course: See discharge planning diagnoses Time Spent with Patient Time attestation: Total time spent providing and/or coordinating discharge services: Exam Narrative: General: alert and oriented Psych: appropriate mood nad affect Eyes: PERRLA Neck: Trachea midline, no new lesions Skin: no changes Lungs: Diminished breath sounds bilaterally Cardiac: Normal S1,S2, no MGR ABD: soft, nd, nt, nbs Ext: no new lesions, no cce Vasc: Pulses intact Discharge Plan Discharge Attending physician on discharge: Alexis Do Consulting providers: Mihir Hsieh Discharging Clinician: Alexis Do Patient Disposition: Home Health Service Activity: no preference Diet: as tolerated Discharge Instructions: Per Care Coordination. Patient to resume [facility] [phone]. They will contact pt. to schedule resumption of Home Health. Patient Instructions: Antibiotic Form, Apixaban (By mouth), Heart Failure (GEN) Stand Alone Forms: General Discharge Information Follow-up/Referrals: Hola Bennett DO [Primary Care Provider] - Mihir Hsieh MD [Physician] - Discharge Medications: Continued aspirin 81 mg Tablet 81 mg PO DAILY albuterol sulfate 90 mcg/actuation HFA aerosol inhaler 2 puff INHALATION Q6-8H PRN (Reason: Shortness Of Breath) Rx Instructions: Q6 Benefiber Healthy Shape 5 gram/7.4 gram Powder 5 g PO DAILY PRN (Reason: Constipation) Label Comments: reported pt takes stool softeners bid unsure of what kind. only takes this prn Rx Instructions: 5 GRAM/7.4 GRAM levothyroxine 25 mcg tablet 12.5 mcg PO DAILY furosemide [Lasix] 40 mg tablet 40 mg PO QAM Qty: 90 2RF tamsulosin 0.4 mg capsule 0.4 mg PO DAILY Qty: 90 1RF cholecalciferol (vitamin D3) 50 mcg (2,000 unit) tablet 50 mcg PO DAILY Qty: 30 0RF atorvastatin 10 mg tablet 10 mg PO DAILY Qty: 90 1RF pantoprazole 40 mg tablet,delayed release (DR/EC) 40 mg PO DAILY Qty: 90 1RF levetiracetam [Keppra] 500 mg tablet 1,000 mg PO BID 30 Days Qty: 30 1RF Eliquis 5 mg tablet 5 mg PO Q12HR Qty: 60 1RF Date of admission: 07/31/22 13:36 Primary Care Provider: Hola Bennett Admitting Provider: Brittany Doyle Attending
--- NOTE | 2022-08-04 12:05 | PC.NURSE ---
Called report to patient's Elke. All questions were answered. Patient's stated ride would not be available until after 1999
[2022-08-04 14:38] VITALS: BP 110/54; PULSE 58; RESP 16; TEMP 36.4; O2SAT 98
[2022-08-04 19:36] VITALS: BP 107/45; PULSE 76; RESP 18; TEMP 36.3; O2SAT 100
--- NOTE | 2022-08-04 20:11 | PC.NURSE ---
Spoke with at this time to ensure his ride is bringing oxygen for the ride home. She said the daughter will bring oxygen with her.
== END 2022-08-04 21:20 | disposition home health service (06) | DRG 189 ==
LOC: ANHED 13:33 → ANHIMU 16:33 → ANH2MED 08-02 09:25 → ANHIMU 08-07 10:10
PROVIDERS: Physician Assistant; Admitting Provider Student in an Organized Health Care Education/Training Program; Emergency Provider Emergency Medicine; PCP Internal Medicine; Visit Provider Chiropractor
DX: J96.22 Acute and chronic respiratory failure with hypercapnia (principal); C91.10 Chronic lymphocytic leukemia of B-cell type not having achieved remission; J91.0 Malignant pleural effusion; I69.351 Hemiplegia and hemiparesis following cerebral infarction affecting right dominant side; I13.0 Hypertensive heart and chronic kidney disease with heart failure and stage 1 through stage 4 chronic kidney disease, or unspecified chronic kidney disease; I50.32 Chronic diastolic (congestive) heart failure; J96.21 Acute and chronic respiratory failure with hypoxia; I69.393 Ataxia following cerebral infarction; N18.9 Chronic kidney disease, unspecified; E11.22 Type 2 diabetes mellitus with diabetic chronic kidney disease; E11.51 Type 2 diabetes mellitus with diabetic peripheral angiopathy without gangrene; D63.1 Anemia in chronic kidney disease; R41.82 Altered mental status, unspecified; R13.12 Dysphagia, oropharyngeal phase; N40.0 Benign prostatic hyperplasia without lower urinary tract symptoms; E78.2 Mixed hyperlipidemia; I25.10 Atherosclerotic heart disease of native coronary artery without angina pectoris; G40.909 Epilepsy, unspecified, not intractable, without status epilepticus; G47.33 Obstructive sleep apnea (adult) (pediatric); M40.209 Unspecified kyphosis, site unspecified; E55.9 Vitamin D deficiency, unspecified; Z20.822 Contact with and (suspected) exposure to COVID-19; Z79.01 Long term (current) use of anticoagulants; Z79.82 Long term (current) use of aspirin; Z79.899 Other long term (current) drug therapy; Z85.46 Personal history of malignant neoplasm of prostate; Z85.841 Personal history of malignant neoplasm of brain; Z86.711 Personal history of pulmonary embolism; Z86.718 Personal history of other venous thrombosis and embolism; Z95.5 Presence of coronary angioplasty implant and graft; Z99.81 Dependence on supplemental oxygen
CPT/HCPCS: 32555; 36415; 36600; 51701; 70450; 71045; 80048; 80053; 81001; 82375; 82607; 82728; 82746; 82805; 83050; 83540; 83550; 83735; 84100; 84443; 84484; 85025; 85027; 85610; 85730; 92610; 92611; 93005; 94002; 94660; 97110; 97161; 97165; 97530; 97535; 99291; A9270; C9803; J0456; J0696; J1940; U0003; U0005

== ENCOUNTER 2022-08-22 10:35 | Emergency (ER) | payer OTHER, SELFPAY ==
[2022-08-22] VITALS (10 sets, daily range): BP systolic 92–101; BP diastolic 48–57; PULSE 68–86; RESP 18–27; TEMP 36.7; O2SAT 99–100
--- NOTE | ~2022-08-22 | CT_ITS ---
EXAMINATION: CT brain wo con DATE: 08/22/2022 12:28 INDICATION: Bruise on back of head. Patient taking eloquence anticoagulation treatment TECHNIQUE: Computed tomography (CT) of the head was performed without intravenous contrast. The mA wa s adjusted according to patient size. Iterative reconstruction technique was employed. Exam dose: 43 3.79 mGy-cm total exam DLP. COMPARISON: 07/31/2022 CT brain FINDINGS: Examination is compromised by motion artifact. Large chronic area of encephalomalacia of the left frontal temporal parietal area within the left mid dle cerebral artery territory. There is an overlying bone flap secured by plates and screws. No intracranial mass lesion or hemorrhage, midline shift or mass effect is evident. Moderate cerebral and cerebellar volume loss, including particularly cerebral atrophy in the frontal areas. No skull fracture or bone destruction. The mastoid air cells and paranasal sinuses are normally devel oped and aerated. IMPRESSION: Chronic encephalomalacia in the left frontal temporoparietal area, with overlying bone f lap No acute intracranial finding Reviewed, dictated and finalized at [facility]. Reviewed, dictated and finalized at location B. IMPRESSION: Chronic encephalomalacia in the left frontal temporoparietal area, with overlying bone flap No acute intracranial finding
--- NOTE | ~2022-08-22 | XR_ITS ---
EXAMINATION: XR chest 1V portable INDICATION: Shortness of breath TECHNIQUE: Portable AP chest at 1135 hours COMPARISON: 08/04/2022 FINDINGS: There is a small right pleural effusion. No pneumothorax is identified. There are right bas ilar airspace opacities. The cardiomediastinal silhouette is stable. IMPRESSION: 1. Small right pleural effusion with right basilar airspace opacity, likely atelectasis. Reviewed, dictated and finalized at location [facility]. IMPRESSION: 1. Small right pleural effusion with right basilar airspace opacity, likely ate lectasis.
--- NOTE | 2022-08-22 10:48 | ECG_ITS ---
Measurements Intervals [place] Rate: 82 P: 64 [place]: 150 QRS: 66 QRSD: 97 T: -2 QT: 331 QTc: 389 Interpretive Statements SINUS RHYTHM BORDERLINE R WAVE PROGRESSION, ANTERIOR LEADS BORDERLINE ST-T WAVE ABNORMALITY- INFERIOR LEADS BASELINE ARTIFACT- I, III, AVF, V4 BORDERLINE ECG COMPARED TO ECG 07/31/2022 09:37:35 NO SIGNIFICANT CHANGES Electronically Signed On 08-22-2022 11:09:23 CDT by Jl Dillon D.O.
[2022-08-22 11:26] LABS: Basophils Percent Auto 0.3 % (0.2-1.2); Eosinophils Percent Auto 0.4 % (0-4.4); Hematocrit 32.9 % (42.0-52.0); Hemoglobin 9.9 g/dL (14.0-18.0); Immature Granulocyte Absolute 0.02 K/mm3 (0.00-0.031); Immature Granulocyte Percent A 0.3 % (0-0.5); Lymphocytes Absolute Auto 1.55 K/mm3 (0.9-3.2); Lymphocytes Percent Auto 20.9 % (18.3-44.2); Mean Corpuscular HGB Conc 30.1 g/dl (32-36); Mean Corpuscular Hemoglobin 31.8 pg (26-34); Mean Corpuscular Volume 105.8 fl (80-100); Mean Platelet Volume 9.8 fl (7.4-10.4); Monocytes Absolute Auto 1.1 K/mm3 (0.1-0.6); Monocytes Percent Auto 14.7 % (2.6-8.5); Neutrophils Absolute Auto 4.7 K/mm3 (1.3-6.7); Neutrophils Percent Auto 63.4 % (45.5-73.1); Platelet Count Result 250 k/mm3 (150-375); Red Blood Count 3.11 M/mm3 (4.6-6.20); Red Cell Distribution Width 13.6 % (11.5-14.5); White Blood Count 7.4 K/mm3 (4.5-10.0)
[2022-08-22 11:37] LABS: Alanine Aminotransferase 20 U/L (6-50); Albumin Level 3.4 g/dL (3.5-5.1); Alkaline Phosphatase 92 U/L (38-126); Aspartate Amino Transferase 26 U/L (17-59); Bilirubin,Total 0.4 mg/dL (0.2-1.3); Blood Urea Nitrogen 27 mg/dL (9-20); Calcium 8.9 mg/dL (8.4-10.2); Carbon Dioxide > 40 mmol/L (22-30); Chloride 91 mmol/L (98-107); Estimated CRCL calculation 42 ml/min; Estimated Glomerular Filt Rate 58; Glucose 125 mg/dL (65-110); Potassium 4.1 mmol/L (3.4-5.0); Sodium 142 mmol/L (137-145)
[2022-08-22 12:45] LABS: NT Pro B Type Natriuretic Pept 94 pg/mL (5-100); Troponin I < 0.012 ng/mL (0.000-0.034)
--- NOTE | 2022-08-22 14:31 | ED.GENADULT ---
HPI - General Adult General Chief complaint: Shortness of Breath/Dyspnea Stated complaint: SOB Time Seen by Provider: 08/22/22 11:13 History of Present Illness HPI narrative: This is a 77-year-old male with history of lymphoma sent into the ED after an episode of shortness of breath and hypotension during chemo. I checked the EMS run sheet and when EMS arrived the patient's blood pressure was normal and he saturating well on room air. At this time the patient has no complaints. The patient is on Eliquis for atrial fibrillation. Per the patient's is at his normal mental status. she is concerned that he has a bruise on the back of his head she is worried that he may have fallen. Related Data Home Medications Medication Instructions Recorded Confirmed albuterol sulfate 90 mcg/actuation 2 puff inhalation Q6-8H PRN 11/13/21 08/14/22 aerosol inhaler Shortness Of Breath aspirin 81 mg tablet 81 mg PO DAILY 11/13/21 08/14/22 wheat dextrin 5 gram/7.4 gram oral 5 g PO DAILY PRN Constipation 11/13/21 08/14/22 powder (Benefiber Healthy Shape) levothyroxine 25 mcg tablet 12.5 mcg PO DAILY 07/31/22 08/14/22 Allergies Allergy/AdvReac Type Severity Reaction Status Date / Time No Known Drug Allergies Allergy Unknown Unknown Verified 08/14/22 11:13 Review of Systems Review of Systems: CONSTITUTIONAL: Denies night sweats. EYES: No eye pain ENT: Denies rhinorrhea CARDIOVASCULAR: Denies palpitations RESPIRATORY: Denies hemoptysis GASTROINTESTINAL: Denies hematemesis GENITOURINARY: Denies hematuria. SKIN: Denies rash MUSCULOSKELETAL: Denies myalgia. NEUROLOGIC: Denies weakness. PSYCHIATRIC: Denies delusions [facility] Past Medical History Medical History Anemia of chronic disease Anxiety Ataxia, post-stroke Benign prostatic hyperplasia Brain cancer Status post tumor resection and chemoradiation. Cerebrovascular accident Chronic lymphocytic leukemia Chronic respiratory failure Patient was to be using a BiPAP at nighttime however he states the mask does not fit well. 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 History of heart artery stent Family History Family History Mother Patient's mother is in good health Sibling Patient's sister is in good health Patient's brother is in good health Other Family history of arthritis Family history of malignant neoplasm of brain Family history of pancreatic cancer Malignant neoplasm of prostate Social History Social History Social History: The patient lives with his in [place]. He is on disability. Lifelong nonsmoker. No alcohol or illicit substance use. His Elke Bartholomew is his surrogate decision maker. Code status: Full code. Spiritual care concerns: No Exam Narrative: APPEARANCE: No apparent distress. Head atraumatic. EYES: PERRLA/EOMI, NOSE: Normal no drainage NECK: Supple, Trachea midline RESPIRATORY: CTAB, No increased work of breathing. CARDIOVASCULAR: S1S2 appreciated ABDOMINAL: Soft, nontender, nondistended, MUSCULOSKELETAl: No obvious deformities NEURO: Alert. Moving 4/4 extremities SKIN:: Warm, dry. Normal color PSYCHIATRIC: Normal affect Course Vital Signs Vital signs: Vital Signs Temperature 98.0 F 08/22/22 10:43 Pulse Rate 82 08/22/22 10:43 Respiratory Rate 2
[2022-08-22 14:50] LABS: Troponin I < 0.012 ng/mL (0.000-0.034)
== END 2022-08-22 15:21 | disposition home or self-care (01) ==
PROVIDERS: Emergency Provider Emergency Medicine; PCP Internal Medicine
DX: R06.00 Dyspnea, unspecified (principal); S00.03XA Contusion of scalp, initial encounter; C91.10 Chronic lymphocytic leukemia of B-cell type not having achieved remission; I48.91 Unspecified atrial fibrillation; D63.8 Anemia in other chronic diseases classified elsewhere; I69.393 Ataxia following cerebral infarction; J96.10 Chronic respiratory failure, unspecified whether with hypoxia or hypercapnia; I50.9 Heart failure, unspecified; I11.0 Hypertensive heart disease with heart failure; I25.10 Atherosclerotic heart disease of native coronary artery without angina pectoris; E78.2 Mixed hyperlipidemia; E11.51 Type 2 diabetes mellitus with diabetic peripheral angiopathy without gangrene; I73.9 Peripheral vascular disease, unspecified; E55.9 Vitamin D deficiency, unspecified; N40.0 Benign prostatic hyperplasia without lower urinary tract symptoms; Z85.841 Personal history of malignant neoplasm of brain; Z85.46 Personal history of malignant neoplasm of prostate; Z86.718 Personal history of other venous thrombosis and embolism; Z95.5 Presence of coronary angioplasty implant and graft; Z79.01 Long term (current) use of anticoagulants; Z79.899 Other long term (current) drug therapy; Z79.82 Long term (current) use of aspirin; R94.31 Abnormal electrocardiogram [ECG] [EKG]; X58.XXXA Exposure to other specified factors, initial encounter
CPT/HCPCS: 36415; 70450; 71045; 80048; 80053; 83880; 84484; 85025; 93005; 99212; 99214; 99284; G0463

== ENCOUNTER 2022-09-09 10:32 | Outpatient (RCR) | payer OTHER, SELFPAY ==
[2022-08-14 08:38] LABS: Blood Urea Nitrogen 28 mg/dL (9-20); Calcium 8.9 mg/dL (8.4-10.2); Carbon Dioxide > 40 mmol/L (22-30); Chloride 89 mmol/L (98-107); Estimated Glomerular Filt Rate 58; Glucose 113 mg/dL (65-110); Potassium 3.9 mmol/L (3.4-5.0); Sodium 144 mmol/L (137-145)
[2022-08-14 08:46] LABS: Basophils Percent Auto 0.6 % (0.2-1.2); Eosinophils Absolute Auto 0.1 K/mm3 (0-0.3); Eosinophils Percent Auto 0.9 % (0-4.4); Hematocrit 36.1 % (42.0-52.0); Immature Granulocyte Absolute 0.02 K/mm3 (0.00-0.031); Immature Granulocyte Percent A 0.3 % (0-0.5); Lymphocytes Absolute Auto 2.41 K/mm3 (0.9-3.2); Lymphocytes Percent Auto 35.8 % (18.3-44.2); Mean Corpuscular HGB Conc 30.5 g/dl (32-36); Mean Corpuscular Hemoglobin 31.2 pg (26-34); Mean Corpuscular Volume 102.3 fl (80-100); Monocytes Absolute Auto 0.7 K/mm3 (0.1-0.6); Monocytes Percent Auto 10.1 % (2.6-8.5); Neutrophils Absolute Auto 3.5 K/mm3 (1.3-6.7); Neutrophils Percent Auto 52.3 % (45.5-73.1); Platelet Count Result 264 k/mm3 (150-375); Red Blood Count 3.53 M/mm3 (4.6-6.20); Red Cell Distribution Width 13.3 % (11.5-14.5); White Blood Count 6.7 K/mm3 (4.5-10.0)
[2022-08-22 09:26] LABS: Basophils Percent Auto 0.3 % (0.2-1.2); Eosinophils Percent Auto 0.5 % (0-4.4); Hematocrit 35.8 % (42.0-52.0); Hemoglobin 10.8 g/dL (14.0-18.0); Immature Granulocyte Absolute 0.02 K/mm3 (0.00-0.031); Immature Granulocyte Percent A 0.3 % (0-0.5); Lymphocytes Percent Auto 26.5 % (18.3-44.2); Mean Corpuscular HGB Conc 30.2 g/dl (32-36); Mean Corpuscular Hemoglobin 31.6 pg (26-34); Mean Corpuscular Volume 104.7 fl (80-100); Mean Platelet Volume 9.9 fl (7.4-10.4); Monocytes Absolute Auto 0.7 K/mm3 (0.1-0.6); Monocytes Percent Auto 10.6 % (2.6-8.5); Neutrophils Percent Auto 61.8 % (45.5-73.1); Platelet Count Result 294 k/mm3 (150-375); Red Blood Count 3.42 M/mm3 (4.6-6.20); Red Cell Distribution Width 13.5 % (11.5-14.5); White Blood Count 6.4 K/mm3 (4.5-10.0)
[2022-08-22 09:44] LABS: Blood Urea Nitrogen 27 mg/dL (9-20); Calcium 9.1 mg/dL (8.4-10.2); Carbon Dioxide > 40 mmol/L (22-30); Chloride 89 mmol/L (98-107); Estimated Glomerular Filt Rate 58; Glucose 143 mg/dL (65-110); Potassium 3.8 mmol/L (3.4-5.0); Sodium 141 mmol/L (137-145)
[2022-09-02 09:33] LABS: Basophils Percent Auto 0.3 % (0.2-1.2); Eosinophils Absolute Auto 0.1 K/mm3 (0-0.3); Eosinophils Percent Auto 0.9 % (0-4.4); Hematocrit 36.7 % (42.0-52.0); Immature Granulocyte Absolute 0.02 K/mm3 (0.00-0.031); Immature Granulocyte Percent A 0.3 % (0-0.5); Lymphocytes Absolute Auto 2.18 K/mm3 (0.9-3.2); Lymphocytes Percent Auto 33.9 % (18.3-44.2); Mean Corpuscular Hemoglobin 31.9 pg (26-34); Mean Corpuscular Volume 106.4 fl (80-100); Monocytes Absolute Auto 0.7 K/mm3 (0.1-0.6); Monocytes Percent Auto 10.4 % (2.6-8.5); Neutrophils Absolute Auto 3.5 K/mm3 (1.3-6.7); Neutrophils Percent Auto 54.2 % (45.5-73.1); Platelet Count Result 230 k/mm3 (150-375); Red Blood Count 3.45 M/mm3 (4.6-6.20); Red Cell Distribution Width 13.6 % (11.5-14.5); White Blood Count 6.4 K/mm3 (4.5-10.0)
[2022-09-02 09:43] LABS: Blood Urea Nitrogen 24 mg/dL (9-20); Calcium 8.7 mg/dL (8.4-10.2); Carbon Dioxide > 40 mmol/L (22-30); Chloride 89 mmol/L (98-107); Estimated Glomerular Filt Rate 53; Glucose 124 mg/dL (65-110); Potassium 3.5 mmol/L (3.4-5.0); Sodium 141 mmol/L (137-145)
[2022-09-09 10:52] LABS: Basophils Percent Auto 0.3 % (0.2-1.2); Eosinophils Percent Auto 0.7 % (0-4.4); Hematocrit 35.8 % (42.0-52.0); Hemoglobin 10.8 g/dL (14.0-18.0); Immature Granulocyte Absolute 0.02 K/mm3 (0.00-0.031); Immature Granulocyte Percent A 0.3 % (0-0.5); Lymphocytes Absolute Auto 1.47 K/mm3 (0.9-3.2); Lymphocytes Percent Auto 24.4 % (18.3-44.2); Mean Corpuscular HGB Conc 30.2 g/dl (32-36); Mean Corpuscular Hemoglobin 31.1 pg (26-34); Mean Corpuscular Volume 103.2 fl (80-100); Monocytes Absolute Auto 0.6 K/mm3 (0.1-0.6); Monocytes Percent Auto 10.5 % (2.6-8.5); Neutrophils Absolute Auto 3.8 K/mm3 (1.3-6.7); Neutrophils Percent Auto 63.8 % (45.5-73.1); Platelet Count Result 253 k/mm3 (150-375); Red Blood Count 3.47 M/mm3 (4.6-6.20); Red Cell Distribution Width 13.6 % (11.5-14.5)
[2022-09-09 11:05] LABS: Blood Urea Nitrogen 25 mg/dL (9-20); Calcium 8.8 mg/dL (8.4-10.2); Carbon Dioxide > 40 mmol/L (22-30); Chloride 87 mmol/L (98-107); Estimated Glomerular Filt Rate 58; Glucose 132 mg/dL (65-110); Potassium 3.9 mmol/L (3.4-5.0); Sodium 141 mmol/L (137-145)
== END 2022-10-08 07:44 | disposition home or self-care (01) ==
LOC: ANHLAB 10:32
PROVIDERS: PCP Internal Medicine; Visit Provider Internal Medicine Hematology & Oncology
DX: C91.10 Chronic lymphocytic leukemia of B-cell type not having achieved remission (principal)
CPT/HCPCS: 36415; 80048; 85025; 96367; 96375; 96413; 96417; 99212; A9270; G0463; J1100; J1200; J7030; Q5115

== ENCOUNTER 2022-09-20 20:46 | Inpatient (IN) | payer OTHER, SELFPAY ==
--- NOTE | ~2022-09-20 | US_ITS ---
EXAMINATION: US thoracentesis DATE: 09/27/2022 10:49 INDICATION: Moderate right pleural effusion TECHNIQUE: The procedure and its risks and benefits were discussed with the patient. Potential risks discussed included bleeding, infection, and pneumothorax. The patient understood the risks and agreed to proceed. The skin was prepped and draped in sterile fashion. 1% lidocaine was used for local anes thesia. Under ultrasound guidance, a 5 Fr catheter with trochar was advanced into the right pleural e ffusion. Fluid was aspirated. The catheter was removed, and a dressing was applied. There were no imm ediate complications. FINDINGS: Ultrasound images demonstrate a moderate-sized right pleural effusion and the catheter within the flu id. IMPRESSION: 1. Successful ultrasound-guided thoracentesis yielding 1000 mL of clear yellow fluid. Reviewed, dictated and finalized at location A.
--- NOTE | ~2022-09-20 | CT_ITS ---
EXAMINATION: CTA brain carotid DATE: 09/25/2022 14:43 INDICATION: Right hemiparesis. TECHNIQUE: Computed tomographic angiography (CTA) of the head was performed without and with 100 mL O mnipaque-350 intravenous contrast. CTA of the neck was performed with intravenous contrast. Automated exposure control and iterative reconstruction technique were employed. The dose-length product was 1 856.43 mGy-cm. Maximum intensity projection and volume rendered 3D-reconstructions were created by delfina tubbs technologist on a separate workstation. COMPARISON: Head CT 09/20/2022 FINDINGS: HEAD CTA: There is a large distribution of old infarct involving the left frontal temporal parietal r egion and left insula. There is acute infarct involving left parietal frontal, parietal, temporal, an d occipital lobe. There is no acute intracranial hemorrhage or abnormal mass lesion. There is mild ex vacuo dilatation of left lateral ventricle. There is mild mucosal thickening in the ethmoid sinuses. The orbits are normal. The mastoid air cells are normal. There are changes of left-sided craniotomy. The vertebral arteries are codominant. There is no significant stenosis of basilar artery or the pos terior cerebral arteries. There is no significant stenosis of the intracranial internal carotid arter ies or anterior cerebral arteries. Anterior communicating artery is normal. There is a decreased numb er of opacified left middle cerebral artery branches when compared to the contralateral side. NECK CTA: There are moderate-sized right and small left pleural effusions. There is mild scarring at the lung apices. There are nodules in the thyroid measuring up to 5 mm, likely not clinically signifi cant. There are no pathologically enlarged lymph nodes. There is mild mediastinal lymphadenopathy. Th ere is no significant stenosis of the vertebral arteries. There is mild plaque in the proximal rn international al carotid arteries. There is 0% stenosis of the proximal right internal carotid artery relative to n ormal distal artery lumen diameter (NASCET criteria). There is 0% stenosis of the proximal left inter nal carotid artery relative to normal distal artery lumen diameter. There is mild cervical spondylosi s. IMPRESSION: 1. Large distribution of acute infarct involving left frontal, temporal, parietal, and occipital lobe s. 2. Large distribution of old infarct involving left frontal, temporal, and parietal lobes and left in sula. 3. No aneurysm or significant intracranial arterial stenosis. 4. 0% stenosis of the proximal internal carotid arteries relative to normal distal artery lumen diame ters (NASCET criteria). 5. Moderate-sized right and small left pleural effusions. Reviewed, dictated and finalized at location A. IMPRESSION: 1. Large distribution of acute infarct involving left frontal, temporal, pariet al, and occipital lobes. 2. Large distribution of old infarct involving left frontal, temporal, and savage etal lobes and left insula. 3. No aneurysm or significant intracranial arterial stenosis. 4. 0% stenosis of the proximal internal carotid arteries relative to normal dis marcelo artery lumen diameters (NASCET criteria). 5. Moderate-sized right and small left pleural effusions.
--- NOTE | ~2022-09-20 | XR_ITS ---
EXAMINATION: [id number] DATE: 09/27/2022 10:55 INDICATION: Right pleural effusion postthoracentesis TECHNIQUE: frontal view of the chest was obtained. COMPARISON: Chest radiograph dated 08/03/22 FINDINGS: Opacities in the bilateral lower lung zones with blunting at the costophrenic angles consistent with small bilateral pleural effusions and associated atelectasis and/or pneumonia. No pneumothorax. Cardi omegaly. Cholecystectomy clips in right upper quadrant. IMPRESSION: 1. Small bilateral pleural effusions with atelectasis and/or pneumonia in the lower lung zones. 2. Cardiomegaly. Reviewed, dictated and finalized at location A. IMPRESSION: 1. Small bilateral pleural effusions with atelectasis and/or pneumonia in the l ower lung zones. 2. Cardiomegaly.
--- NOTE | ~2022-09-20 | XR_ITS ---
EXAMINATION: XR chest 1V DATE: 09/20/2022 21:45 INDICATION: Seizure. TECHNIQUE: A single frontal view of the chest was obtained. COMPARISON: Chest single view 08/22/2022, chest CT 06/07/2022 FINDINGS: There are moderate-sized right and small left pleural effusions. There are airspace opaciti es at the lung bases. There is mild scarring at right lung apex. No pneumothorax. The heart size is n ormal. IMPRESSION: 1. Moderate-sized right and small left pleural effusions. 2. Airspace opacities at the lung bases, consistent with atelectasis or less likely pneumonia. Reviewed, dictated and finalized at location A. IMPRESSION: 1. Moderate-sized right and small left pleural effusions. 2. Airspace opacities at the lung bases, consistent with atelectasis or less li wendy pneumonia.
--- NOTE | ~2022-09-20 | CT_ITS ---
EXAMINATION: CT brain wo con DATE: 09/20/2022 21:41 INDICATION: Seizure. TECHNIQUE: Computed tomography (CT) of the head was performed without intravenous contrast. The mA wa s adjusted according to patient size. Iterative reconstruction technique was employed. The dose-lengt h product was 630.97 mGy-cm. COMPARISON: Head CT 08/22/2022 FINDINGS: There is chronic encephalomalacia involving left frontotemporal parietal region and left in sula. There is no intracranial hemorrhage, acute infarction, or abnormal intracranial mass lesion. Th e ventricles are normal in size. There is mild mucosal thickening in the ethmoid sinuses. There is a small left mastoid effusion. There are changes of left-sided craniotomy. The orbits are normal. IMPRESSION: 1. Chronic encephalomalacia involving left frontotemporal parietal region and left insula. Reviewed, dictated and finalized at location A. IMPRESSION: 1. Chronic encephalomalacia involving left frontotemporal parietal region and l eft insula.
[2022-09-20 20:49] VITALS: BP 134/51; PULSE 95; RESP 30; TEMP 36.5; O2SAT 100
[2022-09-20 20:55] VITALS: BP 134/51; PULSE 96; RESP 30; O2SAT 100
[2022-09-20 21:15] VITALS: BP 122/58; PULSE 92; RESP 35; O2SAT 100
--- NOTE | 2022-09-20 21:24 | ECG_ITS ---
Measurements Intervals [place] Rate: 89 P: 59 PA: 146 QRS: 45 QRSD: 106 T: 44 QT: 323 QTc: 394 Interpretive Statements SINUS RHYTHM LOW QRS VOLTAGE IN EXTREMITY LEADS [QRS DEFLECTION < 0.5 mV IN LIMB LEADS] POOR R-WAVE PROGRESSION COMPARED TO ECG 08/22/2022 10:47:37 NO SIGNIFICANT CHANGES Electronically Signed On 09-21-2022 8:59:07 CDT by Yudy Vo M.D.
--- NOTE | 2022-09-20 21:24 | ED.GENADULT ---
HPI - General Adult General Chief complaint: Seizure Stated complaint: SEIZURE Time Seen by Provider: 09/20/22 21:04 History of Present Illness HPI narrative: This is a 77-year-old male brought in for suspected seizure activity. Per EMS started seizure at 8:00 p.m.. Started with shaking his left arm and drilled the right arm. He had eye deviation. When they tried to pick him up he was confused and postictal. Patient is not answering any of my questions and just continues to say yup over and over again. Related Data Home Medications Medication Instructions Recorded Confirmed albuterol sulfate 90 mcg/actuation 2 puff inhalation Q6-8H PRN 11/13/21 09/02/22 aerosol inhaler Shortness Of Breath aspirin 81 mg tablet 81 mg PO DAILY 11/13/21 09/02/22 wheat dextrin 5 gram/7.4 gram oral 5 g PO DAILY PRN Constipation 11/13/21 09/02/22 powder (Benefiber Healthy Shape) levothyroxine 25 mcg tablet 12.5 mcg PO DAILY 07/31/22 09/02/22 Allergies Allergy/AdvReac Type Severity Reaction Status Date / Time No Known Drug Allergies Allergy Unknown Unknown Verified 09/20/22 20:57 Review of Systems Review of Systems: ROS unobtainable: Yes unobtainable due to medical condition PMFSH Past Medical History Medical History Anemia of chronic disease Anxiety Ataxia, post-stroke Benign prostatic hyperplasia Brain cancer Status post tumor resection and chemoradiation. Cerebrovascular accident Chronic lymphocytic leukemia Chronic respiratory failure Patient was to be using a BiPAP at nighttime however he states the mask does not fit well. Congestive heart failure Coronary artery disease involving [place] coronary artery of [place] heart Current use of care home anticoagulation Deep venous thrombosis Diabetes mellitus Hyperlipidemia Hypertension Mixed hyperlipidemia Oropharyngeal dysphagia Peripheral arterial disease Prostate cancer Right hemiparesis Seizure disorder Vitamin D deficiency Surgical History Surgical History History of cholecystectomy History of craniotomy With resection of brain tumor. History of heart artery stent Family History Family History Mother Patient's mother is in good health Sibling Patient's sister is in good health Patient's brother is in good health Other Family history of arthritis Family history of malignant neoplasm of brain Family history of pancreatic cancer Malignant neoplasm of prostate Social History Social History Social History: The patient lives with his in [place]. He is on disability. Lifelong nonsmoker. No alcohol or illicit substance use. His Elke Bartholomew is his surrogate decision maker. Code status: Full code. Smoking status: Former smoker Spiritual care concerns: No Exam Narrative: APPEARANCE: He is only answering yup to questions however he is able to follow commands. Patient appears chronically unwell Head patient has a large well-healed surgical scar over the left side of his cranium. EYES: PERRLA/EOMI, NOSE: Normal no drainage NECK: Supple, Trachea midline RESPIRATORY: CTAB, No increased work of breathing. CARDIOVASCULAR: S1S2 appreciated ABDOMINAL: Soft, nontender, nondistended, MUSCULOSKELETAl: No obvious deformities NEURO: patient has flaccid paralysis on the right. He is able to give me a thumbs up on the left and wiggle his toes. SKIN:: Warm, dry. Normal color PSYCHIATRIC: Normal affect Course Vital Signs Vital signs: Vital Signs Temperature 97.7 F 09/20/22 20:49 Pulse Rate 95 09/20/22 20:49 Respiratory Rate 30 H 09/20/22 20:49 Blood Pressure 134/51 L 09/20/22 20:49 Pulse Oximetry 100 09/20/22 20:49 Oxygen Delivery Nasal Cannula 09/20/22 20:49 Oxygen Flow Rate 4 09/20/22
--- NOTE | 2022-09-20 21:34 | PC.NURSE ---
Pt in CT
[2022-09-20 22:00] VITALS: BP 110/54; PULSE 92; RESP 30; O2SAT 100
[2022-09-20 22:09] LABS: Basophils Percent Auto 0.3 % (0.2-1.2); Eosinophils Percent Auto 0.2 % (0-4.4); Hematocrit 36.7 % (42.0-52.0); Immature Granulocyte Absolute 0.03 K/mm3 (0.00-0.031); Immature Granulocyte Percent A 0.5 % (0-0.5); Lymphocytes Absolute Auto 0.84 K/mm3 (0.9-3.2); Lymphocytes Percent Auto 14.2 % (18.3-44.2); Mean Corpuscular Hemoglobin 31.9 pg (26-34); Mean Corpuscular Volume 106.4 fl (80-100); Mean Platelet Volume 10.2 fl (7.4-10.4); Monocytes Absolute Auto 0.6 K/mm3 (0.1-0.6); Monocytes Percent Auto 9.6 % (2.6-8.5); Neutrophils Absolute Auto 4.4 K/mm3 (1.3-6.7); Neutrophils Percent Auto 75.2 % (45.5-73.1); Platelet Count Result 240 k/mm3 (150-375); Red Blood Count 3.45 M/mm3 (4.6-6.20); Red Cell Distribution Width 13.6 % (11.5-14.5); White Blood Count 5.9 K/mm3 (4.5-10.0)
[2022-09-20] MEDS: SODIUM CHLORIDE 0.9% IV 1,000 ML 999 ML IV CONT (22:09)
[2022-09-20 22:24] LABS: Troponin I < 0.012 ng/mL (0.000-0.034)
[2022-09-20 22:25] LABS: Blood Urea Nitrogen 25 mg/dL (9-20); Calcium 8.7 mg/dL (8.4-10.2); Carbon Dioxide > 40 mmol/L (22-30); Chloride 80 mmol/L (98-107); Estimated CRCL calculation 54 ml/min; Estimated Glomerular Filt Rate > 60; Glucose 117 mg/dL (65-110); Magnesium 2.1 mg/dL (1.6-2.3); Sodium 143 mmol/L (137-145)
[2022-09-20 22:42] LABS: Glucose Point of Care 111 mg/dl (65-105)
[2022-09-20 23:00] LABS: Add Urine Microscopic? NO; Appearance Urine Clear (Clear); Bilirubin Urine Negative (Negative); Blood Urine Negative (Negative); Color Urine Yellow (Yellow); Glucose Urine UA Negative (Negative); Ketones Urine Negative (Negative); Leukocyte Esterase Ur Negative LEU/UL (Negative); Nitrate Urine Negative (Negative); Protein Urine Negative (Negative); Specific Grav Ur 1.013 (1.001-1.035); Urobilinogen Urine Negative mg/dL (<2.0)
[2022-09-20 23:37] VITALS: PULSE 88; RESP 23; O2SAT 100
[2022-09-20 23:48] VITALS: PULSE 91; RESP 22; O2SAT 100
[2022-09-21] VITALS (14 sets, daily range): BP systolic 117–152; BP diastolic 52–73; PULSE 68–97; RESP 18–26; TEMP 36.8–38.6; O2SAT 78–100; BMI 20.9
[2022-09-21 02:11] LABS: SARS-CoV-2 RNA PCR Negative
[2022-09-21 02:29] LABS: Troponin I < 0.012 ng/mL (0.000-0.034)
--- NOTE | 2022-09-21 05:57 | PM.IMHP ---
H&P: HPI History of Present Illness Date/Time: 09/21/22 05:57 Chief Complaint: Seizure Narrative: This is a 77-year-old male with past medical history significant for traumatic brain injury, seizure disorder, hypothyroidism, GERD, benign prostatic hyperplasia, patient was brought to the emergency room after he was witnessed a tonic-clonic seizure and patient went post ictal after this. at the time of my visit patient is obtunded and lethargic I was unable to get any history from patient it was mainly obtained upon reviewing medical records and discussion with emergency room physician. Preliminary workup was significant for CT of the head was reported as; IMPRESSION: 1. Chronic encephalomalacia involving left frontotemporal parietal region and left insula PATIENT HAS BEEN ADMITTED FOR FURTHER EVALUATION MANAGEMENT AND TREATMENT. Review of Systems Review of Systems: ROS unobtainable: Yes unobtainable due to mental status PMFSH Past Medical History Medical History Anemia of chronic disease Anxiety Ataxia, post-stroke Benign prostatic hyperplasia Brain cancer Status post tumor resection and chemoradiation. Cerebrovascular accident Chronic lymphocytic leukemia Chronic respiratory failure Patient was to be using a BiPAP at nighttime however he states the mask does not fit well. 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 History of heart artery stent Family History Family History Mother Patient's mother is in good health Sibling Patient's sister is in good health Patient's brother is in good health Other Family history of arthritis Family history of malignant neoplasm of brain Family history of pancreatic cancer Malignant neoplasm of prostate Social History Social History Social History: The patient lives with his in [place]. He is on disability. Lifelong nonsmoker. No alcohol or illicit substance use. His Elke Bartholomew is his surrogate decision maker. Code status: Full code. Smoking status: Unknown if ever smoked Alcohol intake: unknown Substance use: unknown Substance use type: unknown Spiritual care concerns: No Has the Lack of Transportation Kept You From Medical Appointments or From Getting Medications?: Yes Within the Past 12 Months, Were You Worried Whether Your Food Would Run Out Before You Got Money to Buy More?: Never True What is Your Housing Situation Today?: I Do Not Have Housing Are You Worried That in the Next 2 Months, You May Not Have Your Own Housing to Live In?: Decline to Answer Do You Have Trouble Paying Your Heating Or Electricity Bill?: Decline to Answer Do You Have Trouble Paying For Medicines?: Decline to Answer Are You Currently Unemployed and Looking for Work?: Decline to Answer Highest Level of Education Completed: Don't Know Do You Have Trouble With Childcare or the Care of a Family Member?: No Meds Home Medications and Allergies Home Medications Medication Instructions Recorded Confirmed Type albuterol sulfate 90 mcg/actuation 2 puff inhalation Q6-8H PRN 11/13/21 09/21/22 History aerosol inhaler Shortness Of Breath aspirin 81 mg tablet 81 mg PO DAILY 11/13/21 09/21/22 History wheat dextrin 5 gram/7.4 gram oral 5 g PO DAILY PRN Constipation 11/13/21 09/02/22 History powder (Benefiber [facility]
--- NOTE | 2022-09-21 07:33 | PC.NURSE ---
Patient came up from the ER with a Disheveled look. Patient words is hard to understand, patient is comfortable in bed relaxing, no complaint of pain, SOB or discomfort.
--- NOTE | 2022-09-21 08:58 | PM.IMPN ---
Progress Note: A&P Assessment and Plan (1) Altered mental status: Code(s): R41.82 - Altered mental status, unspecified Status: Acute Assessment and Plan: CT head with no acute intracranial processes and no evidence of lesions. UA negative and CXR with no pneumonia. Urine toxicology negative. No keppra level sent from ED. Concern for breakthrough seizure. Loaded with keppra 1500 in the ED. No signs of infection at this time but was diagnosed with CLL 03/2022. Will start broad spectrum antibiotics at this time. Will defer LP and MRI for now. Hx of chronic hypercarbic respiratory failure and has pulmonary hypertension but appears to have adequate oxygen saturation on baseline 2LNC. -Cefepime & Vancomycin -Neurology Consult -EEG ordered -Seizure precautions -Neuro checks -BCX -Continue keppra -TSH & Free t4 (2) Breakthrough seizure: Code(s): G40.919 - Epilepsy, unspecified, intractable, without status epilepticus Status: Acute Assessment and Plan: Loaded with keppra. Continue keppra. 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 Getting rituximab. Outpatient follow up. (4) Chronic respiratory failure: Code(s): J96.10 - Chronic respiratory failure, unspecified whether with hypoxia or hypercapnia Status: Resolved Assessment and Plan: Wears oxygen at home. Stable. Will monitor. (5) CAD (coronary artery disease): Code(s): I25.10 - Atherosclerotic heart disease of [place] coronary artery without angina pectoris Status: Acute Assessment and Plan: On statin and aspirin. Continue. (6) Hypertension: Qualifiers: Hypertension type: primary hypertension Qualified Code(s): I10 - Essential (primary) hypertension Code(s): I10 - Essential (primary) hypertension Status: Acute Assessment and Plan: Not on any antihypertensive medications. Will monitor. (7) Hyperlipidemia: Qualifiers: Hyperlipidemia type: unspecified Qualified Code(s): E78.5 - Hyperlipidemia, unspecified Code(s): E78.5 - Hyperlipidemia, unspecified Status: Chronic Assessment and Plan: Takes statin. Continue. (8) (HFpEF) heart failure with preserved ejection fraction: Code(s): I50.30 - Unspecified diastolic (congestive) heart failure Status: Acute Assessment and Plan: 09/30/21 EF 60-65% with levt ventricular wall thickness, grade I diastolic dysfunction, severe pulmonary hypertension. Appears euvolemic at this baseline. (9) Controlled diabetes mellitus type II without complication: Qualifiers: Diabetes mellitus termite treater helper insulin use: without mcfp use Qualified Code(s): E11.9 - Type 2 diabetes mellitus without complications Code(s): E11.9 - Type 2 diabetes mellitus without complications Status: Acute Assessment and Plan: Previously diet controlled. Will monitor. Check a1c with morning labs. (10) CKD stage G3b/A1, GFR 30-44 and albumin creatinine ratio <30 mg/g: Code(s): N18.32 - Chronic kidney disease, stage 3b Status: Acute Assessment and Plan: Creatinine at baseline. Will monitor. -Avoid nephrotoxic agents -Renally dose medications Subjective Date/time seen: 09/21/22 08:58 Patient is confused and unable to answer questions during rounds. Review of Systems Review of Systems: ROS unobtainable: Yes unobtainable due to mental status Exam Narrative: GENERAL: NAD, cooperative HEENT: Normocephalic, atraumatic, anicteric, nares clear, oropharynx moist and clear, dentition poor NECK: Supple CV: Regular rate, irregular rhythm RESP: CTAB, Normal
[2022-09-21] MEDS: TAMSULOSIN HCL 0.4 MG CAPSULE PO (10:02)
[2022-09-21] MEDS: APIXABAN 5 MG TABLET PO ×2 (10:02→21:24)
[2022-09-21] MEDS: CHOLECALCIFEROL 1,000 UNITS TABLET 2000 UNITS PO (10:02)
[2022-09-21] MEDS: levETIRAcetam 500 MG TABLET 1000 MG PO ×2 (10:02→17:41)
[2022-09-21] MEDS: LEVOTHYROXINE SODIUM 12.5 MCG TABLET PO (10:02)
[2022-09-21] MEDS: PANTOPRAZOLE 40 MG TABLET PO (10:02)
[2022-09-21] MEDS: ATORVASTATIN 10 MG TABLET PO (10:02)
[2022-09-21] MEDS: FUROSEMIDE 40 MG TABLET PO (10:02)
[2022-09-21] MEDS: ASPIRIN 81 MG CHEWABLE TABLET PO (10:02)
[2022-09-21 10:12] LABS: Free T4 Free Thyroxine 1.73 ng/mL (0.78-2.19)
[2022-09-21 10:30] LABS: Amphetamine Screen Urine Negative (Negative); Barbiturate Screen Urine Negative (Negative); Benzodiazepines Screen Urine Negative (Negative); Cannabinoid Screen Urine Negative (Negative); Cocaine Screen Urine Negative (Negative); Methadone Screen Urine Negative (Negative); Opiate Screen Urine Negative (Negative); Phencyclidine Screen Urine Negative (Negative)
--- NOTE | 2022-09-21 14:13 | WPDNEURCNPN ---
Assessment and Plan Assessment and plan (1) Altered mental status: Code(s): R41.82 - Altered mental status, unspecified Status: Acute (2) Breakthrough seizure: Code(s): G40.919 - Epilepsy, unspecified, intractable, without status epilepticus Status: Acute Plan known case of with mental deficit will continue the anticonvulsants and further adjustment according Consult date: 09/21/22 Time Seen: 13:45 HPI: Angelo Bartholomew is a 77 year old male admitted to the hospital for the diagnosis of possible seizures he was brought to the ER by EMS and was mentioned seizures started at 8:00 p.m. when he was shaking his left upper extremity with deviation of the eyes as well and noted the confused when was picked up by the EMS. Patient has ongoing history of seizure disorder and multiple other problems. Review of Systems Review of Systems: All systems reviewed & are unremarkable except as noted in HPI and below PMFSH Past Medical History Medical History Anemia of chronic disease Anxiety Ataxia, post-stroke Benign prostatic hyperplasia Brain cancer Status post tumor resection and chemoradiation. Cerebrovascular accident Chronic lymphocytic leukemia Chronic respiratory failure Patient was to be using a BiPAP at nighttime however he states the mask does not fit well. Congestive heart failure Coronary artery disease involving [place] coronary artery of [place] heart Current use of lobsterman anticoagulation Deep venous thrombosis Diabetes mellitus Hyperlipidemia Hypertension Mixed hyperlipidemia Oropharyngeal dysphagia Peripheral arterial disease Prostate cancer Right hemiparesis Seizure disorder Vitamin D deficiency Surgical History Surgical History History of cholecystectomy History of craniotomy With resection of brain tumor. History of heart artery stent Family History Family History Mother Patient's mother is in good health Sibling Patient's sister is in good health Patient's brother is in good health Other Family history of arthritis Family history of malignant neoplasm of brain Family history of pancreatic cancer Malignant neoplasm of prostate Social History Social History Social History: The patient lives with his in [place]. He is on disability. Lifelong nonsmoker. No alcohol or illicit substance use. His Elke Bartholomew is his surrogate decision maker. Code status: Full code. Smoking status: Unknown if ever smoked Alcohol intake: unknown Substance use: unknown Substance use type: unknown Spiritual care concerns: No Has the Lack of Transportation Kept You From Medical Appointments or From Getting Medications?: Yes Within the Past 12 Months, Were You Worried Whether Your Food Would Run Out Before You Got Money to Buy More?: Never True What is Your Housing Situation Today?: I Do Not Have Housing Are You Worried That in the Next 2 Months, You May Not Have Your Own Housing to Live In?: Decline to Answer Do You Have Trouble Paying Your Heating Or Electricity Bill?: Decline to Answer Do You Have Trouble Paying For Medicines?: Decline to Answer Are You Currently Unemployed and Looking for Work?: Decline to Answer Highest Level of Education Completed: Don't Know Do You Have Trouble With Childcare or the Care of a Family Member?: No Meds Home Medications and Allergies Home Medications Medication Instructions Recorded Confirmed Type albuterol sulfate 90 mcg/actuation 2 puff inhalation Q6-8H PRN 11/13/21 09/21/22 History aerosol inhaler Shortness Of Breath aspirin 81 mg tablet 81 mg PO DAILY 11/13/21 09/21/22 History wheat dextrin 5 gram/7.4 gram oral 5 g PO DAILY PRN Constipation 11/13/21 09/02/22 History powder (Benefiber H
[2022-09-22 04:17] LABS: Glucose Point of Care 111 mg/dl (65-105)
[2022-09-22 05:58] VITALS: O2SAT 99
[2022-09-22 06:00] VITALS: BP 127/62; PULSE 81; RESP 14; TEMP 38.8; O2SAT 99
[2022-09-22] MEDS: SODIUM CHLORIDE 0.9% IV 1,000 ML 999 ML IV CONT (06:30)
[2022-09-22] MEDS: ACETAMINOPHEN 650 MG SUPPOSITORY RECTAL (07:14)
--- NOTE | 2022-09-22 07:55 | PM.IMPN ---
Progress Note: A&P Assessment and Plan (1) Altered mental status: Code(s): R41.82 - Altered mental status, unspecified Status: Acute Assessment and Plan: CT head with no acute intracranial processes and no evidence of lesions. UA negative and CXR with no pneumonia. Urine toxicology negative. No keppra level sent from ED. Concern for breakthrough seizure. Loaded with keppra 1500 in the ED. No signs of infection at this time but was diagnosed with CLL 03/2022. Will start broad spectrum antibiotics at this time. Will defer LP and MRI for now. Hx of chronic hypercarbic respiratory failure and has pulmonary hypertension but appears to have adequate oxygen saturation on baseline 2LNC. TSH 1.1 & free t4 1.73. BCX pending. Febrile overnight. -Cefepime & Vancomycin -Appreciate Neurology recommendations -EEG ordered -Seizure precautions -Neuro checks -Continue keppra (2) Breakthrough seizure: Code(s): G40.919 - Epilepsy, unspecified, intractable, without status epilepticus Status: Acute Assessment and Plan: Loaded with keppra. Continue keppra. 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 Getting rituximab. Outpatient follow up. (4) Chronic respiratory failure: Code(s): J96.10 - Chronic respiratory failure, unspecified whether with hypoxia or hypercapnia Status: Resolved Assessment and Plan: Wears oxygen at home. Stable. Will monitor. (5) CAD (coronary artery disease): Code(s): I25.10 - Atherosclerotic heart disease of [place] coronary artery without angina pectoris Status: Acute Assessment and Plan: On statin and aspirin. Continue. (6) Hypertension: Qualifiers: Hypertension type: primary hypertension Qualified Code(s): I10 - Essential (primary) hypertension Code(s): I10 - Essential (primary) hypertension Status: Acute Assessment and Plan: Not on any antihypertensive medications. Will monitor. (7) Hyperlipidemia: Qualifiers: Hyperlipidemia type: unspecified Qualified Code(s): E78.5 - Hyperlipidemia, unspecified Code(s): E78.5 - Hyperlipidemia, unspecified Status: Chronic Assessment and Plan: Takes statin. Continue. (8) (HFpEF) heart failure with preserved ejection fraction: Code(s): I50.30 - Unspecified diastolic (congestive) heart failure Status: Acute Assessment and Plan: 09/30/21 EF 60-65% with levt ventricular wall thickness, grade I diastolic dysfunction, severe pulmonary hypertension. Appears euvolemic at this baseline. 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 Will monitor. Check a1c with morning labs. (10) CKD stage G3b/A1, GFR 30-44 and albumin creatinine ratio <30 mg/g: Code(s): N18.32 - Chronic kidney disease, stage 3b Status: Acute Assessment and Plan: Creatinine at baseline. Will monitor. -Avoid nephrotoxic agents -Renally dose medications Subjective Date/time seen: 09/22/22 07:55 Patient is sitting in bed and responds with yes to every question asked. Febrile overnight and this morning. Review of Systems Review of Systems: ROS unobtainable: Yes unobtainable due to mental status Exam Narrative: GENERAL: NAD, cooperative HEENT: Normocephalic, atraumatic
[2022-09-22 08:08] LABS: Glucose Point of Care 100 mg/dl (65-105)
[2022-09-22 08:10] VITALS: TEMP 37.4
[2022-09-22 08:21] LABS: Basophils Percent Auto 0.2 % (0.2-1.2); Hemoglobin 8.6 g/dL (14.0-18.0); Immature Granulocyte Absolute 0.02 K/mm3 (0.00-0.031); Immature Granulocyte Percent A 0.2 % (0-0.5); Lymphocytes Percent Auto 13.4 % (18.3-44.2); Mean Corpuscular HGB Conc 30.7 g/dl (32-36); Mean Corpuscular Hemoglobin 32.1 pg (26-34); Mean Corpuscular Volume 104.5 fl (80-100); Mean Platelet Volume 10.1 fl (7.4-10.4); Monocytes Absolute Auto 1.2 K/mm3 (0.1-0.6); Monocytes Percent Auto 11.7 % (2.6-8.5); Neutrophils Absolute Auto 7.8 K/mm3 (1.3-6.7); Neutrophils Percent Auto 74.5 % (45.5-73.1); Platelet Count Result 166 k/mm3 (150-375); Red Blood Count 2.68 M/mm3 (4.6-6.20); Red Cell Distribution Width 14.5 % (11.5-14.5); White Blood Count 10.5 K/mm3 (4.5-10.0)
[2022-09-22] MEDS: CHOLECALCIFEROL 1,000 UNITS TABLET 2000 UNITS PO (08:21)
[2022-09-22] MEDS: levETIRAcetam 500 MG TABLET 1000 MG PO ×2 (08:21→17:33)
[2022-09-22] MEDS: FUROSEMIDE 40 MG TABLET PO (08:21)
[2022-09-22] MEDS: APIXABAN 5 MG TABLET PO ×2 (08:22→20:27)
[2022-09-22] MEDS: LEVOTHYROXINE SODIUM 12.5 MCG TABLET PO (08:22)
[2022-09-22] MEDS: ATORVASTATIN 10 MG TABLET PO (08:22)
[2022-09-22] MEDS: ASPIRIN 81 MG CHEWABLE TABLET PO (08:22)
[2022-09-22] MEDS: PANTOPRAZOLE 40 MG TABLET PO (08:22)
[2022-09-22] MEDS: TAMSULOSIN HCL 0.4 MG CAPSULE PO (08:22)
[2022-09-22 08:31] LABS: Blood Urea Nitrogen 27 mg/dL (9-20); Calcium 7.8 mg/dL (8.4-10.2); Carbon Dioxide > 40 mmol/L (22-30); Chloride 89 mmol/L (98-107); Estimated CRCL calculation 47 ml/min; Estimated Glomerular Filt Rate > 60; Glucose 111 mg/dL (65-110); Potassium 3.5 mmol/L (3.4-5.0); Sodium 141 mmol/L (137-145)
--- NOTE | 2022-09-22 11:02 | PCSTNOTE ---
Attempted to see the patient for speech therapy. Patient only briefly opened his eyes and would not alert for PO intake.
[2022-09-22 11:30] LABS: Glucose Point of Care 128 mg/dl (65-105)
[2022-09-22 14:45] VITALS: BP 114/54; PULSE 78; RESP 24; TEMP 36.8; O2SAT 99
[2022-09-22 18:00] LABS: Glucose Point of Care 85 mg/dl (65-105)
[2022-09-22 21:56] VITALS: BP 128/78; PULSE 79; RESP 20; TEMP 36.4; O2SAT 100
[2022-09-23 00:05] VITALS: O2SAT 98
[2022-09-23] MEDS: LEVOTHYROXINE SODIUM 12.5 MCG TABLET PO (05:25)
[2022-09-23 05:46] VITALS: BP 122/62; PULSE 78; RESP 20; TEMP 37.4; O2SAT 97
[2022-09-23 07:42] LABS: Glucose Point of Care 100 mg/dl (65-105)
[2022-09-23] MEDS: levETIRAcetam 500 MG TABLET 1000 MG PO ×2 (08:07→18:00)
[2022-09-23] MEDS: PANTOPRAZOLE 40 MG TABLET PO (08:07)
[2022-09-23] MEDS: FUROSEMIDE 40 MG TABLET PO (08:07)
[2022-09-23] MEDS: CHOLECALCIFEROL 1,000 UNITS TABLET 2000 UNITS PO (08:07)
[2022-09-23] MEDS: ASPIRIN 81 MG CHEWABLE TABLET PO (08:07)
[2022-09-23] MEDS: TAMSULOSIN HCL 0.4 MG CAPSULE PO (08:07)
[2022-09-23] MEDS: APIXABAN 5 MG TABLET PO ×2 (08:07→20:06)
[2022-09-23] MEDS: ATORVASTATIN 10 MG TABLET PO (08:08)
--- NOTE | 2022-09-23 08:50 | PM.IMPN ---
Progress Note: A&P Assessment and Plan (1) Altered mental status: Code(s): R41.82 - Altered mental status, unspecified Status: Acute Assessment and Plan: CT head with no acute intracranial processes and no evidence of lesions. UA negative and CXR with no pneumonia. Urine toxicology negative. No keppra level sent from ED. Concern for breakthrough seizure. Loaded with keppra 1500 in the ED. No signs of infection at this time but was diagnosed with CLL 03/2022. Will start broad spectrum antibiotics at this time. Will defer LP and MRI for now. Hx of chronic hypercarbic respiratory failure and has pulmonary hypertension but appears to have adequate oxygen saturation on baseline 2LNC. TSH 1.1 & free t4 1.73. BCX with no growth. EEG read as encephalopathy. Appears to be very slowly improving. Will continue to monitor. -Cefepime & Vancomycin -Appreciate Neurology recommendations -Seizure precautions -Neuro checks -Continue keppra (2) Breakthrough seizure: Code(s): G40.919 - Epilepsy, unspecified, intractable, without status epilepticus Status: Acute Assessment and Plan: Loaded with keppra. Continue keppra. 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 Getting rituximab. Outpatient follow up. (4) Chronic respiratory failure: Code(s): J96.10 - Chronic respiratory failure, unspecified whether with hypoxia or hypercapnia Status: Resolved Assessment and Plan: Wears oxygen at home. Stable. Will monitor. (5) CAD (coronary artery disease): Code(s): I25.10 - Atherosclerotic heart disease of [place] coronary artery without angina pectoris Status: Acute Assessment and Plan: On statin and aspirin. Continue. (6) Hypertension: Qualifiers: Hypertension type: primary hypertension Qualified Code(s): I10 - Essential (primary) hypertension Code(s): I10 - Essential (primary) hypertension Status: Acute Assessment and Plan: Not on any antihypertensive medications. Will monitor. (7) Hyperlipidemia: Qualifiers: Hyperlipidemia type: unspecified Qualified Code(s): E78.5 - Hyperlipidemia, unspecified Code(s): E78.5 - Hyperlipidemia, unspecified Status: Chronic Assessment and Plan: Takes statin. Continue. (8) (HFpEF) heart failure with preserved ejection fraction: Code(s): I50.30 - Unspecified diastolic (congestive) heart failure Status: Acute Assessment and Plan: 09/30/21 EF 60-65% with levt ventricular wall thickness, grade I diastolic dysfunction, severe pulmonary hypertension. Appears euvolemic at this baseline. 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 Will monitor. Check a1c with morning labs. (10) CKD stage G3b/A1, GFR 30-44 and albumin creatinine ratio <30 mg/g: Code(s): N18.32 - Chronic kidney disease, stage 3b Status: Acute Assessment and Plan: Creatinine at baseline. Will monitor. -Avoid nephrotoxic agents -Renally dose medications Subjective Date/time seen: 09/23/22 08:50 Slightly improved. Can speak words today. Says huh to most questions but now saying some sentences. Said name when asked his name. Review of Systems Review of Systems: ROS unobtainable: Yes unobtainable due to mental s
[2022-09-23 09:21] LABS: Basophils Percent Auto 0.2 % (0.2-1.2); Eosinophils Percent Auto 0.1 % (0-4.4); Hematocrit 30.8 % (42.0-52.0); Hemoglobin 9.5 g/dL (14.0-18.0); Lymphocytes Absolute Auto 1.51 K/mm3 (0.9-3.2); Lymphocytes Percent Auto 15.5 % (18.3-44.2); Mean Corpuscular HGB Conc 30.8 g/dl (32-36); Mean Corpuscular Hemoglobin 31.7 pg (26-34); Mean Corpuscular Volume 102.7 fl (80-100); Mean Platelet Volume 10.7 fl (7.4-10.4); Monocytes Absolute Auto 0.9 K/mm3 (0.1-0.6); Monocytes Percent Auto 8.9 % (2.6-8.5); Neutrophils Absolute Auto 7.2 K/mm3 (1.3-6.7); Neutrophils Percent Auto 74.3 % (45.5-73.1); Platelet Count Result 154 k/mm3 (150-375); Red Cell Distribution Width 14.2 % (11.5-14.5); White Blood Count 9.7 K/mm3 (4.5-10.0)
[2022-09-23 09:33] LABS: Blood Urea Nitrogen 28 mg/dL (9-20); Calcium 8.1 mg/dL (8.4-10.2); Carbon Dioxide > 40 mmol/L (22-30); Chloride 88 mmol/L (98-107); Estimated CRCL calculation 56 ml/min; Estimated Glomerular Filt Rate > 60; Glucose 110 mg/dL (65-110); Potassium 4.2 mmol/L (3.4-5.0); Sodium 137 mmol/L (137-145)
[2022-09-23 11:30] LABS: Glucose Point of Care 110 mg/dl (65-105)
--- NOTE | 2022-09-23 12:23 | WPDNEUROLOGY ---
Neurology EEG Report General Information Date of Study: 09/23/22 TEST Routine EEG DIAGNOSIS Seizure CONDITION OF RECORDING [facility] EEG NUMBER [id number] CLINICAL HISTORY Patient presented to hospital with seizure. He had a fever overnight. EEG DESCRIPTION Initially, theta range rhythm is seen in the posterior leads. Eventually, the background consists of generalized delta range slowing. No vertex waves, sleep spindles or K-complexes were observed. No significant asymmetries of background activities are noted. There are no epileptiform discharges or seizures during this recording. Hyperventilation and photic stimulation were not performed. IMPRESSION This is a abnormal routine EEG due to the presence of generalized slowing. This can be seen in the setting of encephalopathy. There are no electrographic seizures identified, nor are there any epileptiform discharges. Clinical correlation is recommended.
[2022-09-23 13:45] VITALS: BMI 20.9
[2022-09-23 13:52] VITALS: BMI 20.9
[2022-09-23 14:00] VITALS: BP 115/46; PULSE 70; RESP 20; TEMP 36.6; O2SAT 90
--- NOTE | 2022-09-23 14:47 | PCNSR ---
On 09/23/22, the student, Efren Sampson, provided care and [facility]. I have reviewed the student's documentation and agree with the findings.
[2022-09-23 16:18] LABS: Glucose Point of Care 85 mg/dl (65-105)
[2022-09-23 20:31] LABS: Glucose Point of Care 185 mg/dl (65-105)
[2022-09-23 21:42] VITALS: BP 122/48; PULSE 91; RESP 20; TEMP 37.2; O2SAT 96
[2022-09-24] MEDS: LEVOTHYROXINE SODIUM 12.5 MCG TABLET PO (05:17)
[2022-09-24 05:31] VITALS: BP 109/68; PULSE 82; RESP 20; TEMP 36.6; O2SAT 99
[2022-09-24 07:18] LABS: Glucose Point of Care 110 mg/dl (65-105)
[2022-09-24 07:39] LABS: Basophils Percent Auto 0.2 % (0.2-1.2); Eosinophils Percent Auto 0.2 % (0-4.4); Hematocrit 28.8 % (42.0-52.0); Immature Granulocyte Absolute 0.03 K/mm3 (0.00-0.031); Immature Granulocyte Percent A 0.3 % (0-0.5); Lymphocytes Absolute Auto 1.56 K/mm3 (0.9-3.2); Lymphocytes Percent Auto 17.8 % (18.3-44.2); Mean Corpuscular HGB Conc 31.3 g/dl (32-36); Mean Corpuscular Hemoglobin 31.9 pg (26-34); Mean Corpuscular Volume 102.1 fl (80-100); Mean Platelet Volume 10.5 fl (7.4-10.4); Monocytes Absolute Auto 0.9 K/mm3 (0.1-0.6); Monocytes Percent Auto 10.1 % (2.6-8.5); Neutrophils Absolute Auto 6.3 K/mm3 (1.3-6.7); Neutrophils Percent Auto 71.4 % (45.5-73.1); Platelet Count Result 169 k/mm3 (150-375); Red Blood Count 2.82 M/mm3 (4.6-6.20); Red Cell Distribution Width 14.1 % (11.5-14.5); White Blood Count 8.8 K/mm3 (4.5-10.0)
[2022-09-24] MEDS: ASPIRIN 81 MG CHEWABLE TABLET PO (07:51)
[2022-09-24] MEDS: CHOLECALCIFEROL 1,000 UNITS TABLET 2000 UNITS PO (07:51)
[2022-09-24] MEDS: TAMSULOSIN HCL 0.4 MG CAPSULE PO (07:52)
[2022-09-24] MEDS: ATORVASTATIN 10 MG TABLET PO (07:52)
[2022-09-24] MEDS: FUROSEMIDE 40 MG TABLET PO (07:52)
[2022-09-24] MEDS: levETIRAcetam 500 MG TABLET 1000 MG PO ×2 (07:52→17:27)
[2022-09-24] MEDS: APIXABAN 5 MG TABLET PO ×2 (07:52→21:30)
[2022-09-24 07:55] LABS: Blood Urea Nitrogen 34 mg/dL (9-20); Carbon Dioxide > 40 mmol/L (22-30); Chloride 87 mmol/L (98-107); Estimated CRCL calculation 51 ml/min; Estimated Glomerular Filt Rate > 60; Glucose 98 mg/dL (65-110); Potassium 3.8 mmol/L (3.4-5.0); Sodium 139 mmol/L (137-145)
--- NOTE | 2022-09-24 08:15 | PM.IMPN ---
Progress Note: A&P Assessment and Plan (1) Altered mental status: Code(s): R41.82 - Altered mental status, unspecified Status: Acute Assessment and Plan: CT head with no acute intracranial processes and no evidence of lesions. UA negative and CXR with no pneumonia. Urine toxicology negative. No keppra level sent from ED. Concern for breakthrough seizure. Loaded with keppra 1500 in the ED. No signs of infection at this time but was diagnosed with CLL 03/2022. Will start broad spectrum antibiotics at this time. Will defer LP and MRI for now. Hx of chronic hypercarbic respiratory failure and has pulmonary hypertension but appears to have adequate oxygen saturation on baseline 2LNC. TSH 1.1 & free t4 1.73. BCX with no growth. EEG read as encephalopathy. Appears to be very slowly improving. Will continue to monitor. -Discontinued cefepime and started ceftriaxone 2g q12h -Continue vancomycin -Appreciate Neurology recommendations -Seizure precautions -Neuro checks -Continue keppra 1000 mg BID (2) Breakthrough seizure: Code(s): G40.919 - Epilepsy, unspecified, intractable, without status epilepticus Status: Acute Assessment and Plan: Loaded with keppra. Continue keppra. Appreciate Neurology recommendations. 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 Getting rituximab. Outpatient follow up. (4) Chronic respiratory failure: Code(s): J96.10 - Chronic respiratory failure, unspecified whether with hypoxia or hypercapnia Status: Resolved Assessment and Plan: Wears oxygen at home. Stable. Will monitor. (5) CAD (coronary artery disease): Code(s): I25.10 - Atherosclerotic heart disease of [place] coronary artery without angina pectoris Status: Acute Assessment and Plan: On statin and aspirin. Continue. (6) Hypertension: Qualifiers: Hypertension type: primary hypertension Qualified Code(s): I10 - Essential (primary) hypertension Code(s): I10 - Essential (primary) hypertension Status: Acute Assessment and Plan: Not on any antihypertensive medications. Will monitor. (7) Hyperlipidemia: Qualifiers: Hyperlipidemia type: unspecified Qualified Code(s): E78.5 - Hyperlipidemia, unspecified Code(s): E78.5 - Hyperlipidemia, unspecified Status: Chronic Assessment and Plan: Takes statin. Continue. (8) (HFpEF) heart failure with preserved ejection fraction: Code(s): I50.30 - Unspecified diastolic (congestive) heart failure Status: Acute Assessment and Plan: 09/30/21 EF 60-65% with levt ventricular wall thickness, grade I diastolic dysfunction, severe pulmonary hypertension. Appears euvolemic at this baseline. 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 Will monitor. Check a1c with morning labs. (10) CKD stage G3b/A1, GFR 30-44 and albumin creatinine ratio <30 mg/g: Code(s): N18.32 - Chronic kidney disease, stage 3b Status: Acute Assessment and Plan: Creatinine at baseline. Will monitor. -Avoid nephrotoxic agents -Renally dose medications Subjective Date/time seen: 09/24/22 08:15 Patient now repeating back words when asked questions. Squeezed left hand on command. Review of Systems Review of Syste
[2022-09-24 11:30] LABS: Glucose Point of Care 157 mg/dl (65-105)
[2022-09-24 11:55] VITALS: O2SAT 93
--- NOTE | 2022-09-24 12:36 | WPDNEURCNPN ---
Assessment and Plan Assessment and plan (1) Altered mental status: Code(s): R41.82 - Altered mental status, unspecified Status: Acute (2) Breakthrough seizure: Code(s): G40.919 - Epilepsy, unspecified, intractable, without status epilepticus Status: Acute (3) CLL (chronic lymphocytic leukemia): Code(s): C91.10 - Chronic lymphocytic leukemia of B-cell type not having achieved remission Status: Acute Plan Mr. Bartholomew is a 77 year old male with a history of CLL, TBI, seizures, hypothyroidism, GERD who presented after a tonic-clonic seizure. He has remained encephalopathic since admission without a clear cause. He did have a fever during admission which raises concern for infectious etiology although work-up has been negative so far. It is also unclear what patient's baseline mental status is. From prior documentation, it does not seem that he had normal cognition at baseline. - Recommend MRI brain w/wo contrast - If imaging is unrevealing, recommend LP with CSF studies (cell count, protein, glucose, culture, cytology) - If possible, recommend switching cefepime to another antibiotic since there are reports of associated neurotoxicity - Continue Keppra 1000mg BID Consult date: 09/24/22 Time Seen: 12:37 Reason for consult: altered mental status HPI: Mr. Bartholomew is a 77 year old male with a history of CLL, TBI, seizures, hypothyroidism, GERD who presented after a tonic-clonic seizure. He was brought to [place] ED where he was still post-ictal. CT head with no acute intracranial processes and no evidence of lesions.?He had a UA and CXR which were negative. Urine toxicology was negative as well. He was given a Keppra load in the ED. He was started on broad spectrum antibiotics given history of CLL and being on Rituximab. His thyroid studies were normal. Blood culture shows no growth to date. He did have a fever during the admission. EEG was consistent with encephalopathy. Patient remains encephalopathic. Unclear what his baseline mental status is. Review of Systems Review of Systems: ROS unobtainable: Yes unobtainable due to mental status PMFSH Past Medical History Medical History Anemia of chronic disease Anxiety Ataxia, post-stroke Benign prostatic hyperplasia Brain cancer Status post tumor resection and chemoradiation. Cerebrovascular accident Chronic lymphocytic leukemia Chronic respiratory failure Patient was to be using a BiPAP at nighttime however he states the mask does not fit well. 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 History of heart artery stent Family History Family History Mother Patient's mother is in good health Sibling Patient's sister is in good health Patient's brother is in good health Other Family history of arthritis Family history of malignant neoplasm of brain Family history of pancreatic cancer Malignant neoplasm of prostate Social History Social History Social History: The patient lives with his in [place]. He is on disability. Lifelong nonsmoker. No alcohol or illicit substance use. His Elke Bartholomew is his surrogate decision maker. Code status: Full code. Smoking status: Unknown if ever smoked Alcohol intake: unknown Substance use: unknown Substance use type: unknown Spiritual care concerns: N
[2022-09-24 13:30] VITALS: BP 118/46; PULSE 72; RESP 20; TEMP 36.6; O2SAT 98
[2022-09-24 16:11] LABS: Glucose Point of Care 112 mg/dl (65-105)
[2022-09-24 19:39] VITALS: BP 123/40; PULSE 44; RESP 18; TEMP 37.1; O2SAT 100
[2022-09-24 20:00] VITALS: O2SAT 100
[2022-09-24 20:12] LABS: Glucose Point of Care 142 mg/dl (65-105)
[2022-09-24 20:22] LABS: Vancomycin Trough < 5.0 ug/mL (10.0-20.0)
[2022-09-24] MEDS: cefTRIAXone 2 GM in SODIUM CHLORIDE 0.9% IV 100 ML 200 ML IVPB (21:30)
[2022-09-25 03:44] VITALS: BP 128/57; PULSE 76; RESP 18; TEMP 37; O2SAT 100
[2022-09-25] MEDS: LEVOTHYROXINE SODIUM 12.5 MCG TABLET PO (06:07)
[2022-09-25 07:02] LABS: Basophils Percent Auto 0.1 % (0.2-1.2); Eosinophils Absolute Auto 0.1 K/mm3 (0-0.3); Eosinophils Percent Auto 0.8 % (0-4.4); Hematocrit 32.2 % (42.0-52.0); Hemoglobin 9.9 g/dL (14.0-18.0); Immature Granulocyte Absolute 0.02 K/mm3 (0.00-0.031); Immature Granulocyte Percent A 0.3 % (0-0.5); Lymphocytes Absolute Auto 0.96 K/mm3 (0.9-3.2); Lymphocytes Percent Auto 12.3 % (18.3-44.2); Mean Corpuscular HGB Conc 30.7 g/dl (32-36); Mean Corpuscular Hemoglobin 31.7 pg (26-34); Mean Corpuscular Volume 103.2 fl (80-100); Mean Platelet Volume 10.9 fl (7.4-10.4); Monocytes Absolute Auto 0.7 K/mm3 (0.1-0.6); Monocytes Percent Auto 8.6 % (2.6-8.5); Neutrophils Absolute Auto 6.1 K/mm3 (1.3-6.7); Neutrophils Percent Auto 77.9 % (45.5-73.1); Platelet Count Result 191 k/mm3 (150-375); Red Blood Count 3.12 M/mm3 (4.6-6.20); Red Cell Distribution Width 13.7 % (11.5-14.5); White Blood Count 7.8 K/mm3 (4.5-10.0)
[2022-09-25 07:20] LABS: Blood Urea Nitrogen 26 mg/dL (9-20); Calcium 8.2 mg/dL (8.4-10.2); Carbon Dioxide > 40 mmol/L (22-30); Chloride 86 mmol/L (98-107); Estimated CRCL calculation 56 ml/min; Estimated Glomerular Filt Rate > 60; Glucose 108 mg/dL (65-110); Potassium 3.7 mmol/L (3.4-5.0); Sodium 142 mmol/L (137-145)
[2022-09-25 08:00] VITALS: PULSE 76; RESP 18; O2SAT 100
[2022-09-25 08:20] LABS: Glucose Point of Care 87 mg/dl (65-105)
[2022-09-25] MEDS: cefTRIAXone 2 GM in SODIUM CHLORIDE 0.9% IV 100 ML 200 ML IVPB ×2 (08:37→20:02)
[2022-09-25] MEDS: levETIRAcetam 500 MG TABLET 1000 MG PO ×2 (08:42→17:15)
[2022-09-25] MEDS: FUROSEMIDE 40 MG TABLET PO (08:42)
[2022-09-25] MEDS: ATORVASTATIN 10 MG TABLET PO (08:42)
[2022-09-25] MEDS: PANTOPRAZOLE 40 MG TABLET PO (08:42)
[2022-09-25] MEDS: ASPIRIN 81 MG CHEWABLE TABLET PO (08:43)
[2022-09-25] MEDS: CHOLECALCIFEROL 1,000 UNITS TABLET 2000 UNITS PO (08:43)
[2022-09-25] MEDS: APIXABAN 5 MG TABLET PO ×2 (08:43→20:02)
[2022-09-25] MEDS: acetaZOLAMIDE TAB 250 MG TABLET PO (08:43)
--- NOTE | 2022-09-25 09:14 | WPDNEUROPN ---
Progress Note: A&P Assessment and Plan (1) Altered mental status: Code(s): R41.82 - Altered mental status, unspecified Status: Acute (2) Breakthrough seizure: Code(s): G40.919 - Epilepsy, unspecified, intractable, without status epilepticus Status: Acute Plan Mr. Bartholomew is a 77 year old male with a history of CLL, TBI, seizures, hypothyroidism, GERD who presented after a tonic-clonic seizure. He has remained encephalopathic since admission without a clear cause. He is weak on the right side, but he has a large area of encephalomalacia in the L MCA territory which is likely the cause. He did have a fever during admission which raises concern for infectious etiology although work-up has been negative so far. It is also unclear what patient's baseline mental status is. From prior documentation, it does not seem that he had normal cognition at baseline. - Recommend MRI brain w/wo contrast - If imaging is unrevealing, recommend LP with CSF studies (cell count, protein, glucose, culture, cytology) - Continue Keppra 1000mg BID Subjective Date/time seen: 09/25/22 09:14 Interval history: Mr. Bartholomew is a 77 year old male with a history of CLL, TBI, seizures, hypothyroidism, GERD who presented after a tonic-clonic seizure. He was brought to [place] ED where he was still post-ictal. CT head with no acute intracranial processes, but showed encephalomalacia in the left frontal temporal parietal area (L MCA territory). He had a UA and CXR which were negative. Urine toxicology was negative as well. He was given a Keppra load in the ED. He was started on broad spectrum antibiotics given history of CLL and being on Rituximab. His thyroid studies were normal. Blood cultures negative. He did have a fever during the admission. EEG was consistent with encephalopathy. Interval history: On Rocephin. No fevers, normal WBC. PT at bedside this morning, concerned that patient is weaker on the right side. Review of Systems Review of Systems: ROS unobtainable: Yes unobtainable due to mental status Exam Const: General: comfortable and no acute distress HENMT: Mouth: Yes moist mucous membranes Eyes: EOM: EOMs intact bilaterally Resp: Effort & Inspection: normal respiratory effort Auscultation: clear to auscultation bilaterally Cardio: Rate: regular rate Rhythm: regular rhythm GI: GI Palp: Yes Soft to palpation Auscultation: normal bowel sounds Skin: General skin exam: normal color Neuro: Other: Awake but not oriented to self, place, or location. Comprehension seems somewhat intact -- able to follow some commands, and answer yes or no to some questions. No comprehensible speech. EOMI, face appears symmetric. Has antigravity movement of the LUE, but minimal movement of RUE. Had some withdrawal of LLE to noxious stimuli, but no response in RLE. Gait deferred. Extrem: General: normal to inspection Psych: Other: altered mentation Objective Data Vital Signs Vital Signs: Vital Signs - 24 hr 09/24/22 11:55 09/24/22 13:30 09/24/22 19:39 Temperature 36.6 C 37.1 C Pulse Rate 72 44 L Respiratory Rate 20 18 Blood Pressure 118/46 L 123/40 L Pulse Oximetry 93 98 100 Oxygen Delivery Nasal Cannula Oxygen Flow Rate 2 09/24/22 20:00 09/25/22 03:44 Temperature 37.0 C Pulse Rate 76 Respiratory Rate 18 Blood Pressure 128/57 L Pulse Oximetry 100 100 Oxygen Delivery Nasal Cannula Oxygen Flow Rate 2 Intake/Output Intake/Output: Intake & Output 09/22/22 09/23/22 09/24/22 09/25/22 23:59 23:59 23:59 23:59 Intake Total 1170 1650 1220 20 Balance 1170 1650 1220 20 Meds/Results Medications: Active Medications Generic Name Dose Route Start Last Admin Trade Name Freq PRN Reason Stop Dose Admin Acetaminophen 1,000 mg 09/22/22 02:38 Acetaminophen 500 Mg Tablet PO Q6H PRN Mild Pain (1-3) or Fever Acetaminophen 650 mg 09/22/22 06:15 09/22/22 07:14 Acetaminophen 650 Mg Man
--- NOTE | 2022-09-25 11:21 | PC.NURSE ---
spoke with about IVC filter, it was placed in the she was uncertain of date, I sent over records release to get information
[2022-09-25 11:59] LABS: Glucose Point of Care 164 mg/dl (65-105)
--- NOTE | 2022-09-25 12:24 | PM.IMPN ---
Progress Note: A&P Assessment and Plan (1) Altered mental status: Code(s): R41.82 - Altered mental status, unspecified Status: Acute Assessment and Plan: 09/25/2022 Interval history: CT head with no acute intracranial processes and no evidence of lesions. UA negative and CXR with no pneumonia. Urine toxicology negative. No keppra level sent from ED. Concern for breakthrough seizure. Loaded with keppra 1500 in the ED. No signs of infection at this time but was diagnosed with CLL 03/2022. Will start broad spectrum antibiotics at this time. Will defer LP and MRI for now. Hx of chronic hypercarbic respiratory failure and has pulmonary hypertension but appears to have adequate oxygen saturation on baseline 2LNC. TSH 1.1 & free t4 1.73. BCX with no growth. EEG read as encephalopathy. Appears to be very slowly improving. Will continue to monitor. -Discontinued cefepime and started ceftriaxone 2g q12h -Continue vancomycin -Appreciate Neurology recommendations -Seizure precautions -Neuro checks -Continue keppra 1000 mg BID patient remains encephalopathic, patient is being treated with the keppra, no new seizures while in the hospital, patient had developed fever concerning for infection seen by Neurology to further evaluate MRIs ordered and pending, if MRI is negative patient may need LP to further evaluate, blood culture so far no growth, patient is being treated ceftriaxone 2 g q.day and vancomycin, this morning patient unable to provide any review of symptoms he remains clinically stable continue to monitor. (2) Breakthrough seizure: Code(s): G40.919 - Epilepsy, unspecified, intractable, without status epilepticus Status: Acute Assessment and Plan: Loaded with keppra. Continue keppra. Appreciate Neurology recommendations. 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 Getting rituximab. Outpatient follow up. (4) Chronic respiratory failure: Code(s): J96.10 - Chronic respiratory failure, unspecified whether with hypoxia or hypercapnia Status: Resolved Assessment and Plan: Wears oxygen at home. Stable. Will monitor. (5) CAD (coronary artery disease): Code(s): I25.10 - Atherosclerotic heart disease of [place] coronary artery without angina pectoris Status: Acute Assessment and Plan: On statin and aspirin. Continue. (6) Hypertension: Qualifiers: Hypertension type: primary hypertension Qualified Code(s): I10 - Essential (primary) hypertension Code(s): I10 - Essential (primary) hypertension Status: Acute Assessment and Plan: Not on any antihypertensive medications. Will monitor. (7) Hyperlipidemia: Qualifiers: Hyperlipidemia type: unspecified Qualified Code(s): E78.5 - Hyperlipidemia, unspecified Code(s): E78.5 - Hyperlipidemia, unspecified Status: Chronic Assessment and Plan: Takes statin. Continue. (8) (HFpEF) heart failure with preserved ejection fraction: Code(s): I50.30 - Unspecified diastolic (congestive) heart failure Status: Acute Assessment and Plan: 09/30/21 EF 60-65% with levt ventricular wall thickness, grade I diastolic dysfunction, severe pulmonary hypertension. Appears euvolemic at this baseline. 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
[2022-09-25 17:06] LABS: Glucose Point of Care 105 mg/dl (65-105)
[2022-09-25 20:02] VITALS: O2SAT 100
[2022-09-25 20:59] LABS: Glucose Point of Care 150 mg/dl (65-105)
[2022-09-25 21:37] VITALS: BP 111/60; PULSE 77; RESP 20; TEMP 36.4; O2SAT 98
[2022-09-26 05:53] VITALS: BP 118/56; PULSE 80; RESP 20; TEMP 36.6; O2SAT 96
[2022-09-26] MEDS: LEVOTHYROXINE SODIUM 12.5 MCG TABLET PO (05:58)
[2022-09-26 07:47] LABS: Glucose Point of Care 78 mg/dl (65-105)
[2022-09-26] MEDS: CHOLECALCIFEROL 1,000 UNITS TABLET 2000 UNITS PO (07:51)
[2022-09-26] MEDS: acetaZOLAMIDE TAB 250 MG TABLET PO (07:51)
[2022-09-26] MEDS: levETIRAcetam 500 MG TABLET 1000 MG PO ×2 (07:51→17:27)
[2022-09-26] MEDS: ATORVASTATIN 10 MG TABLET PO (07:52)
[2022-09-26] MEDS: FUROSEMIDE 40 MG TABLET PO (07:52)
[2022-09-26] MEDS: ASPIRIN 81 MG CHEWABLE TABLET PO (07:52)
[2022-09-26] MEDS: APIXABAN 5 MG TABLET PO (07:52)
[2022-09-26 08:00] VITALS: O2SAT 96
[2022-09-26] MEDS: cefTRIAXone 2 GM in SODIUM CHLORIDE 0.9% IV 100 ML 200 ML IVPB (08:04)
[2022-09-26 08:14] LABS: Glucose Point of Care 104 mg/dl (65-105)
[2022-09-26 09:05] LABS: Basophils Percent Auto 0.4 % (0.2-1.2); Eosinophils Absolute Auto 0.1 K/mm3 (0-0.3); Eosinophils Percent Auto 0.9 % (0-4.4); Hemoglobin 9.4 g/dL (14.0-18.0); Immature Granulocyte Absolute 0.02 K/mm3 (0.00-0.031); Immature Granulocyte Percent A 0.3 % (0-0.5); Lymphocytes Absolute Auto 0.92 K/mm3 (0.9-3.2); Lymphocytes Percent Auto 12.1 % (18.3-44.2); Mean Corpuscular HGB Conc 30.3 g/dl (32-36); Mean Corpuscular Hemoglobin 32.1 pg (26-34); Mean Corpuscular Volume 105.8 fl (80-100); Mean Platelet Volume 10.8 fl (7.4-10.4); Monocytes Absolute Auto 0.7 K/mm3 (0.1-0.6); Monocytes Percent Auto 9.7 % (2.6-8.5); Neutrophils Absolute Auto 5.8 K/mm3 (1.3-6.7); Neutrophils Percent Auto 76.6 % (45.5-73.1); Platelet Count Result 200 k/mm3 (150-375); Red Blood Count 2.93 M/mm3 (4.6-6.20); Red Cell Distribution Width 13.8 % (11.5-14.5); White Blood Count 7.6 K/mm3 (4.5-10.0)
[2022-09-26 09:28] LABS: Hypochromasia 1+ (NORMAL); Microcytosis 1+ (NORMAL); Platelet Estimate Adequate (Adequate); Schistocytes None Seen (NORMAL)
[2022-09-26 09:33] LABS: Blood Urea Nitrogen 16 mg/dL (9-20); Calcium 8.1 mg/dL (8.4-10.2); Carbon Dioxide > 40 mmol/L (22-30); Chloride 86 mmol/L (98-107); Estimated CRCL calculation 43 ml/min; Estimated Glomerular Filt Rate 58; Glucose 159 mg/dL (65-110); Potassium 3.2 mmol/L (3.4-5.0); Sodium 138 mmol/L (137-145)
[2022-09-26 09:58] LABS: Vancomycin Trough 21.8 ug/mL (10.0-20.0)
--- NOTE | 2022-09-26 10:36 | WPDNEUROPN ---
Progress Note: A&P Assessment and Plan Plan Mr. Bartholomew is a 77 year old male with a history of CLL, TBI, seizures, hypothyroidism, GERD who presented after a tonic-clonic seizure. He has remained encephalopathic since admission without a clear cause. Repeat CT showed large acute infarct in the left hemisphere. Etiology is unclear; patient has a history of DVT/PE and cardiac issues. - Obtain surface echo and bilateral lower extremity Doppler - Continue Aspirin and Atorvastatin - Continue Keppra 1000mg BID Subjective Date/time seen: 09/26/22 10:36 Interval history: Mr. Bartholomew is a 77 year old male with a history of CLL, TBI, seizures, hypothyroidism, GERD who presented after a tonic-clonic seizure. He was brought to [place] ED where he was still post-ictal. CT head with no acute intracranial processes, but showed encephalomalacia in the left frontal temporal parietal area (L MCA territory). He had a UA and CXR which were negative. Urine toxicology was negative as well. He was given a Keppra load in the ED. He was started on broad spectrum antibiotics given history of CLL and being on Rituximab. His thyroid studies were normal. Blood cultures negative. He did have a fever during the admission. EEG was consistent with encephalopathy. Due to concerns for right sided weakness, CT/CTA brain was obtained yesterday which showed large acute infarct in the left hemisphere. Unable to obtain MRI brain due to IVC filter. Patient is on Eliquis 5mg BID (for prior DVTs/PE). He is also on aspirin and atorvastatin 10mg. His LDL in March 2022 was 49. Review of Systems Review of Systems: ROS unobtainable: Yes unobtainable due to medical condition and unobtainable due to mental status Exam Const: General: comfortable and no acute distress Neuro: Other: Awake but not oriented to self, place, or location. Comprehension seems somewhat intact -- able to follow some commands, and answer yes or no to some questions. No comprehensible speech. EOMI, face appears symmetric. Has antigravity movement of the LUE, but minimal movement of RUE. Had some withdrawal of LLE to noxious stimuli, but no response in RLE. Gait deferred Objective Data Vital Signs Vital Signs: Vital Signs - 24 hr 09/25/22 10:40 09/25/22 20:02 09/25/22 21:37 Temperature 36.4 C Pulse Rate 77 Respiratory Rate 20 Blood Pressure 111/60 Pulse Oximetry 100 98 Oxygen Delivery Nasal Cannula Nasal Cannula Oxygen Flow Rate 2 2 09/26/22 05:53 09/26/22 08:00 Temperature 36.6 C Pulse Rate 80 Respiratory Rate 20 Blood Pressure 118/56 L Pulse Oximetry 96 96 Oxygen Delivery Nasal Cannula Oxygen Flow Rate 2 Intake/Output Intake/Output: Intake & Output 09/23/22 09/24/22 09/25/22 09/26/22 23:59 23:59 23:59 23:59 Intake Total 1650 1220 1260 100 Balance 1650 1220 1260 100 Meds/Results Medications: Active Medications Generic Name Dose Route Start Last Admin Trade Name Freq PRN Reason Stop Dose Admin Acetaminophen 1,000 mg 09/22/22 02:38 Acetaminophen 500 Mg Tablet PO Q6H PRN Mild Pain (1-3) or Fever Acetaminophen 650 mg 09/22/22 06:15 09/22/22 07:14 Acetaminophen 650 Mg Suppository RECTAL 650 mg Q6H PRN Administration Mild Pain (1-3) or Fever Acetazolamide 250 mg 09/25/22 09:00 09/26/22 07:51 Acetazolamide Tab 250 Mg Tablet PO 250 mg QAM CARLA Administration Albuterol 2 puff 09/21/22 08:34 Albuterol Sulfate (*Sp) Aerosol 1 Puff INHALATION Q6-8H PRN Shortness Of Breath Apixaban 5 mg 09/21/22 09:00 09/26/22 07:52 Apixaban 5 Mg Tablet PO 5 mg Q12HR CARLA Administration Aspirin 81 mg 09/21/22 10:00 09/26/22 07:52 Aspirin 81 Mg Chewable Tablet PO 81 mg DAILY@0800 CARLA Administration Atorvastatin Calcium 10 mg 09/21/22 09:00 09/26/22 07:52 Atorvastatin 10 Mg Tablet PO 10 mg DAILY CARLA Administration Furosemide 40 mg 09/21/22 09:00 09/26/22 07:52 Furosemide 40
[2022-09-26 11:22] LABS: Glucose Point of Care 133 mg/dl (65-105)
[2022-09-26 14:00] VITALS: BP 103/49; PULSE 98; RESP 22; TEMP 36.1; O2SAT 95
--- NOTE | 2022-09-26 15:02 | PCOTNOTE ---
Patient's family requested assistance to bring patient back to bed from [facility]. Patient assisted with transfer with maxi move x2 people back to bed. Patient positioned in bed comfortably and declined to participate in any ADLs or UE exercises. Patient's reports plan is to bring patient home with hospice. OT notified to discontinue services.
--- NOTE | 2022-09-26 15:59 | PM.IMPN ---
Progress Note: A&P Assessment and Plan (1) Altered mental status: Code(s): R41.82 - Altered mental status, unspecified Status: Acute Assessment and Plan: 09/26/2022 Interval history: CT head with no acute intracranial processes and no evidence of lesions. UA negative and CXR with no pneumonia. Urine toxicology negative. No keppra level sent from ED. Concern for breakthrough seizure. Loaded with keppra 1500 in the ED. No signs of infection at this time but was diagnosed with CLL 03/2022. Will start broad spectrum antibiotics at this time. Will defer LP and MRI for now. Hx of chronic hypercarbic respiratory failure and has pulmonary hypertension but appears to have adequate oxygen saturation on baseline 2LNC. TSH 1.1 & free t4 1.73. BCX with no growth. EEG read as encephalopathy. Appears to be very slowly improving. Will continue to monitor. -Discontinued cefepime and started ceftriaxone 2g q12h -Continue vancomycin -Appreciate Neurology recommendations -Seizure precautions -Neuro checks -Continue keppra 1000 mg BID patient remains encephalopathic, patient is being treated with the keppra, no new seizures while in the hospital, patient had developed fever concerning for infection seen by Neurology, blood culture so far no growth, patient is being treated ceftriaxone 2 g q.day and vancomycin, however patient left side was quite weak yesterday to further evaluate patient had CT of head and it showed: 1. Large distribution of acute infarct involving left frontal, temporal, parietal, and occipital lobes. 2. 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 3. No aneurysm or significant intracranial arterial stenosis. 4. 0% stenosis of the proximal internal carotid arteries relative to normal distal artery lumen diameters (NASCET criteria). 5. Moderate-sized right and small left pleural effusions. this morning patient unable to provide any review of symptoms he remains clinically stable, patient prognosis with large cerebral infarct is very poor and neurologist agrees, I talked to patient and discussed and she has agree to consult hospice and further recommendation to follow. (2) Breakthrough seizure: Code(s): G40.919 - Epilepsy, unspecified, intractable, without status epilepticus Status: Acute Assessment and Plan: Loaded with keppra. Continue keppra. Appreciate Neurology recommendations. 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 Getting rituximab. Outpatient follow up. (4) Chronic respiratory failure: Code(s): J96.10 - Chronic respiratory failure, unspecified whether with hypoxia or hypercapnia Status: Resolved Assessment and Plan: Wears oxygen at home. Stable. Will monitor. (5) CAD (coronary artery disease): Code(s): I25.10 - Atherosclerotic heart disease of [place] coronary artery without angina pectoris Status: Acute Assessment and Plan: On statin and aspirin. Continue. (6) Hypertension: Qualifiers: Hypertension type: primary hypertension Qualified Code(s): I10 - Essential (primary) hypertension Code(s): I10 - Essential (primary) hypertension Status: Acute Assessment and Plan: Not on any antihypertensive medications. Will monitor. (7) Hyperlipidemia: Qualifiers: Hyperlipidemia type: unspecified Qualified Code(s): E78.5 - Hyperlipidemia, unspecified Code(s): E78.5 - Hyperlipidemia, unspecified Status: Chronic Assessment and Plan: Takes statin. Continue. (8) (HFpEF) heart failure with preserved ejection fraction: Code(s): I50.30 - Unspecified d
[2022-09-26 17:00] LABS: Glucose Point of Care 101 mg/dl (65-105)
[2022-09-26 20:30] VITALS: PULSE 98; RESP 22; O2SAT 95
[2022-09-26 22:00] VITALS: BP 115/52; PULSE 75; RESP 18; TEMP 36.5; O2SAT 100
[2022-09-27] VITALS (7 sets, daily range): BP systolic 111–130; BP diastolic 48–57; PULSE 73–85; RESP 12–20; TEMP 36.6–36.9; O2SAT 89–100
[2022-09-27 06:58] LABS: Basophils Percent Auto 0.3 % (0.2-1.2); Eosinophils Absolute Auto 0.1 K/mm3 (0-0.3); Eosinophils Percent Auto 0.9 % (0-4.4); Hematocrit 35.6 % (42.0-52.0); Hemoglobin 10.8 g/dL (14.0-18.0); Immature Granulocyte Absolute 0.03 K/mm3 (0.00-0.031); Immature Granulocyte Percent A 0.4 % (0-0.5); Lymphocytes Absolute Auto 0.98 K/mm3 (0.9-3.2); Lymphocytes Percent Auto 13.3 % (18.3-44.2); Mean Corpuscular HGB Conc 30.3 g/dl (32-36); Mean Corpuscular Hemoglobin 31.7 pg (26-34); Mean Corpuscular Volume 104.4 fl (80-100); Mean Platelet Volume 10.5 fl (7.4-10.4); Monocytes Absolute Auto 0.7 K/mm3 (0.1-0.6); Monocytes Percent Auto 9.9 % (2.6-8.5); Neutrophils Absolute Auto 5.6 K/mm3 (1.3-6.7); Neutrophils Percent Auto 75.2 % (45.5-73.1); Platelet Count Result 264 k/mm3 (150-375); Red Blood Count 3.41 M/mm3 (4.6-6.20); Red Cell Distribution Width 13.9 % (11.5-14.5); White Blood Count 7.4 K/mm3 (4.5-10.0)
[2022-09-27 07:08] LABS: INR 1.2; Prothrombin Time 14.8 Seconds (11.1-14.7)
[2022-09-27 07:09] LABS: Partial Thromboplastin Time 26.4 SECONDS (22.3-36.8)
[2022-09-27 07:17] LABS: Blood Urea Nitrogen 15 mg/dL (9-20); Calcium 8.5 mg/dL (8.4-10.2); Carbon Dioxide > 40 mmol/L (22-30); Chloride 91 mmol/L (98-107); Estimated CRCL calculation 43 ml/min; Estimated Glomerular Filt Rate 58; Glucose 90 mg/dL (65-110); Potassium 3.7 mmol/L (3.4-5.0); Sodium 137 mmol/L (137-145)
[2022-09-27 08:06] LABS: Glucose Point of Care 79 mg/dl (65-105)
[2022-09-27] MEDS: LEVOTHYROXINE SODIUM 12.5 MCG TABLET PO (08:08)
[2022-09-27] MEDS: levETIRAcetam 500 MG TABLET 1000 MG PO ×2 (10:57→16:43)
[2022-09-27] MEDS: CHOLECALCIFEROL 1,000 UNITS TABLET 2000 UNITS PO (10:57)
[2022-09-27] MEDS: acetaZOLAMIDE TAB 250 MG TABLET PO (10:57)
[2022-09-27] MEDS: ASPIRIN 81 MG CHEWABLE TABLET PO (10:58)
[2022-09-27] MEDS: ATORVASTATIN 10 MG TABLET PO (10:58)
[2022-09-27] MEDS: FUROSEMIDE 40 MG TABLET PO (10:58)
[2022-09-27 11:45] LABS: Glucose Point of Care 83 mg/dl (65-105)
--- NOTE | 2022-09-27 14:27 | P.PNIM_ITS ---
Progress Note: A&P Assessment and Plan (1) Altered mental status: Code(s): R41.82 - Altered mental status, unspecified Status: Acute Assessment and Plan: 09/27/2022 Interval history: CT head with no acute intracranial processes and no evidence of lesions. UA negative and CXR with no pneumonia. Urine toxicology negative. No keppra level sent from ED. Concern for breakthrough seizure. Loaded with keppra 1500 in the ED. No signs of infection at this time but was diagnosed with CLL 03/2022. Will start broad spectrum antibiotics at this time. Will defer LP and MRI for now. Hx of chronic hypercarbic respiratory failure and has pulmonary hypertension but appears to have adequate oxygen saturation on baseline 2LNC. TSH 1.1 & free t4 1.73. BCX with no growth. EEG read as encephalopathy. Appears to be very slowly improving. Will continue to monitor. -Discontinued cefepime and started ceftriaxone 2g q12h -Continue vancomycin -Appreciate Neurology recommendations -Seizure precautions -Neuro checks -Continue keppra 1000 mg BID patient remains encephalopathic, patient is being treated with the keppra, no new seizures while in the hospital, patient had developed fever concerning for infection seen by Neurology, blood culture so far no growth, patient is being treated ceftriaxone 2 g q.day and vancomycin, however patient left side was quite weak yesterday to further evaluate patient had CT of head and it showed: 1. Large distribution of acute infarct involving left frontal, temporal, parietal, and occipital lobes. 2. 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 3. No aneurysm or significant intracranial arterial stenosis. 4. 0% stenosis of the proximal internal carotid arteries relative to normal distal artery lumen diameters (NASCET criteria). 5. Moderate-sized right and small left pleural effusions. this morning patient unable to provide any review of symptoms he remains c linically stable, patient prognosis with large cerebral infarct is very poor and neurologist agrees, on 09/26 I talked to patient and discussed and she has agree to consult hospice, today patient had a thoracentesis and 1000 cc was collected clear fluid most likely transudate, patient remains clinically stable will discharge the patient tomorrow and he will be admitted under hospice care (2) Breakthrough seizure: Code(s): G40.919 - Epilepsy, unspecified, intractable, without status epilepticus Status: Acute Assessment and Plan: Loaded with keppra. Continue keppra. Appreciate Neurology recommendations. 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 Getting rituximab. Outpatient follow up. (4) Chronic respiratory failure: Code(s): J96.10 - Chronic respiratory failure, unspecified whether with hypoxia or hypercapnia Status: Resolved Assessment and Plan: Wears oxygen at home. Stable. Will monitor. (5) CAD (coronary artery disease): Code(s): I25.10 - Atherosclerotic heart disease of [place] coronary artery without angina pectoris Status: Acute Assessment and Plan: On statin and aspirin. Continue. (6) Hypertension: Qualifiers: Hypertension type: primary hypertension Qualified Code(s): I10 - Essential (primary) hypertension Code(s): I10 - Essential
[2022-09-27 16:20] LABS: Glucose Point of Care 111 mg/dl (65-105)
[2022-09-28] MEDS: LEVOTHYROXINE SODIUM 12.5 MCG TABLET PO (05:40)
[2022-09-28 05:41] VITALS: BP 126/52; PULSE 79; RESP 12; TEMP 36.4; O2SAT 99
[2022-09-28 08:08] LABS: Glucose Point of Care 82 mg/dl (65-105)
[2022-09-28] MEDS: CHOLECALCIFEROL 1,000 UNITS TABLET 2000 UNITS PO (08:19)
[2022-09-28] MEDS: levETIRAcetam 500 MG TABLET 1000 MG PO (08:19)
[2022-09-28] MEDS: ATORVASTATIN 10 MG TABLET PO (08:19)
[2022-09-28] MEDS: FUROSEMIDE 40 MG TABLET PO (08:19)
[2022-09-28] MEDS: ASPIRIN 81 MG CHEWABLE TABLET PO (08:19)
[2022-09-28 09:00] VITALS: O2SAT 96
[2022-09-28 11:58] LABS: Glucose Point of Care 134 mg/dl (65-105)
--- NOTE | 2022-09-28 12:30 | PM.DS ---
DS: Admitting Diagnosis Discharge Date 09/28/2022 Admitting Diagnosis seizures DS: Discharge Diagnosis Discharge Diagnosis (1) Altered mental status: Code(s): R41.82 - Altered mental status, unspecified Status: Acute Assessment and Plan: 09/27/2022 Interval history: CT head with no acute intracranial processes and no evidence of lesions. UA negative and CXR with no pneumonia. Urine toxicology negative. No keppra level sent from ED. Concern for breakthrough seizure. Loaded with keppra 1500 in the ED. No signs of infection at this time but was diagnosed with CLL 03/2022. Will start broad spectrum antibiotics at this time. Will defer LP and MRI for now. Hx of chronic hypercarbic respiratory failure and has pulmonary hypertension but appears to have adequate oxygen saturation on baseline 2LNC. TSH 1.1 & free t4 1.73. BCX with no growth. EEG read as encephalopathy. Appears to be very slowly improving. Will continue to monitor. -Discontinued cefepime and started ceftriaxone 2g q12h -Continue vancomycin -Appreciate Neurology recommendations -Seizure precautions -Neuro checks -Continue keppra 1000 mg BID patient remains encephalopathic, patient is being treated with the keppra, no new seizures while in the hospital, patient had developed fever concerning for infection seen by Neurology, blood culture so far no growth, patient is being treated ceftriaxone 2 g q.day and vancomycin, however patient left side was quite weak yesterday to further evaluate patient had CT of head and it showed: 1. Large distribution of acute infarct involving left frontal, temporal, parietal, and occipital lobes. 2. 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 3. No aneurysm or significant intracranial arterial stenosis. 4. 0% stenosis of the proximal internal carotid arteries relative to normal distal artery lumen diameters (NASCET criteria). 5. Moderate-sized right and small left pleural effusions. this morning patient unable to provide any review of symptoms he remains clinically stable, patient prognosis with large cerebral infarct is very poor and neurologist agrees, on 09/26 I talked to patient and discussed and she has agree to consult hospice, today patient had a thoracentesis and 1000 cc was collected clear fluid most likely transudate, patient remains clinically stable will discharge the patient tomorrow and he will be admitted under hospice care (2) Breakthrough seizure: Code(s): G40.919 - Epilepsy, unspecified, intractable, without status epilepticus Status: Acute Assessment and Plan: Loaded with keppra. Continue keppra. Appreciate Neurology recommendations. 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 Getting rituximab. Outpatient follow up. (4) Chronic respiratory failure: Code(s): J96.10 - Chronic respiratory failure, unspecified whether with hypoxia or hypercapnia Status: Resolved Assessment and Plan: Wears oxygen at home. Stable. Will monitor. (5) CAD (coronary artery disease): Code(s): I25.10 - Atherosclerotic heart disease of [place] coronary artery without angina pectoris Status: Acute Assessment and Plan: On statin and aspirin. Continue. (6) Hypertension: Qualifiers: Hypertension type: primary hypertension Qualified Code(s): I10 - Essential (primary) hypertension Code(s): I10 - Essential (primary) hypertension Status: Acute Assessment and Plan: Not on any antihypertensive medications. Will monitor. (7) Hyperlipidemia: Qualifiers: Hyperlipidemia type: unspecified Qualified Code(s): E78.5
[2022-09-28 13:44] VITALS: BP 115/47; PULSE 81; RESP 20; TEMP 36.2; O2SAT 100
== END 2022-09-28 13:50 | disposition hospice, home (50) | DRG 101 ==
LOC: ANHED 23:48 → ANH3MEDSUR 09-21 05:24
PROVIDERS: Family Medicine; Admitting Provider Internal Medicine; Emergency Provider Emergency Medicine; PCP Internal Medicine; Visit Provider Family Medicine
DX: G40.919 Epilepsy, unspecified, intractable, without status epilepticus; C91.10 Chronic lymphocytic leukemia of B-cell type not having achieved remission; J96.12 Chronic respiratory failure with hypercapnia; I50.32 Chronic diastolic (congestive) heart failure; I13.0 Hypertensive heart and chronic kidney disease with heart failure and stage 1 through stage 4 chronic kidney disease, or unspecified chronic kidney disease; G93.40 Encephalopathy, unspecified; J91.8 Pleural effusion in other conditions classified elsewhere; D63.8 Anemia in other chronic diseases classified elsewhere; I27.20 Pulmonary hypertension, unspecified; E11.51 Type 2 diabetes mellitus with diabetic peripheral angiopathy without gangrene; E11.22 Type 2 diabetes mellitus with diabetic chronic kidney disease; N18.32 Chronic kidney disease, stage 3b; E03.9 Hypothyroidism, unspecified; E78.2 Mixed hyperlipidemia; I25.10 Atherosclerotic heart disease of native coronary artery without angina pectoris; N40.0 Benign prostatic hyperplasia without lower urinary tract symptoms; K21.9 Gastro-esophageal reflux disease without esophagitis; Z20.822 Contact with and (suspected) exposure to COVID-19; Z28.82 Immunization not carried out because of caregiver refusal; Z79.01 Long term (current) use of anticoagulants; Z79.82 Long term (current) use of aspirin; Z85.3 Personal history of malignant neoplasm of breast; Z85.46 Personal history of malignant neoplasm of prostate; Z85.841 Personal history of malignant neoplasm of brain; Z86.718 Personal history of other venous thrombosis and embolism; Z86.73 Personal history of transient ischemic attack (TIA), and cerebral infarction without residual deficits; Z87.820 Personal history of traumatic brain injury
CPT/HCPCS: 32555; 36415; 51701; 70450; 70496; 70498; 71045; 80048; 80202; 80307; 81003; 82948; 83735; 84439; 84443; 84484; 85025; 85610; 85730; 87040; 92526; 92610; 93005; 95816; 96365; 96367; 97110; 97163; 97166; 97530; 99285; A9270; C9803; G0378; J0692; J0696; J1953; J3370; J7030; Q9967; U0003; U0005